=== PATIENT | female | born 1985 | race African-American/Black ===

== ENCOUNTER 2020-12-13 07:47 | Outpatient (REF) | payer MEDICAID, SELFPAY ==
--- NOTE | 2020-12-13 | PFT_ITS ---
FLOWS: FEV1 100% of predicted at 3.02 L. FVC 98% of predicted at 3.50 L. FEV1 to FVC ratio of 0.86. No bronchodilator response. LUNG VOLUMES: Total lung capacity 99% of predicted at 4.89 L. Residual volume 84% of predicted at 1.24 L. Slow vital capacity 106% of predicted at 3.65 L. Expiratory reserve volume 83% of predicted at 1.03 L. Diffusion capacity is normal. IMPRESSION: No obstructive or restrictive ventilatory defect. No bronchodilator response. Essentially normal pulmonary function test. Preet Casper MD AP/MODL / [id number]
== END 2020-12-13 07:48 | disposition home or self-care (01) ==
LOC: HO.RESP 07:47
PROVIDERS: PCP Nurse Practitioner Family; Visit Provider Nurse Practitioner Family
DX: J45.40 Moderate persistent asthma, uncomplicated (principal)
CPT/HCPCS: 94060; 94727; 94729

== ENCOUNTER 2021-01-25 14:50 | Outpatient (REF) | payer MEDICAID, SELFPAY | END 2021-01-25 14:51 | disposition home or self-care (01) | LOC: HO.LAB 14:50 | PROVIDERS: Visit Provider Internal Medicine | DX: Z20.822 Contact with and (suspected) exposure to COVID-19 (principal) | CPT/HCPCS: 36415; C9803; U0003; U0005 ==

== ENCOUNTER → 2021-08-13 10:58 | Outpatient (BNV) | payer MEDICAID, SELFPAY | PROVIDERS: Referring Provider Nurse Practitioner Primary Care; Visit Provider Internal Medicine Medical Oncology | DX: D64.9 Anemia, unspecified (principal) | CPT/HCPCS: 99203; 99213 ==

== ENCOUNTER 2021-11-14 12:34 | Outpatient (REF) | payer MEDICAID, SELFPAY | END 2021-11-14 12:35 | disposition home or self-care (01) | LOC: HO.LAB 12:34 | PROVIDERS: Visit Provider Internal Medicine | DX: Z13.89 Encounter for screening for other disorder (principal) ==

== ENCOUNTER 2022-09-01 10:50 | Outpatient (REF) | payer MEDICAID, SELFPAY ==
--- NOTE | ~2022-09-01 | XR_ITS ---
EXAMINATION: LUMBAR SPINE AND CERVICAL SPINE X-RAYS CLINICAL INFORMATION: Pain COMPARISON: None TECHNIQUE: 3 views of the lumbar spine and 3 views of the cervical spine FINDINGS: Lumbar spine: Bone alignment is normal. No fracture or dislocation. Normal disc spaces. IUD in the pelvis. Cervical spine: Bone alignment is normal. No fracture or dislocation. Mild degenerative spondylosis at C3-C4 and C5-C6. Normal disc spaces. Normal prevertebral soft tissues. XR/XR cervical spine 3V IMPRESSION: Lumbar spine: Unremarkable exam. Cervical spine: Mild degenerative changes.
--- NOTE | ~2022-09-01 | XR_ITS ---
EXAMINATION: LUMBAR SPINE AND CERVICAL SPINE X-RAYS CLINICAL INFORMATION: Pain COMPARISON: None TECHNIQUE: 3 views of the lumbar spine and 3 views of the cervical spine FINDINGS: Lumbar spine: Bone alignment is normal. No fracture or dislocation. Normal disc spaces. IUD in the pelvis. Cervical spine: Bone alignment is normal. No fracture or dislocation. Mild degenerative spondylosis at C3-C4 and C5-C6. Normal disc spaces. Normal prevertebral soft tissues. XR/XR lumbar spine 2-3V IMPRESSION: Lumbar spine: Unremarkable exam. Cervical spine: Mild degenerative changes.
== END 2022-09-01 10:51 | disposition home or self-care (01) ==
LOC: HO.XRAY 10:50
PROVIDERS: PCP Nurse Practitioner Primary Care; Visit Provider Emergency Medicine
DX: M54.2 Cervicalgia (principal); M54.50 Low back pain, unspecified
CPT/HCPCS: 72040; 72100

== ENCOUNTER 2023-05-27 08:08 | Outpatient (REF) | payer MEDICAID, SELFPAY | END 2023-05-27 08:09 | disposition home or self-care (01) | LOC: HO.MDS 08:08 | PROVIDERS: Visit Provider Internal Medicine Medical Oncology | DX: D50.9 Iron deficiency anemia, unspecified (principal) | CPT/HCPCS: 96365; J1756 ==

== ENCOUNTER 2023-06-04 13:42 | Outpatient (REF) | payer MEDICAID, SELFPAY | END 2023-06-04 13:43 | disposition home or self-care (01) | LOC: HO.MDS 13:42 | PROVIDERS: Visit Provider Internal Medicine Medical Oncology | DX: D50.8 Other iron deficiency anemias (principal) | CPT/HCPCS: 96365; J1756 ==

== ENCOUNTER 2023-06-11 13:17 | Outpatient (REF) | payer MEDICAID, SELFPAY | END 2023-06-11 13:18 | disposition home or self-care (01) | LOC: HO.MDS 13:17 | PROVIDERS: Visit Provider Internal Medicine Medical Oncology | DX: D50.8 Other iron deficiency anemias (principal) | CPT/HCPCS: 96365; J1756 ==

== ENCOUNTER 2023-06-11 16:37 | Outpatient (REF) | payer MEDICAID, SELFPAY | END 2023-06-11 16:38 | disposition home or self-care (01) | LOC: HO.HHCLNP 16:37 | PROVIDERS: Visit Provider Student in an Organized Health Care Education/Training Program | DX: R30.9 Painful micturition, unspecified (principal) | CPT/HCPCS: 87086 ==

== ENCOUNTER 2023-07-02 12:32 | Outpatient (REF) | payer MEDICAID, SELFPAY ==
[2023-07-02 13:15] LABS: MANUAL DIFF FLAG NO
[2023-07-02 13:18] LABS: Basophils Percent Auto 0.3 % (0-2); Eosinophils Absolute Auto 0.2 X10*3/uL (0.0-0.4); Eosinophils Percent Auto 1.8 % (0-4); Hematocrit 34.6 % (37.0-47.0); Hemoglobin 10.9 g/dl (12.0-16.0); Imm Gran Abs Auto 0.04 X10*3/uL (0.00-0.03); Imm Gran Pct Auto 0.3 % (0.0-0.4); Lymphocytes Absolute Auto 2.9 X10*3/uL (1.2-4.9); Lymphocytes Percent Auto 23.1 % (20-40); Mean Corpuscular HGB Conc 31.5 g/dl (31.0-35.0); Mean Corpuscular Hemoglobin 22.6 pg (27.0-33.0); Mean Corpuscular Volume 71.6 fL (80.0-98.0); Mean Platelet Volume 9.7 fL (9.4-12.3); Monocytes Absolute Auto 0.7 X10*3/uL (0.1-1.2); Monocytes Percent Auto 5.2 % (2-11); Neutrophils Absolute Auto 8.6 x10*3/uL (2.0-8.3); Neutrophils Percent Auto 69.3 % (45-73); Platelet Count 422 X10*3/uL (160-400); Red Blood Count 4.83 X10*6/uL (4.20-5.50); Red Cell Distribution Width 21.3 % (11.0-16.0); White Blood Count 12.5 X10*3/uL (4.8-10.8)
[2023-07-02 13:54] LABS: Ferritin 58 ng/mL (10-122)
== END 2023-07-02 12:33 | disposition home or self-care (01) ==
LOC: HO.MDS 12:32
PROVIDERS: Visit Provider Internal Medicine Medical Oncology
DX: D50.8 Other iron deficiency anemias (principal)
CPT/HCPCS: 36415; 82728; 85025; 96365; J1756

== ENCOUNTER 2023-07-09 13:26 | Outpatient (REF) | payer MEDICAID, SELFPAY | END 2023-07-09 13:27 | disposition home or self-care (01) | LOC: HO.MDS 13:26 | PROVIDERS: Visit Provider Internal Medicine Medical Oncology | DX: D50.8 Other iron deficiency anemias (principal) | CPT/HCPCS: 96365; J1756 ==

== ENCOUNTER 2023-07-16 12:37 | Outpatient (REF) | payer MEDICAID, SELFPAY | END 2023-07-16 12:38 | disposition home or self-care (01) | LOC: HO.MDS 12:37 | PROVIDERS: Visit Provider Internal Medicine Medical Oncology | DX: D50.9 Iron deficiency anemia, unspecified (principal) | CPT/HCPCS: 96365; J1756 ==

== ENCOUNTER 2023-07-23 12:39 | Outpatient (REF) | payer MEDICAID, SELFPAY | END 2023-07-23 12:40 | disposition home or self-care (01) | LOC: HO.MDS 12:39 | PROVIDERS: Visit Provider Internal Medicine Medical Oncology | DX: D50.8 Other iron deficiency anemias (principal) | CPT/HCPCS: 96365; J1756 ==

== ENCOUNTER 2023-07-30 12:06 | Outpatient (REF) | payer MEDICAID, SELFPAY | END 2023-07-30 12:07 | disposition home or self-care (01) | LOC: HO.MDS 12:06 | PROVIDERS: Visit Provider Internal Medicine Medical Oncology | DX: D50.8 Other iron deficiency anemias (principal) | CPT/HCPCS: 96365; J1756 ==

== ENCOUNTER 2023-10-12 09:32 | Outpatient (AMB) | payer MEDICAID, SELFPAY ==
[2023-10-12 09:34] VITALS: BP 136/73; PULSE 100; BMI 35.5
--- NOTE | 2023-10-12 09:34 | A.OFFVIS_ITS ---
Intake Vital Signs 10/12/23 09:34 Height 5 ft 3 in Weight 200 lb 9.93 oz BMI 35.5 BP 136/73 Blood Pressure Location Lt brachial Position Sitting Pulse 100 Pulse Source Pulse Oximeter Intake Visit Reasons: Gerd Intake Note: Pt presents to the office today for GERD. Pt states he has acid reflux occasionally. Pt states it is not everyday and it isnt consistant. Pt states it usaully happens after she eats but it is not everytime she eats. Pt states she does get nauseous when she gets acid reflux. Pt denies any vomiting or diarrhea. Allergies sulfamethoxazole [From BACTRIM] Allergy (Intermediate, Unverified 10/12/23 09:36) RASH trimethoprim [From BACTRIM] Allergy (Intermediate, Unverified 10/12/23 09:36) RASH Sulfa (Sulfonamide Antibiotics) [SULFA (SULFONAMIDE ANTIBIOTICS)] Allergy (Unknown, Unverified 10/12/23 09:36) UNKNOWN, erythema, rash HPI Gerd HPI Details 38-year-old female with past medical his tory of anemia, status post cholecystectomy is here today for initial consultation. Patient reports that she has been having postprandial epigastric pain with dyspepsia and occasional nausea for the past year. Patient reports she had cholecystectomy about 3 years ago. Patient reports that occasionally postprandially she will have abdominal bloating. Patient denies dysphagia or odynophagia. Patient was placed on omeprazole by her PCP, however she states that it was not effective and she stopped taking it. Last dose over 3 weeks ago. Patient states that she takes Pepcid on as needed basis, last dose 4 days ago. Patient denies melena, hematochezia, unintentional weight loss or ribbon like stools. Patient reports that she is not moving her bowels well. Even though sometimes she will have a bowel movement couple times a day she does not feel like she empties her bowels completely. Patient reports occasional right upper quadrant pain and epigastric pain. Patient reports pain 1-2 hours after eating. 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 Asthma Anxiety and depression Easy bruising Pain in both wrists Pain in finger of both hands Microcytic hypochromic anemia Herpes simplex labialis Seasonal allergies Migraine Mood disorder Bilateral carpal tunnel syndrome GERD without esophagitis IUD (intrauterine device) in place Vitamin D deficiency Anemia Mild intermittent asthma Arthralgia Arthritis Surgical History History of ankle surgery H/O splenectomy Family History Father Pancreatic cancer Lupus Maternal Aunt Breast cancer Household Members: Spouse and Children Housing: House Alcohol intake: current Alcohol intake frequency: holidays/special occasions only Alcohol type: hard liquor Patient Tobacco Use Status: Never used Tobacco service: No Current occupational status: employed Review of Systems Const Denies weight gain and Denies weight loss ENT Reports no additional complaints, Denies dysphagia and Denies odynophagia Card Reports no additional complaints Resp Reports no additional complaints GI Reports abdominal pain, Denies belching, Denies melena, Reports bloating, Denies change in bowel habits, Denies dysphagia, Denies excessive flatus, Denies dyspepsia, Reports heartburn, Denies diarrhea, Denies loose stools, Reports nausea, Denies odynophagia and Denies vomiting Reports no additional complaints Musc Reports no additional complaints Neuro Reports no additional complaints Psych Reports no additional complaints Endo Reports no additional complaints Physical Exam Vital Signs: Last Vital Signs Pulse 100 10/12/23 09:34 BP 136/73 10/12/23 09:34 BMI result Body Mass Index 35.5 Const General: healthy appearing, no acute distress and well developed Nutritional Appearance: obese Orientation/consciousness: patient oriented x3 HEENT Head: Yes normal to inspection, Yes normocephalic and Yes atraumatic Face and sinus: Yes normal facial exam Mouth: Normal oral and palatal mucosa present Throat: Yes posterior oropharynx normal, Yes tonsils normal and Yes uvula midline Eyes General: appearance normal, both eyes and all related structures Neck Neck: Yes normal visual inspection, Yes full ROM and Yes trachea midline Thyroid: Thyroid normal Resp Effort & Inspection: normal respiratory effort, able to speak in complete sentences, no tracheal deviation and symmetric chest movement Auscultation: clear to auscultation bilaterally Cardio Rate: regular rate Heart sounds: S1 normal heart sound present and S2 normal heart sound present GI Inspection: Yes normal to inspection, No distended and Yes obesity Palpation (GI): Soft to palpation, not firm, nontender and No hepatosplenomegaly present Auscultation: normal bowel sounds General: Yes no CVA tenderness Back/Spine/Pelvis Back: no CVA tenderness Skin General skin exam: elasticity normal, turgor normal and dry skin Neuro General: patient oriented x3 Psych Appearance: grossly normal Mental Status: mental status grossly normal Assessment & Plan Assessment & Plan (1) GERD (gastroesophageal reflux disease): Code(s): K21.9 - Gastro-esophageal reflux disease without esophagitis Qualifiers: Esophagitis presence: esophagitis presence not specified Qualified Code(s): K21.9 - Gastro-esophageal reflux disease without esophagitis (2) Postprandial abdominal bloating: Code(s): R14.0 - Abdominal distension (gaseous) (3) Epigastric pain: Code(s): R10.13 - Epigastric pain Plan Will test for H pylori today, will treat empirically if positive. Patient can start famotidine daily. Discussed with patient avoiding dietary triggers in late night snacking. Staying upright for minimal 3 hours after meals discussed with patient. Discussed with patient low FODMAP diet. List of food recommended as well as list of food to avoid given to patient. Will check lipase, transglutaminase, thyroid study. Patient can take senna daily to help her move her bowels better. Patient was also encouraged to increase fluid intake and activity to promote better bowel motility. I will see her in 2 months, sooner on as needed basis. Patient is agreeable to this plan and verbalizes understanding of instructions. She was given the opportunity to ask questions and all questions answered. Thank you for allowing me to participate in her care Orders: Orders Transglutaminase IgA Today R10.9 - Unspecified abdominal pain Transglutaminase Ab IgG Today R10.9 - Unspecified abdominal pain TSH reflex Free T4 Today K59.00 - Constipation, unspecified Lipase Today R10.9 - Unspecified abdominal pain H Pylori Breath Test Today R10.13 - Epigastric pain Vitamin D 25-OH (D2 and D3) Today E55.9 - Vitamin D deficiency, unspecified Medications: New famotidine (Pepcid) 20 mg PO BEDTIME 30 tabs 3RF K21.9 - Gastro-esophageal reflux disease without esophagitis sennosides (Natural Senna Laxative) 17.2 mg (2 x 8.6 mg) PO BEDTIME 60 tabs 3RF constipation K59.00 - Constipation, unspecified Coding Level of Care Code New Pt Level 3 (66209) Diagnoses Gastroesophageal reflux disease, unspecified whether esophagitis present K21.9 Esophagitis presence: esophagitis presence not specified Postprandial abdominal bloating R14.0 Epigastric pain R10.13 Time Spent (min) 40 Comment 30 minutes spent with patient and additional 10 minutes spent reviewing her records
== END 2023-10-12 10:24 | disposition home or self-care (01) ==
PROVIDERS: PCP Nurse Practitioner Primary Care; Visit Provider Nurse Practitioner Family
DX: K21.9 Gastro-esophageal reflux disease without esophagitis (principal); R14.0 Abdominal distension (gaseous); R10.13 Epigastric pain
CPT/HCPCS: 99203

== ENCOUNTER 2023-10-12 09:32 | Outpatient (REF) | payer MEDICAID, SELFPAY ==
[2023-10-12 11:59] LABS: TSH reflex Free T4 1.57 uIU/mL (0.32-4.0)
[2023-10-12 12:03] LABS: Lipase 13 U/L (8-78)
[2023-10-15 06:43] LABS: Transglutaminase Ab IgG <1.0 U/mL; Transglutaminase IgA <1.0 U/mL
[2023-10-15 15:53] LABS: Vitamin D 25-OH, D2 <4 ng/mL; Vitamin D 25-OH, D3 17 ng/mL; Vitamin D 25-OH, Total 17 ng/mL (30-100)
[2023-10-17 15:07] LABS: H Pylori Breath Test Negative (Negative)
== END 2023-10-12 09:33 | disposition home or self-care (01) ==
LOC: HO.LAB 09:32
PROVIDERS: PCP Nurse Practitioner Primary Care; Visit Provider Nurse Practitioner Family
DX: R10.13 Epigastric pain (principal); R10.9 Unspecified abdominal pain; E55.9 Vitamin D deficiency, unspecified; K59.00 Constipation, unspecified; R14.0 Abdominal distension (gaseous)
CPT/HCPCS: 36415; 82306; 83013; 83690; 84443; 86364; 99212

== ENCOUNTER 2024-01-25 10:53 | Outpatient (AMB) | payer MEDICAID, SELFPAY ==
[2024-01-25 10:58] VITALS: BP 139/65; PULSE 100; BMI 35.7
--- NOTE | 2024-01-25 10:58 | A.OFFVIS_ITS ---
Intake Vital Signs 01/25/24 10:58 Height 5 ft 3 in Weight 201 lb 8.04 oz BMI 35.7 BP 139/65 Blood Pressure Location Rt brachial Position Sitting Pulse 100 Intake Visit Reasons: follow up GERD Intake Note: Oriana presents to the office today in follow up of GERD and labs. CC: Patient c/o epigastric pain, nausea, LUQ abdominal pain, GERD, and constipation last month. She also reports she was having diarrhea, nausea, and abdominal pain for a week and then again for a weekend. She is unsure if she had a virus but states she is doing better now. She also reports that lately she is having a lot of allergies, she feels her body, throat, and eyes itching. Allergies sulfamethoxazole [From BACTRIM] Allergy (Intermediate, Verified 01/25/24 11:04) RASH trimethoprim [From BACTRIM] Allergy (Intermediate, Verified 01/25/24 11:04) RASH Sulfa (Sulfonamide Antibiotics) [SULFA (SULFONAMIDE ANTIBIOTICS)] Allergy (Unknown, Verified 01/25/24 11:04) UNKNOWN, erythema, rash HPI follow up GERD HPI Details LAST VISIT: GERD (gastroesophageal reflux disease) Postprandial abdominal bloating Epigastric pain Plan Will test for H pylori today, will treat empirically if positive. Patient can start famotidine daily. Discussed with patient avoiding dietary triggers in late night snacking. Staying upright for minimal 3 hours after meals discussed with patient. Discussed with patient low FODMAP diet. List of food recommended as well as list of food to avoid given to patient. Will check lipase, transglutaminase, thyroid study. Patient can take senna daily to help her move her bowels better. Patient was also encouraged to increase fluid intake and activity to promote better bowel motility. I will see her in 2 months, sooner on as needed basis. Patient is agreeable to this plan and verbalizes understanding of instructions. She was given the opportunity to ask questions and all questions answered. ? Thank you for allowing me to participate in her care Orders Orders Transglutaminase IgA Today R10.9 Transglutaminase Ab IgG Today R10.9 TSH reflex Free T4 Today K59.00 Lipase Today R10.9 H Pylori Breath Test Today R10.13 Vitamin D 25-OH (D2 and D3) Today E55.9 Medications New famotidine (Pepcid) 20 mg PO BEDTIME 30 tabs 3RF K21.9 sennosides (Natural Senna Laxative) 17.2 mg (2 x 8.6 mg) PO BEDTIME 60 tabs 3RF constipation K59.00 TODAY'S VISIT Patient is here today for follow-up. Patient reports epigastric discomfort postprandially. Patient reports postprandial abdominal bloating. Occasional nausea. Patient reports that she was taking senna and continues to be constipated. Patient denies any melena, hematochezia, unintentional weight loss or ribbon like stools. Patient had blood work done no celiac, no H pylori. Low vitamin-D level and patient started taking her vitamin-D supplements, however she has not taking them for the last month or so. Patient was unable to make her 2 month follow-up appointment as she had other commitments. Patient reports acid reflux and dyspepsia. Patient denies any dysphagia or odynophagia. Patient denies any issues with anesthesia in the past. No history of sleep apnea. Not on any anticoagulation medication. 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 Asthma Anxiety and depression Easy bruising Pain in both wrists Pain in finger of both hands Microcytic hypochromic anemia Herpes simplex labialis Seasonal allergies Migraine Mood disorder Bilateral carpal tunnel syndrome GERD without esophagitis IUD (intrauterine device) in place Vitamin D deficiency Anemia Mild intermittent asthma Arthralgia Arthritis Surgical History History of ankle surgery H/O splenectomy Family History Father Pancreatic cancer Lupus Maternal Aunt Breast cancer Social History Household Members: Spouse and Children Housing: House Alcohol intake: current Alcohol intake frequency: holidays/special occasions only Alcohol type: hard liquor Patient Tobacco Use Status: Never used Tobacco service: No Current occupational status: employed Review of Systems Const Denies weight gain and Denies weight loss ENT Reports no additional complaints, Denies dysphagia and Denies odynophagia Card Reports no additional complaints Resp Reports no additional complaints GI Reports abdominal pain, Denies belching, Denies melena, Reports bloating, Reports constipation, Denies dysphagia, Denies excessive flatus, Reports dyspepsia, Reports heartburn, Denies diarrhea, Denies loose stools, Denies nausea, Denies odynophagia and Denies vomiting Reports no additional complaints Musc Reports no additional complaints Neuro Reports no additional complaints Psych Reports no additional complaints Endo Reports no additional complaints Physical Exam Vital Signs: Last Vital Signs Pulse 100 01/25/24 10:58 BP 139/65 01/25/24 10:58 BMI result Body Mass Index 35.7 Const General: healthy appearing, no acute distress and well developed Nutritional Appearance: obese Orientation/consciousness: patient oriented x3 Resp Effort & Inspection: normal respiratory effort, able to speak in complete sentences, no tracheal deviation and symmetric chest movement Auscultation: clear to auscultation bilaterally Cardio Rate: regular rate GI Inspection: Yes normal to inspection, No distended and Yes obesity Palpation (GI): Soft to palpation, not firm, nontender and No hepatosplenomegaly present Auscultation: normal bowel sounds General: Yes no CVA tenderness Back/Spine/Pelvis Back: no CVA tenderness Skin General skin exam: elasticity normal, turgor normal and dry skin Neuro General: patient oriented x3 Psych Appearance: grossly normal Mental Status: mental status grossly normal Results Reviewed Results Reviewed: Laboratory Tests 10/12/23 10/12/23 10:01 10:38 Lipase 13 25-OH Vitamin D Total 17 L TSH 1.57 Tiss Transglutamin IgG <1.0 Tiss Transglutamin IgA <1.0 H. pylori Breath Test Negative Assessment & Plan Assessment & Plan (1) GERD (gastroesophageal reflux disease): Code(s): K21.9 - Gastro-esophageal reflux disease without esophagitis Qualifiers: Esophagitis presence: esophagitis presence not specified Qualified Code(s): K21.9 - Gastro-esophageal reflux disease without esophagitis (2) Postprandial abdominal bloating: Code(s): R14.0 - Abdominal distension (gaseous) (3) Epigastric pain: Code(s): R10.13 - Epigastric pain (4) Constipation: Code(s): K59.00 - Constipation, unspecified Qualifiers: Constipation type: slow transit constipation Qualified Code(s): K59.01 - Slow transit constipation Plan Patient continues to be constipated and continues to have epigastric discomfort. Patient can start taking Dulcolax daily. Will add omeprazole and she can take famotidine at nighttime. Discussed with patient diet changes. Discussed with patient avoiding dietary triggers and late night snacking. Staying upright for minimal 3 hours after meals discussed with her. Patient will be sent for upper endoscopy to rule out gastritis, esophagitis, duodenitis, gastric or peptic ulcers, Lawson's, H pylori. I will see patient after the procedure, sooner on as needed basis. Patient is agreeable to this plan and verbalizes understanding of instructions. She was given the opportunity to ask questions and all questions answered. Thank you for allowing me to participate in her care Medications: New omeprazole 20 mg PO DAILY 30 caps 4RF K21.9 - Gastro-esophageal reflux disease without esophagitis bisacodyl (Dulcolax (bisacodyl)) 10 mg (2 x 5 mg) PO BEDTIME 60 tabs 4RF Refilled famotidine (Pepcid) 20 mg PO BEDTIME 30 tabs 3RF K21.9 - Gastro-esophageal reflux disease without esophagitis cholecalciferol (vitamin D3) 50 mcg PO DAILY 90 caps 3RF R79.89 - Other specified abnormal findings of blood chemistry Discontinued sennosides (Natural Senna Laxative) Discontinued Reason: Doctor's Order 17.2 mg (2 x 8.6 mg) PO BEDTIME 60 tabs 3RF constipation K59.00 - Constipation, unspecified Coding Level of Care Code Est Pt Level 4 (06949) Diagnoses Gastroesophageal reflux disease, unspecified whether esophagitis present K21.9 Esophagitis presence: esophagitis presence not specified Postprandial abdominal bloating R14.0 Epigastric pain R10.13 Slow transit constipation K59.01 Constipation type: slow transit constipation Time Spent (min) 35 Comment 20 minutes spent with patient and additional 15 minutes spent reviewing her records
== END 2024-01-25 11:27 | disposition home or self-care (01) ==
PROVIDERS: PCP Nurse Practitioner Primary Care; Visit Provider Nurse Practitioner Family
DX: K21.9 Gastro-esophageal reflux disease without esophagitis (principal); R14.0 Abdominal distension (gaseous); R10.13 Epigastric pain; K59.01 Slow transit constipation
CPT/HCPCS: 99214

== ENCOUNTER → 2024-01-25 10:53 | Outpatient (BNVA) | payer MEDICAID, SELFPAY | PROVIDERS: PCP Nurse Practitioner Primary Care; Visit Provider Nurse Practitioner Family | DX: K21.9 Gastro-esophageal reflux disease without esophagitis (principal); K59.01 Slow transit constipation; R14.0 Abdominal distension (gaseous); R10.13 Epigastric pain | CPT/HCPCS: 99212 ==

== ENCOUNTER 2024-04-27 09:09 | Outpatient (REF) | payer MEDICAID, SELFPAY ==
[2024-04-27 11:55] LABS: Estimated Average Glucose 111 mg/dL; Hemoglobin A1c % 5.5 % (<6.0)
[2024-04-27 12:11] LABS: Cholesterol 135 mg/dL (<200); HDL Cholesterol 34 mg/dL (>40); LDL Cholesterol Calculated 87 mg/dL (<100); Triglycerides 70 mg/dL (<150)
[2024-04-27 12:14] LABS: HIV AB/AG Nonreactive (Nonreactive); HIV Num 1 0.06 S/CO (0.00-0.99); ~Hepatitis C Antibody Nonreactive (Nonreactive)
[2024-04-29 13:13] LABS: RPR Rapid Plasma Reagin NON-REACTIVE (NON-REACTIVE)
== END 2024-04-27 09:10 | disposition home or self-care (01) ==
LOC: HO.HHCL 09:09
PROVIDERS: Visit Provider Nurse Practitioner Primary Care
DX: Z11.3 Encounter for screening for infections with a predominantly sexual mode of transmission (principal); R73.09 Other abnormal glucose
CPT/HCPCS: 36415; 80061; 83036; 86592; 86803; 87389

== ENCOUNTER 2024-08-10 18:17 | Outpatient (REF) | payer MEDICAID, SELFPAY ==
[2024-08-11 06:06] LABS: CT PCR NOT DETECTED (Not Detect.); NG PCR NOT DETECTED (Not Detect.)
[2024-08-11 10:51] LABS: Bacterial Vaginosis PCR NEGATIVE (Negative); Candida Group PCR DETECTED (Not Detect); Candida glab krusei PCR NOT DETECTED (Not Detect); Trichomonas vaginalis PCR NOT DETECTED (Not Detect)
== END 2024-08-10 18:18 | disposition home or self-care (01) ==
LOC: HO.HHCLNP 18:17
PROVIDERS: Visit Provider Emergency Medicine
DX: R39.9 Unspecified symptoms and signs involving the genitourinary system (principal)
CPT/HCPCS: 0352U; 87086; 87147; 87491; 87591

== ENCOUNTER 2024-08-25 16:11 | Outpatient (REF) | payer MEDICAID, SELFPAY ==
[2024-08-25 18:10] LABS: Bacterial Vaginosis PCR NEGATIVE (Negative); Candida Group PCR NOT DETECTED (Not Detect); Candida glab krusei PCR NOT DETECTED (Not Detect); Trichomonas vaginalis PCR NOT DETECTED (Not Detect)
== END 2024-08-25 16:12 | disposition home or self-care (01) ==
LOC: HO.HHCLNP 16:11
PROVIDERS: Visit Provider Nurse Practitioner Primary Care
DX: N89.8 Other specified noninflammatory disorders of vagina (principal); N39.0 Urinary tract infection, site not specified
CPT/HCPCS: 0352U; 87086

== ENCOUNTER 2024-09-01 16:40 | Outpatient (REF) | payer MEDICAID, SELFPAY ==
[2024-09-02 03:55] LABS: CT PCR NOT DETECTED (Not Detect.); NG PCR NOT DETECTED (Not Detect.)
[2024-09-02 09:12] LABS: Bacterial Vaginosis PCR NEGATIVE (Negative); Candida Group PCR NOT DETECTED (Not Detect); Candida glab krusei PCR NOT DETECTED (Not Detect); Trichomonas vaginalis PCR NOT DETECTED (Not Detect)
== END 2024-09-01 16:41 | disposition home or self-care (01) ==
LOC: HO.LNP 16:40
PROVIDERS: Visit Provider Internal Medicine
DX: R30.0 Dysuria (principal)
CPT/HCPCS: 0352U; 87086; 87147; 87491; 87591

== ENCOUNTER 2024-09-02 13:10 | Outpatient (REF) | payer MEDICAID, SELFPAY | END 2024-09-02 13:11 | disposition home or self-care (01) | LOC: HO.US 13:10 | PROVIDERS: PCP Nurse Practitioner Primary Care; Visit Provider Internal Medicine | DX: R39.9 Unspecified symptoms and signs involving the genitourinary system (principal); R31.29 Other microscopic hematuria | CPT/HCPCS: 76775 ==

== ENCOUNTER 2024-10-06 09:03 | Day surgery (SDC) | payer MEDICAID, SELFPAY ==
[2024-10-04 14:36] VITALS: BMI 35.8
--- NOTE | 2024-10-05 10:55 | P.CONAN_ITS ---
Documented by User: Alejandra Yates NP 10/05/24 10:57 HPI - Anesthesia Eval Consult details Narrative: 39yo F for Upper Endoscopy hx splenectomy. Follows C Heme for anemia. 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 Asthma Anxiety and depression Easy bruising Microcytic hypochromic anemia Herpes simplex labialis Seasonal allergies Migraine Mood disorder Bilateral carpal tunnel syndrome GERD without esophagitis IUD (intrauterine device) in place Vitamin D deficiency Anemia Mild intermittent asthma Arthralgia Arthritis Family History Family History (Reviewed 01/25/24 @ 11:09 by Nishant Higginbotham [facility]) Father Pancreatic cancer Lupus Maternal Aunt Breast cancer Surgical History Surgical History History of ankle surgery H/O splenectomy Social History Social History Household Members: Spouse and Children Housing: House Are you a primary healthcare technician to a significant other at home: No Do you presently have visiting nurse or other home services: No Alcohol intake: current Alcohol intake frequency: holidays/special occasions only Alcohol type: hard liquor Patient Tobacco Use Status: Never used Tobacco Have you been hit, kicked, punched, or otherwise hurt by someone within the past year? If so, by whom?: No Are you DNR?: No Advance Directives: No Advance Directives Information Provided: Yes Recently lost weight without trying: No Nutrition Risks: No Nutritional Risk FDLMP: 09/23/24 service: No Current occupational status: employed Meds Allergies Allergy/AdvReac Type Severity Reaction Status Date / Time Sulfa (Sulfonamide Allergy Intermediate erythema, Verified 10/06/24 09:50 Antibiotics) rash [SULFA (SULFONAMIDE ANTIBIOTICS)] sulfamethoxazole Allergy Intermediate RASH Verified 10/06/24 09:50 [From BACTRIM] trimethoprim [From BACTRIM] Allergy Intermediate RASH Verified 10/06/24 09:50 Home Medications ?Medication ?Instructions ?Recorded ?Confirmed ?Last Taken ?Type albuterol sulfate 2.5 mg/3 mL 2.5 mg inhalation TID 05/14/23 10/04/24 Unknown History (0.083 %) solution for nebulization cetirizine 10 mg tablet 10 mg PO DAILY 05/14/23 10/04/24 Unknown History diphenhydramine HCl 25 mg tablet 25 mg PO BEDTIME PRN Sleep 05/14/23 10/04/24 Unknown History (Banophen) fluticasone propionate 50 50 spray intranasal DAILY PRN 05/14/23 10/04/24 Unknown History mcg/actuation nasal Congestion spray,suspension meclizine 25 mg tablet 25 mg PO ONCE 05/14/23 10/04/24 Unknown History acetaminophen 500 mg capsule 1,000 mg PO Q6H PRN Pain 01/25/24 10/04/24 Unknown History mometasone 100 mcg/actuation HFA 2 puff inhalation BID 10/04/24 10/04/24 Unknown History aerosol inhaler (Asmanex HFA) Exam Height,Weight and Vital Signs: Height 5 ft 3 in Weight 91.626 kg Assessment and Plan Assessment Anesthesia Assessment: Chart Reviewed Documented by User: Yo Merino MD 10/06/24 12:23 [facility] Past Medical History Medical History 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 Asthma Anxiety and depression Easy bruising Microcytic hypochromic anemia Herpes simplex labialis Seasonal allergies Migraine Mood disorder Bilateral carpal tunnel syndrome GERD without esophagitis IUD (intrauterine device) in place Vitamin D deficiency Anemia Mild intermittent asthma Arthralgia Arthritis Patient : No Family History Family History (Reviewed 01/25/24 @ 11:09 by Nishant Higginbotham [facility]) Father Pancreatic cancer Lupus Maternal Aunt Breast cancer Family history of problems with anesthesia: No Surgical History Surgical History History of ankle surgery H/O splenectomy History of Problems with Anesthesia: No Social History Social History Household Members: Spouse and Children Housing: House Are you a primary healthcare technician to a significant other at home: No Do you presently have visiting nurse or other home services: No Alcohol intake: current Alcohol intake frequency: holidays/special occasions only Alcohol type: hard liquor Patient Tobacco Use Status: Never used Tobacco Have you been hit, kicked, punched, or otherwise hurt by someone within the past year? If so, by whom?: No Are you DNR?: No Advance Directives: No Advance Directives Information Provided: Yes Recently lost weight without trying: No Nutrition Risks: No Nutritional Risk FDLMP: 09/23/24 service: No Current occupational status: employed Meds Allergies Allergy/AdvReac Type Severity Reaction Status Date / Time Sulfa (Sulfonamide Allergy Intermediate erythema, Verified 10/06/24 09:50 Antibiotics) rash [SULFA (SULFONAMIDE ANTIBIOTICS)] sulfamethoxazole Allergy Intermediate RASH Verified 10/06/24 09:50 [From BACTRIM] trimethoprim [From BACTRIM] Allergy Intermediate RASH Verified 10/06/24 09:50 Home Medications ?Medication ?Instructions ?Recorded ?Confirmed ?Last Taken ?Type albuterol sulfate 2.5 mg/3 mL 2.5 mg inhalation TID 05/14/23 10/04/24 Unknown History (0.083 %) solution for nebulization cetirizine 10 mg tablet 10 mg PO DAILY 05/14/23 10/04/24 Unknown History diphenhydramine HCl 25 mg tablet 25 mg PO BEDTIME PRN Sleep 05/14/23 10/04/24 Unknown History (Banophen) fluticasone propionate 50 50 spray intranasal DAILY PRN 05/14/23 10/04/24 Unknown History mcg/actuation nasal Congestion spray,suspension meclizine 25 mg tablet 25 mg PO ONCE 05/14/23 10/04/24 Unknown History acetaminophen 500 mg capsule 1,000 mg PO Q6H PRN Pain 01/25/24 10/04/24 Unknown History mometasone 100 mcg/actuation HFA 2 puff inhalation BID 10/04/24 10/04/24 Unknown History aerosol inhaler (Asmanex HFA) Exam Airway Mallampati Class: II TM Dist: <=3cm Neck ROM: Full Loose/Missing/Broken Teeth: No Heart: ok Lungs: ok Assessment and Plan Assessment Anesthesia Assessment: Anesthesia Plan Discussed Final Anesthetic Review Family History of Problems with Anesthesia: No History of Problems with Anesthesia: No NPO: Yes ASA Class: II Final Preanesthetic Review: No Changes in Pt Med Stat, Meds/Allgs Chart Reviewed, Consent Obtained/Reviewed and Anes Risks/Benef Reviewed Patient Risk: Low Procedure Risk: Intermediate Anesthetic Plan Anesthetic Plan: Agree w/ Assess. and Plan and TIVA Disposition: Standard PACU
[2024-10-06 09:54] LABS: UPreg QC Valid YES
[2024-10-06 09:55] LABS: Urine Pregnancy NEGATIVE (NEGATIVE)
[2024-10-06 09:58] VITALS: BP 124/78; PULSE 87; RESP 18; TEMP 36.7; O2SAT 100
[2024-10-06] MEDS: Lactated Ringers 1,000 ML 100 ML IVCONT (09:58)
--- NOTE | 2024-10-06 11:28 | MHC.SHP ---
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 Asthma Anxiety and depression Easy bruising Pain in both wrists Pain in finger of both hands Microcytic hypochromic anemia Herpes simplex labialis Seasonal allergies Migraine Mood diso) History of Previous Operations: Relevant previous surgery/procedure and date(s) (History of ankle surgery H/O splenectomy) Allergies: Allergies Allergy/AdvReac Type Severity Reaction Status Date / Time Sulfa (Sulfonamide Allergy Intermediate erythema, Verified 10/06/24 09:50 Antibiotics) rash [SULFA (SULFONAMIDE ANTIBIOTICS)] sulfamethoxazole Allergy Intermediate RASH Verified 10/06/24 09:50 [From BACTRIM] trimethoprim [From BACTRIM] Allergy Intermediate RASH Verified 10/06/24 09:50 Review of Systems Sugical H&P ROS: Negative: Constitution, Cardiovascular, Respiratory, Neurological, Psychiatric, Hem-Onc, Allergic/Immunologic, Gastrointestinal, Genitourinary, Musculoskeletal, Integumentary, Endocrine and Eyes/Ears/Nose/Throat Exam Surgical H&P Exam: Normal: HEENT, Normal: Heart, Normal: Lungs, Normal: Extremities, Normal: Abdomen, Normal: Skin and Normal: Neurological Plan Diagnosis/Plan: Unchanged I have reviewed the history and physical and performed a pertinent physical examination on my patient. No changes have occurred unless specified. Time Spent With Patient Time: Total time managing care of this patient today ____ minutes.
--- NOTE | 2024-10-06 12:37 | W.PM.OPN ---
Operative Note Operative Note Date of Service: 10/06/24 Narrative: Procedure Description: EGD Indication: epigatric pain Anesthesia: MAC FLEXIBLE TRANSORAL UPPER GASTROINTESTINAL ENDOSCOPY UPPER ENDOSCOPY Consent: Indications for the procedure and potential complications of bleeding, perforation, reaction to medications and missed diagnosis were discussed with the patient and informed consent was obtained. Instrument: Olympus GIF H 190 J mid size upper endoscope Monitoring: Vital signs and clinical assessment, continuous EKG monitoring, Pulse oximetry, Carbon Dioxide monitoring and blood pressure monitoring were done throughout the procedure. Procedure: The patient was placed in the left lateral decubitis position and pre-procedure medications were administered and a bite block was placed. The endoscope was inserted into the mouth and advanced under direct vision to the third part of duodenum. A careful inspection was made as the upper endoscope was withdrawn including a retroflexed examination of the proximal stomach; Findings and interventions are described below. Findings: Larynx:normal Esophagus: GE junction at 38 cm, diaphragm hiatus at 38 cm, mild esophagitis at GEJ, bx taken also random esophagus bx taken Stomach: mild erythema . Biopsies were obtained. Grade 2 flap valve on retroflexed examination of the cardia. 4-6 mm sessile polyp removed with biopsy forceps Duodenum: Normal bulb and descending duodenum, bx taken Intervention: Biopsies as noted above, Impression/Findings: mild esophagitis gastric polyp PLAN: await bx GERD precautions\ if bx neg then expand w/u GES etc
[2024-10-06 12:45] VITALS: BP 100/57; PULSE 117; RESP 18; TEMP 36.3; O2SAT 96
[2024-10-06 13:00] VITALS: BP 111/76; PULSE 89; RESP 20; TEMP 36.8; O2SAT 99
--- OUTSIDE RECORDS SUMMARY | 2024-10-07 14:36 | XMS_ITS | Continuity of Care Document ---
Author Organization [facility] Address [address] [facility], 3r d Floor, [address] [place] [address]- Care Team Providers Care Felt Dyeing Machine Tender Name Role Phone Hayden MARINA, Ivory Chun Primary Care Physician En[facility] [facility] Date(s): 02/13/20 - 02/23/20 [facility] [address], [address]rd Floor, [address] [place] [address]- [facility] Attending Physician: Ruben Stoll Admitting Physician: Ruben Stoll Referring Physician: AdmtrRuben Allergies, Adverse Reactions, Alerts Substance Reaction Severity Status sulfADIAZINE itchy, red Active sulfa drugs itchy/red Active Medications albuterol 90 mcg/inh inhalation powder 1 puffs, Inhalation, Every 6 hours, PRN as needed, # 1 each, 0 Refills, Maintenance, 12/14/19 10:22:00 EST, Powder Start Date: 12/14/19 Status: Ordered Claritin 10 mg oral tablet 10 mg, 1, tablet, By Mouth, Daily, PRN, Refills 0, Maintenance, Other, 12/14/19 10:23:00 EST Start Date: 12/14/19 Status: Ordered Motrin Tablet By Mouth, 3 times a day, PRN, Refills 0, Maintenance, Pain , Moderate, 12/14/19 10:24:00 EST Start Date: 12/14/19 Status: Ordered Vitamin D3 By Mouth, Daily, 0 Refills, Maintenance, 12/14/19 10:25:00 EST Start Date: 12/14/19 Status: Ordered Problem List Condition Effective Dates Status Health Status Inform ant Abdominal pain(Confirmed) Active Social History Social History Type Response Smoking Status Never (less than 100 in lifetime) entered on: 07/26/19 Sex
--- OUTSIDE RECORDS SUMMARY | 2024-10-07 14:36 | XMS_ITS | Continuity of Care Document ---
Author Organization [facility] Address [address] [facility], 3r d Floor, [address] [place] [address]- Care Team Providers Care Cage Operator Name Role Phone Hayden MARINA, Ivory Chun Primary Care Physician Encounter [facility] [place] Date(s): 11/17/19 - 03/14/20 [facility] [address], 3[address] Floor, [address] [place] [address]- [facility] Attending Physician: Brad Chapa NP Admitting Physician: Brad Chapa NP Referring Physician: Ivory Blake MD Allergies, Adverse Reactions, Alerts Substance Reaction Severity [...]
--- OUTSIDE RECORDS SUMMARY | 2024-10-07 14:36 | XMS_ITS | Continuity of Care Document ---
Author Organization [facility] Address [address] [facility], 3r d Floor, [address] [place] [address]- Care Team Providers Care Ticket Worker Name Role Phone Ivory Blake MD Primary Care Physician Encounter [facility] [place] Date(s): 05/03/20 - 08/19/20 [facility] [address] [place], 3rd Floor, [address] [place] [address]- [facility] Attending Physician: Ilene Rubio MD Admitting Physician: Ilene Rubio MD Allergies, Adverse Reactions, Alerts Substance Reaction [...] 10:23:00 EST Start Date: 12/14/19 Status: Ordered magnesium oxide 400 mg oral tablet 1 tablet = 400 mg, By Mouth, Daily, for 30 days, # 30 tablet, 6 Refills, Acute 11/12/20 14:25:00 EST, 04/16/20 14:25:00 EDT, [facility] #[id number], preventatively for headaches, 160, cm, 01/27/20 13:58:00 EDT, Height, 84.2, kg, 01/11/20 10:31:00... Start Date: 04/16/20 Stop Date: 11/12/20 Status: Ordered Motrin Tablet By Mouth, 3 [...]
--- OUTSIDE RECORDS SUMMARY | 2024-10-07 14:36 | XMS_ITS | Continuity of Care Document ---
Author Organization [facility] Address [address] [place] [address] [address] [place] [address]- Care Team Providers Care Shipping Checker Name Role Phone Hayden MARINA, Ivory Chun Primary Care Physician Encounter [facility] [place] Date(s): 01/27/20 - 02/03/[address] [place] [address]- [facility] Encounter Diagnosis S/P laparoscopic cholecystectomy(Discharge Diagnosis) - 01/27/20 Attending Physician: Scout Zapien Allergies, Adverse Reactions, Alerts Substance Reaction Severity [...] Health Status Inform ant Abdominal pain(Confirmed) Active Diagnosis Diagnosis Type Effective Dates Health Status Clinical Service Informant S/P laparoscopic cholecystectomy Discharge Diagnosis 01/27/20 Vital Signs Most recent to oldest [Reference Range]: 1 Height 160 cm (01/27/20 1:58 PM) Weight 85 kg (01/27/20 1:58 PM) Pulse Rate [55-90 bpm] 108 bpm *H* (01/27/20 1:58 PM) Body Mass Index [18.5-24.99] 33.2 *>HHI* (01/27/20 1:58 PM) Blood Pressure [90-138/55-84 mm Hg] 129/ 83mm Hg (01/27/20 1:58 PM) Respiratory Rate [16-30 br/min] 16 br/mi n (01/27/20 1:58 PM) Blood pressure sites Arm, left (01/27/20 1:58 PM) Weight Obtained Via Standing scale (01/27/20 1:58 PM) Social History Social History Type Response Smoking Status Never (less than 100 in lifetime) entered on: 07/26/19 Sex
--- OUTSIDE RECORDS SUMMARY | 2024-10-07 14:36 | XMS_ITS | Continuity of Care Document ---
Author Organization [facility] Address [address] [place] [address]- Care Team Providers Care Mental Health Aide Name Role Phone Hayden MARINA, Ivory Chun Primary Care Physician Encounter [facility] [place] Date(s): 04/03/22 - 07/03/[address] [address]- Attending Physician: Not on Staff, Attending MD Allergies, Adverse Reactions, Alerts Substance Reaction Severity Status sulfADIAZINE itchy, red Active sulfa drugs itchy/red Active Medications albuterol 90 mcg/inh inhalation powder 1 puffs, Inhalation, Every 6 hours, PRN as needed, # 1 each, 0 Refills, Maintenance, 12/14/19 10:22:00 EST, Powder Start Date: 12/14/19 Status: Ordered baclofen 10 mg oral tablet 10 mg, 1, tablet, By Mouth, 3 times a day, # 90 tablet, Refills 0, Maintenance, 03/26/21 14:51:00 EDT, Partial fill upon patient request if the prescription is for a schedule II opioid drug. Start Date: 03/26/21 Status: Ordered Claritin 10 mg oral tablet 10 mg, 1, tablet, By Mouth, Daily, PRN, Refills 0, Maintenance, Other, 12/14/19 10:23:00 EST Start Date: 12/14/19 Status: Ordered diphenhydrAMINE 25 mg oral tablet 1 tablet = 25 mg, By Mouth, Daily at bedtime, PRN for insomnia, # 30 tablet, 0 Refills, Maintenance, 03/26/21 14:52:00 EDT, Tablet, Partial fill upon patient request if the prescription is for a schedule II opioid drug. Start Date: 03/26/21 Status: Ordered ferrous sulfate 325 mg oral enteric coated tablet 325 mg, 1, tablet, By Mouth, Daily, # 30 tablet, Refills 0, Maintenance, 03/26/21 14:52:00 EDT, Partial fill upon patient request if the prescription is for a schedule II opioid drug. Start Date: 03/26/21 Status: Ordered hydrOXYzine pamoate 50 mg oral capsule 1 capsule = 50 mg, By Mouth, 3 times a day, PRN Anxiety, # 90 capsule, 0 Refills, Maintenance, 03/26/21 14:50:00 EDT, Capsule, Partial fill upon patient request if the prescription is for a schedule II opioid drug. Start Date: 03/26/21 Status: Ordered Imitrex 25 mg oral tablet 1 tablet = 25 mg, By Mouth, Daily, PRN for migraine headache, may repeat dose after 2 hours up to amaximum of 2, # 9 tablet, 0 Refills, Maintenance, 03/26/21 14:50:00 EDT, Tablet, Partial fill upon patient request if the prescription is for a schedul... Start Date: 03/26/21 Status: Ordered Motrin Tablet By Mouth, 3 times a day, PRN, Refills 0, Maintenance, Pain , Moderate, 12/14/19 10:24:00 EST Start Date: 12/14/19 Status: Ordered PriLOSEC OTC 20 mg oral delayed release tablet 3 tablet = 60 mg, By Mouth, Daily, # 270 tablet, 0 Refills, Maintenance, 03/26/21 14:53:00 EDT, CR Tablet, Partial fill upon patient request if the prescription is for a schedule II opioid drug. Start Date: 03/26/21 Status: Ordered sertraline 50 mg oral tablet 1 tablet = 50 mg, By Mouth, Daily, # 30 tablet, 0 Refills, Maintenance, 03/26/21 14:51:00 EDT, Tablet, Partial fill upon patient request if the prescription is for a schedule II opioid drug. Start Date: 03/26/21 Status: Ordered Topamax 25 mg oral tablet 1 tablet = 25 mg, By Mouth, 2 times a day, stop Vitamin - B2- & co -enzyme q 10, # 60 tablet, 5Refills, Maintenance, 03/08/21 10:17:00 EDT, Tablet, [facility] #[id number], preventatively for headaches, 160, cm, 08/28/20 10:57:00 EDT, Height, 8... Start Date: 03/08/21 Stop Date: 09/04/21 Status: Ordered Vitamin B2 = 400 mg, Daily, 0 Refills, Maintenance, 03/26/21 14:48:00 EDT, Partial fill upon patient request if the prescription is for a schedule II opioid drug. Start Date: 03/26/21 Status: Ordered Vitamin D3 By Mouth, Daily, 0 Refills, Maintenance, 12/14/19 10:25:00 EST Start Date: 12/14/19 Status: Ordered Problem List Condition Effective Dates Status Health Status Inform ant Abdominal pain(Confirmed) Active Social History Social History Type Response Smoking Status Never (less than 100 in lifetime) entered on: 07/26/19 Sex Female
--- OUTSIDE RECORDS SUMMARY | 2024-10-07 14:36 | XMS_ITS | Continuity of Care Document ---
Author Organization [facility] Address [address] [facility], 3r d Floor, [address] [place] [address]- Care Team Providers Care Grill Associate Name Role Phone Hayden MARINA, Ivory Chun Primary Care Physician [place] [facility] Date(s): 02/13/20 - 02/20/20 [facility] [address] [place], 3rd Floor, [address] [place] [address]- [facility] Attending Physician: Ramiro MARINA, Ilene Allergies, Adverse Reactions, Alerts Substance Reaction Severity [...]
--- OUTSIDE RECORDS SUMMARY | 2024-10-07 14:36 | XMS_ITS | Continuity of Care Document ---
Author Organization [facility] Address [address] [place] [address]- Care Team Providers Care Power Generation Turbine Room Operator Name Role Phone Hayden MARINA, Ivory Chun Primary Care Physician En[place] [facility] [place] Date(s): 08/19/21 - 09/18/21 [facility] [address] [place] [address]- [place] Allergies, Adverse Reactions, Alerts Substance Reaction Severity [...] tablet, 5Refills, Maintenance, 03/08/21 10:17:00 EDT, Tablet, [facility] #[id number], preventatively for headaches, 160, cm, 08/28/20 10:57:00 [...]
--- OUTSIDE RECORDS SUMMARY | 2024-10-07 14:36 | XMS_ITS | Continuity of Care Document ---
Author Organization [facility] Address [address] [facility], 3r d Floor, [address] [place] [address]- Care Team Providers Care Student Career Development Specialist Name Role Phone Hayden MARINA, Ivory Chun Primary Care Physician [place] [facility] [place]): 05/14/20 - 05/21/20 [facility] [address] [place], 3rd Floor, [address] [place] [address]- [facility] Attending Physician: Sammi SUPERVISORY LIFEGUARD, Brad Allergies, Adverse Reactions, Alerts Substance Reaction Severity [...] Acute 11/12/20 14:25:00 EST, 04/16/20 14:25:00 EDT, [facility] #[id number], preventatively for headaches, 160, cm, 01/27/20 13:58:00 [...]
--- OUTSIDE RECORDS SUMMARY | 2024-10-07 14:36 | XMS_ITS | Continuity of Care Document ---
Author Organization [facility] Address [address] [place] [address]- Care Team Providers Care Gamewell Operator Name Role Phone Hayden MARINA, Ivory Chun Primary Care Physician En[place] [facility] [place] Date(s): 06/04/21 - 07/04/21 [facility] [address] [place] [address]- Attending Physician: Ruben Stoll Admitting Physician: AdmtrRuben Referring Physician: Admtr, Ar8 Allergies, Adverse Reactions, Alerts Substance Reaction Severity [...] a schedul... Start Date: 03/26/21 Status: Ordered magnesium oxide 400 mg oral tablet 1 tablet = 400 mg, By Mouth, Daily, for 30 days, for menstraul headaches, # 30 tablet, 5 Refills, Acute 09/04/21 10:21:00 EDT, 03/08/21 10:21:00 EDT, [facility] #[id number], Partial fill upon patient request if the prescription is for a schedule... Start Date: 03/08/21 Stop Date: 09/04/21 Status: Ordered Motrin Tablet By Mouth, 3 [...] tablet, 5Refills, Maintenance, 03/08/21 10:17:00 EDT, Tablet, [facility] #[id number], preventatively for headaches, 160, cm, 08/28/20 10:57:00 [...]
--- OUTSIDE RECORDS SUMMARY | 2024-10-07 14:36 | XMS_ITS | Continuity of Care Document ---
Author Organization [facility] Address [address] [facility], 3r d Floor, [address] [place] [address]- Care Team Providers Care Supervisor Steno Pool Name Role Phone Ivory Blake MD Primary Care Physician Encounter [facility] [place] Date(s): 02/25/21 - 03/27/21 [facility] [address] [place], 3rd Floor, [address] [place] [address]- Allergies, Adverse Reactions, Alerts Substance Reaction Severity [...] Acute 09/04/21 10:21:00 EDT, 03/08/21 10:21:00 EDT, [facility] #[id number], Partial fill upon patient request if the [...] tablet, 5Refills, Maintenance, 03/08/21 10:17:00 EDT, Tablet, [facility] #[id number], preventatively for headaches, 160, cm, 08/28/20 10:57:00 [...]
--- OUTSIDE RECORDS SUMMARY | 2024-10-07 14:36 | XMS_ITS | Continuity of Care Document ---
Author Organization [facility] Address [address] [place] [address]- Care Team Providers Care Ear Muff Assembler Name Role Phone Hayden MARINA, Ivory Chun Primary Care Physician Encounter [facility] [place] Date(s): 11/22/19 - 01/19/[address] [address]- [facility] Attending Physician: Sourav Goodwin MD Admitting Physician: Sourav Goodwin MD Allergies, Adverse Reactions, Alerts Substance Reaction [...] OTC 20 mg oral delayed release tablet 1 tablet = 20 mg, By Mouth, Daily, PRN Other, 0 Refills, Maintenance, 12/14/19 10:22:00 EST Start Date: 12/14/19 Status: Ordered Readi-Cat 2 oral suspension See Instructions, Dispense : 2 Bottles 450 ml each Dx: Hernia, # 900 mL, 0 Refills, Maintenance, 07/26/19 14:53:51 EDT, Dispense : 2 Bottles; 450 ml each; Dx: Hernia Start Date: 07/26/19 Status: Ordered Vitamin D3 By Mouth, Daily, 0 Refills, Maintenance, 12/14/19 10:25:00 EST Start Date: 12/14/19 Status: Ordered Problem List Condition Effective Dates Status Health Status Inform ant Abdominal pain(Confirmed) Active Social History Social History Type Response Smoking Status Never (less than 100 in lifetime) entered on: 07/26/19 Sex
--- OUTSIDE RECORDS SUMMARY | 2024-10-07 14:36 | XMS_ITS | Continuity of Care Document ---
Author Organization [facility] Address [address] [facility], 3r d Floor, [address] [place] [address]- Care Team Providers Care Customer Retention Specialist Name Role Phone Ivory Blake MD Primary Care Physician [place] [facility] [place] - 07/15/20 [facility] [address], 3[address] Floor, [address] [place] [address]- [facility] Attending Physician: Admgalina, Ruben Admitting Physician: Admtr, Ruben Referring Physician: Admtr, Ar8 Allergies, Adverse Reactions, [...] Acute 11/12/20 14:25:00 EST, 04/16/20 14:25:00 EDT, [facility] #[id number], preventatively for headaches, 160, cm, 01/27/20 13:58:00 [...]
--- OUTSIDE RECORDS SUMMARY | 2024-10-07 14:36 | XMS_ITS | Continuity of Care Document ---
Author Organization [facility] Address [address] [facility], 3r d Floor, [address] [place] [address]- Care Team Providers Care In Home Sales Consultant Name Role Phone Ivory Blake MD Primary Care Physician En[place] [facility] [place] Date(s): 10/06/20 - 02/03/21 [facility] [address] [place], 3rd Floor, [address] [place] [address] Attending Physician: Ilene Rubio MD Admitting Physician: [...] 10:23:00 EST Start Date: 12/14/19 Status: Ordered Coenzyme Q10 30 mg oral capsule 1 capsule = 30 mg, By Mouth, Daily, preventatively for headaches, # 30 capsule, 5 Refills, Maintenance, 08/28/20 11:10:00 EDT, Capsule, [facility] #[id number], 160, cm, 08/28/20 10:57:00 EDT, Height, 84.2, kg, 01/11/20 10:31:00 EST, Dry Weight Start Date: 08/28/20 Stop Date: 02/24/21 Status: Ordered Motrin Tablet By Mouth, 3 times a day, PRN, Refills 0, Maintenance, Pain , Moderate, 12/14/19 10:24:00 EST Start Date: 12/14/19 Status: Ordered riboflavin 100 mg oral tablet 2 tablet = 200 mg, By Mouth, 2 times a day with meals, preventatively for headaches, # 120 tablet, 5 Refills, Maintenance, 08/28/20 11:10:00 EDT, Tablet, [facility] #[id number], 160, cm, 08/28/20 10:57:00 EDT, Height, 84.2, kg, 01/11/20 10:31:0... Start Date: 08/28/20 Stop Date: 02/24/21 Status: Ordered Vitamin D3 By Mouth, Daily, 0 Refills, Maintenance, 12/14/19 10:25:00 EST Start Date: 12/14/19 Status: Ordered Problem List Condition Effective Dates Status Health Status Inform ant Abdominal pain(Confirmed) Active Social History Social History Type Response Smoking Status Never (less than 100 in lifetime) entered on: 07/26/19 Sex
--- OUTSIDE RECORDS SUMMARY | 2024-10-07 14:36 | XMS_ITS | Continuity of Care Document ---
Author Organization [facility] Address Unknown Care Team Providers Care Finance Professor Name Role Phone Ivory Blake MD Primary Care Physician [place] [facility] [place]11[place]21 - 08/10/21 [facility] Attending Physician: Ruben Stoll Admitting Physician: Ruben Stoll Referring Physician: Ruben Stoll Allergies, Adverse Reactions, Alerts Substance Reaction Severity [...] Acute 09/04/21 10:21:00 EDT, 03/08/21 10:21:00 EDT, [facility] #[id number], Partial fill upon patient request if the [...] tablet, 5Refills, Maintenance, 03/08/21 10:17:00 EDT, Tablet, [facility] #[id number], preventatively for headaches, 160, cm, 08/28/20 10:57:00 [...]
--- OUTSIDE RECORDS SUMMARY | 2024-10-07 14:36 | XMS_ITS | Continuity of Care Document ---
Author Organization [facility] Address [address] [facility], 3r d Floor, [address] [place] [address]- Care Team Providers Care Respiratory Therapy Director Name Role Phone Hayden MARINA, Ivory Chun Primary Care Physician Encounter [facility] Date(s): 05/01/20 - 07/15/20 [facility] [address] [place], 3rd Floor, [address] [place] [address]- [facility] Attending Physician: Brad Chapa NP Admitting Physician: Brad Chapa NP Allergies, Adverse Reactions, Alerts Substance Reaction Severity [...] Acute 11/12/20 14:25:00 EST, 04/16/20 14:25:00 EDT, [facility] #[id number], preventatively for headaches, 160, cm, 01/27/20 13:58:00 [...]
--- OUTSIDE RECORDS SUMMARY | 2024-10-07 14:36 | XMS_ITS | Continuity of Care Document ---
Author Organization [facility] Address [address] [place] [address]- Care Team Providers Care Claim Processing Specialist Name Role Phone Hayden MARINA, Ivory Chun Primary Care Physician Encounter [facility] [place] Date(s): 02/26/21 - 03/28/21 [facility] [address] [place] [id number] Allergies, Adverse Reactions, Alerts Substance Reaction Severity [...] Acute 09/04/21 10:21:00 EDT, 03/08/21 10:21:00 EDT, [facility] #[id number], Partial fill upon patient request if the [...] tablet, 5Refills, Maintenance, 03/08/21 10:17:00 EDT, Tablet, [facility] #[id number], preventatively for headaches, 160, cm, 08/28/20 10:57:00 [...]
--- OUTSIDE RECORDS SUMMARY | 2024-10-07 14:36 | XMS_ITS | Continuity of Care Document ---
Author Organization [facility] Address [address] [place] [address]- Care Team Providers Care Shellacker Name Role Phone Hayden MARINA, Ivory Chun Primary Care Physician Encounter [facility] [place] Date(s): 06/03/24 - 07/03/24 [facility] [address] [place] [address]- Attending Physician: Ruben Stoll Admitting Physician: AdmtrRuben [...] opioid drug. Start Date: 03/26/21 Status: Ordered famotidine 20 mg oral tablet TAKE 1 TABLET BY MOUTH TWICE DAILY Start Date: 03/07/24 Status: Ordered ferrous sulfate 325 mg oral [...] tablet, 5Refills, Maintenance, 03/08/21 10:17:00 EDT, Tablet, [facility] #[id number], preventatively for headaches, 160, cm, 08/28/20 10:57:00 [...] Date: 12/14/19 Status: Ordered Problem List Condition Confirmation Course Effective Dates Status Health St atus Informant Abdominal pain Confirmed Active Obese class II Confirmed Active Social History Social History Type Response Smoking Status Never (less than 100 in lifetime) entered on: 07/26/19 Sex Female Patient Care team information Care Team Related Persons Name: MONIKA SARAH Address: [place] [address] Name: JUSTUS GRAHAM Address: [place] [address]
--- OUTSIDE RECORDS SUMMARY | 2024-10-07 14:36 | XMS_ITS | Continuity of Care Document ---
Author Organization [facility] Address Unknown Care Team Providers Care Phlebotomy Coordinator Name Role Phone Ivory Blake MD Primary Care Physician Encounter [facility] [place] Date(s): 04/12/21 - 08/10/21 [facility] Attending Physician: Ilene Rubio MD Admitting Physician: [...] Acute 09/04/21 10:21:00 EDT, 03/08/21 10:21:00 EDT, [facility] #[id number], Partial fill upon patient request if the [...] tablet, 5Refills, Maintenance, 03/08/21 10:17:00 EDT, Tablet, [facility] #[id number], preventatively for headaches, 160, cm, 08/28/20 10:57:00 [...]
--- OUTSIDE RECORDS SUMMARY | 2024-10-07 14:36 | XMS_ITS | Continuity of Care Document ---
Author Organization [facility] Address [address] [place] [address]- Care Team Providers Care Senior C Developer Name Role Phone Hayden MARINA, Ivory Chun Primary Care Physician Encounter [facility] [place] [facility] [id number] Date(s): 06/03/22 - 07/03/[address] [address]- Attending Physician: Ruben Stoll Admitting Physician: Ruben Sotll Referring Physician: AdmtrRuben Allergies, Adverse Reactions, Alerts [...] tablet, 5Refills, Maintenance, 03/08/21 10:17:00 EDT, Tablet, [facility] #[id number], preventatively for headaches, 160, cm, 08/28/20 10:57:00 [...]
--- OUTSIDE RECORDS SUMMARY | 2024-10-07 14:36 | XMS_ITS | Continuity of Care Document ---
Author Organization [facility] Address [address] [place] [address]- Care Team Providers Care Cycle Director Name Role Phone Hayden MARINA, Ivory Chun Primary Care Physician [place] [facility] [place] 08/22/21 - 09/21/21 [facility] [address] [place] [address]- Attending Physician: Ruben Stoll Admitting Physician: AdmtrRuben [...] tablet, 5Refills, Maintenance, 03/08/21 10:17:00 EDT, Tablet, [facility] #[id number], preventatively for headaches, 160, cm, 08/28/20 10:57:00 [...]
--- OUTSIDE RECORDS SUMMARY | 2024-10-07 14:36 | XMS_ITS | Continuity of Care Document ---
Author Organization [facility] Address [address] [place] [address]- Care Team Providers Care Reel Repairer Name Role Phone Hayden MARINA, Ivory Chun Primary Care Physician [place] [facility] [place] 03/26/21 - 04/25/21 [facility] [address] [place] [address]- Attending Physician: [id number] Admitting Physician: Admtr, Ar8 Referring Physician: Admtr, Ar8 Allergies, Adverse Reactions, [...] [facility] #[id number], Partial fill upon patient request if the [...] tablet, 5Refills, Maintenance, 03/08/21 10:17:00 EDT, Tablet, [facility] #[id number], preventatively for headaches, 160, cm, 08/28/20 10:57:00 [...]
--- OUTSIDE RECORDS SUMMARY | 2024-10-07 14:36 | XMS_ITS | Continuity of Care Document ---
Author Organization [facility] Address [address] [facility], [address] Floor, [address] [place] [address]- Care Team Providers Care Shredder Picker Name Role Phone Ivory Blake MD Primary Care Physician Encounter [facility] [place] Date(s): 01/04/21 - 02/03/21 [facility] [address], [address] Floor, [address] [place] [address] Attending Physician: Admgalina, Ruben Admitting Physician: Admtr, [...] 5 Refills, Maintenance, 08/28/20 11:10:00 EDT, Capsule, [facility] #[id number], 160, cm, 08/28/20 10:57:00 EDT, Height, 84.2, [...] 5 Refills, Maintenance, 08/28/20 11:10:00 EDT, Tablet, [facility] #[id number], 160, cm, 08/28/20 10:57:00 EDT, Height, 84.2, [...]
--- OUTSIDE RECORDS SUMMARY | 2024-10-07 14:36 | XMS_ITS | Continuity of Care Document ---
Author Organization [facility] Address [address] [place] [address] [address] [place] [address]- Care Team Providers Care Movement Therapist Name Role Phone Hayden MARINA, Ivory Chun Primary Care Physician Encounter [facility] [place] Date(s): 01/27/20 - 02/06/[address] [place] [address]- [facility] Attending Physician: Ruben Stoll Admitting Physician: Ruben [...]
--- OUTSIDE RECORDS SUMMARY | 2024-10-07 14:36 | XMS_ITS | Continuity of Care Document ---
Author Organization [facility] Address [address] [place] [address] [address] [place] [address]- Care Team Providers Care Ambulatory Technologist Name Role Phone Hayden MARINA, Ivory Chun Primary Care Physician Encounter [facility] [place] Date(s): 11/18/19 - 11/25/[address] [place] [address]- [facility] Encounter Diagnosis Cholelithiasis(Discharge Diagnosis) - 11/18/19 Attending Physician: Sourav Goodwin MD Referring Physician: Nancy Daniel MD Allergies, Adverse Reactions, Alerts Substance Reaction Severity Status sulfADIAZINE itchy, red Active Medications Readi-Cat 2 oral suspension See Instructions, Dispense : 2 Bottles 450 ml each Dx: Hernia, # 900 mL, 0 Refills, Maintenance, 07/26/19 14:53:51 EDT, Dispense : 2 Bottles; 450 ml each; Dx: Hernia Start Date: 07/26/19 Status: Ordered Problem List Condition Effective Dates Status Health Status Inform ant Abdominal pain(Confirmed) Active Diagnosis Diagnosis Type Effective Dates Health Status Cl inical Service Informant Cholelithiasis Discharge Diagnosis 11/18/19 Vital Signs Most recent to oldest [Reference Range]: 1 Height 160 cm (11/18/19 4:06 PM) Weight 85 kg (11/18/19 4:06 PM) Pulse Rate [55-90 bpm] 81 bpm (11/18/19 4:06 PM) Body Mass Index [18.5-24.99] 33.2 *>HHI* (11/18/19 4:06 PM) Blood Pressure [90-138/55-84 mm Hg] 127/ 81mm Hg (11/18/19 4:06 PM) Respiratory Rate [16-30 br/min] 16 br/mi n (11/18/19 4:06 PM) Temperature [96.8-100.4 DegF] 97.9 DegF (11/18/19 4:06 PM) Blood pressure sites Arm, left (11/18/19 4:06 PM) Temperature Route Temporal (11/18/19 4:06 PM) Weight Obtained Via Standing scale (11/18/19 4:06 PM) Social History Social History Type Response Smoking Status Never (less than 100 in lifetime) entered on: 07/26/19 Sex
--- OUTSIDE RECORDS SUMMARY | 2024-10-07 14:36 | XMS_ITS | Continuity of Care Document ---
Author Organization [facility] Address [address] [place] [address] [address] [place] [address]- Care Team Providers Care Ventilator Specialist Name Role Phone Hayden MARINA, Ivory Chun Primary Care Physician Encounter [facility] [place] Date(s): 11/22/19 - 02/05/[address] [place] [address]- [facility] Attending Physician: Not on Staff, Attending MD [...]
== END 2024-10-06 13:56 | disposition home or self-care (01) ==
PROVIDERS: Nurse Practitioner; PCP Nurse Practitioner Primary Care; Visit Provider Internal Medicine Gastroenterology
PROC: 0DJ08ZZ Inspection of Upper Intestinal Tract, Via Natural or Artificial Opening Endoscopic (ICD-10-PCS; CPT 43235; principal; 2024-10-06 12:20)
DX: R10.13 Epigastric pain (principal); R14.0 Abdominal distension (gaseous); K29.60 Other gastritis without bleeding; K21.9 Gastro-esophageal reflux disease without esophagitis; K20.80 Other esophagitis without bleeding; K31.7 Polyp of stomach and duodenum; K44.9 Diaphragmatic hernia without obstruction or gangrene; K59.01 Slow transit constipation; D50.9 Iron deficiency anemia, unspecified; J45.20 Mild intermittent asthma, uncomplicated; F41.9 Anxiety disorder, unspecified; Z97.5 Presence of (intrauterine) contraceptive device; Z88.2 Allergy status to sulfonamides; E55.9 Vitamin D deficiency, unspecified; Z79.51 Long term (current) use of inhaled steroids; Z79.899 Other long term (current) drug therapy; Z98.890 Other specified postprocedural states
CPT/HCPCS: 43239; 81025; 88305; 88313; 88342; J2003; J2704

== ENCOUNTER → 2024-10-06 09:03 | Outpatient (BNV) | payer MEDICAID, SELFPAY | PROVIDERS: PCP Nurse Practitioner Primary Care; Visit Provider Internal Medicine Gastroenterology | DX: K20.90 Esophagitis, unspecified without bleeding (principal); K31.7 Polyp of stomach and duodenum | CPT/HCPCS: 43239 ==

== ENCOUNTER 2024-10-18 10:30 | Outpatient (AMB) | payer MEDICAID, SELFPAY ==
--- NOTE | 2024-10-18 10:32 | MHC.OFFVIS ---
Vital Signs 10/18/24 10:33 Height 5 ft 3 in Weight 209 lb 14.081 oz BMI 37.2 BP 132/82 Blood Pressure Location Rt brachial Position Sitting Pulse 86 Pulse Source Pulse Oximeter Pulse Oximetry (%) 100 Oxygen Delivery Method Room Air Intake Visit Reasons: S/P [place]; Dr. Vincent Intake Note: Relevant Flags or Indicators ? Requires Eligibility Supervisor? Kris Gastelum presents in office today for a scheduled s/p FUV. [place] and EGD w/ . Discuss bx results. Relevant GI Sx or significant changes since LV? Pt has been experiencing nausea, bloating, and RUQ abd pain over the last week. Eligibility Supervisor Required: Yes Eligibility Supervisor Services: Eligibility Supervisor Present Eligibility Supervisor Name: Angela [phone] Information Interpreted: non-clinical & clinical Accompanied by: Self / Same As Patient Allergies Sulfa (Sulfonamide Antibiotics) [SULFA (SULFONAMIDE ANTIBIOTICS)] Allergy (Intermediate, Verified 10/18/24 11:14) erythema, rash sulfamethoxazole [From BACTRIM] Allergy (Intermediate, Verified 10/18/24 11:14) RASH trimethoprim [From BACTRIM] Allergy (Intermediate, Verified 10/18/24 11:14) RASH HPI HPI S/P [place]; Dr. Vincent: Details: LAST VISIT: GERD (gastroesophageal reflux disease) Postprandial abdominal bloating Epigastric pain Constipation Plan Patient continues to be constipated and continues to have epigastric discomfort. Patient can start taking Dulcolax daily. Will add omeprazole and she can take famotidine at nighttime. Discussed with patient diet changes. Discussed with patient avoiding dietary triggers and late night snacking. Staying upright for minimal 3 hours after meals discussed with her. Patient will be sent for upper endoscopy to rule out gastritis, esophagitis, duodenitis, gastric or peptic ulcers, Lawson's, H pylori. I will see patient after the procedure, sooner on as needed basis. Patient is agreeable to this plan and verbalizes understanding of instructions. She was given the opportunity to ask questions and all questions answered. ? Thank you for allowing me to participate in her care Medications New omeprazole 20 mg PO DAILY 30 caps 4RF K21.9 bisacodyl (Dulcolax (bisacodyl)) 10 mg (2 x 5 mg) PO BEDTIME 60 tabs 4RF Refilled famotidine (Pepcid) 20 mg PO BEDTIME 30 tabs 3RF K21.9 cholecalciferol (vitamin D3) 50 mcg PO DAILY 90 caps 3RF R79.89 Discontinued sennosides (Natural Senna Laxative) Discontinued Reason: Doctor's Order 17.2 mg (2 x 8.6 mg) PO BEDTIME 60 tabs 3RF constipation K59.00 UPPER ENDOSCOPY: Findings: Larynx:normal Esophagus: GE junction at 38 cm, diaphragm hiatus at 38 cm, mild esophagitis at GEJ, bx taken also random esophagus bx taken Stomach: mild erythema . Biopsies were obtained. Grade 2 flap valve on retroflexed examination of the cardia. 4-6 mm sessile polyp removed with biopsy forceps Duodenum: Normal bulb and descending duodenum, bx taken Intervention: Biopsies as noted above, Impression/Findings: mild esophagitis gastric polyp PLAN: await bx GERD precautions\ if bx neg then expand w/u GES etc PATHOLOGY: Diagnosis A. Duodenum, biopsy: Few small superficial fragments of small intestinal mucosa within normal limits. B. Stomach, biopsy: Oxyntic mucosa with mild chronic inactive inflammation; no Helicobacter organisms seen. C. Stomach, polyp: Fundic gland polyp with background mild chronic inactive inflammation; no Helicobacter organisms seen. D. GE junction, biopsy: - Cardiofundic-type mucosa with mild chronic inactive inflammation; no intestinal metaplasia seen. - No squamous epithelium present. E. Esophagus, random, biopsy: Squamous epithelium within normal limits; no inflammation seen TODAY'S VISIT Patient is here today for follow-up and to discuss upper endoscopy results. Patient denies any ill effects from the anesthesia or procedure itself. Fundic gland polyps seen in her stomach no H pylori. Mild chronic inactive inflammation without intestinal metaplasia seen in GE junction, otherwise normal esophagus. Patient continues to have epigastric pain postprandially occasional acid reflux. Patient reports that she has not change any of her diet. Denies any nausea or vomiting. Reports right upper quadrant pain not related to meals. Also reports worsening periumbilical pain that she has been noticing more lately currently she is taking omeprazole does not feel like it is working. Reports that she is moving her bowels better taking Dulcolax daily. 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 Asthma Anxiety and depression Easy bruising Microcytic hypochromic anemia Herpes simplex labialis Seasonal allergies Migraine Mood disorder Bilateral carpal tunnel syndrome GERD without esophagitis IUD (intrauterine device) in place Vitamin D deficiency Anemia Mild intermittent asthma Arthralgia Arthritis Surgical History History of ankle surgery H/O splenectomy Family History Father Pancreatic cancer Lupus Maternal Aunt Breast cancer Social History Household Members: Spouse and Children Housing: House Are you a primary physician primary care sports medicine to a significant other at home: No Do you presently have visiting nurse or other home services: No Alcohol intake: current Alcohol intake frequency: holidays/special occasions only Alcohol type: hard liquor Patient Tobacco Use Status: Never used Tobacco service: No Current occupational status: employed Review of Systems Const Denies weight gain and Denies weight loss ENT Reports no additional complaints, Denies dysphagia and Denies odynophagia Card Reports no additional complaints Resp Reports no additional complaints GI Reports abdominal pain (RUQ and periumbilical), Denies belching, Denies melena, Denies bloating, Denies change in bowel habits, Denies dysphagia, Denies excessive flatus, Denies dyspepsia, Reports heartburn, Denies diarrhea, Denies loose stools, Denies nausea, Denies odynophagia and Denies vomiting Reports no additional complaints Musc Reports no additional complaints Neuro Reports no additional complaints Psych Reports no additional complaints Endo Reports no additional complaints Physical Exam Vital Signs: Last Vital Signs Pulse 86 10/18/24 10:33 BP 132/82 10/18/24 10:33 Pulse Ox 100 10/18/24 10:33 Oxygen Delivery Method Room Air 10/18/24 10:33 BMI result Body Mass Index 37.2 Const General: healthy appearing and no acute distress Nutritional Appearance: obese Orientation/consciousness: patient oriented x3 Resp Effort & Inspection: normal respiratory effort, able to speak in complete sentences, no tracheal deviation and symmetric chest movement Auscultation: clear to auscultation bilaterally Cardio Rate: regular rate GI Inspection: No distended, Yes obesity and Yes visible herniation (Periumbilical) Palpation (GI): Soft to palpation, not firm, nontender and No hepatosplenomegaly present Auscultation: normal bowel sounds General: Yes no CVA tenderness Back/Spine/Pelvis Back: no CVA tenderness Skin General skin exam: elasticity normal, turgor normal and dry skin Neuro General: patient oriented x3 Psych Appearance: grossly normal Mental Status: mental status grossly normal Assessment & Plan Assessment & Plan (1) Ventral hernia: Code(s): K43.9 - Ventral hernia without obstruction or gangrene Category: Surgical Qualifiers: Obstruction and gangrene presence: without obstruction or gangrene Qualified Code(s): K43.9 - Ventral hernia without obstruction or gangrene (2) GERD (gastroesophageal reflux disease): Code(s): K21.9 - Gastro-esophageal reflux disease without esophagitis Qualifiers: Esophagitis presence: without esophagitis Qualified Code(s): K21.9 - Gastro-esophageal reflux disease without esophagitis (3) Postprandial abdominal bloating: Code(s): R14.0 - Abdominal distension (gaseous) (4) Epigastric pain: Code(s): R10.13 - Epigastric pain (5) Constipation: Code(s): K59.00 - Constipation, unspecified Qualifiers: Constipation type: slow transit constipation Qualified Code(s): K59.01 - Slow transit constipation Plan Upon exam possible ventral hernia in periumbilical area. Dr. Infante in to see patient will see her after this appointment. Patient will stop omeprazole and will start pantoprazole daily. Avoid dietary triggers and late night snacking. Staying upright for minimum 3 hours after meals discussed with patient. Patient will continue taking Dulcolax daily. Increase fluid intake and activity to promote better bowel motility. Patient was encouraged to lose weight. Reports abdominal bloating postprandially discuss low FODMAP diet. List of food recommended as well as list of food to avoid given to patient. Follow-up in 2 months, sooner on as needed basis. She is agreeable to plan of care and verbalizes understanding of instructions. She was given the opportunity to ask questions and all questions answered. Thank you for allowing me to participate in her care Orders: Referrals General Surgery Referral K43.9 - Ventral hernia without obstruction or gangrene Medications: New pantoprazole take one tablet half an hour before breakfast 40 mg PO DAILY 30 tabs 2RF K21.9 - Gastro-esophageal reflux disease without esophagitis Refilled bisacodyl (Dulcolax (bisacodyl)) 10 mg (2 x 5 mg) PO BEDTIME 60 tabs 4RF Discontinued omeprazole Discontinued Reason: Doctor's Order 20 mg PO DAILY 30 caps 4RF K21.9 - Gastro-esophageal reflux disease without esophagitis Coding Level of Care Code Est Pt Level 4 (11969) Complex EM visit Add On G2211 Diagnoses Ventral hernia without obstruction or gangrene K43.9 Obstruction and gangrene presence: without obstruction or gangrene Gastroesophageal reflux disease without esophagitis K21.9 Esophagitis presence: without esophagitis Postprandial abdominal bloating R14.0 Epigastric pain R10.13 Slow transit constipation K59.01 Constipation type: slow transit constipation Time Spent (min) 35 Comment 20 minutes spent with patient and additional 15 minutes spent reviewing her records
[2024-10-18 10:33] VITALS: BP 132/82; PULSE 86; O2SAT 100; BMI 37.2
== END 2024-10-18 11:26 | disposition home or self-care (01) ==
PROVIDERS: PCP Nurse Practitioner Primary Care; Visit Provider Nurse Practitioner Family
DX: K43.9 Ventral hernia without obstruction or gangrene (principal); K21.9 Gastro-esophageal reflux disease without esophagitis; R14.0 Abdominal distension (gaseous); R10.13 Epigastric pain; K59.01 Slow transit constipation
CPT/HCPCS: 99214

== ENCOUNTER → 2024-10-18 10:30 | Outpatient (BNVA) | payer MEDICAID, SELFPAY | PROVIDERS: PCP Nurse Practitioner Primary Care; Visit Provider Nurse Practitioner Family | DX: K43.9 Ventral hernia without obstruction or gangrene (principal); K21.9 Gastro-esophageal reflux disease without esophagitis; R10.13 Epigastric pain; K59.01 Slow transit constipation; R14.0 Abdominal distension (gaseous); Z71.2 Person consulting for explanation of examination or test findings | CPT/HCPCS: 99202; 99212 ==

== ENCOUNTER 2024-10-18 11:13 | Outpatient (AMB) | payer MEDICAID, SELFPAY ==
--- NOTE | 2024-10-18 11:14 | A.OFFVIS_ITS ---
Vital Signs 10/18/24 11:15 Height 5 ft 3 in Weight 209 lb BMI 37.0 BP 134/82 Blood Pressure Location Rt brachial Position Sitting Pulse 82 Intake Visit Reasons: Ventrual Hernia Intake Note: Patient referred by Rody Billings NP for ventral hernia. Patient c/o: becoming bothersome. Pastrycook'S Assistant Required: Yes Accompanied by: Self / Same As Patient Allergies Sulfa (Sulfonamide Antibiotics) [SULFA (SULFONAMIDE ANTIBIOTICS)] Allergy (Intermediate, Verified 10/18/24 11:14) erythema, rash sulfamethoxazole [From BACTRIM] Allergy (Intermediate, Verified 10/18/24 11:14) RASH trimethoprim [From BACTRIM] Allergy (Intermediate, Verified 10/18/24 11:14) RASH Medication List - Last Reconciled 10/18/24 by Francis Infante MD acetaminophen 1,000 mg PO Q6H PRN albuterol sulfate 2.5 mg inhalation TID bisacodyl (Dulcolax (bisacodyl)) 10 mg (2 x 5 mg) PO BEDTIME cetirizine 10 mg PO DAILY cholecalciferol (vitamin D3) 50 mcg PO DAILY diphenhydramine HCl (Banophen) 25 mg PO BEDTIME PRN famotidine (Pepcid) 20 mg PO BEDTIME fluticasone propionate 50 mcg/actuation 50 sprays intranasal DAILY PRN meclizine 25 mg PO ONCE mometasone 100 mcg/actuation (Asmanex HFA) 2 puffs inhalation BID ondansetron 4 mg PO Q8H PRN pantoprazole 40 mg PO DAILY HPI Comments Details: Patient presents here status post being seen earlier this morning in the GI clinic for upper GI symptoms. On examination, she was found to have a question of a ventral supraumbilical hernia by the nurse practitioner and now presents here for further evaluation. Is somewhat active but does not do significant hea vy lifting. Her abdominal wall symptoms have been for a few weeks time. She otherwise tolerating a diet and has regular bowel habits. 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 Asthma Anxiety and depression Easy bruising Microcytic hypochromic anemia Herpes simplex labialis Seasonal allergies Migraine Mood disorder Bilateral carpal tunnel syndrome GERD without esophagitis IUD (intrauterine device) in place Vitamin D deficiency Anemia Mild intermittent asthma Arthralgia Arthritis Surgical History History of ankle surgery H/O splenectomy Family History Father Pancreatic cancer Lupus Maternal Aunt Breast cancer Social History Household Members: Spouse and Children Housing: House Are you a primary director career to a significant other at home: No Do you presently have visiting nurse or other home services: No Alcohol intake: current Alcohol intake frequency: holidays/special occasions only Alcohol type: hard liquor Patient Tobacco Use Status: Never used Tobacco service: No Current occupational status: employed Physical Exam Vital Signs: Last Vital Signs Pulse 82 10/18/24 11:15 BP 134/82 10/18/24 11:15 BMI result Body Mass Index 37.0 GI Other: Patient was examined both supine and standing with Valsalva. Moderately corpulent abdomen. Question of a supraumbilical ventral hernia but somewhat challenging exam secondary to the patient's size. Abdomen otherwise soft and benign. Assessment & Plan Assessment & Plan (1) Ventral hernia: Code(s): K43.9 - Ventral hernia without obstruction or gangrene Category: Surgical Plan: Current plan is to arrange for a CT scan of the abdomen pelvis indirect further therapy based on these results. Patient understands and she will see me after the study. All questions answered. Orders: Orders CT abdomen pelvis wo/w IV con Today K43.9 - Ventral hernia without obstruction or gangrene Coding Level of Care Code New Pt Level 4 (66377) Diagnoses Ventral hernia K43.9
[2024-10-18 11:15] VITALS: BP 134/82; PULSE 82; BMI 37.0
== END 2024-10-18 11:26 | disposition home or self-care (01) ==
LOC: HO.HGS 11:13
PROVIDERS: PCP Nurse Practitioner Primary Care; Visit Provider Surgery
DX: K43.9 Ventral hernia without obstruction or gangrene (principal)
CPT/HCPCS: 99204

== ENCOUNTER 2024-12-13 14:32 | Outpatient (AMB) | payer MEDICAID, SELFPAY ==
--- NOTE | 2024-12-13 14:53 | A.OFFVIS_ITS ---
Intake Visit Reasons: frequent UTI/dysuria Intake Note: New Patient presents for initial visit for uti and dysuria Urology Medications: none Blood Thinner: none PVR: 0ml's Television News Video Editor Required: Yes Television News Video Editor Services: Television News Video Editor Present Television News Video Editor Name: Gary [id number] Accompanied by: Self / Same As Patient Allergies Sulfa (Sulfonamide Antibiotics) [SULFA (SULFONAMIDE ANTIBIOTICS)] Allergy (Intermediate, Verified 12/13/24 15:21) erythema, rash sulfamethoxazole [From BACTRIM] Allergy (Intermediate, Verified 12/13/24 15:21) RASH trimethoprim [From BACTRIM] Allergy (Intermediate, Verified 12/13/24 15:21) RASH Medication List - Last Reconciled 12/13/24 by HERMELINDO Henry acetaminophen 1,000 mg PO Q6H PRN albuterol sulfate 2.5 mg inhalation TID barium sulfate 2%(w/v) (Readi-Cat 2) 900 mL PO ONCE bisacodyl (Dulcolax (bisacodyl)) 10 mg (2 x 5 mg) PO BEDTIME cetirizine 10 mg PO DAILY cholecalciferol (vitamin D3) 50 mcg PO DAILY diphenhydramine HCl (Banophen) 25 mg PO BEDTIME PRN famotidine (Pepcid) 20 mg PO BEDTIME fluticasone propionate 50 mcg/actuation 50 sprays intranasal DAILY PRN meclizine 25 mg PO ONCE mometasone 100 mcg/actuation (Asmanex HFA) 2 puffs inhalation BID ondansetron 4 mg PO Q8H PRN pantoprazole 40 mg PO DAILY HPI Comments Details: Oriana is a pleasant 39-year-old Bhutanese-speaking female patient of Dr. Bnoilla. She has a past medical history of asthma, anxiety, depression, macrocytic anemia, seasonal allergies, migraines, mood disorder, bilateral carpal tunnel syndrome, GERD, vitamin-D deficiency, and arthritis. She presents to the office today as a new patient for recurrent urinary tract infections, dysuria, and nephrolithiasis. In discussion with the patient today she notes over the last 4 months she has been having ongoing symptoms of dysuria. She reports following up with her PCP at which time recommendations were made for urology referral for further assessment evaluation. In review of patient's chart it appears renal ultrasound was ordered and performed. These results reviewed with the patient today. 07/09 nonobstructing 8 mm right upper pole renal stone. Bilateral kidneys with no lesions or hydronephrosis. She denies any previous history of nephrolithiasis and or surgical intervention for nephrolithiasis. She reports feeling at times UTIs present after sexual intercourse. In review of patient's chart it appears urine cultures 08/09 and 09/08 strep agalactiae. She currently denies any UTI like symptoms. She discusses currently being on her menses. In office urinalysis results reviewed with the patient today. PVR 0ml's. She does report intermittent episodes of right-sided flank pain. She denies urinary urgency, urinary frequency, incontinence, nocturia, hematuria, dysuria, foul smelling urine, changes to urinary stream, fever, and or chills. She is happy with her current voiding parameters. We discussed at length potential causes of nephrolithiasis as well as recurrent UTIs as well as further interventions and risks and benefits of these interventions. She otherwise offers no other issues or concerns at this time. 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 Asthma Anxiety and depression Easy bruising Microcytic hypochromic anemia Herpes simplex labialis Seasonal allergies Migraine Mood disorder Bilateral carpal tunnel syndrome GERD without esophagitis IUD (intrauterine device) in place Vitamin D deficiency Anemia Mild intermittent asthma Arthralgia Arthritis Surgical History History of ankle surgery H/O splenectomy Family History Father Pancreatic cancer Lupus Maternal Aunt Breast cancer Social History Household Members: Spouse and Children Housing: House Are you a primary customer care associate to a significant other at home: No Do you presently have visiting nurse or other home services: No Alcohol intake: current Alcohol intake frequency: holidays/special occasions only Alcohol type: hard liquor Patient Tobacco Use Status: Never used Tobacco service: No Current occupational status: employed Review of Systems Eyes Reports no additional complaints ENT Reports no additional complaints Card Reports no additional complaints Resp Reports as per HPI GI Reports as per HPI Reports as per HPI Musc Reports as per HPI Neuro Reports no additional complaints Psych Reports as per HPI Endo Reports no additional complaints Physical Exam Const General: cooperative, healthy appearing, comfortable, no acute distress, well developed, alert and awake Orientation/consciousness: patient oriented x3 Limitations: no limitations HEENT Head: Yes normal to inspection, Yes normocephalic and Yes atraumatic Ears: hearing grossly normal bilaterally Eyes General: appearance normal, both eyes and all related structures Neck Neck: Yes normal visual inspection and Yes trachea midline Chest Chest palpation & inspection: normal inspection of the chest Resp Effort & Inspection: normal respiratory effort and able to speak in complete sentences Cardio Rate: regular rate GI Inspection: Yes normal to inspection General: Yes no CVA tenderness Back/Spine/Pelvis Back: no CVA tenderness Skin General skin exam: no rashes or lesions noted Neuro General: patient oriented x3 Extrem General: Yes normal to inspection Psych Appearance: grossly normal and well kempt Mental Status: mental status grossly normal Speech and movement: Normal speech and movement present and Clear speech present Affect: normal affect Attitude: cooperative Thought process: Normal thought process present Thought content: Normal thought content present Insight: Fair insight present (Psych) Judgement: Fair judgement present (Psych) Office Procedures Post Void Residual Post Residual Void Post Void Residual (PVR): 0 [id number] Void Residual by ultrasound Results AMB Urinalysis, Automated UA Leukoctes 15 Maggie/uL Last Edit by Hire An Esquire Ryan on 12/13/24 15:21 UA Nitrite Last Edit by SlimTrader on 12/13/24 15:21 UA Urobilinogen 0.2 mg/dL Last Edit by SlimTrader on 12/13/24 15:21 UA Protein 15 mg/dL Last Edit by Ayi Laileazucena on 12/13/24 15:21 UA pH 6.0 Last Edit by SlimTrader on 12/13/24 15:21 UA Blood 80 Jim/uL Last Edit by SlimTrader on 12/13/24 15:21 UA Specific [place] 1.030 Last Edit by Latisha Zamarripaazucena on 12/13/24 15:21 UA Ketone Last Edit by Latisha Zamarripaazucena on 12/13/24 15:21 UA Bilirubin 0 mg/dL Last Edit by Joonyuniersharmaine Zamarripaazucena on 12/13/24 15:21 UA Glucose 0 mg/dL Last Edit by Joonprema Marilouazucena on 12/13/24 15:21 Assessment & Plan Assessment & Plan (1) Nephrolithiasis: Code(s): N20.0 - Calculus of kidney Category: Medical (2) Recurrent UTI: Code(s): N39.0 - Urinary tract infection, site not specified Category: Medical Plan In office urinalysis results reviewed the patient today; as noted above. PVR 0 mL. Recent renal imaging results reviewed with the patient today; as noted above. We discussed at length potential causes of nephrolithiasis as well as recurrent urinary tract infections. Prescription provided for postcoital antibiotic therapy Will obtain CT KUB for further assessment evaluation. Discussed UTI prevention with D mannose supplement, vitamin-C, increasing fluid intake, behavioral therapy with timed voiding, perineal hygiene and postcoital voiding, and management of constipation with stool softeners and increased fiber intake. She currently denies any UTI like symptoms. She reports be happy with current voiding parameters. Follow-up in 1-3 months with imaging to be completed prior; or sooner with any issues, concerns, and or questions. Orders: Orders AMB Urinalysis Automated Today Z13.9 - Encounter for screening, unspecified AMB Post Void Residual by ultrasound Today N39.41 - Urge incontinence CT kidney stone Today N20.0 - Calculus of kidney Medications: New nitrofurantoin macrocrystal postcoital 50 mg PO BEDTIME 30 days 30 caps 1RF N39.0 - Urinary tract infection, site not specified Patient Instructions: The patient had an opportunity to ask questions regarding the treatment plan. All questions were answered. Physical exam, labs, and imaging were discussed and reviewed in detail. As well as risks, benefits, and discussion of treatment choices. No major barriers to understanding were identified. The patient expressed understanding and agreement with the above treatment plan. The patient was made aware they should contact our office by phone for worsening of their current condition, the appearance of new symptoms, or with any questions or concerns. Compliance is encouraged with any medications and follow up testing that is ordered. It is a privilege to be allowed the opportunity to participate in? your urological care.? Again, if you have any questions or concerns If you have any questions or concerns please do not hesitate to contact me. The office is [phone]. This note is constructed using voice recognition software. While every effort has been made to ensure accuracy seamless tube roller errors may have been included. Yours sincerely, HERMELINDO Henry Coding Level of Care Code New Pt Level 4 (47110) Diagnoses Nephrolithiasis N20.0 Recurrent UTI N39.0 CPT Codes Post Residual Void - PVR CPT Code: 27971-[id number] Void Residual by ultrasound ([id number])
--- OUTSIDE RECORDS SUMMARY | 2024-12-13 15:26 | XMS_ITS | Encounter Summary ---
Demographics Address [address] [place] [address] Mobile Phone Home Phone Work Phone Email Address Preferred Language es Marital Status Single Muslim Affiliation Unknown Race Other Race Ethnic Group or Author Organization [employer] Address [address] [place] [address] Care Team Providers Care Laundry Laborer Name Role Phone Анна Bonilla Primary Care Provider [phone] Reason for Visit * Reason Onset Date Comments new med 11/22/2024 Encounter Details Date Type Department Care Team ([facility] Contact Info) Description 11/22/[address] [facility] MEDICINE [address] [place], [place] [phone] Анна Bonilla ANP [address] [place] [address] new med Social History Tobacco Use Types Packs/Day Years Used Date Smoking Tobacco: Never Passive Smoke Exposure: Never Smokeless Tobacco: Never Alcohol Use Standard Drinks/Week Comments Never 0 (1 standard drink = 0.6 oz pur e alcohol) PHQ-2 Answer Date Recorded Patient Health Questionnaire-2 Score 0 04/07/2023 Housing Stability Answer Date Recorded What is your housing situation today? I have torey so 04/12/[address] you li ve. Do you have problems with any of the following? None of the above 04/12/2024 Food Insecurity Answer Date Recorded Within the past 12 months, y ou worried that your food would run out before you got money to buy more: Sometimes True 2023 Within the past 12 months,th e food you bought just didn't last and you didn't have enough money to get more: Sometimes True 04/12/2024 Transportation Answer Date Recorded In the past 12 months, has l ack of transportation kept you from medical appts, meetings, work or from getting things needed for daily living? No 04/12/2024 Utilities Answer Date Recorded In the past 12 months, has t he electric, gas, oil or water company threatened to shut off services in your home? No 04/12/2024 Depression Answer Date Recorded Patient Health Questionnaire-2 Score 1 08/25/2024 Internet Access Answer Date Recorded Internet Access Q1 Yes 08/15/2024 Internet Access Q2 Not on file 08/15/2024 Comments No Sex and Gender Information Value Date Recorded Sex Assigned at Female 09/15/2022 10:21 AM EDT Legal Sex Female 10:21 AM EDT Gender Identity Female 09/15/2022 10:21 AM EDT Sexual Orientation Straight 09/15/2022 10 :21 AM EDT documented as of this encounter Miscellaneous Notes * Telephone Encounter - Bere De La Cruz RN - 11/23/2024 4:46 PM EST See message below per Dr. Mcfadden; RX queued to provider. TC placed to pt and informed pt, provider wasqueued rx and once approved, will be sent to pharmacy and advised pt if she does not hear back frompharmacy by tomorrow to contact [facility]. Pt verbalized understanding. No further questions or concerns expressed. Pt to F/U as needed. Switch to whatever insurance covers * Telephone Encounter - Brandi Mcfadden MD - 11/23/2024 4:24 PM EST Switch to whatever insurance covers * Telephone Encounter - Nicho Gray - 11/23/2024 1:39 PM EST TC from reports ciprofloxacin-dexAMETHasone (CiproDEX) otic suspension not covered . Still in pain . Needing alternative medication enzo * Telephone Encounter - Bere De La Cruz RN - 11/22/2024 2:13 PM EST Pt contacted [facility] regarding rx today 11/23/24. See message below. TC placed to [facility] pharmacy and spoke with Debbie regarding alternative to be covered under [facility] C3, Cipro HC. RN will forward to ordering provider Dr. Mcfadden to review and advise team nurses. TY PT Walked in stating that she was seen on 11/18/[address] [facility] by DR. Mcfadden. PT states the ear drops prescribed to her are not covered b her insurance. PT would like a new prescription, preferably something that will be covered by insurance * Telephone Encounter - Dede Jurgen - 11/22/2024 2:05 PM EST PT Walked in stating that she was seen on 11/18/[address] [facility] [address] Mcfadden. PT states the ear drops prescribed to her are not covered b her insurance. PT would like a new prescription, preferably something that will be covered by insurance documented in this encounter Plan of Treatment Not on file documented as of this encounter Visit Diagnoses Not on filedocumented in this encounter Care Teams Laundry Laborer Relationship Specialty Start Date End Date Анна Bonilla ANP [address] [place] [phone] PCP - General Family Medicine 07/09/21 Annel Foreman Facilities ManagerVegetable I Farmworker 10/15/23 documented as of this encounter
--- OUTSIDE RECORDS SUMMARY | 2024-12-13 15:26 | XMS_ITS | Encounter Summary ---
Demographics Address [address] [place] [address] Mobile Phone Home Phone Work Phone Email Address Preferred Language es Marital Status Single Pentecostal Affiliation Unknown Race Other Race Ethnic Group or Author Organization [employer] Address [address] [place] [address] Care Team Providers Care Publicity Consultant Name Role Phone Анна Bonilla Primary Care Provider [phone] Reason for Visit * Reason Onset Date Comments Medication Question 08/31/2024 Encounter Details Date Type Department Care Team ([facility] Contact Info) Description 08/31/2024 Telephone [facility] MEDICINE [address] [place], [place] [phone] Анна Bonilla ANP [address] [place] [address] Medication Question Social History Tobacco Use Types Packs/Day Years Used Date Smoking Tobacco: Never Passive Smoke Exposure: Never Smokeless Tobacco: Never Alcohol Use Standard Drinks/Week Comments Never 0 (1 standard drink = 0.6 oz pur e alcohol) PHQ-2 Answer Date Recorded Patient Health Questionnaire-2 Score 0 04/07/2023 Housing Stability Answer Date Recorded What is your housing situation today? I have torye so 04/12/[address] you [...] encounter Miscellaneous Notes * Telephone Encounter - Hortencia Mancuso - 08/31/2024 10:58 AM EDT Tc from pt requesting to speak to PCP nurse. Pt was seen in office on 08/25/24 regarding frequent UTI's. Global President advised pt of pending appointment with urology (provided phone number) Pt is requesting antibiotics in the meantime. Contact pt at [phone] (icelandic) documented in this encounter Plan of Treatment Not on file documented as of this encounter Visit Diagnoses Not on filedocumented in this encounter Care Teams Publicity Consultant Relationship Specialty Start Date End Date Анна Bonilla ANP [address] [place] [id number] PCP - General Family Medicine 07/09/21 Annel Foreman Damaged Freight InspectorIndustrial Gas Fitter 10/15/23 documented as of this encounter
--- OUTSIDE RECORDS SUMMARY | 2024-12-13 15:26 | XMS_ITS | Clinical Summary ---
Author Organization [facility] it Address [address] [place] [address] Care Team Providers Care Chemical Unit Operator Name Role Phone Cristina Butt NP Primary Care Provider [phone] Surgical History Surgery Date Site/Laterality Comments ANKLE SURGERY 2013 Left PROCEDURE: HISTORICAL ANKLE SURGERY BELT ABDOMINOPLASTY 2014 PROCEDURE: HISTORICAL TUMMY TUCK CHOLECYSTECTOMY 01/2020 PROCEDURE: PA CHOLECYSTECTOMY Medical History Medical History Date Comments Asthma in adult DX:Asthma in tulio lt Anemia DX:Anemia Panic attack DX:Panic attack Migraine DX:Migraine Fibroid DX:Fibroid; COMM ENT: subserosal Family History Medical History Relation Name Comments Breast cancer Aunt mom side Diabetes Father Hypertension Father Pancreatic cancer Father Diabetes Mother Hypertension Mother Breast cancer Other Relation Name Status Comments Aunt mom side Brother 1 Alive Brother 2 Alive Brother 3 Alive Brother 4 Alive Daughter Alive Father Maternal Grandfather Maternal Grandmother Mother Alive Other Alive Paternal Grandfather Paternal Grandmother Sister Alive Son Alive Social History Tobacco Use Types Packs/Day Years Used Date Smoking Tobacco: Never Smokeless Tobacco: Never Alcohol Use Standard Drinks/Week Comments No 0 (1 standard drink = 0.6 oz pur e alcohol) Sex and Gender Information Value Date Recorded Sex Assigned at Not on file Gender Identity Not on file Sexual Orientation Not on file Obstetrics History Last Filed Vital Signs Vital Sign Reading Time Taken Comments Blood Pressure 103/59 07/26/2024 1:01 PM EDT Pulse 91 07/26/2024 1:01 PM EDT Temperature - - Respiratory Rate - - Oxygen Saturation - - Inhaled Oxygen Concentration - - Weight 95.7 kg (211 lb) 07/26/2024 1:01 PM EDT Height 160 cm (5' 3 ) 07/26/2024 1:01 PM EDT Body Mass Index 37.38 07/26/2024 1:01 PM EDT Plan of Treatment Health Maintenance Due Date Last Done Comments Breast Cancer Screening 1984 Hepatitis B Vaccines (1 of 3 - 19+ 3-dose series) 2003 Cholesterol Screening (Lipid Panel) 10/25/2022 Depression Screening 10/25/2022 HIV Screening 10/25/2022 Hepatitis C Screening 10/25/2022 Social Influencers of Health Screening 10/25/2022 COVID-19 Vaccine (2 - season) 2024 11/23/2021 Influenza Vaccine (#1) 2024 09/11/2017 Cervical Cancer Screening: Pap Smear 04/16/2026 04/16/2023, 12/13/2021, 09/26/2020, Additional history exists DTaP,Tdap,and Td Vaccines (2 - Td or Tdap) 09/11/2027 09/11/2017 HIB Vaccines Aged Out No longer eligi ble based on patient's age to complete this topic HPV Vaccines Aged Out No longer eligi ble based on patient's age to complete this topic Hepatitis A Vaccines Aged Out No long er eligible based on patient's age to complete this topic IPV Vaccines Aged Out No longer eligi ble based on patient's age to complete this topic MMR Vaccines Aged Out No longer eligi ble based on patient's age to complete this topic Meningococcal ACWY Vaccine Aged Out N o longer eligible based on patient's age to complete this topic Pneumococcal Vaccine: Pediatrics (0 to 5 Years) and At-Risk Patients (6 to 64 Years) Aged Out No longer eligible based on patient's age to complete this topic RSV Immunization Patients Under 20 months Aged Out No longer eligible based on patient's age to complete this topic Varicella Vaccines Aged Out No longer eligible based on patient's age to complete this topic Procedures Procedure Name Priority Date/Time Associated Diagnosis Comments PAP SMEAR Routine 04/16/2023 from Last 3 Months or Most Recently Relevant to Health Maintenance Results * Pap smear (04/16/2023) 04/16/2023 Narrative HISTORICAL TESTING LAB RESULTING AGENCY - 04/23/2023 6:26 AM EDT [id number] THINPREP PAP, IMAGED: NEGATIVE FOR SQUAMOUS INTRAEPITHELIAL LESION AND MALIGNANCY . ABUNDANT ACUTE INFLAMMATORY CELLS ARE PRESENT. JUANITO PINEDA , CT(ASCP) (CASE ELECTRONICALLY SIGNED 04 22 2023) RESULT OF APTIMA HIGH RISK HPV ASSAY: HIGH RISK HPV: ??NEGATIVE (SEROTYPES 16,18,31,33,35,39,45,51,52,56,58,59,66,68) COMPLETED ON 2023-04-17 ADEQUACY: SATISFACTORY ENDOCERVICAL/TRANSFORMATION ZONE COMPONENT PRESENT. SOURCE: THINPREP PAP HPV ANY DX: ??REFLEX 16 AND 18, CERVICAL, IMAGED CLINICAL INFORMATION: HPV ANY DIAGNOSIS. HORMONES, PAP HX NEGATIVE, LMP 03/23/23, [Z12.4] Ashley Wheatley CN LAB CYTOLOGY ORDERAB LES HISTORICAL TESTING LAB RESULTING AGENCY from Last 3 Months or Most Recently Relevant to Health Maintenance Care Teams Chemical Unit Operator Relationship Specialty Start Date End Date Cristina Butt NP [address] [place] [id number] PCP - General 12/13/21
--- OUTSIDE RECORDS SUMMARY | 2024-12-13 15:26 | XMS_ITS | Encounter Summary ---
Demographics Address [address] [place] [address] Mobile Phone Home Phone Work Phone Email Address Preferred Language es Marital Status Single Mu-Ism Affiliation Unknown Race Other Race Ethnic Group or Author Organization [employer] Address [address] [place] [address] Care Team Providers Care Medical Stenographer Name Role Phone Irene Анна MEANS Primary Care Provider [phone] Reason for Visit * Reason Comments Earache Encounter Details Date Type Department Care Team ([facility] Contact Info) Description 11/18/2024 1:40 PM EST Office Visit [facility] [address] [place] [address] Brandi Mcfadden MD [address] [place] [address] Acute otitis externa of right ear, unspecified type (Primary Dx) Social History Tobacco Use Types Packs/Day Years [...] AM EDT documented as of this encounter Last Filed Vital Signs Vital Sign Reading Time Taken Comments Blood Pressure 153/80 11/18/2024 1:04 PM EST Pulse 98 11/18/2024 1:04 PM EST Temperature 36.7 ??C (98 ??F) 11/18/2024 1:04 PM EST Respiratory Rate 16 11/18/2024 1:04 PM EST Oxygen Saturation 98% 11/18/2024 1:04 PM EST Inhaled Oxygen Concentration - - Weight 97.1 kg (214 lb) 11/18/2024 1:04 PM EST Height - - Body Mass Index 36.73 09/01/2024 9:01 AM EDT documented in this encounter Progress Notes * Brandi Mcfadden MD - 11/18/2024 1:40 PM EST Subjective Patient ID: Oriana Funk is a 39 y.o. female who presents for Earache. Earache There is pain in both ears. This is a new problem. The current episode started in the past 7 days. The problem occurs constantly. The problem has been unchanged. There has been no fever. The pain is at a severity of 6/10. The pain is moderate. Pertinent negatives include no abdominal pain, coughing, diarrhea, ear discharge, headaches, hearing loss, neck pain, rash, rhinorrhea, sore throat or vomiting. She has tried nothing for the symptoms. Review of Systems HENT: Positive for ear pain. Negative for ear discharge, hearing loss, rhinorrhea and sore throat. Respiratory: Negative for cough. Gastrointestinal: Negative for abdominal pain, diarrhea and vomiting. Musculoskeletal: Negative for neck pain. Skin: Negative for rash. Neurological: Negative for headaches. Objective Physical Exam Constitutional: Appearance: Normal appearance. HENT: Right Ear: External ear normal. Tenderness present. Left Ear: External ear normal. Ears: Comments: Erythematous ear canal Cardiovascular: Rate and Rhythm: Normal rate and regular rhythm. Neurological: Mental Status: She is alert. Assessment/Plan Diagnoses and all orders for this visit: Acute otitis externa of right ear, unspecified type Comments: Started on Ciprodex to be used for 5 days Advised to avoid water in the ears Other orders - ciprofloxacin-dexAMETHasone (CiproDEX) otic suspension; Administer 4 drops into affected ear(s) 2times daily for 7 days. - pseudoephedrine (Sudafed) 30 MG tablet; Take 1 tablet (30 mg) by mouth every 4 (four) hours if needed for congestion for up to 10 days. documented in this encounter Plan of Treatment Not on file documented as of this encounter Visit Diagnoses Diagnosis Acute otitis externa of right ear, unspecified type- Primary documented in this encounter Care Teams Medical Stenographer Relationship Specialty Start Date End Date Анна Bonilla ANP [address] [place] [id number] PCP - General Family Medicine 07/09/21 [facility] [employer] 10/15/23 documented as of this encounter
--- OUTSIDE RECORDS SUMMARY | 2024-12-13 15:26 | XMS_ITS | Clinical Summary ---
Demographics Address [address] [address] [place] [address] Mobile Phone Home Phone Work Phone Email Address Preferred Language es Marital Status Single Methodist Affiliation Unknown Race Other Race Ethnic Group or Author Organization [employer] Address [address] [facility] [address] [place] [address] Care Team Providers Care Drug Department Worker Name Role Phone Anuja Muniz Primary Care Provider [phone] Allergies Active Allergy Reactions Criticality Noted Date Comments Influenza Vaccines Headache,Dizziness 0 Other reaction(s): Itching Vaccine Product Containing Only Influenza Virus Antigen (medicinal Product) New Paroxetine High 04/06/2020 Other reaction(s): Excessive sweating, Tremor Sulfa Antibiotics 10/08/2016 Other reaction(s): Rash Medications albuterol (2.5 MG/3ML) 0.083% nebulizer solution Inhale 3 mL every 8 (eight) hours. 12/06/19 21 Active hydrOXYzine pamoate (Vistaril) 25 MG capsule Take 1 capsule by mouth in the morning and 1 capsule at noon and 1 capsule in the evening. 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 May repeat dose once in 2 hours if no relief. Do not exceed 2 doses in 24 hours. 9 tablet 03/30/20 23 Active Blood Pressure kitIndications:Una vated blood pressure reading 1 kit in the morning. 1 kit 04/07/20 23 Active ketotifen (Zaditor) 0.025 % ophthalmic solutionIndication s:Allergic conjunctivitis of both eyes One drop to eyes bid prn allergies 5 mL 1 04/07/20 23 Active omeprazole (PriLOSEC) [address] capsuleIndications :Gastritis, presence of bleeding unspecified, unspecified chronicity, unspecified gastritis type TAKE ONE CAPSULE BY MOUTH BEFORE BREAKFAST AND BEFORE EVENING MEAL 180 capsule 06/11/20 23 Active famotidine (Pepcid) 20 MG tabletIndications: Gastroesophageal reflux disease, unspecified whether esophagitis present Take 1 tablet twice daily 180 tablet 06/11/20 23 Active ibuprofen 600 MG tablet TAKE 1 TABLET BY MOUTH THREE TIMES DAILY WITH MEALS FOR PAIN. MAX 2400 MG DAILY 06/24/20 23 Active albuterol 108 (90 Base) MCG/ACT inhalerIndications :Moderate persistent asthma without complication Inhale 2 puffs every 4 (four) hours. 18 g 1 04/19/20 24 Active cetirizine (ZyrTEC) 10 MG tabletIndications: Urticaria Take 1 tablet (10 mg) by mouth Once per day. 90 tablet 3 04/19/20 24 025 Active fluticasone (Flonase) 50 MCG/ACT nasal sprayIndications:S easonal allergic rhinitis due to pollen Administer 2 sprays into each nostril Once daily as needed for rhinitis. 16 g 2 04/19/20 24 Active magnesium 200 MG tabletIndications: Migraine without status migrainosus, not intractable, unspecified migraine type Take 2 tablets (400 mg) by mouth Once daily. 180 tablet 1 04/19/20 24 Active diphenhydrAMINE (BENADryl) 25 MG tabletIndications: Urticaria Take 1 tablet (25 mg) by mouth every 6 (six) hours if needed for itching or allergies. 45 tablet 1 04/19/20 24 Active acetaminophen (Tylenol) 500 MG tablet Take 2 tablets (1,000 mg) by mouth every 6 (six) hours if needed for moderate pain or fever for up to 25 doses. 40 tablet 05/09/20 24 Active ibuprofen 400 MG tablet Take 1 tablet (400 mg) by mouth every 6 (six) hours if needed for moderate pain or fever for up to 30 doses. 30 tablet 05/09/20 24 Active Mometasone Furoate (Asmanex HFA) 100 MCG/ACT aerosolIndications :Moderate persistent asthma without complication Inhale 2 puffs 2 times daily. 13 g 2 08/25/20 24 Active pseudoephedrine (Sudafed) 30 MG tablet Take 1 tablet (30 mg) by mouth every 4 (four) hours if needed for congestion for up to 10 days. 30 tablet 11/18/19 25 Active ciprofloxacin-dexA METHasone (CiproDEX) otic suspension Administer 4 drops into affected ear(s) 2 times daily for 7 days. 7.5 mL 11/18/19 25 025 ciprofloxacin-hydr ocortisone (Cipro HC Otic) otic suspensionIndicati ons:Acute otitis externa of right ear, unspecified type Administer 3 drops into the left ear 2 times daily for 7 days. 10 mL 11/24/19 25 025 Active Problems Problem Noted Date Diagnosed Date Lower urinary tract symptoms (LUTS) 09/01/2024 Assessment & Plan (09/01/2024 9:25 AM EDT): No evidence of UTI today, has hematuria, will ro IC, kidney stone, so I will order renal/bladder US and she will fu with urology. Treat with Diflucan weekly x 3d due to recent abs use, will do vag swab ad treat accordingly. Will give lotrimin cream on labia (not vaginally) + Zinc oxide Advised re increase PO fluid intake Complete pyridium this week and start cranberry tablets. Pain in lower back 06/11/2023 Assessment & Plan (06/11/2023 7:55 PM EDT): Pt with 2 days of left paraspinal point lower back pain associated w movement and also noted her urine to be slight darker but denies any symptoms Exam seems consistent with muscular pain given is reproduced w palpation and exacerbated with movement. -warm compresses in area of pain -advised tylenol prn x mild pain and NSAIDS x mod pain -OTC -states has at home -alarm signs and symptoms discussed and if having abdominal pain or hematuria associated will need to r/o nephrolithiasis -UA today showing LE + but rest neg and symptoms not consistent w infections and no CVA tenderness on exam to think in pyelonephritis ---sent to labs to repeat UA w reflex cx Acute rhinosinusitis 11/24/2022 Allergic otitis media 11/24/2022 Bruises easily 11/24/2022 Cervical atypism 11/24/2022 Herpes labialis 11/24/2022 Joint pain 11/24/2022 Microcytic hypochromic anemia 11/24/2022 Mixed anxiety and depressive disorder 11/24/2022 Moderate persistent asthma 11/24/2022 Pain in finger 11/24/2022 Pain in wrist 11/24/2022 Post-traumatic arthritis of left ankle Carpal tunnel syndrome 02/26/2018 Gastroesophageal reflux disease without esophagi tis 02/26/2018 IUD (intrauterine device) in place 02/26/2018 Migraine 02/26/2018 Assessment & Plan (03/30/2023 4:43 PM EDT): Has equivalent migraine sxs. Keep sxs diary and fu w PCP Take Excedrin migraine 1-2 tabs at onset of sxs , If not improved after 4h use Imitrex 50 mg q4h prn sxs until they subside. FU PCP Re BP check , rs appt with with neurology Mood disorder 02/26/2018 Anemia 11/28/2016 Vitamin D deficiency 11/28/2016 Allergic rhinitis due to pollen 10/08/2016 Resolved Problems Problem Noted Date Diagnosed Date Resolved Date Mild intermittent asthma 11/28/201607/2023 Encounters Date Type Department Care Team Description 11/23/2024 Refill [facility] [address] [place] [phone] Brandi Mcfadden MD Acute otitis externa of right ear, unspecified type 11/22/2024 Telephone [facility] [address] [place] [phone] Anuja Muniz ANP new med 11/18/2024 1:40 PM EST Office Visit [facility] [address] [place] [address] Brandi Mcfadden MD Acute otitis externa of right ear, unspecified type (Primary Dx) 11/03/2024 Telephone [facility] [address] [place] [address] [phone] Nelly Tatum, RN Results 11/03/2024 Orders Only [facility] [address] [place] [phone] Michelle Umaña MD Renal stone (Primary Dx) 10/18/2024 Telephone [facility] [address] [place] [address] Brigitte Hathaway MA 10/11/2024 Telephone [facility] [address] [place] [address] Anuja Muniz ANP from Last 3 Months Immunizations Name Administration Dates Next Due Influenza Injectable Quadriv alant Preservative Free IIV4 MDCK 08/29/2020 Influenza injectable quadriv alent IIV4 with preservative 08/04/2019,08/18/2018 Tdap 09/11/2017,09/06/2010 Family History Medical History Relation Name Comments Pancreatic cancer Father Breast cancer Father's Sister Breast cancer Mother's Sister Relation Name Status Comments Father Father's Sister Mother's Sister Social History Tobacco Use Types Packs/Day Years Used Date Smoking Tobacco: Never Passive Smoke Exposure: Never Smokeless Tobacco: Never Tobacco Cessation:Counseling Given: Not Answered Alcohol Use Standard Drinks/Week Comments Never 0 (1 standard drink = 0.6 oz pur e alcohol) PHQ-2 Answer Date Recorded Patient Health Questionnaire-2 Score 0 04/07/2023 Housing Stability Answer Date Recorded What is your housing situation today? I have toreydain so 04/12/[address] you [...] Orientation Straight 09/15/2022 10 :21 AM EDT Last Filed Vital Signs Vital Sign Reading Time Taken Comments Blood Pressure 153/80 11/18/2024 1:04 PM EST Pulse 98 11/18/2024 1:04 PM EST Temperature 36.7 ??C (98 ??F) 11/18/2024 1:04 PM EST Respiratory Rate 16 11/18/2024 1:04 PM EST Oxygen Saturation 98% 11/18/2024 1:04 PM EST Inhaled Oxygen Concentration - - Weight 97.1 kg (214 lb) 11/18/2024 1:04 PM EST Height 162.6 cm (5' 4 ) 09/01/2024 9:01 AM EDT Body Mass Index 36.73 09/01/2024 9:01 AM EDT Plan of Treatment Health Maintenance Due Date Last Done Comments Pneumococcal Vaccine: Pediatrics (0 to 5 Years) and At-Risk Patients (6 to 64 Years) (1 of 2 - PCV) 1990 Alcohol/Substance Use Screening 1996 Family Planning (PISQ) 1999 Hepatitis B Vaccines (1 of 3 - 19+ 3-dose series) 2003 Pap Smear 2005 Cervical Cancer Screening 2014 HPV/Cotest 2014 COVID-19 Vaccine (2 - 2023-2 5 season) 2024 11/23/2021 Influenza Vaccine (#1) 2024 , 08/04/2019, 08/18/2018 Mammogram 2024 SDOH Screening 04/12/2025 04/12/2024 Depression Screening 08/25/2025 08/25/2024, 08/25/2024 Tobacco Screening 09/01/2025 09/01/2024 DTaP/Tdap/Td Vaccines (3 - T d or Tdap) 09/11/2027 09/11/2017, 09/06/2010 Zoster Vaccines (1 of 2) 2034 RSV Patients and Patients Aged 60 years or older (1 - 1-dose 75+ series) 2059 HIV Screening Completed 04/27/2024, 09/08/2022 Hepatitis C Screening Completed 04/27/2024 , 09/08/2022 HIB Vaccines Aged Out No longer eligi [...] patient's age to complete this topic Meningococcal Vaccine Aged Out No gabby mac eligible based on patient's age to complete this topic RSV under 20 months Aged Out No longe r eligible based on patient's age to complete this topic Rotavirus Vaccines Aged Out No longer eligible based on patient's age to complete this topic Procedures Procedure Name Priority Date/Time Associated Diagnosis Comments HEMATOXYLIN AND EOSIN STAIN Routine 10/06/2024 12:36 PM EST HCG, QL, URINE Routine 10/06/2024 8:30 AM EST HEPATITIS C AB W/REFL TO HCV RNA, QN, PCR Routine 04/27/2024 9:12 AM EDT Routine screening for STI (sexually transmitted infection) HIV 1/2 ANTIGEN/ANTIBODY, FOURTH GENERATION W/RFL Routine 04/27/2024 9:12 AM EDT Routine screening for STI (sexually transmitted infection) from Last 3 Months or Most Recently Relevant to Health Maintenance Results * Hematoxylin and Eosin Stain (10/06/2024 12:36 PM EST) 10/06/2024 12:3 6 PM EST 10/06/2024 1:12 PM EST [facility] - 10/10/2024 9:54 AM EST ----- ------- Name: Oriana Angel ? Age/Sex: 39/F ? : 1985 Unit#: [id number] ?? Attend Dr: Ousmane Vincent MD ?Re10/06/24 ?Status: DEP SDC ? Location: [facility].SS[facility] ?Disch: ? ----- ------- SPEC : [id number] ? RECD: 10/06/24-1311 ? STATUS: ??SOUT ? REQ NUM: [id number] ? BASSEM: 10/06/24-1236 ? SUBM DR: Ousmane Vincent MD ? ENTERED: ??10/06/24-1 ?SP TYPE: Surgical ? OTHR DR: ANUJA MUNIZ NP ? ORDERED: ??HE Stain/15, Gross Micro L4/5, IHC, Special st. 2/4, H. pylori, AB/PAS/4 ? Diagnosis ?? A. ??Duodenum, biopsy: ??Few small superficial fragments of small intestinal mucosa within ?? normal limits. ? B. ??Stomach, biopsy: ??Oxyntic mucosa with mild chronic inactive inflammation; no ?? Helicobacter organisms seen. ? C. ??Stomach, polyp: ??Fundic gland polyp with background mild chronic inactive ?? inflammation; no Helicobacter organisms seen. ? D. ??GE junction, biopsy: ?- Cardiofundic-type mucosa with mild chronic inactive inflammation; no intestinal ?? metaplasia seen. ?- No squamous epithelium present. ? E. ??Esophagus, random, biopsy: ??Squamous epithelium within normal limits; no inflammation ?? seen. ?Clinical History Pre-Op Dx: ??Abd pain Post-Op Dx: Mild gastritis/esophagitis, gastric polyp ?Microscopic Description A-E. ??Microscopic sections examined. ??No metaplastic changes are seen, supported by AB/PAS stains (A, B, C and D); no Helicobacter organisms are seen, supported by H. pylori immunostain (B). ? Material Received ?? A. Duodenum ?? B. Stomach ?? C. Gastric polyp ?? D. GE junction ?? E. Random esophagus ? Gross Description Received in five parts. Part A: ??Received in formalin labeled ?duodenum? are 4 rhoades-pink irregular tissue fragments ranging from 0.1-0.2 cm, submitted in toto in a cassette labeled A. ? CONTINUED ON NEXT PAGE ----- ------- Name: Oriana Angel ? Age/Sex: 39/F ? : 1985 Unit#: [id number] ?? Attend Dr: Ousmane Vincent MD ?Re10/06/24 ?Status: DEP SDC ? Location: HO.SSS ?Disch: ? ----- ------- SPEC : [id number] ? RECD: 10/06/24-1312 ? STATUS: ??SOUT ? REQ NUM: [id number] ? BASSEM: 10/06/24-1236 ? SUBM DR: Ousmane Vincent MD ? ENTERED: ??10/06/24-1321 ?SP TYPE: Surgical ? OTHR DR: ANUJA MUNIZ NP ? ORDERED: ??HE Stain/15, Gross Micro L4/5, IHC, Special st. 2/4, H. pylori, AB/PAS/4 ? Gross Description ?(Continued) Part B: ??Received in formalin labeled ?stomach? are 3 rhoades-pink irregular and rectangular tissue fragments ranging from 0.15-0.25 cm, submitted in toto in a cassette labeled B. Part C: ??Received in formalin labeled ?gastric polyp? are 2 rhoades-pink irregular tissue fragments measuring 0.1 and 0.15 cm, submitted in toto in a cassette labeled C. Part D: ??Received in formalin labeled ?GE junction? is a 0.3 cm rhoades irregular tissue fragment, submitted in toto in a cassette labeled D. Part E: ??Received in formalin labeled ?random esophagus? are 2 norris- white irregular tissue fragments measuring 0.15 and 0.25 cm, submitted in toto in a cassette labeled E. ??CEDS Special studies ordered and performed: Immunostain for H. pylori on B; AB/PAS stains on A, B, C and D Copies To: ?? Ousmane Vincent MD ?? [facility] ?? [address] ?? [place] [address] ?? [phone] ?? ANUJA MUNIZ NP ?? [facility] ?? [address] ?? [place] [address] ?? [phone] ----- ------- Signed (signature on file) Atul Miner MD 10/10/24 0954 ? ----- ------- ? END OF REPORT ? Generic External Data Provider LAB BLOOD ORDERAB LES Final Result Performing Organization Address [facility] de Phone Number [facility] [address] [place] [address] [phone] * HCG, Qualitative, Urine (10/06/2024 8:30 AM EST) Pathologist [facility] Urine NEGATIVE NEGATIVE [facility] Comment:This test was develo ped to detect early . Falsenegative results may occur after the 5th - 7th week ofpregnancy when using this test method. If clinicallyindicated, consider a serum hCG. 10/06/2024 8:30 AM EST 10/06/2024 9:50 AM EST [facility] External Data Provider LAB URINE ORDERAB LES Final Result Performing Organization Address [facility] de Phone Number [facility] [address] [place] [address] [phone] * Hepatitis C Antibody with Reflex to HCV, RNA, Quantitative, Real-Time PCR (04/27/2024 9:12 AM EDT) [facility] Hepatitis C Antibody Nonreactive Nonreactive [facility] Comment:Antibodies to HCV no t detected; does not exclude early acuteHCV infection. Blood Venous blood specimen / Unknown 04/27/2024 9:12 AM EDT 04/27/2024 11:15 AM EDT [facility] LAB BLOOD ORDERABLES Final Resul t Performing Organization Address [facility] de Phone Number [facility] [address] [place] [address] [phone] * HIV-1/2 Antigen and Antibodies, Fourth Generation, with Reflexes (04/27/2024 9:12 AM EDT) HIV AB/AG Nonreactive Nonreactive [facility] Comment:HIV-1 p24 Ag and/or HIV-1/HIV-2 Ab not detected.A test result that is nonreactive does not exclude thepossibility of exposure to or infection with HIV-1 and/orHIV-2. Nonreactive results in this assay for individualswith prior exposure to HIV-1 and/or HIV-2 may be due toantigen and antibody levels that are below the limit ofdetection of this assay.The MicroEval HIV Ag/Ab Combo assay result andsupplemental assay results should be interpreted inconjunction with the patient's clinical presentation,history and other laboratory results. If the results areinconsistent with clinical evidence, additional testing issuggested to confirm the result. Blood Venous blood specimen / Unknown 04/27/2024 9:12 AM EDT 04/27/2024 11:15 AM EDT [facility] BLOOD ORDERABLES Final Resul t [facility] [address] [place] [address] [phone] from Last 3 Months or Most Recently Relevant to Health Maintenance Insurance C3 * Guarantor: Oriana Angel Account Type Relation to Patient Date of Phone Billing Address Personal/Family Self [address] [place] [address] Care Teams Drug Department Worker Relationship Specialty Start Date End Date Anuja Muniz ANP [address] [place] [id number] PCP - General Family Medicine 07/09/21 Annel Foreman [employer] J[employer] C[employer] 10/15/23
--- OUTSIDE RECORDS SUMMARY | 2024-12-13 15:26 | XMS_ITS | Encounter Summary ---
Demographics Address [address] [facility] [address] [place] [address] Mobile Phone Home Phone Work Phone Email Address Preferred Language es Marital Status Single Anabaptist Affiliation Unknown Race Other Race Ethnic Group or Author Organization [employer] Address [address] [facility] [address] [place] [address] Care Team Providers Care Parts Salvager Name Role Phone Анна Bonilla Primary Care Provider [phone] Reason for Visit * Reason Onset Date Comments Nurse Triage 08/03/2024 Encounter Details Date Type Department Care Team ([facility] Contact Info) Description 08/03/2024 Telephone [facility] MEDICINE [address] [place], [place] [phone] Анна Bonilla ANP 230 [place] [address] Nurse Triage Social History Tobacco Use Types Packs/Day Years [...] Recorded Patient Health Questionnaire-2 Score 0 04/07/2023 Comments No Sex and Gender Information Value Date Recorded Sex Assigned at Female 09/15/2022 10:21 AM EDT Legal Sex Female 10:21 AM EDT Gender Identity Female 09/15/2022 10:21 AM EDT Sexual Orientation Straight 09/15/2022 10 :21 AM EDT documented as of this encounter Miscellaneous Notes * Telephone Encounter - Ashley Carranza RN - 08/03/2024 11:05 AM EDT Triage call with [facility] Physician ID [id number]. Pt reports positive home covid test taken yesterday 08/02/24. Pt symptoms are mild, cough, headache,nausea, abdominal pain, low back pain , chills and nasal congestion. Neg for vomiting /diarrhea. Ptis advised if symptoms of fever 103 or higher, difficulty breathing with chest pain/pressure pleaseseek assist in closest ED. Pt denies these symptoms. Home care is given as per flu treatment. Increase liquids especially warm liquids, humidifer at bed side at night or hot steamy shower air for coughing spells, OTC cough suppressant syrup or 2 tsp honey especially at bed time, cough drops for sore throat. Tylenol/motrin for pain, aches discomfort. Home isolation for 5 days or until symptoms arebetter. Pt is asking for work excuse, advised to send picture of positive Covid test to medical records to generate excuse for work. Pt has no further questions. TSK apt with Dr. Colin for possible paxlovid prescription. 200pm today 08/03/24. Protocol Used: COVID-19 - Diagnosed or Suspected (Adult) Protocol-Based Disposition: Home Care Positive Triage Question: * COVID-19 diagnosed by positive lab test (e.g., PCR, rapid self-test kit) and mild symptoms (e.g.,cough, fever, others) and no complications or SOB * All higher-acuity triage questions were negative Care Advice Discussed: * Reassurance and Education - Positive COVID-19 Lab Test and Mild Symptoms * General Care Advice for COVID-19 Symptoms * Cough Medicines * Humidifier * Coughing Spells * Pain and Fever Medicines * Mild Stomach and Intestinal Symptoms During COVID-19 Illness * Reasons To Call Back - Fever over 103 F (39.4 C) - Fever lasts over 3 days - Fever returns after being gone for 24 hours - Chest pain or difficulty breathing occurs - Cough or other symptoms last more than 3 weeks - You become worse * Telephone Encounter - Hortencia Mancuso - 08/03/2024 9:34 AM EDT Symptoms: Headache, Cough, Abdominal Pain - Female - Not Outcome: Schedule an urgent appointment (within 4 hours) or talk to a nurse or provider soon Reason: Started within the past 3 days The caller accepted this outcome. Pt stated she tested positive for Covid-19 (at home test) Contact pt at [phone] (vietnamese) documented in this encounter Plan of Treatment Not on file documented as of this encounter Visit Diagnoses Not on filedocumented in this encounter Care Teams Parts Salvager Relationship Specialty Start Date End Date Анна Bonlila ANP [address] [place] [address] PCP - General Family Medicine 07/09/21 Annel Foreman Leather FinisherGrain Sacker 10/15/23 documented as of this encounter
--- OUTSIDE RECORDS SUMMARY | 2024-12-13 15:26 | XMS_ITS | Encounter Summary ---
Demographics Address [address] [facility] [address] [place] [address] Mobile Phone Home Phone Work Phone Email Address Preferred Language es Marital Status Single Rastafarian Affiliation Unknown Race Other Race Ethnic Group or Author Organization [employer] Address [address] [facility] [place] [address] Care Team Providers Care Supply Chain Design Manager Name Role Phone Irene Анна MEANS Primary Care Provider [phone] Reason for Visit * Reason Onset Date Comments Med Refill 11/23/2024 Encounter Details Date Type Department Care Team ([facility] st Contact Info) Description 11/23/2024 Refill [facility] [address] [place] [address] Brandi Mcfadden MD [address] [place] [address] Acute otitis externa of right ear, unspecified type Social History Tobacco Use Types Packs/Day Years [...] Bere De La Cruz RN - 11/23/2024 4:44 PM EST RN verbally spoke with provider Dr. Mcfadden regarding rx. RN to queue rx to provider. documented in this encounter Plan of Treatment Not on file documented as of this encounter Visit Diagnoses Diagnosis Acute otitis externa of right ear, unspecified type documented in this encounter Care Teams Supply Chain Design Manager Relationship Specialty Start Date End Date Анна Bonilla ANP [address] [place] [address] PCP - General Family Medicine 07/09/21 Annel Foreman Clinical Applications SpecialistBilingual Call Center Representative 10/15/23 documented as of this encounter
--- OUTSIDE RECORDS SUMMARY | 2024-12-13 15:26 | XMS_ITS | Encounter Summary ---
Demographics Address [address] [facility] [address] [place] [address] Mobile Phone Home Phone Work Phone Email Address Preferred Language es Marital Status Single Adventist Affiliation Unknown Race Other Race Ethnic Group or Author Organization [employer] Address [address] [facility] [address] [place] [address] Care Team Providers Care Procurement Buyer Name Role Phone Анна Bonilla Primary Care Provider [phone] Reason for Visit * Reason Onset Date Comments Nurse Triage 06/21/2024 Encounter Details Date Type Department Care Team ([facility] Contact Info) Description 06/21/2024 Telephone [facility] MEDICINE [address] [place], [place] [phone] Анна Bonilla ANP 230 [place] [address] Nurse Triage Social History Tobacco Use Types [...] encounter Miscellaneous Notes * Telephone Encounter - Maya Da Silva RN - 06/21/2024 2:35 PM EDT Called pt. Via [facility] installment loan collector [id number] Mary. Pt. States that she has had itchiness in her eye x3 days. Pt white of eye is red. Pt bought some eye drops OTC but they are not taking all the itchiness out of eyes. No drainage. Pt did have a headache a few days ago. Pt. States her nasal passages feel itchy. Pt states she has been using Claritin with no relief. I see in pt. Chart that she was prescribed Cetirizine and Flonase nasal spray. Pt that she thought Clariten was the same as Zyrtec and that the nasal spray was only used as needed. Advised pt. That Cetirizine does have more antihistamine components than Claritin and that Flonase should be used daily during allergy times as a preventative medication to milligan off allergy sx. Pt. States understanding and will start the Ceterizine pillsand stop Claritin and also start the Flonase spray, 2 sprays each nostril once daily to see if sx. Get alleviated. Pt. Will call back if sx. Do not resolve or if sx. Worsen. Protocol Used: Eye - Allergy (Adult) Protocol-Based Disposition: Home Care Positive Triage Question: * Mild eye allergy * All higher-acuity triage questions were negative Care Advice Discussed: * Reassurance and Education - Eye Allergy * Wash off Allergens Daily * Apply a Cold Compress * Use Artificial Tears * Remove Contacts * Antihistamine Medicines for Hay Fever - Nose Itching and Runny Nose * Antihistamine Medicines - Extra Notes and Warnings * Expected Course * Extra Home Care Advice - Avoiding Pollen * Telephone Encounter - Ana Maria Pagan - 06/21/2024 2:30 PM EDT Symptom: Eye Allergy Outcome: Schedule an urgent appointment (within 4 hours) or talk to a nurse or provider soon Reason: Eyelid is red and swollen and eyes are painful The caller accepted this outcome Kazakh speaker documented in this encounter Plan of Treatment Not on file documented as of this encounter Visit Diagnoses Diagnosis Urticaria Unspecified urticaria documented in this encounter Care Teams Procurement Buyer Relationship Specialty Start Date End Date Анна Bonilla ANP [address] [place] [address] PCP - General Family Medicine 07/09/21 Annel Foreman Motion Picture Camera Lens TechnicianJourneyman Molder 10/15/23 documented as of this encounter
== END 2024-12-13 15:19 | disposition home or self-care (01) ==
PROVIDERS: PCP Nurse Practitioner Primary Care; Visit Provider Nurse Practitioner Family
DX: N20.0 Calculus of kidney (principal); N39.0 Urinary tract infection, site not specified; Z13.9 Encounter for screening, unspecified
CPT/HCPCS: 99204

== ENCOUNTER → 2024-12-13 14:32 | Outpatient (BNVA) | payer MEDICAID, SELFPAY | PROVIDERS: PCP Nurse Practitioner Primary Care; Visit Provider Nurse Practitioner Family | DX: N20.0 Calculus of kidney (principal); N39.0 Urinary tract infection, site not specified | CPT/HCPCS: 51798; 81003; 99212 ==

== ENCOUNTER 2025-01-03 13:16 | Outpatient (REF) | payer MEDICAID, SELFPAY ==
--- OUTSIDE RECORDS SUMMARY | 2025-01-03 14:13 | XMS_ITS | Encounter Summary ---
Demographics Address [address] [facility] [address] [place] [address] Mobile Phone Home Phone Work Phone Email Address Preferred Language es Marital Status Single Protestant Affiliation Unknown Race Other Race Ethnic Group or Author Organization [employer] Address [address] [facility] [address] [place] [address] Care Team Providers Care Ornithology Teacher Name Role Phone Анна Bonilla Primary Care Provider Reason for Visit * Reason Onset Date Comments Nurse Triage 06/21/2024 Encounter Details Date Type Department Care Team ([facility] Contact Info) Description 06/21/2024 Telephone [facility] MEDICINE 230 [place], [place] [phone] Анна Bonilla ANP 230 [place] [address] Nurse Triage Social History Tobacco Use Types [...] 06/21/2024 2:35 PM EDT Called pt. Via [employer] senior sql developer [phone] Mary. Pt. States that she has had [...] are painful The caller accepted this outcome Japanese speaker documented in this encounter Plan of Treatment Upcoming Encounters Date Type Department Care Team (Late st Contact Info) Description 02/17/2025 11:15 AM EDT Office Visit [facility] MEDICINE [address] [place] [address] Анна Bonilla ANP 230 [place] [address] documented as of this encounter Visit Diagnoses Diagnosis Urticaria Unspecified urticaria documented in this encounter Care Teams Ornithology Teacher Relationship Specialty Start Date End Date Анна Bonilla ANP [address] [place] [address] PCP - General Family Medicine 07/09/21 Annel Foreman Hospital CookLunchroom Aide 10/15/23 documented as of this encounter
--- OUTSIDE RECORDS SUMMARY | 2025-01-03 14:13 | XMS_ITS | Encounter Summary ---
Demographics Address [address] [facility] [address] [place] [address] Mobile Phone Home Phone Work Phone Email Address Preferred Language es Marital Status Single Adventist Affiliation Unknown Race Other Race Ethnic Group or Author Organization [employer] Address [address] [place] [address] Care Team Providers Care Calculus Tutor Name Role Phone Анна Bonilla Primary Care Provider [phone] Encounter Details Date Type Department Care Team ([facility] st Contact Info) Description 12/30/2024 Telephone [facility] MEDICINE [address] [place], [place] [phone] Анна Bonilla ANP [address] [place], [place] [phone] Social History Tobacco Use Types Packs/Day Years [...] AM EDT documented as of this encounter Plan of Treatment Upcoming Encounters Date Type Department Care Team (Late st Contact Info) Description 02/17/2025 11:15 AM EDT Office Visit [facility] MEDICINE [address] [place] [address] Анна Bonilla ANP [address] [place] [address] documented as of this encounter Visit Diagnoses Not on filedocumented in this encounter Care Teams Calculus Tutor Relationship Specialty Start Date End Date Анна Bonilla ANP [address] [place] [address] PCP - General Family Medicine 07/09/21 Annel Foreman Audio Production ManagerDough Mixer Helper 10/15/23 documented as of this encounter
--- OUTSIDE RECORDS SUMMARY | 2025-01-03 14:13 | XMS_ITS | Clinical Summary ---
Author Organization [facility] Address [address] [place] [address] Care Team Providers Care Floor Sanding Machine Operator Name Role Phone Cristina Butt NP Primary Care Provider [phone] Surgical History Surgery Date Site/Laterality Comments ANKLE SURGERY 2013 Left PROCEDURE: HISTORICAL ANKLE SURGERY BELT ABDOMINOPLASTY 2014 PROCEDURE: HISTORICAL TUMMY TUCK CHOLECYSTECTOMY 01/2020 PROCEDURE: [place] CHOLECYSTECTOMY Medical History Medical History Date Comments [...] drink = 0.6 oz pur e alcohol) Comments Unknown Sex and Gender Information Value Date Recorded Sex Assigned at Not on file Legal Sex Female 9:52 AM EST Gender Identity Not on file Sexual Orientation [...] patient's age to complete this topic Meningococcal B Vacine Aged Out No lo nger eligible based on patient's age to complete [...] RESULTING AGENCY - 04/23/2023 6:26 AM EDT [id number] THINPREP PAP, IMAGED: NEGATIVE FOR SQUAMOUS INTRAEPITHELIAL [...] HX NEGATIVE, LMP 03/23/23, [Z12.4] Ashley Wheatley [facility] LAB CYTOLOGY ORDERABLES Final R esult HISTORICAL TESTING LAB RESULTING AGENCY from Last 3 Months or Most Recently Relevant to Health Maintenance Care Teams Floor Sanding Machine Operator Relationship Specialty Start Date End Date Cristina Butt NP [address] [address] PCP - General 12/13/21
--- OUTSIDE RECORDS SUMMARY | 2025-01-03 14:13 | XMS_ITS | Encounter Summary ---
Demographics Address [address] [facility] [address] [place] [address] Mobile Phone Home Phone Work Phone Email Address Preferred Language es Marital Status Single Yazidism Affiliation Unknown Race Other Race Ethnic Group or Author Organization [employer] Address [address] [facility] [facility] [address] [place] [address] Care Team Providers Care Exhaust Worker Name Role Phone нАна Bonilla Primary Care Provider [phone] Reason for Visit * Reason Onset Date Comments Medication Question 08/31/2024 Encounter Details Date Type Department Care Team ([facility] Contact Info) Description 08/31/2024 Telephone [facility] MEDICINE [address] [place], [place] [phone] Анна Bonilla ANP 230 [place] [address] Medication Question Social History Tobacco Use Types [...] in office on 08/25/24 regarding frequent UTI's. Car Starter advised pt of pending appointment with urology (provided phone number) Pt is requesting antibiotics in the meantime. Contact pt at [phone] (sri lankan) documented in this encounter Plan of Treatment Upcoming Encounters Date Type Department Care Team (Late st Contact Info) Description 02/17/2025 11:15 AM EDT Office Visit [facility] MEDICINE [address] [place] [address] Анна Bonilla ANP [address] [place] [address] documented as of this encounter Visit Diagnoses Not on filedocumented in this encounter Care Teams Exhaust Worker Relationship Specialty Start Date End Date Анна Bonilla ANP [address] [place] [address] PCP - General Family Medicine 07/09/21 Annel Foreman Standard Machine StitcherGlassine Machine Tender 10/15/23 documented as of this encounter
--- OUTSIDE RECORDS SUMMARY | 2025-01-03 14:13 | XMS_ITS | Encounter Summary ---
Demographics Address [address] [facility] [address] [place] [address] Mobile Phone Home Phone Work Phone Email Address Preferred Language es Marital Status Single Anabaptism Affiliation Unknown Race Other Race Ethnic Group or Author Organization [employer] Address [address] [facility] [address] [place] [address] Care Team Providers Care Office Executive Name Role Phone Анна Bonilla Primary Care Provider [phone] Reason for Visit * Reason Onset Date Comments Nurse Triage 08/03/2024 Encounter Details Date Type Department Care Team ([facility] Contact Info) Description 08/03/2024 Telephone [facility] MEDICINE [address] [place], [place] [phone] Анна Bonilla ANP 230 [place] [address] Nurse Triage Social History Tobacco Use Types [...] 08/03/2024 11:05 AM EDT Triage call with [facility] Account[place] ID [id number]. Pt reports positive home covid test taken [...] Covid-19 (at home test) Contact pt at [phone] (macanese) documented in this encounter Plan of Treatment Upcoming Encounters Date Type Department Care Team (Late st Contact Info) Description 02/17/2025 11:15 AM EDT Office Visit [facility] MEDICINE [address] [place] [address] Анна Bonilla ANP [address] [place] [address] documented as of this encounter Visit Diagnoses Not on filedocumented in this encounter Care Teams Office Executive Relationship Specialty Start Date End Date Анна Bonilla ANP 230 [place] [address] PCP - General Family Medicine 07/09/21 Annel Foreman Office ExecutiveBusiness Analyst Sales Operations 10/15/23 documented as of this encounter
--- OUTSIDE RECORDS SUMMARY | 2025-01-03 14:13 | XMS_ITS | Encounter Summary ---
Demographics Address [address] [facility] [address] [place] [address] Mobile Phone Home Phone Work Phone Email Address Preferred Language es Marital Status Single Congregation Affiliation Unknown Race Other Race Ethnic Group or Author Organization [employer] Address [address] [facility] [facility] [address] [place] [address] Care Team Providers Care Assistant City Attorney Name Role Phone Анна Bonilla CLARY Primary Care Provider [phone] Reason for Visit * Reason Onset Date Comments Lab Orders 01/03/2025 Encounter Details Date Type Department Care Team ([facility] Contact Info) Description 01/03/2025 Telephone [facility] MEDICINE 230 [place], [place] [phone] Mila Gomez, RN 230 [place] [address] Lab Orders Social History Tobacco Use Types Packs/Day Years [...] encounter Miscellaneous Notes * Telephone Encounter - Mila Gomez RN - 01/03/2025 1:12 PM EST Pt walked into green team lobby stating needs TB test for work. Ordered and handed lab slip. Informed usually receive results within 24-48hrs. Can access on [employer] or can come in to rock picker from HIMonce results are completed. documented in this encounter Plan of Treatment Upcoming Encounters Date Type Department Care Team (Late st Contact Info) Description 02/17/2025 11:15 AM EDT Office Visit [facility] MEDICINE [address] [place] [address] Анна Bonilla ANP [address] [place] [address] Scheduled Orders Name Type Priority Associated Diagnoses Orde r Schedule T-SPOT??.TB Lab Routine Screening for tuberculosis Expected: 01/03/2025 (Approximate), Expires: 01/03/2026 documented as of this encounter Visit Diagnoses Diagnosis Screening for tuberculosis Screening examination for pulmonary tuberculosis documented in this encounter Care Teams Assistant City Attorney Relationship Specialty Start Date End Date Анна Bonilla ANP [address] [place] [address] PCP - General Family Medicine 07/09/21 [facility] Banquet Waiter/WaitressReport Checker 10/15/23 documented as of this encounter
--- OUTSIDE RECORDS SUMMARY | 2025-01-03 14:13 | XMS_ITS | Clinical Summary ---
Demographics Address [address] [facility] [address] [place] [address] Mobile Phone Home Phone Work Phone Email Address Preferred Language es Marital Status Single Anabaptism Affiliation Unknown Race Other Race Ethnic Group or Author Organization [employer] Address [address] [facility] [address] [place] [address] Care Team Providers Care Qualitative Field Project Manager Name Role Phone Anuja Muniz Primary Care Provider [phone] Allergies Active Allergy Reactions Criticality Noted Date Comments Influenza Vaccines Headache,Dizziness 0 Other reaction(s): Itching Vaccine Product Containing Only Influenza Virus Antigen (medicinal Product) New Paroxetine High 04/06/2020 Other reaction(s): Excessive sweating, Tremor Sulfa Antibiotics 10/08/2016 Other reaction(s): Rash Medications albuterol (2.5 MG/3ML) 0.083% nebulizer solution Inhale 3 mL every 8 (eight) hours. 1 Active hydrOXYzine pamoate (Vistaril) 25 MG capsule Take 1 capsule by mouth in the morning and 1 capsule at noon and 1 capsule in the evening. 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 May repeat dose once in 2 hours if no relief. Do not exceed 2 doses in 24 hours. 9 tablet 3 Active Blood Pressure kitIndications:Una vated blood pressure reading 1 kit in the morning. 1 kit 3 Active ketotifen (Zaditor) 0.025 % ophthalmic solutionIndication s:Allergic conjunctivitis of both eyes One drop to eyes bid prn allergies 5 mL 1 3 Active omeprazole (PriLOSEC) [address] capsuleIndications :Gastritis, presence of bleeding unspecified, unspecified chronicity, unspecified gastritis type TAKE ONE CAPSULE BY MOUTH BEFORE BREAKFAST AND BEFORE EVENING MEAL 180 capsule 3 Active famotidine (Pepcid) 20 MG tabletIndications: Gastroesophageal reflux disease, unspecified whether esophagitis present Take 1 tablet twice daily 180 tablet 3 Active ibuprofen 600 MG tablet TAKE 1 TABLET BY MOUTH THREE TIMES DAILY WITH MEALS FOR PAIN. MAX 2400 MG DAILY 3 Active albuterol 108 (90 Base) MCG/ACT inhalerIndications :Moderate persistent asthma without complication Inhale 2 puffs every 4 (four) hours. 18 g 1 4 Active cetirizine (ZyrTEC) 10 MG tabletIndications: Urticaria Take 1 tablet (10 mg) by mouth Once per day. 90 tablet 3 4 025 Active fluticasone (Flonase) 50 MCG/ACT nasal sprayIndications:S easonal allergic rhinitis due to pollen Administer 2 sprays into each nostril Once daily as needed for rhinitis. 16 g 2 4 Active magnesium 200 MG tabletIndications: Migraine without status migrainosus, not intractable, unspecified migraine type Take 2 tablets (400 mg) by mouth Once daily. 180 tablet 1 4 Active diphenhydrAMINE (BENADryl) 25 MG tabletIndications: Urticaria Take 1 tablet (25 mg) by mouth every 6 (six) hours if needed for itching or allergies. 45 tablet 1 4 Active acetaminophen (Tylenol) 500 MG tablet Take 2 tablets (1,000 mg) by mouth every 6 (six) hours if needed for moderate pain or fever for up to 25 doses. 40 tablet 4 Active ibuprofen 400 MG tablet Take 1 tablet (400 mg) by mouth every 6 (six) hours if needed for moderate pain or fever for up to 30 doses. 30 tablet 4 Active Mometasone Furoate (Asmanex HFA) 100 MCG/ACT aerosolIndications :Moderate persistent asthma without complication Inhale 2 puffs 2 times daily. 13 g 2 4 Active pseudoephedrine (Sudafed) 30 MG tablet Take 1 tablet (30 mg) by mouth every 4 (four) hours if needed for congestion for up to 10 days. 30 tablet 5 Active Active Problems Problem Noted Date Diagnosed Date [...] wrist 11/24/2022 Post-traumatic arthritis of left ankle 3 Carpal tunnel syndrome 02/26/2018 Gastroesophageal reflux disease [...] Encounters Date Type Department Care Team Description 01/03/2025 Telephone [facility] MED[facility] [address] [place] [phone] Mila Gomez RN Lab Orders 12/30/2024 Telephone [facility] MED[facility] [address] [place] [phone] Anuja Muniz ANP 11/23/2024 Refill [facility] [address] [place] [address] Brandi Mcfadden MD Acute otitis externa of right ear, unspecified type 11/22/2024 Telephone [facility] MED[facility]INE [address] [place] [phone] Anuja Muniz ANP new med 11/18/2024 1:40 PM EST Office Visit [facility] [address] [place] [address] Brandi Mcfadden MD Acute otitis externa of right ear, unspecified type (Primary Dx) 11/03/2024 Telephone [facility] MED[facility] [address] [place] [phone] Nelly Tatum, RN Results 11/03/2024 Orders Only [facility] [address] [place] [phone] Michelle Umaña MD Renal stone (Primary Dx) 10/18/2024 Telephone [facility] MED[facility] [address] [place] [phone] Brigitte Hathaway MA 10/11/2024 Telephone [facility] MED[facility] [address] [place] [address] Anuja Muniz ANP from Last 3 Months [...] 09/01/2024 9:01 AM EDT Plan of Treatment Upcoming Encounters Date Type Department Care Team (Late st Contact Info) Description 02/17/2025 11:15 AM EDT Office Visit [facility] [address] [place], [place] [phone] Anuja Muniz, ANP [address] [place] [address] Health Maintenance Due Date Last Done Comments Alcohol/Substance Use Screening 1996 Family Planning (PISQ) 1999 Hepatitis B Vaccines (1 of 3 - 19+ 3-dose series) 2003 Pneumococcal Vaccine: Pediatrics (0 to 5 Years) and At-Risk Patients (6 to 49) Years) (1 of 2 - PCV) 2003 Pap Smear 2005 Cervical Cancer Screening [...] 6 PM EST 10/06/2024 1:12 PM EST [facility] LABS - 10/10/2024 9:54 AM EST ----- ------- Name: Oriana Angel ? Age/Sex: 39/F ? : 1985 Unit#: [id number] ?? Attend Dr: Ousmane Vincent MD ?Re10/06/24 ?Status: DEP SDC ? Location: HO.SSS ?Disch: ? ----- ------- SPEC : [id number] ? RECD: 10/06/24-1311 ? STATUS: ??SOUT ? REQ NUM: [id number] ? BASSEM: 10/06/24-1236 ? SUBM DR: Ousmane Vincent MD ? ENTERED: ??10/06/24-1320 ?SP TYPE: Surgical ? OTHR DR: ANUJA [...] ? Age/Sex: 39/F ? : 1985 Unit#: [id number] ?? Attend Dr: Ousmane Vincent MD ?Re10/06/24 ?Status: DEP SDC ? Location: HO.SSS ?Disch: ? ----- ------- SPEC : [id number] ? RECD: 10/06/24-2 ? STATUS: ??SOUT ? REQ NUM: [id number] ? BASSEM: 10/06/24-1236 ? SUBM DR: Ousmane [...] Copies To: ?? Ousmane Vincent MD ?? [facility] [place] [facility] ?? [address] ?? [place] [address] ?? [phone] ?? ANUJA MUNIZ NP ?? [facility] ?? [address] [place] [address] 1 ?? [place] [address] ?? [phone] ----- ------- Signed (signature on file) Atul Miner MD 10/10/24 0954 ? ----- ------- ? END OF REPORT ? [facility] External Data Provider LAB BLOOD ORDERAB LES Final Result Performing Organization Address [facility] de Phone Number [facility] [address] [place] [address] [phone] * HCG, Qualitative, Urine (10/06/2024 8:30 AM EST) [facility] Urine NEGATIVE NEGATIVE [facility] Comment:This test was develo ped to detect early . Falsenegative results may occur after the 5th - 7th week ofpregnancy when using this test method. If clinicallyindicated, consider a serum hCG. 10/06/2024 8:30 AM EST 10/06/2024 9:50 AM EST [facility] External Data Provider LAB URINE ORDERAB LES Final Result Performing Organization Address [facility] de Phone Number [facility] [address] [place] [phone] * Hepatitis C Antibody with Reflex to HCV, RNA, Quantitative, Real-Time PCR (04/27/2024 9:12 AM EDT) [facility] Hepatitis C Antibody Nonreactive Nonreactive [facility] Comment:Antibodies to HCV no t detected; does not exclude early acuteHCV infection. Blood Venous blood specimen / Unknown 04/27/2024 9:12 AM EDT 04/27/2024 11:15 AM EDT Anuja Muniz [facility] LAB BLOOD ORDERABLES Final Resul t Performing Organization Address [facility] de Phone Number [facility] [address] [place] [address] [phone] * HIV-1/2 Antigen and Antibodies, Fourth Generation, with Reflexes (04/27/2024 9:12 AM EDT) HIV AB/AG Nonreactive Nonreactive [facility] Comment:HIV-1 p24 Ag and/or HIV-1/HIV-2 Ab not detected.A test result that is nonreactive does not exclude thepossibility of exposure to or infection with HIV-1 and/orHIV-2. Nonreactive results in this assay for individualswith prior exposure to HIV-1 and/or HIV-2 may be due toantigen and antibody levels that are below the limit ofdetection of this assay.The RNDOMN HIV Ag/Ab Combo assay result andsupplemental assay results should be interpreted inconjunction with the patient's clinical presentation,history and other laboratory results. If the results areinconsistent with clinical evidence, additional testing issuggested to confirm the result. Blood Venous blood specimen / Unknown 04/27/2024 9:12 AM EDT 04/27/2024 11:15 AM EDT [facility] LAB BLOOD ORDERABLES Final Resul t [facility] [address] [place] [address] [phone] from Last 3 Months or Most Recently Relevant to Health Maintenance Insurance * Guarantor: Oriana Angel Account Type Relation to Patient Date of Phone Billing Address Personal/Family Self 1985 [address] [facility] [address] [place] [address] [facility] C3 Care Teams Qualitative Field Project Manager Relationship Specialty Start Date End Date Anuja Muniz ANP [address] [place] [phone] PCP - General Family Medicine 07/09/21 Annel Foreman Circular Saw Edge FuserShoe Repairer Helper 10/15/23
[2025-01-06 07:07] LABS: TS Negative Control Passed; TS Panel A 0; TS Panel B 0; TS Positive Control Passed; TSpotTB Negative (Negative)
== END 2025-01-03 13:17 | disposition home or self-care (01) ==
LOC: HO.HHCL 13:16
PROVIDERS: Visit Provider Nurse Practitioner Primary Care
DX: Z11.1 Encounter for screening for respiratory tuberculosis (principal)
CPT/HCPCS: 36415; 86481

== ENCOUNTER 2025-01-06 14:20 | Outpatient (REF) | payer MEDICAID, SELFPAY ==
--- OUTSIDE RECORDS SUMMARY | 2025-01-06 14:46 | XMS_ITS | Encounter Summary ---
Demographics Address [address] [facility] [address] [place] [address] Mobile Phone Home Phone Work Phone Email Address [employer] Preferred Language es Marital Status Single Methodist Affiliation Unknown Race Other Race Ethnic Group or Author Organization [employer] Address [address] [place] [address] Care Team Providers Care Informatics Spec Name Role Phone Анна Bonilla Primary Care Provider [phone] Reason for Visit * Reason Comments Abdominal Pain Encounter Details Date Type Department Care Team ([facility] Contact Info) Description 01/06/2025 2:20 PM EST Office Visit [facility] WALK[facility]IN [facility] [address] [place] [address] [phone] Name, MD Basil [address] [place] [phone] Pain of upper abdomen (Primary Dx) Social History Tobacco Use Types [...] Sign Reading Time Taken Comments Blood Pressure 145/89 01/06/2025 2:22 PM EST Pulse 100 01/06/2025 2:22 PM EST Temperature 36.8 ??C (98.3 ??F) 01/06/2025 1:49 PM ES T Respiratory Rate 18 01/06/2025 1:49 PM EST Oxygen Saturation 98% 01/06/2025 1:49 PM EST Inhaled Oxygen Concentration - - Weight - - Height - - Body Mass Index - - documented in this encounter Progress Notes * Basil Conteh MD - 01/06/2025 2:20 PM EST Subjective Patient ID: Oriana Funk is a 39 y.o. female who presents for Abdominal Pain. Patient comes for a sick visit. She is accompanied by she is accompanied by her daughter. As she complains of upper abdominal discomfort on the epigastric area and right upper quadrant. The patient has the symptoms for several months. She follows with GI and surgery at [facility]. She was already evaluated with a EGD that she was told was normal. She uses PPI and H2 blockers daily. She denies use of alcohol. She uses NSAIDs frequently. She drinks a lot of coffee and eats chocolate. She denies eating peppermint. Today urinalysis is unremarkable. Urine test is negative. She tells me she has IUD in place. Her past surgical history includes a cholecystectomy. She tells me her surgeon has scheduled her to have a CT scan of the abdomen in a few weeks. Review of Systems Constitutional: Negative for chills and fever. HENT: Negative for sore throat. Respiratory: Negative for cough, shortness of breath and wheezing. Cardiovascular: Negative for chest pain, palpitations and leg swelling. Gastrointestinal: Negative for abdominal pain, blood in stool, constipation and diarrhea. Visit Vitals BP (!) 145/89 Pulse 100 Temp 98.3 ??F (36.8 ??C) (Temporal) Resp 18 SpO2 98% OB Status Having periods Smoking Status Never Objective Physical Exam Constitutional: Appearance: Normal appearance. Cardiovascular: Rate and Rhythm: Normal rate and regular rhythm. Heart sounds: No murmur heard. No gallop. Pulmonary: Effort: Pulmonary effort is normal. No respiratory distress. Breath sounds: Rhonchi present. No wheezing. Abdominal: General: There is no distension. Tenderness: There is no abdominal tenderness. Musculoskeletal: Right lower leg: No edema. Left lower leg: No edema. Neurological: Mental Status: She is alert. Assessment/Plan Diagnoses and all orders for this visit: Pain of upper abdomen Comments: Chronic problem for the patient. Abdomen exam is benign. She is status postcholecystectomy. She is already following with GI answered injury. She has upcoming appointment for CT scan. I recommended to double her PPI. I recommend to stop using NSAIDs. I recommended to cut back on drinking coffee andeating chocolate. I recommended to avoid eating fatty meals after lunch. Evaluation with blood worklisted below. I recommended to keep upcoming appointment for CT scan. Call PCP if not much better in a couple of weeks. Orders: - CBC auto differential; Future - Comprehensive Metabolic Panel; Future - POCT urinalysis dipstick manually resulted - POCT , urine manually resulted Other orders - omeprazole (PriLOSEC) [address] capsule; Take 1 capsule (40 mg) by mouth before breakfast. Do not crush or chew. documented in this encounter Plan of Treatment Upcoming Encounters Date Type Department Care Team ([facility] st Contact Info) Description 02/17/2025 11:15 AM EDT Office Visit [facility] [address] [place] [address] Анна Bonilla ANP [address] [place] [address] Scheduled Orders Name Type Priority Associated Diagnoses Orde r Schedule CBC auto differential Lab Routine Pain of upper abdomen Expected: 01/06/2025 (Approximate), Expires: 01/06/2026 Comprehensive Metabolic Panel Lab Routine Pain of upper abdomen Expected: 01/06/2025 (Approximate), Expires: 01/06/2026 documented as of this encounter Procedures Procedure Name Priority Date/Time Associated Diagnosis Comments POCT , URINE Routine 01/06/2025 2:24 PM EST Pain of upper abdomen POCT URINALYSIS DIPSTICK Routine 01/06/2025 2:24 PM EST Pain of upper abdomen documented in this encounter Results * POCT , urine manually resulted (01/06/2025 2:24 PM EST) Preg Test, Ur Negative Negative, Indeterminate, None Detected, Invalid, Specimen unsatisfactory for evaluation, Weakly Positive Urine 01/06/2025 2:24 PM EST Result Dixon Conteh MD POINT OF CARE TEST ENTER/EDIT OR DERABLES Final Result * (ABNORMAL) POCT urinalysis dipstick manually resulted (01/06/2025 2:24 PM EST) Color, UA Yellow Clarity, UA Clear Glucose, UA Negative Bilirubin, UA Negative Ketones, UA Negative Spec Grav, UA 1.015 Blood, UA Positive(A) Negative, None Detected Comment:trace- intact pH, UA 7.0 Protein, UA Negative Urobilinogen, UA 0.2 Leukocytes, UA Negative Negative, Rare, Trace Nitrite, UA Negative Negative, None Detected Urine 01/06/2025 2:24 PM EST us Basil Conteh MD POINT OF CARE TEST ENTER/EDIT OR DERABLES Final Result documented in this encounter Visit Diagnoses Diagnosis Pain of upper abdomen- Primary documented in this encounter Care Teams Informatics Spec Relationship Specialty Start Date End Date Анна Bonilla ANP [address] [place] [address] PCP - General Family Medicine 07/09/21 Annel Foreman Human Resources Safety ManagerLearning Operations Specialist 10/15/23 documented as of this encounter
--- OUTSIDE RECORDS SUMMARY | 2025-01-06 14:46 | XMS_ITS | Encounter Summary ---
Demographics Address [address] [facility] [address] [place] [address] Mobile Phone Home Phone Work Phone Email Address Preferred Language es Marital Status Single Baptism Affiliation Unknown Race Other Race Ethnic Group or Author Organization [employer] Address [address] [address] [facility] [facility] [address] [place] [address] Care Team Providers Care Forming Department End Finder Name Role Phone Анна Bonilla Primary Care Provider Encounter Details Date Type Department Care Team ([facility] st Contact Info) Description 12/30/2024 Telephone [facility] MEDICINE [address] [place], [place] [phone] Анна Bonilla ANP [address] [place], [place] 39 Social History Tobacco Use Types Packs/Day Years [...] Description 02/17/2025 11:15 AM EDT Office Visit [facility] MEDICINE [address] [place] [phone] Анна Bonilla ANP [address] [place] [address] documented as of this encounter Visit Diagnoses Not on filedocumented in this encounter Care Teams Forming Department End Finder Relationship Specialty Start Date End Date Анна Bonilla ANP [address] [place] [phone] PCP - General Family Medicine 07/09/21 Annel Foreman Internal Grinding Machine OperatorCouturiere 10/15/23 documented as of this encounter
--- OUTSIDE RECORDS SUMMARY | 2025-01-06 14:46 | XMS_ITS | Clinical Summary ---
Demographics Address [address] [facility] [address] [place] [address] Mobile Phone Home Phone Work Phone Email Address Preferred Language es Marital Status Single Sabianism Affiliation Unknown Race Other Race Ethnic Group or Author Organization [employer] Address [address] [facility] 7t [place] [address] Care Team Providers Care Exchange Administrator Name Role Phone Anuja Muniz Primary Care Provider [phone] Allergies Active Allergy Reactions Criticality Noted Date Comments Influenza Vaccines Headache,Dizziness 0 Other reaction(s): Itching Vaccine Product Containing Only Influenza Virus Antigen (medicinal Product) New Paroxetine High 04/06/2020 Other reaction(s): Excessive sweating, Tremor Sulfa Antibiotics 10/08/2016 Other reaction(s): Rash Medications albuterol (2.5 MG/3ML) 0.083% nebulizer solution Inhale 3 mL every 8 (eight) hours. 021 Active hydrOXYzine pamoate (Vistaril) 25 MG capsule Take 1 capsule by mouth in the morning and 1 capsule at noon and 1 capsule in the evening. 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 May repeat dose once in 2 hours if no relief. Do not exceed 2 doses in 24 hours. 9 tablet 023 Active Blood Pressure kitIndications:El evated blood pressure reading 1 kit in the morning. 1 kit 023 Active ketotifen (Zaditor) 0.025 % ophthalmic solutionIndicatio ns:Allergic conjunctivitis of both eyes One drop to eyes bid prn allergies 5 mL 1 023 Active famotidine (Pepcid) 20 MG tabletIndications :Gastroesophageal reflux disease, unspecified whether esophagitis present Take 1 tablet twice daily 180 tablet 023 Active ibuprofen 600 MG tablet TAKE 1 TABLET BY MOUTH THREE TIMES DAILY WITH MEALS FOR PAIN. MAX 2400 MG DAILY Active albuterol 108 (90 Base) MCG/ACT inhalerIndication s:Moderate persistent asthma without complication Inhale 2 puffs every 4 (four) hours. 18 g 1 024 Active cetirizine (ZyrTEC) 10 MG tabletIndications :Urticaria Take 1 tablet (10 mg) by mouth Once per day. 90 tablet 3 024 2024 Active fluticasone (Flonase) 50 MCG/ACT nasal sprayIndications: Seasonal allergic rhinitis due to pollen Administer 2 sprays into each nostril Once daily as needed for rhinitis. 16 g 2 024 Active magnesium 200 MG tabletIndications :Migraine without status migrainosus, not intractable, unspecified migraine type Take 2 tablets (400 mg) by mouth Once daily. 180 tablet 1 024 Active diphenhydrAMINE (BENADryl) 25 MG tabletIndications :Urticaria Take 1 tablet (25 mg) by mouth every 6 (six) hours if needed for itching or allergies. 45 tablet 1 024 Active acetaminophen (Tylenol) 500 MG tablet Take 2 tablets (1,000 mg) by mouth every 6 (six) hours if needed for moderate pain or fever for up to 25 doses. 40 tablet 024 Active Mometasone Furoate (Asmanex HFA) 100 MCG/ACT aerosolIndication s:Moderate persistent asthma without complication Inhale 2 puffs 2 times daily. 13 g 2 024 Active pseudoephedrine (Sudafed) 30 MG tablet Take 1 tablet (30 mg) by mouth every 4 (four) hours if needed for congestion for up to 10 days. 30 tablet Active omeprazole (PriLOSEC) [address] capsule Take 1 capsule (40 mg) by mouth before breakfast. Do not crush or chew. 30 capsule 11 025 2025 Active omeprazole (PriLOSEC) [address] capsuleIndication s:Gastritis, presence of bleeding unspecified, unspecified chronicity, unspecified gastritis type TAKE ONE CAPSULE BY MOUTH BEFORE BREAKFAST AND BEFORE EVENING MEAL 180 capsule 023 2024 Discontinued(D ose adjustment) ibuprofen 400 MG tablet Take 1 tablet (400 mg) by mouth every 6 (six) hours if needed for moderate pain or fever for up to 30 doses. 30 tablet 024 2024 Discontinued Active Problems Problem Noted Date Diagnosed Date [...] Encounters Date Type Department Care Team Description 01/06/2025 2:20 PM EST Office Visit [facility] [address] [place] [phone] Name, MD Basil Pain of upper abdomen (Primary Dx) 01/03/2025 Orders Only [facility] [address] [place] [address] Anuja Muniz ANP 01/03/[address] [address] Mila Gomez, recreation attendant Orders 12/30/[address] [address] Anuja Muniz ANP 11/23/2024 Refill [facility] [address] [place] [address] Brandi Mcfadden MD Acute otitis externa of right ear, unspecified type 11/22/2024 Telephone [facility] [address] [place] [phone] Anuja Muniz ANP new med 11/18/2024 1:40 PM EST Office Visit [facility] [address] [place] [phone] Brandi Mcfadden MD Acute otitis externa of right ear, unspecified type (Primary Dx) 11/03/2024 Telephone [facility] [address] [place] [address] Nelly Tatum, RN Results 11/03/2024 Orders Only [facility] [address] [place] [address] Michelle Umaña MD Renal stone (Primary Dx) 10/18/2024 Telephone [facility] [address] [place] [address] Brigitte Hathaway AR 10/11/2024 Telephone [facility] [address] [place], [place] [phone] Anuja Muniz ANP from Last 3 Months [...] Description 02/17/2025 11:15 AM EDT Office Visit [facility] [address] [place] [address] Anuja Muniz ANP [address] [place] [address] Health Maintenance Due Date Last Done Comments Alcohol/Substance Use Screening 1996 Family Planning (PISQ) 1999 Hepatitis B Vaccines (1 of 3 - 19+ 3-dose series) 2003 Pneumococcal Vaccine: Pediatrics (0 to 5 Years) and At-Risk Patients (6 to 49) Years) (1 of 2 - PCV) 2003 Pap Smear 2005 Cervical Cancer Screening 2014 HPV/Cotest 2014 COVID-19 Vaccine ( season) 2024 11/23/2021 Influenza Vaccine (#1) 2024 0, 08/04/2019, 08/18/2018, Additional history exists Mammogram 2024 SDOH Screening 04/12/2025 04/12/2024 Depression Screening 08/25/2025 08/25/2024, 08/25/20 Tobacco Screening 09/01/2025 09/01/2024 DTaP/Tdap/Td Vaccines (3 - Td or Tdap) 09/11/2027 09/11/2017, 09/06/2010 Zoster Vaccines (1 of 2) 2034 RSV Patients and Patients Aged 60 years or older (1 - 1-dose 75+ series) 2059 HIV Screening Completed 04/27/2024, 09/08/2022 Hepatitis C Screening Completed 04/27/2024, 022 HIB Vaccines Aged Out No longer eligi [...] 2:24 PM EST Pain of upper abdomen T-SPOT(R).TB Routine 01/03/2025 1:18 PM EST HEMATOXYLIN AND EOSIN STAIN Routine 10/06/2024 12:36 [...] Recently Relevant to Health Maintenance Results * POCT , urine manually resulted (01/06/2025 2:24 PM EST) Preg Test, Ur Negative Negative, Indeterminate, None Detected, Invalid, Specimen unsatisfactory for evaluation, Weakly Positive Urine 01/06/2025 2:24 PM EST us Basil Conteh MD POINT OF CARE TEST ENTER/EDIT OR DERABLES Final Result * (ABNORMAL) POCT urinalysis dipstick manually resulted (01/06/2025 2:24 PM EST) Pathologist [facility] Color, UA Yellow Clarity, UA Clear Glucose, [...] TEST ENTER/EDIT OR DERABLES Final Result * T-SPOT??.TB (01/03/2025 1:18 PM EST) Pathologist [facility] T Spot TB Negative Negative [facility] Comment:A negative test resu lt does not exclude the possibilityof exposure to or infection with Mycobacteriumtuberculosis (M. tuberculosis). Patients with recentexposure to TB infected individuals exhibiting anegative T-SPOT.TB result should be considered forretesting within 6 weeks or if other relevant clinicalsymptoms indicate. Results from T-SPOT.TB testing mustbe used in conjunction with each individual'sepidemiological history, current medical status,and results of other diagnostic evaluations.The T-SPOT.TB test is qualitative and results arereported as positive, borderline, or negative, giventhat the test controls perform as expected. In linewith the Centers for Disease Control and Prevention's2010 recommendation to report quantitative measurementsalongside the qualitative result, the laboratoryprovides spot counts for informational purposes only.The T-SPOT.TB test should not be interpreted as aquantitative test. TS PANEL A 0 [facility] TS PANEL B 0 [facility] Negative Control Passed [facility] Positive Control Passed [facility] Comment:For additional infor sean, please refer tohttp://education.Paloma Mobile/faq/RKT617(This link is being provided for informational/educational purposes only.)THIS TEST WAS PERFORMED AT:[employer] [id number] [place] [id number] SAWYER MD,PHD 01/03/2025 1:18 PM EST 01/03/2025 4:04 PM EST [facility] LAB BLOOD ORDERABLES Final Resul t [facility] [address] [place] [phone] * Hematoxylin and Eosin Stain (10/06/2024 12:36 PM EST) 10/06/2024 12:3 6 PM EST 10/06/2024 1:12 PM EST Narrative [facility] - 10/10/2024 9:54 AM EST ----- ------- Name: Oriana Angel ? Age/Sex: 39/F ? : 1985 Unit#: [id number] ?? Attend Dr: Ousmane Vincent MD ?Re10/06/24 ?Status: DEP SDC ? Location: HO.SSS ?Disch: ? ----- ------- SPEC : [id number] ? RECD: 10/06/24-1311 ? STATUS: ??SOUT ? REQ NUM: [id number] ? BASSEM: 10/06/24-1236 ? SUBM DR: Ousmane [...] ? Age/Sex: 39/F ? : 1985 Unit#: [id number] ?? Attend Dr: Ousmane Vincent MD ?Re10/06/24 ?Status: DEP SDC ? Location: HO.SSS ?Disch: ? ----- ------- SPEC : [id number] ? RECD: 10/06/24-2 ? STATUS: ??SOUT ? REQ NUM: [id number] ? BASSEM: 10/06/24-1236 ? SUBM DR: Ousmane [...] Copies To: ?? Ousmane Vincent MD ?? [facility] ?? [address] ?? [place] [address] ?? [phone] ?? ANUJA MUNIZ NP ?? [facility] ?? [address] [place] [address] 1 ?? [place] [address] ?? [phone] ----- ------- Signed (signature on file) Atul Miner MD 10/10/24 0954 ? ----- ------- ? END OF REPORT ? [facility] External Data Provider LAB BLOOD ORDERAB LES Final Result Performing Organization Address [facility] de Phone Number [facility] [address] [place] [phone] * HCG, Qualitative, Urine (10/06/2024 8:30 AM EST) [facility] Urine NEGATIVE NEGATIVE [facility] Comment:This test was develo ped to detect early . Falsenegative results may occur after the 5th - 7th week ofpregnancy when using this test method. If clinicallyindicated, consider a serum hCG. 10/06/2024 8:30 AM EST 10/06/2024 9:[address] [facility] LAB URINE ORDERAB LES Final Result Performing Organization Address [facility] de Phone Number [facility] [address] [place] [phone] * Hepatitis C Antibody with Reflex to HCV, RNA, Quantitative, Real-Time PCR (04/27/2024 9:12 AM EDT) [facility] Hepatitis C Antibody Nonreactive Nonreactive [facility] Comment:Antibodies to HCV no t detected; does not exclude early acuteHCV infection. Blood Venous blood specimen / Unknown 04/27/2024 9:12 AM EDT 04/27/2024 11:15 AM EDT Anuja Muniz [facility] LAB BLOOD ORDERABLES Final Resul t Performing Organization Address [facility] Co de Phone Number [facility] [address] [place] [phone] * HIV-1/2 Antigen and Antibodies, Fourth Generation, with Reflexes (04/27/2024 9:12 AM EDT) HIV AB/AG Nonreactive Nonreactive [facility] Comment:HIV-1 p24 Ag and/or HIV-1/HIV-2 Ab not detected.A test result that is nonreactive does not exclude thepossibility of exposure to or infection with HIV-1 and/orHIV-2. Nonreactive results in this assay for individualswith prior exposure to HIV-1 and/or HIV-2 may be due toantigen and antibody levels that are below the limit ofdetection of this assay.The iWarda HIV Ag/Ab Combo assay result andsupplemental assay results should be interpreted inconjunction with the patient's clinical presentation,history and other laboratory results. If the results areinconsistent with clinical evidence, additional testing issuggested to confirm the result. Blood Venous blood specimen / Unknown 04/27/2024 9:12 AM EDT 04/27/2024 11:15 AM EDT [facility] LAB BLOOD ORDERABLES Final Resul t [facility] [address] [place] [phone] [phone] from Last 3 Months or Most Recently Relevant to Health Maintenance Insurance * Guarantor: Oriana Angel Account Type Relation to Patient Date of Phone Billing Address Personal/Family Self 1985 [address] [facility] [place] [address] [facility] C3 Care Teams Exchange Administrator Relationship Specialty Start Date End Date Anuja Muniz ANP [address] [place] [phone] PCP - General Family Medicine 07/09/21 Annel Foreman Paving Stone InstallerGreen Tire Inspector 10/15/23
--- OUTSIDE RECORDS SUMMARY | 2025-01-06 14:46 | XMS_ITS | Encounter Summary ---
Demographics Address [address] [place] [address] Mobile Phone Home Phone Work Phone Email Address Preferred Language es Marital Status Single Nondenominational Affiliation Unknown Race Other Race Ethnic Group or Author Organization [employer] Address [address] [place] [address] Care Team Providers Care Automotive Electrical Helper Name Role Phone Анна Bonilla CLARY Primary Care Provider [phone] Reason for Visit * Reason Onset Date Comments Lab Orders 01/03/2025 Encounter Details Date Type Department Care Team ([facility] Contact Info) Description 01/03/2025 Telephone [facility] [address] [place], [place] [phone] Mila Gomez, RN [address] [place] [address] Lab Orders Social History Tobacco Use Types [...] receive results within 24-48hrs. Can access on Cure[employer]r or can come in to hop picker from HIMonce results are completed. documented in this encounter Plan of Treatment Upcoming Encounters Date Type Department Care Team (Late st Contact Info) Description 02/17/2025 11:15 AM EDT Office Visit [facility] [address] [place] [phone] Анна Bonilla ANP [address] [place] [phone] Scheduled Orders Name Type Priority Associated Diagnoses Orde r Schedule T-SPOT??.TB Lab Routine Screening for tuberculosis Expected: 01/03/2025 (Approximate), Expires: 01/03/2026 documented as of this encounter Visit Diagnoses Diagnosis Screening for tuberculosis Screening examination for pulmonary tuberculosis documented in this encounter Care Teams Automotive Electrical Helper Relationship Specialty Start Date End Date Анна Bonilla ANP [address] [place] [phone] PCP - General Family Medicine 07/09/21 Merged With [facility] DirectorScrew Machine Adjuster Automatic 10/15/23 documented as of this encounter
--- OUTSIDE RECORDS SUMMARY | 2025-01-06 14:46 | XMS_ITS | Clinical Summary ---
Author Organization [facility] Address [address] [place] [address] Care Team Providers Care Stone Paver Name Role Phone Cristina Butt NP Primary Care Provider [phone] Surgical History Surgery Date Site/Laterality Comments ANKLE SURGERY 2013 Left PROCEDURE: HISTORICAL ANKLE SURGERY BELT ABDOMINOPLASTY 2014 PROCEDURE: HISTORICAL TUMMY TUCK CHOLECYSTECTOMY 01/2020 PROCEDURE: [place] CHOLECYSTECTOMY Medical History Medical History Date Comments [...] RESULTING AGENCY - 04/23/2023 6:26 AM EDT [id number] THINPREP PAP, IMAGED: NEGATIVE FOR SQUAMOUS INTRAEPITHELIAL [...] HX NEGATIVE, LMP 03/23/23, [Z12.4] Ashley Wheatley [facility] CYTOLOGY ORDERABLES Final R esult HISTORICAL TESTING LAB RESULTING AGENCY from Last 3 Months or Most Recently Relevant to Health Maintenance Care Teams Stone Paver Relationship Specialty Start Date End Date Cristina Butt NP [address] [phone] PCP - General 12/13/21
--- OUTSIDE RECORDS SUMMARY | 2025-01-06 14:46 | XMS_ITS | Encounter Summary ---
Demographics Address [address] [place] [address] Mobile Phone Home Phone Work Phone Email Address Preferred Language es Marital Status Single Muslim Affiliation Unknown Race Other Race Ethnic Group or Author Organization [employer] Address [address] [place] [address] Care Team Providers Care Cyanide Case Hardener Name Role Phone Анна Bonilla Primary Care Provider [phone] Reason for Visit * Reason Onset Date Comments Nurse Triage 08/03/2024 Encounter Details Date Type Department Care Team ([facility] Contact Info) Description 08/03/2024 Telephone [facility] [address] [place], [place] [phone] Анна Bonilla ANP [address] [place] [address] Nurse Triage Social History Tobacco Use Types [...] 08/03/2024 11:05 AM EDT Triage call with [employer] Officer ID [id number]. Pt reports positive home covid test taken [...] Covid-19 (at home test) Contact pt at [phone] (equatorial guinean) documented in this encounter Plan of Treatment Upcoming Encounters Date Type Department Care Team (Late st Contact Info) Description 02/17/2025 11:15 AM EDT Office Visit [facility] [address] [place] [address] Анна Bonilla ANP [address] [place] [address] documented as of this encounter Visit Diagnoses Not on filedocumented in this encounter Care Teams Cyanide Case Hardener Relationship Specialty Start Date End Date Анна Bonilla ANP [address] [place] [address] PCP - General Family Medicine 07/09/21 Annel Foreman Reproductive Healthcare AssistantRelay Checker 10/15/23 documented as of this encounter
--- OUTSIDE RECORDS SUMMARY | 2025-01-06 14:46 | XMS_ITS | Encounter Summary ---
Demographics Address [address] [place] [address] Mobile Phone Home Phone Work Phone Email Address Preferred Language es Marital Status Single Caodaism Affiliation Unknown Race Other Race Ethnic Group or Author Organization [employer] Address [address] [place] [address] Care Team Providers Care General Counsel Name Role Phone Анна Bonilla Primary Care Provider [phone] Encounter Details Date Type Department Care Team ([facility] st Contact Info) Description 01/03/2025 Orders Only [facility] [address] [place], [place] [phone] Анна Bonilla ANP [address] [place], [place] [phone] Social History Tobacco Use Types Packs/Day Years [...] t he electric, gas, oil or water Personal Style Finder threatened to shut off services in your [...] Description 02/17/2025 11:15 AM EDT Office Visit [facility] [address] [place], [place] [phone] Анна Bonilla ANP [address] [place], [place] [phone] documented as of this encounter Procedures Procedure Name Priority Date/Time Associated Diagnosis Comments T-SPOT(R).TB Routine 01/03/2025 1:18 PM EST documented in this encounter Results * T-SPOT??.TB (01/03/2025 1:18 PM EST) [facility] T Spot TB Negative Negative [facility] Comment:A negative test resu lt does [...] as aquantitative test. TS PANEL A 0 [facility] TS PANEL B 0 [facility] Negative Control Passed [facility] Positive Control Passed [facility] Comment:For additional infor sean, please refer tohttp://education.Appography/faq/JIQ753(This link is being provided for informational/educational purposes only.)THIS TEST WAS PERFORMED AT:[employer] [id number] [place] [address]OWTITKMKYRA SAWYER MD,PHD 01/03/2025 1:18 PM EST 01/03/2025 4:04 PM EST us Анна MEANS LAB BLOOD ORDERABLES Final Resul t [facility] [address] [place] [phone] documented in this encounter Visit Diagnoses Not on filedocumented in this encounter Care Teams General Counsel Relationship Specialty Start Date End Date Анна Bonilla ANP [address] [place] [phone] PCP - General Family Medicine 07/09/21 Annel Foreman Last Pattern GraderGraphic Art Designer 10/15/23 documented as of this encounter
--- OUTSIDE RECORDS SUMMARY | 2025-01-06 14:46 | XMS_ITS | Encounter Summary ---
Demographics Address [address] [facility] [address] [place] [address] Mobile Phone Home Phone Work Phone Email Address Preferred Language es Marital Status Single Synagogue Affiliation Unknown Race Other Race Ethnic Group or Author Organization [employer] Address [address] [facility] [address] [place] [address] Care Team Providers Care Core Assembly Supervisor Name Role Phone Анна Bonilla Primary Care Provider [phone] Reason for Visit * Reason Onset Date Comments Nurse Triage 06/21/2024 Encounter Details Date Type Department Care Team ([facility] Contact Info) Description 06/21/2024 Telephone [facility] [address] [place], [place] [phone] Анна Bonilla ANP [address] [place] [address] Nurse Triage Social History Tobacco Use Types [...] 06/21/2024 2:35 PM EDT Called pt. Via [employer] carton catcher [phone] Mary. Pt. States that she has had [...] are painful The caller accepted this outcome Arabic speaker documented in this encounter Plan of Treatment Upcoming Encounters Date Type Department Care Team (Late st Contact Info) Description 02/17/2025 11:15 AM EDT Office Visit [facility] [address] [place] [phone] Анна Bonilla ANP [address] [place] [address] documented as of this encounter Visit Diagnoses Diagnosis Urticaria Unspecified urticaria documented in this encounter Care Teams Core Assembly Supervisor Relationship Specialty Start Date End Date Анна Bonilla ANP [address] [place] [phone] PCP - General Family Medicine 07/09/21 Annel Foreman Steam Box HandConsultant Teacher 10/15/23 documented as of this encounter
--- OUTSIDE RECORDS SUMMARY | 2025-01-06 14:46 | XMS_ITS | Encounter Summary ---
Demographics Address [address] [place] [address] Mobile Phone Home Phone Work Phone Email Address Preferred Language es Marital Status Single Holiness Affiliation Unknown Race Other Race Ethnic Group or Author Organization [employer] Address [address] 7[address] [place] [address] Care Team Providers Care Fittings Tightener Name Role Phone Анна Bonilla Primary Care Provider [phone] Reason for Visit * Reason Onset Date Comments Medication Question 08/31/2024 Encounter Details Date Type Department Care Team ([facility] Contact Info) Description 08/31/[address] [facility] MED[facility] [address] [place], [place] [phone] Анна Bonilla ANP [address] [place] [address] Medication Question Social History Tobacco Use Types [...] in office on 08/25/24 regarding frequent UTI's. Skilled Laborer advised pt of pending appointment with urology (provided phone number) Pt is requesting antibiotics in the meantime. Contact pt at [phone] (jordanian) documented in this encounter Plan of Treatment Upcoming Encounters Date Type Department Care Team (Late st Contact Info) Description 02/17/2025 11:15 AM EDT Office Visit [facility] MED[facility] [address] [place] [address] Анна Bonilla ANP [address] [place] [address] documented as of this encounter Visit Diagnoses Not on filedocumented in this encounter Care Teams Fittings Tightener Relationship Specialty Start Date End Date Анна Bonilla ANP [address] [place] [address] PCP - General Family Medicine 07/09/21 Annel Formean Retail Sales ManagerWoodworker 10/15/23 documented as of this encounter
[2025-01-06 16:41] LABS: MANUAL DIFF FLAG NO
[2025-01-06 16:55] LABS: Basophils Absolute Auto 0.1 X10*3/uL (0.0-0.2); Basophils Percent Auto 0.4 % (0-2); Eosinophils Absolute Auto 0.2 X10*3/uL (0.0-0.4); Eosinophils Percent Auto 2.1 % (0-4); Hematocrit 34.4 % (37.0-47.0); Hemoglobin 10.8 g/dl (12.0-16.0); Imm Gran Abs Auto 0.03 X10*3/uL (0.00-0.03); Imm Gran Pct Auto 0.3 % (0.0-0.4); Lymphocytes Absolute Auto 2.6 X10*3/uL (1.2-4.9); Lymphocytes Percent Auto 22.4 % (20-40); Mean Corpuscular HGB Conc 31.4 g/dl (31.0-35.0); Mean Corpuscular Hemoglobin 23.2 pg (27.0-33.0); Mean Platelet Volume 10.6 fL (9.4-12.3); Monocytes Absolute Auto 0.9 X10*3/uL (0.1-1.2); Neutrophils Absolute Auto 7.7 x10*3/uL (2.0-8.3); Neutrophils Percent Auto 66.8 % (45-73); Platelet Count 479 X10*3/uL (160-400); Red Blood Count 4.65 X10*6/uL (4.20-5.50); Red Cell Distribution Width 16.4 % (11.0-16.0); White Blood Count 11.5 X10*3/uL (4.8-10.8)
[2025-01-06 17:27] LABS: Alanine Aminotransferase 17 U/L (0-31); Albumin Level 3.8 g/dL (3.5-5.0); Alkaline Phosphatase 100 U/L (39-117); Anion Gap 10 (12-20); Aspartate Amino Transferase 21 U/L (5-31); Bilirubin Total 0.3 mg/dL (0.0-1.0); Blood Urea Nitrogen 7 mg/dL (9-16); Calcium 8.9 mg/dL (8.4-10.2); Carbon Dioxide 26 mmol/L (22-29); Chloride 108 mmol/L (96-108); Estimated Glomerular Filt Rate > 60; Glucose Random 105 mg/dL (60-115); Potassium 3.7 mmol/L (3.3-5.1); Sodium 140 mmol/L (135-145); Total Protein 7.8 g/dL (6.5-8.0)
== END 2025-01-06 14:21 | disposition home or self-care (01) ==
LOC: HO.HHCL 14:20
PROVIDERS: Visit Provider Internal Medicine Geriatric Medicine
DX: R10.10 Upper abdominal pain, unspecified (principal)
CPT/HCPCS: 36415; 80053; 85025

== ENCOUNTER 2025-01-24 08:20 | Outpatient (REF) | payer MEDICAID, SELFPAY ==
--- NOTE | ~2025-01-24 | CT_ITS ---
EXAMINATION: CT ABDOMEN AND PELVIS WITH CONTRAST CLINICAL INFORMATION: Ventral hernia without obstruction or gangrene. COMPARISON: December 01, 2016. TECHNIQUE: Multidetector volumetric images were obtained from the superior aspect of the liver through the pubic symphysis following administration 85 mL of Omnipaque 350 intravenous contrast. Sagittal and coronal reformatted images were obtained on the technologist's workstation. Oral contrast: No This CT examination was performed using dose optimization techniques as appropriate, variously including the following: *Automated exposure control *Adjustment of mA and/or kV according to patient size (this includes techniques or standardized protocols for targeted exams where dose is matched to indication/reason for exam; i.e. extremities or head) *Use of iterative reconstruction technique. DLP: 452 mGy centimeter. FINDINGS: LUNG BASES: No acute airspace disease or gross nodules. LIVER, GALLBLADDER, AND BILIARY TREE: Liver measures 17 cm with decreased enhancement pattern. 3 mm hypodensity inferior right hepatic lobe. Focal calcification in the peripheral posterior right hepatic lobe. Portal veins, hepatic veins and intrahepatic portion of the IVC are patent. Probable 2 mm hypodensity left hepatic lobe. Absent gallbladder. No intrahepatic or extrahepatic biliary ductal dilatation. PANCREAS: No focal lesion. No peripancreatic fluid collection. No main pancreatic ductal dilatation. SPLEEN: 9 cm. No focal lesion. ADRENAL GLANDS: No nodular lesions. KIDNEYS AND URETERS: No hydronephrosis. No nephrolithiasis. No gross focal renal mass. BLADDER: Fluid-filled. GASTROINTESTINAL TRACT: Appendix is normal. Stool within the large intestine. No intestinal obstruction pattern. No pneumatosis intestinalis. Segmental narrowing of the sigmoid colon likely peristalsis. No ascites. No peripheral enhancing fluid collection, peritoneal cavity. No pneumoperitoneum. ABDOMINAL WALL: No gross umbilical hernia. LYMPH NODES: No gross lymphadenopathy, mesenteric or retroperitoneal. VASCULAR: No aneurysm or dissection, abdominal aorta. PELVIC VISCERA: T-shaped contraceptive device within the uterine cavity. Large, 5 cm uterine fibroid. Nonspecific dominant follicles both adnexa. OSSEOUS STRUCTURES: No acute fracture or listhesis. No lytic or blastic lesions. CT/CT abdomen pelvis w IV con IMPRESSION: No gross umbilical hernia. 5 cm uterine fibroid. Hepatomegaly, mild and likely steatosis. Fleischner guidelines were followed. Electronically signed by: Yong Ruiz MD 01/24/2025 02:48 PM EDT RP
--- OUTSIDE RECORDS SUMMARY | 2025-01-24 08:53 | XMS_ITS | Clinical Summary ---
Author Organization [facility] Address [address] [place] [address] Care Team Providers Care Express Manager Name Role Phone Cristina Butt NP Primary Care Provider [phone] Surgical History Surgery Date Site/Laterality Comments ANKLE SURGERY 2013 Left PROCEDURE: HISTORICAL ANKLE SURGERY BELT ABDOMINOPLASTY 2014 PROCEDURE: HISTORICAL TUMMY TUCK CHOLECYSTECTOMY 01/2020 PROCEDURE: DE CHOLECYSTECTOMY Medical History Medical History Date Comments [...] RESULTING AGENCY - 04/23/2023 6:26 AM EDT [id number] THINPREP PAP, IMAGED: NEGATIVE FOR SQUAMOUS INTRAEPITHELIAL [...] HX NEGATIVE, LMP 03/23/23, [Z12.4] Ashley Wheatley [facility] LAB CYTOLOGY ORDERABLES Final R esult HISTORICAL TESTING LAB RESULTING AGENCY from Last 3 Months or Most Recently Relevant to Health Maintenance Care Teams Express Manager Relationship Specialty Start Date End Date Cristina Butt NP [address] [address] PCP - General 12/13/21
[2025-01-24] MEDS: Barium Sulfate Oral (Vanilla) 450 ML ORAL.SUSP PO ×2 (10:34)
[2025-01-24] MEDS: iohexoL 350 MG/ML 100 ML INFUS..BTL IV (10:34)
== END 2025-01-24 08:21 | disposition home or self-care (01) ==
LOC: HO.CT 08:20
PROVIDERS: PCP Nurse Practitioner Primary Care; Visit Provider Surgery
DX: K43.9 Ventral hernia without obstruction or gangrene (principal)
CPT/HCPCS: 74177; Q9967

== ENCOUNTER → 2025-01-24 08:22 | Outpatient (BNV) | payer MEDICAID, SELFPAY | PROVIDERS: PCP Nurse Practitioner Primary Care; Visit Provider Radiology Diagnostic Radiology | DX: K43.9 Ventral hernia without obstruction or gangrene (principal); D25.9 Leiomyoma of uterus, unspecified; R16.0 Hepatomegaly, not elsewhere classified | CPT/HCPCS: 74177 ==

== ENCOUNTER 2025-01-30 11:41 | Outpatient (AMB) | payer MEDICAID, SELFPAY ==
--- NOTE | 2025-01-30 11:49 | A.OFFVIS_ITS ---
Intake Visit Reasons: CT Abd 01-24-25 Intake Note: Patient here to discuss Abd/pelvis CT dated 01-24-2025. Yacht Hand Required: No Accompanied by: Self / Same As Patient Allergies Sulfa (Sulfonamide Antibiotics) [SULFA (SULFONAMIDE ANTIBIOTICS)] Allergy (Intermediate, Verified 01/30/25 11:49) erythema, rash sulfamethoxazole [From BACTRIM] Allergy (Intermediate, Verified 01/30/25 11:49) RASH trimethoprim [From BACTRIM] Allergy (Intermediate, Verified 01/30/25 11:49) RASH HPI Comments Details: Patient presents for follow-up for her upper abdominal nonspecific abdominal symptoms. CT scan demonstrated no hernia or any other acute pathology. Incidental finding of fibroids of the uterus for which he will follow up with her fuel retrofitting technician duct. Patient also has had upper endoscopy in the past which he states was within normal limits. She is tolerating a diet. He is having a bowel habits. 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 Asthma Anxiety and depression Easy bruising Microcytic hypochromic anemia Herpes simplex labialis Seasonal allergies Migraine Mood disorder Bilateral carpal tunnel syndrome GERD without esophagitis IUD (intrauterine device) in place Vitamin D deficiency Anemia Mild intermittent asthma Arthralgia Arthritis Surgical History History of ankle surgery H/O splenectomy Family History Father Pancreatic cancer Lupus Maternal Aunt Breast cancer Social History Household Members: Spouse and Children Housing: House Are you a primary vehicle care specialist to a significant other at home: No Do you presently have visiting nurse or other home services: No Alcohol intake: current Alcohol intake frequency: holidays/special occasions only Alcohol type: hard liquor Patient Tobacco Use Status: Never used Tobacco service: No Current occupational status: employed Physical Exam GI Other: Abdomen moderately corpulent, soft, benign. Assessment & Plan Assessment & Plan (1) Upper abdominal pain: Code(s): R10.10 - Upper abdominal pain, unspecified Category: Medical Plan At present, no acute surgical issues. Should the patient have persistence or progression of symptoms, she has been instructed to either contact Gastroenterology or surgery but at present nothing for surgical intervention. All questions answered. Coding Level of Care Code Est Pt Level 4 (32179) Diagnoses Upper abdominal pain R10.10
--- OUTSIDE RECORDS SUMMARY | 2025-01-30 13:56 | XMS_ITS | Encounter Summary ---
Demographics Address [address] [place] [address] Mobile Phone Home Phone Work Phone Email Address Preferred Language es Marital Status Single Orthodox Affiliation Unknown Race Other Race Ethnic Group or Author Organization [employer] Address [address] [place] [address] Care Team Providers Care Blind Lacer Name Role Phone Анна Bonilla Primary Care Provider [phone] Reason for Visit * Reason Onset Date Comments Nurse Triage 06/21/2024 Encounter Details Date Type Department Care Team ([facility] Contact Info) Description 06/21/2024 Telephone [facility] MEDICINE [address] [place], [place] [phone] Анна Bonilla ANP [address] [place] [address] Nurse Triage Social History Tobacco Use Types [...] 06/21/2024 2:35 PM EDT Called pt. Via Contractually senior network security engineer [id number] Mary. Pt. States that she has had [...] are painful The caller accepted this outcome Scottish speaker documented in this encounter Plan of Treatment Upcoming Encounters Date Type Department Care Team (Late st Contact Info) Description 02/17/2025 11:15 AM EDT Office Visit [facility] MEDICINE [address] [place] [address] Анна Bonilla ANP [address] [place] [address] documented as of this encounter Visit Diagnoses Diagnosis Urticaria Unspecified urticaria documented in this encounter Care Teams Blind Lacer Relationship Specialty Start Date End Date Анна Bonilla ANP [address] [place] [address] PCP - General Family Medicine 07/09/21 Annel Foreman Trust Evaluation SupervisorVice President Tax 10/15/23 documented as of this encounter
--- OUTSIDE RECORDS SUMMARY | 2025-01-30 13:56 | XMS_ITS | Encounter Summary ---
Demographics Address [address] [place] [address] Mobile Phone Home Phone Work Phone Email Address Preferred Language es Marital Status Single Sabianism Affiliation Unknown Race Other Race Ethnic Group or Author Organization [employer] Address [address] [place] [address] Care Team Providers Care Event Representative Name Role Phone Анна Bonilla Primary Care Provider [phone] Reason for Visit * Reason Comments Abdominal Pain Encounter Details Date Type Department Care Team ([facility] Contact Info) Description 01/06/2025 2:20 PM EST Office Visit [facility] [address] [place] [phone] Name, MD Basil [address] [place] [phone] Pain of upper abdomen (Primary Dx) Social [...] She follows with GI and surgery at [facility]. She was already evaluated with [...] Upcoming Encounters Date Type Department Care Team ([facility] Contact Info) Description 02/17/2025 11:15 AM EDT Office Visit [facility] MEDICINE [address] [place] [address] Анна Bonilla ANP [address] [place] [address] documented as of this encounter Procedures Procedure Name Priority Date/Time Associated Diagnosis Comments POCT , URINE Routine 01/06/2025 2:24 PM EST Pain of upper abdomen POCT URINALYSIS DIPSTICK Routine 01/06/2025 2:24 PM EST Pain of upper abdomen CBC WITH AUTO DIFFERENTIAL Routine 01/06/2025 2:21 PM EST Pain of upper abdomen COMPREHENSIVE METABOLIC PANEL Routine 01/06/2025 2:21 PM EST Pain of upper abdomen documented [...] manually resulted (01/06/2025 2:24 PM EST) Pathologist [facility] Color, UA Yellow Clarity, UA Clear Glucose, [...] ENTER/EDIT OR DERABLES Final Result * (ABNORMAL) Comprehensive Metabolic Panel (01/06/2025 2:21 PM EST) Pathologist [facility] Sodium 140 135 - 145 mmol/L [facility] Potassium 3.7 3.3 - 5.1 mmol/L [facility] Chloride 108 96 - 108 mmol/L [facility] Carbon Dioxide 26 22 - 29 mmol/L [facility] Anion Gap 10(L) 12 - 20 [facility] Urea Nitrogen (BUN) 7(L) 9 - 16 mg/dL [facility] Creatinine, Serum 0.70 0.5 - 1.4 mg/dL [facility] Estimated Glomerular Filt Rate >60 [facility] Comment:Chronic Kidney Disea se: Estimated GFR < 60 mL/min/1.73v6Pieowg Kidney Disease: Estimated GFR < 15 mL/min/1.73m2 Glucose 105 60 - 115 mg/dL [facility] Calcium 8.9 8.4 - 10.2 mg/dL [facility] Bilirubin, Total 0.3 0.0 - 1.0 mg/dL [facility] Aspartate Amino Transferase 21 5 - 31 U/L [facility] Alanine Aminotransferase 17 0 - 31 U/L [facility] Total Protein 7.8 6.5 - 8.0 g/dL [facility] Albumin Level 3.8 3.5 - 5.0 g/dL [facility] Alkaline Phosphatase 100 39 - 117 U/L [facility] Blood Venous blood specimen / Unknown 01/06/2025 2:21 PM EST 01/06/2025 4:31 PM EST us Basil Name LAB BLOOD ORDERABLES Final Resul t [facility] [address] [place], [place] [phone] * (ABNORMAL) CBC auto differential (01/06/2025 2:21 PM EST) White Blood Count 11.5(H) 4.8 - 10.8 X10*3/uL [facility] Red Blood Count 4.65 4.20 - 5.50 X10*6/uL [facility] Hemoglobin 10.8(L) 12.0 - 16.0 g/dl [facility] Hematocrit 34.4(L) 37.0 - 47.0 % [facility] Mean Corpuscular Volume 74.0(L) 80.0 - 98.0 fL [facility] Mean Corpuscular Hemoglobin 23.2(L) 27.0 - 33.0 pg [facility] Mean Corpuscular HGB Conc 31.4 31.0 - 35.0 g/dl [facility] Red Cell Distribution Width 16.4(H) 11.0 - 16.0 % [facility] Platelet Count 479(H) 160 - 400 X10*3/uL [facility] Mean Platelet Volume 10.6 9.4 - 12.3 fL [facility] Neutrophils Percent Auto 66.8 45 - 73 % [facility] Imm Gran Pct Auto 0.3 0.0 - 0.4 % [facility] Lymphocytes Percent Auto 22.4 20 - 40 % [facility] Monocytes Percent Auto 8.0 2 - 11 % [facility] Eosinophils Percent Auto 2.1 0 - 4 % [facility] Basophils Percent Auto 0.4 0 - 2 % [facility] NRBC Pct Auto 0.0 0.0 - 0.2 /100WBC [facility] Neutrophils Absolute Auto 7.7 2.0 - 8.3 x10*3/uL [facility] Imm Gran Abs Auto 0.03 0.00 - 0.03 X10*3/uL [facility] Lymphocytes Absolute Auto 2.6 1.2 - 4.9 X10*3/uL [facility] Monocytes Absolute Auto 0.9 0.1 - 1.2 X10*3/uL [facility] Eosinophils Absolute Auto 0.2 0.0 - 0.4 X10*3/uL [facility] Basophils Absolute Auto 0.1 0.0 - 0.2 X10*3/uL [facility] NRBC Abs Auto 0.000 0.0 - 0.012 X10*3/uL [facility] Blood Venous blood specimen / Unknown 01/06/2025 2:21 PM EST 01/06/2025 4:31 PM EST us Basil Name MD LAB BLOOD ORDERABLES Final Resul t [facility] [address] [place] [address] [phone] documented in this encounter Visit Diagnoses Diagnosis Pain of upper abdomen- Primary documented in this encounter Care Teams Event Representative Relationship Specialty Start Date End Date Анна Bonilla ANP [address] [place] [address] PCP - General Family Medicine 07/09/21 Annel Foreman Athletics DirectorTurret Lathe Machinist 10/15/23 documented as of this encounter
--- OUTSIDE RECORDS SUMMARY | 2025-01-30 13:56 | XMS_ITS | Encounter Summary ---
Demographics Address [address] [place] [address] Mobile Phone Home Phone Work Phone Email Address Preferred Language es Marital Status Single Episcopalian Affiliation Unknown Race Other Race Ethnic Group or Author Organization [employer] Address [address] [place] [address] Care Team Providers Care Telecommunications Project Manager Name Role Phone Анна Bonilla Primary Care Provider [phone] Reason for Visit * Reason Onset Date Comments Results 01/24/2025 Appointment Request 01/24/2025 Encounter Details Date Type Department Care Team ([facility] Contact Info) Description 01/24/2025 Telephone [facility] MEDICINE [address] [place], [place] [phone] Анна Bonilla ANP [address] [place] [address] Results; Appointment Request Social History Tobacco Use Types Packs/Day Years [...] encounter Miscellaneous Notes * Telephone Encounter - Mignon Thomas RN - 01/25/2025 9:41 AM EDT Called [facility], pt not a pt there. Called [facility] AUTOMOTIVE PRODUCT SPECIALIST who confirmed ptis active at this practice. Faxed CT scan results per PCP request to [phone], confirmation received. * Telephone Encounter - Mignon Thomas RN - 01/24/2025 4:45 PM EDT Telephone call to pt using [facility] interpreter for the deaf Kay # [phone]. Advised pt on CT scan from Dr Infante that an existing fibroid has increased in size and PCP recommends follow up appt with MARKETING TRAFFIC COORDINATOR. Pt states she is unsure of MARKETING TRAFFIC COORDINATOR name but says she saw them about 5 months ago for pap. Advised her to call their office to schedule appt. Pt asked about follow up for hernia, advised her to follow up with [facility] regarding this however to call back [facility] with any questions or concerns. Pt verbalized understanding, no further questions. * Telephone Encounter - Mignon Thomas RN - 01/24/2025 4:23 PM EDT ----- Message from Анна Bonilla sent at 01/24/2025 4:04 PM EDT ----- Please let patient know that on recent imaging from Dr. Infante it looks like her fibroid has gotten bigger. Please ask her to please call her MARKETING TRAFFIC COORDINATOR office for a follow-up appointment and fax CT results to their office. Thanks. documented in this encounter Plan of Treatment Upcoming Encounters Date Type Department Care Team (Late st Contact Info) Description 02/17/2025 11:15 AM EDT Office Visit [facility] MEDICINE [address] [place] [address] Анна Bonilla ANP [address] [place] [address] documented as of this encounter Visit Diagnoses Not on filedocumented in this encounter Care Teams Telecommunications Project Manager Relationship Specialty Start Date End Date Анна Bonilla ANP [address] [place] [address] PCP - General Family Medicine 07/09/21 Annel Foreman Physical InstructorLean Sensei 10/15/23 documented as of this encounter
--- OUTSIDE RECORDS SUMMARY | 2025-01-30 13:56 | XMS_ITS | Encounter Summary ---
Demographics Address [address] [place] [address] Mobile Phone Home Phone Work Phone Email Address [employer] Preferred Language es Marital Status Single Adventist Affiliation Unknown Race Other Race Ethnic Group or Author Organization [employer] Address [address] [place] [address] Care Team Providers Care Information Security Systems Instructor Name Role Phone Анна Bonilla CLARY Primary Care Provider [phone] Reason for Visit * Reason Onset Date Comments Lab Orders 01/03/2025 Encounter Details Date Type Department Care Team ([facility] Contact Info) Description 01/03/2025 Telephone [facility] MEDICINE [address] [place], [place] [phone] Mila Gomez, RN [address] [place] [address] Lab Orders Social History Tobacco Use Types [...] receive results within 24-48hrs. Can access on CAD Best or can come in to pick up truck driver from HIMonce results are completed. documented in this encounter Plan of Treatment Upcoming Encounters Date Type Department Care Team (Late st Contact Info) Description 02/17/2025 11:15 AM EDT Office Visit [facility] MEDICINE [address] [place] [address] Анна Bonilla ANP [address] [place] [address] Scheduled Orders Name Type Priority Associated Diagnoses Orde r Schedule T-SPOT??.TB Lab Routine Screening for tuberculosis Expected: 01/03/2025 (Approximate), Expires: 01/03/2026 documented as of this encounter Visit Diagnoses Diagnosis Screening for tuberculosis Screening examination for pulmonary tuberculosis documented in this encounter Care Teams Information Security Systems Instructor Relationship Specialty Start Date End Date Анна Bonilla ANP [address] [place] [phone] PCP - General Family Medicine 07/09/21 [facility] Record SearcherCompliance Nurse 10/15/23 documented as of this encounter
--- OUTSIDE RECORDS SUMMARY | 2025-01-30 13:56 | XMS_ITS | Clinical Summary ---
Author Organization [facility] Address [address] [place] [address] Phone Care Team Providers Care Industrial Boilermaker Name Role Phone Cristina Butt NP Primary Care Provider [phone] Surgical History Surgery Date Site/Laterality Comments ANKLE SURGERY 2013 Left PROCEDURE: HISTORICAL ANKLE SURGERY BELT ABDOMINOPLASTY 2014 PROCEDURE: HISTORICAL TUMMY TUCK CHOLECYSTECTOMY 01/2020 PROCEDURE: [place] CHOLECYSTECTOMY Medical History Medical History Date Comments [...] 07/26/2024 1:01 PM EDT Plan of Treatment Upcoming Encounters Date Type Department Care Team (Late st Contact Info) Description 02/08/2025 2:45 PM EDT Office Visit [facility] [place] [address] [place] [address] Estrella Morrell, [facility] [address] [place] [address] Health Maintenance Due Date Last Done Comments [...] RESULTING AGENCY - 04/23/2023 6:26 AM EDT [id number] THINPREP PAP, IMAGED: NEGATIVE FOR SQUAMOUS INTRAEPITHELIAL [...] PAP HX NEGATIVE, LMP 03/23/23, [Z12.4] Ashley TONEY LAB CYTOLOGY ORDERABLES Final R esult HISTORICAL TESTING LAB RESULTING AGENCY from Last 3 Months or Most Recently Relevant to Health Maintenance Insurance MEDICAID - [place] Care Teams Industrial Boilermaker Relationship Specialty Start Date End Date Cristina Butt NP [address] [phone] PCP - General 12/13/21
--- OUTSIDE RECORDS SUMMARY | 2025-01-30 13:56 | XMS_ITS | Encounter Summary ---
Demographics Address [address] [place] [address] Mobile Phone Home Phone Work Phone Email Address Preferred Language es Marital Status Single Confucianist Affiliation Unknown Race Other Race Ethnic Group or Author Organization [employer] Address [address] [place] [address] Care Team Providers Care Heavy Duty Press Operator Name Role Phone Анна Bonilla Primary Care Provider Reason for Visit * Reason Onset Date Comments Medication Question 08/31/2024 Encounter Details Date Type Department Care Team ([facility] Contact Info) Description 08/31/2024 Telephone [facility] MEDICINE [address] [place], [place] [phone] Анна Bonilla ANP [address] [place] [address] Medication Question Social History Tobacco Use Types [...] in office on 08/25/24 regarding frequent UTI's. Construction Scheduler advised pt of pending appointment with urology (provided phone number) Pt is requesting antibiotics in the meantime. Contact pt at [phone] (montenegrin) documented in this encounter Plan of Treatment Upcoming Encounters Date Type Department Care Team (Late st Contact Info) Description 02/17/2025 11:15 AM EDT Office Visit [facility] [address] [place] [address] Анна Bonilla ANP [address] [place] [address] documented as of this encounter Visit Diagnoses Not on filedocumented in this encounter Care Teams Heavy Duty Press Operator Relationship Specialty Start Date End Date Анна Bonilla ANP [address] [place] [address] PCP - General Family Medicine 07/09/21 Annel Foreman Data Warehouse DeveloperInstructional Design Manager 10/15/23 documented as of this encounter
--- OUTSIDE RECORDS SUMMARY | 2025-01-30 13:56 | XMS_ITS | Encounter Summary ---
Demographics Address [address] [place] [address] Mobile Phone Home Phone Work Phone Email Address Preferred Language es Marital Status Single Orthodox Affiliation Unknown Race Other Race Ethnic Group or Author Organization [employer] Address [address] [facility] 7[address] [place] [address] Care Team Providers Care Yarder Puncher Name Role Phone Анна Bonilla CLARY Primary Care Provider [phone] Encounter Details Date Type Department Care Team ([facility] st Contact Info) Description 01/27/2025 Population Health Risk Score [facility] (C[facility]) Department [address] [facility] [address] [place] [address] Provider, Population Health Generic Social History Tobacco Use Types Packs/Day Years [...] Office Visit [facility] [address] [place] [phone] Анна Bonilla ANP [address] [place] [address] documented as of this encounter Visit Diagnoses Not on filedocumented in this encounter Care Teams Yarder Puncher Relationship Specialty Start Date End Date Анна Bonilla ANP [address] [place] [phone] PCP - General Family Medicine 07/09/21 Annel Foreman Sprinkler TenderParts Puller 10/15/23 documented as of this encounter
--- OUTSIDE RECORDS SUMMARY | 2025-01-30 13:56 | XMS_ITS | Encounter Summary ---
Demographics Address [address] [facility] [facility] [address] [place] [address] Mobile Phone Home Phone Work Phone Email Address Preferred Language es Marital Status Single Latter Day Affiliation Unknown Race Other Race Ethnic Group or Author Organization [employer] Address [address] [place] [address] Care Team Providers Care Varnisher Apprentice Name Role Phone Анна Bonilla Primary Care Provider [phone] Reason for Visit * Reason Onset Date Comments Nurse Triage 08/03/2024 Encounter Details Date Type Department Care Team ([facility] [address] [facility] Contact Info) Description 08/03/2024 Telephone [facility] [address] [place], [place] [phone] Анна Bonilla ANP [address] [place] [address] Nurse Triage Social History Tobacco Use Types [...] 08/03/2024 11:05 AM EDT Triage call with [facility] Nurse Practitioner ID [id number]. Pt reports positive home covid test taken [...] Covid-19 (at home test) Contact pt at [phone] (icelandic) documented in this encounter Plan of Treatment Upcoming Encounters Date Type Department Care Team (Late st Contact Info) Description 02/17/2025 11:15 AM EDT Office Visit [facility] [address] [place] [address] Анна Bonilla ANP [address] [place] [address] documented as of this encounter Visit Diagnoses Not on filedocumented in this encounter Care Teams Varnisher Apprentice Relationship Specialty Start Date End Date Анна Bonilla ANP [address] [place] [address] PCP - General Family Medicine 07/09/21 Annel Foreman Sheet Metal Duct Installer HelperWorship Pastor 10/15/23 documented as of this encounter
--- OUTSIDE RECORDS SUMMARY | 2025-01-30 13:56 | XMS_ITS | Clinical Summary ---
Demographics Address [address] [facility] [place] [address] Mobile Phone Home Phone Work Phone Email Address Preferred Language es Marital Status Single Anabaptism Affiliation Unknown Race Other Race Ethnic Group or Author Organization [employer] Address [address] [place] [address] Care Team Providers Care Metal Gauge Maker Name Role Phone Anuja Muniz Primary Care Provider [phone] Allergies Active Allergy Reactions Criticality Noted Date Comments Influenza Vaccines Headache,Dizziness 0 Other reaction(s): Itching Vaccine Product Containing Only Influenza Virus Antigen (medicinal Product) New Paroxetine High 04/06/2020 Other reaction(s): Excessive sweating, Tremor Sulfa Antibiotics 10/08/2016 Other reaction(s): Rash Medications * This document contains information received from the source organization and may not represent a complete record from that organization. albuterol (2.5 MG/3ML) 0.083% nebulizer solution Inhale [...] MEALS FOR PAIN. MAX 2400 MG DAILY 023 Active albuterol 108 (90 Base) MCG/ACT inhalerIndication [...] for up to 10 days. 30 tablet 025 Active omeprazole (PriLOSEC) [address] capsule [...] Resolved Date Mild intermittent asthma 11/28/201607/2023 Encounters * This document contains information received from the source organization and may not represent a complete record from that organization. Date Type Department Care Team Description 01/27/2025 Population Health Risk Score [facility] (C3) Department [address] [place] [phone] Provider, Population Health Generic 01/24/2025 Telephone [facility] [address] [place] [phone] Anuja Muniz ANP Results; Appointment Request 01/06/2025 2:20 PM EST Office Visit [facility] [address] [place] [address] Name, MD Basil Pain of upper abdomen (Primary Dx) 01/03/2025 Orders Only [facility] [address] [place] [phone] Anuja Muniz ANP 01/03/2025 Telephone [facility] [address] [place] [phone] Mila Gomez, front end technician Orders 12/30/2024 Telephone [facility] [address] [place] [address] [phone] Anuja Muniz ANP 11/23/2024 Refill [facility] [address] [place] [address] Brandi Mcfadden MD Acute otitis externa of right ear, unspecified type 11/22/2024 Telephone [facility] [address] [place] [phone] Anuja Muniz ANP new med 11/18/2024 1:40 PM EST Office Visit [facility] [address] [place] [address] Brandi Mcfadden MD Acute otitis externa of right ear, unspecified type (Primary Dx) 11/03/2024 Telephone [facility] [address] [place] [phone] Nelly Tatum, RN Results 11/03/2024 Orders Only [facility] [address] [place] [phone] Michelle Umaña MD Renal stone (Primary Dx) from Last 3 Months Immunizations Name Administration [...] Description 02/17/2025 11:15 AM EDT Office Visit [facility] [address] [place] [address] Anuja Muniz ANP [address] [place] [address] Health Maintenance Due Date Last Done Comments Alcohol/Substance Use Screening 1996 Family Planning (PISQ) 1999 Hepatitis B Vaccines (1 of 3 - 19+ 3-dose series) 2003 Pneumococcal Vaccine: Pediatrics (0 to 5 Years) and At-Risk Patients (6 to 49) Years) (1 of 2 - PCV) 2003 Pap Smear 2005 Cervical Cancer Screening 2014 HPV/Cotest 2014 COVID-19 Vaccine (2 - season) 2024 11/23/2021 Influenza Vaccine (#1) 2024 , 08/04/2019, 08/18/2018, Additional history exists Mammogram 2024 SDOH Screening 04/12/2025 04/12/2024 Depression Screening 08/25/2025 08/25/2024, 08/25/20 24 Tobacco Screening 09/01/2025 09/01/2024 DTaP/Tdap/Td Vaccines (3 [...] Procedure Name Priority Date/Time Associated Diagnosis Comments CT ABDOMEN PELVIS W CONTRAST Routine 01/24/2025 10:16 AM EDT POCT , URINE Routine 01/06/2025 2:24 PM EST Pain of upper abdomen POCT URINALYSIS DIPSTICK Routine 01/06/2025 2:24 PM EST Pain of upper abdomen COMPREHENSIVE METABOLIC PANEL Routine 01/06/2025 2:21 PM EST Pain of upper abdomen CBC WITH AUTO DIFFERENTIAL Routine 01/06/2025 2:21 PM EST Pain of upper abdomen T-SPOT(R).TB Routine 01/03/2025 1:18 PM EST HEPATITIS C AB W/REFL TO HCV RNA, QN, PCR Routine 04/27/2024 9:12 AM EDT Routine screening for STI (sexually transmitted infection) HIV 1/2 ANTIGEN/ANTIBODY, FOURTH GENERATION W/RFL Routine 04/27/2024 9:12 AM EDT Routine screening for STI (sexually transmitted infection) from Last 3 Months or Most Recently Relevant to Health Maintenance Results * CT Abdomen Pelvis w/ Contrast (01/24/2025 10:16 AM EDT) Anatomical Region Laterality Modality Body, Pelvis, Abdomen Computed T omography 01/24/2025 10:1 6 AM EDT Narrative 01/24/2025 2:51 PM EDT ? [facility] ?[address] ?[place] [address] ? CT Scan Report ? Signed ? Patient: GrayOriana Aguirre ?MR# ?? : [id number] ? : 1985 ?Acct:[id number] ? Age/Sex: 39 / F ?ADM Date: //25 ? Loc: HO.CT ? Attending Dr: Francis Infante MD ? Ordering Physician: Francis Infante MD ?? Date of Service: 01/24/25 ?? Procedure(s): CT abdomen pelvis w IV con ?? Accession Number(s): [id number] ? cc: Francis Infante MD; ANUJA MUNIZ NP ? Report Number: ?? [id number]: Total DLP = ??452.00 mGy-cm ?? EXAMINATION: ?? CT ABDOMEN AND PELVIS WITH CONTRAST ? CLINICAL INFORMATION: ?? Ventral hernia without obstruction or gangrene. ? COMPARISON: ?? December 01, 2016. ? TECHNIQUE: ?? Multidetector volumetric images were obtained from the superior aspect ?? of the liver through the pubic symphysis following administration 85 mL ?? of Omnipaque 350 intravenous contrast. Sagittal and coronal reformatted ?? images were obtained on the technologist's workstation. ? Oral contrast: No ? This CT examination was performed using dose optimization techniques as ?? appropriate, variously including the following: ?? *Automated exposure control ?? *Adjustment of mA and/or kV according to patient size (this includes ?? techniques or standardized protocols for targeted exams where dose is ?? matched to indication/reason for exam; i.e. extremities or head) ?? *Use of iterative reconstruction technique. ?? DLP: 452 mGy centimeter. ? FINDINGS: ?? LUNG BASES: No acute airspace disease or gross nodules. ? LIVER, GALLBLADDER, AND BILIARY TREE: ?? Liver measures 17 cm with decreased enhancement pattern. 3 mm ?? hypodensity inferior right hepatic lobe. Focal calcification in the ?? peripheral posterior right hepatic lobe. Portal veins, hepatic veins ?? and intrahepatic portion of the IVC are patent. Probable 2 mm ?? hypodensity left hepatic lobe. Absent gallbladder. No intrahepatic or ?? extrahepatic biliary ductal dilatation. ? PANCREAS: No focal lesion. No peripancreatic fluid collection. No main ?? pancreatic ductal dilatation. ? SPLEEN: 9 cm. No focal lesion. ? ADRENAL GLANDS: No nodular lesions. ? KIDNEYS AND URETERS: No hydronephrosis. No nephrolithiasis. No gross ?? focal renal mass. ? BLADDER: Fluid-filled. ? GASTROINTESTINAL TRACT: ?? Appendix is normal. ?? Stool within the large intestine. ?? No intestinal obstruction pattern. ?? No pneumatosis intestinalis. ?? Segmental narrowing of the sigmoid colon likely peristalsis. No ?? ascites. No peripheral enhancing fluid collection, peritoneal cavity. ?? No pneumoperitoneum. ? ABDOMINAL WALL: No gross umbilical hernia. ? LYMPH NODES: No gross lymphadenopathy, mesenteric or retroperitoneal. ? VASCULAR: No aneurysm or dissection, abdominal aorta. ? PELVIC VISCERA: T-shaped contraceptive device within the uterine cavity. ?? Large, 5 cm uterine fibroid. Nonspecific dominant follicles both ?? adnexa. ? OSSEOUS STRUCTURES: No acute fracture or listhesis. No lytic or blastic ?? lesions. ? CT/CT abdomen pelvis w IV con ?? IMPRESSION: ?? No gross umbilical hernia. ?? 5 cm uterine fibroid. ?? Hepatomegaly, mild and likely steatosis. ? Fleischner guidelines were followed. ? Electronically signed by: ??Yong Ruiz MD ??01/24/2025 02:48 PM ?? EDT RP ? Dictated By: ?Yong Shah MD ? Signed By: ?<Electronically signed by Yong Gomez MD in OV> ? 01/24/25 1448 ? DD/ 1016 ? TD/TT: 01/24/25 1033 ? Bobbin Hauler: ? Procedure Note Briana, Image - 01/24/[address] [place] [id number] [address] Scan Report Signed Patient: Oriana Angel [facility]# : [id number] : 1985Acct:[id number] Age/Sex: 39 / FADM Date: 01/24/25 Loc: HO.CT Attending Dr: Francis Infante MD Ordering Physician: Francis Infante MD Date of Service: 01/24/25 Procedure(s): CT abdomen pelvis w IV con Accession Number(s): [id number] cc: Francis Infante MD; ANUJA MUNIZ NP Report Number: [id number]: Total DLP = 452.00 mGy-cm EXAMINATION: CT ABDOMEN AND PELVIS WITH CONTRAST CLINICAL INFORMATION: Ventral hernia without obstruction or gangrene. COMPARISON: December 01, 2016. TECHNIQUE: Multidetector volumetric images were obtained from the superior aspect of the liver through the pubic symphysis following administration 85 mL of Omnipaque 350 intravenous contrast. Sagittal and coronal reformatted images were obtained on the technologist's workstation. Oral contrast: No This CT examination was performed using dose optimization techniques as appropriate, variously including the following: *Automated exposure control *Adjustment of mA and/or kV according to patient size (this includes techniques or standardized protocols for targeted exams where dose is matched to indication/reason for exam; i.e. extremities or head) *Use of iterative reconstruction technique. DLP: 452 mGy centimeter. FINDINGS: LUNG BASES: No acute airspace disease or gross nodules. LIVER, GALLBLADDER, AND BILIARY TREE: Liver measures 17 cm with decreased enhancement pattern. 3 mm hypodensity inferior right hepatic lobe. Focal calcification in the peripheral posterior right hepatic lobe. Portal veins, hepatic veins and intrahepatic portion of the IVC are patent. Probable 2 mm hypodensity left hepatic lobe. Absent gallbladder. No intrahepatic or extrahepatic biliary ductal dilatation. PANCREAS: No focal lesion. No peripancreatic fluid collection. No main pancreatic ductal dilatation. SPLEEN: 9 cm. No focal lesion. ADRENAL GLANDS: No nodular lesions. KIDNEYS AND URETERS: No hydronephrosis. No nephrolithiasis. No gross focal renal mass. BLADDER: Fluid-filled. GASTROINTESTINAL TRACT: Appendix is normal. Stool within the large intestine. No intestinal obstruction pattern. No pneumatosis intestinalis. Segmental narrowing of the sigmoid colon likely peristalsis. No ascites. No peripheral enhancing fluid collection, peritoneal cavity. No pneumoperitoneum. ABDOMINAL WALL: No gross umbilical hernia. LYMPH NODES: No gross lymphadenopathy, mesenteric or retroperitoneal. VASCULAR: No aneurysm or dissection, abdominal aorta. PELVIC VISCERA: T-shaped contraceptive device within the uterine cavity. Large, 5 cm uterine fibroid. Nonspecific dominant follicles both adnexa. OSSEOUS STRUCTURES: No acute fracture or listhesis. No lytic or blastic lesions. CT/CT abdomen pelvis w IV con IMPRESSION: No gross umbilical hernia. 5 cm uterine fibroid. Hepatomegaly, mild and likely steatosis. Fleischner guidelines were followed. Electronically signed by: Yong Ruiz MD 01/24/2025 02:48 PM EDT Dictated By: Yong Shah MD Signed By: <Electronically signed by Yong Gomez MDin OV> 01/24/25 1448 DD/ 1016 TD/TT: 01/24/25 1033 Bobbin Hauler: [facility] External Provider IMG CT PROCEDURES Final Result * POCT , urine manually resulted (01/06/2025 2:24 PM EST) Pathologist [facility] Preg Test, Ur Negative Negative, Indeterminate, None Detected, Invalid, Specimen unsatisfactory for evaluation, Weakly Positive Urine 01/06/2025 2:24 PM EST Basil Conteh MD POINT OF CARE TEST ENTER/EDIT OR DERABLES Final Result * (ABNORMAL) POCT urinalysis dipstick manually resulted (01/06/2025 2:24 PM EST) Pathologist [facility] Color, UA Yellow Clarity, UA Clear Glucose, UA Negative Bilirubin, UA Negative Ketones, UA Negative Spec Grav, UA 1.015 Blood, UA Positive(A) Negative, None Detected Comment:trace- intact pH, UA 7.0 Protein, UA Negative Urobilinogen, UA 0.2 Leukocytes, UA Negative Negative, Rare, Trace Nitrite, UA Negative Negative, None Detected Urine 01/06/2025 2:24 PM EST Result [facility] Basil Conteh MD POINT OF CARE TEST ENTER/EDIT OR DERABLES Final Result * (ABNORMAL) CBC auto differential (01/06/2025 2:21 PM EST) [facility] White Blood Count 11.5(H) 4.8 - 10.8 X10*3/uL [facility] Red Blood Count 4.65 4.20 - 5.50 X10*6/uL [facility] Hemoglobin 10.8(L) 12.0 - 16.0 g/dl [facility] Hematocrit 34.4(L) 37.0 - 47.0 % [facility] Mean Corpuscular Volume 74.0(L) 80.0 - 98.0 fL [facility] Mean Corpuscular Hemoglobin 23.2(L) 27.0 - 33.0 pg [facility] Mean Corpuscular HGB Conc 31.4 31.0 - 35.0 g/dl [facility] Red Cell Distribution Width 16.4(H) 11.0 - 16.0 % [facility] Platelet Count 479(H) 160 - 400 X10*3/uL [facility] Mean Platelet Volume 10.6 9.4 - 12.3 fL [facility] Neutrophils Percent Auto 66.8 45 - 73 % [facility] Imm Gran Pct Auto 0.3 0.0 - 0.4 % [facility] Lymphocytes Percent Auto 22.4 20 - 40 % [facility] Monocytes Percent Auto 8.0 2 - 11 % [facility] Eosinophils Percent Auto 2.1 0 - 4 % [facility] Basophils Percent Auto 0.4 0 - 2 % [facility] NRBC Pct Auto 0.0 0.0 - 0.2 /100WBC [facility] Neutrophils Absolute Auto 7.7 2.0 - 8.3 x10*3/uL [facility] Imm Gran Abs Auto 0.03 0.00 - 0.03 X10*3/uL [facility] Lymphocytes Absolute Auto 2.6 1.2 - 4.9 X10*3/uL [facility] Monocytes Absolute Auto 0.9 0.1 - 1.2 X10*3/uL [facility] Eosinophils Absolute Auto 0.2 0.0 - 0.4 X10*3/uL [facility] Basophils Absolute Auto 0.1 0.0 - 0.2 X10*3/uL [facility] NRBC Abs Auto 0.000 0.0 - 0.012 X10*3/uL [facility] Blood Venous blood specimen / Unknown 01/06/2025 2:21 PM EST 01/06/2025 4:31 PM EST us Basil Name LAB BLOOD ORDERABLES Final Resul t [facility] [address] [place] [address] [phone] * (ABNORMAL) Comprehensive Metabolic Panel (01/06/2025 2:21 PM EST) Pathologist [facility] Sodium 140 135 - 145 mmol/L [facility] Potassium 3.7 3.3 - 5.1 mmol/L [facility] Chloride 108 96 - 108 mmol/L [facility] Carbon Dioxide 26 22 - 29 mmol/L [facility] Anion Gap 10(L) 12 - 20 [facility] Urea Nitrogen (BUN) 7(L) 9 - 16 mg/dL [facility] Creatinine, Serum 0.70 0.5 - 1.4 mg/dL [facility] Estimated Glomerular Filt Rate >60 [facility] Comment:Chronic Kidney Disea se: Estimated GFR < 60 mL/min/1.73q3Loxmmb Kidney Disease: Estimated GFR < 15 mL/min/1.73m2 Glucose 105 60 - 115 mg/dL [facility] Calcium 8.9 8.4 - 10.2 mg/dL [facility] Bilirubin, Total 0.3 0.0 - 1.0 mg/dL [facility] Aspartate Amino Transferase 21 5 - 31 U/L [facility] Alanine Aminotransferase 17 0 - 31 U/L [facility] Total Protein 7.8 6.5 - 8.0 g/dL [facility] Albumin Level 3.8 3.5 - 5.0 g/dL [facility] Alkaline Phosphatase 100 39 - 117 U/L [facility] Blood Venous blood specimen / Unknown 01/06/2025 2:21 PM EST 01/06/2025 4:31 PM EST us Basil Conteh MD LAB BLOOD ORDERABLES Final Resul t [facility] [address] [place] [address] [phone] * T-SPOT??.TB (01/03/2025 1:18 PM EST) Pathologist [facility] T Spot TB Negative Negative [facility] Comment:A negative test resu lt [...] as aquantitative test. TS PANEL A 0 [facility] TS PANEL B 0 [facility] Negative Control Passed [facility] Positive Control Passed [facility] Comment:For additional infor sean, please refer tohttp://education.Embrace+/faq/SLG573(This link is being provided for informational/educational purposes only.)THIS TEST WAS PERFORMED AT:[id number] [place] [id number] SAWYER MD,PHD 01/03/2025 1:18 PM EST 01/03/2025 4:04 PM EST Formerly [facility] LAB BLOOD ORDERABLES Final Resul t [facility] [address] [place], [place] [phone] * Hepatitis C Antibody with Reflex to HCV, RNA, Quantitative, Real-Time PCR (04/27/2024 9:12 AM EDT) Hepatitis C Antibody Nonreactive Nonreactive [facility] Comment:Antibodies to HCV no t detected; does not exclude early acuteHCV infection. Blood Venous blood specimen / Unknown 04/27/2024 9:12 AM EDT 04/27/2024 11:15 AM EDT Anuja Muniz [facility] LAB BLOOD ORDERABLES Final Resul t Performing Organization Address [facility] Co de Phone Number [facility] [address] [place] [address] [phone] * HIV-1/2 Antigen and Antibodies, Fourth Generation, with Reflexes (04/27/2024 9:12 AM EDT) [facility] HIV AB/AG Nonreactive Nonreactive [facility] Comment:HIV-1 p24 Ag and/or HIV-1/HIV-2 Ab not detected.A test result that is nonreactive does not exclude thepossibility of exposure to or infection with HIV-1 and/orHIV-2. Nonreactive results in this assay for individualswith prior exposure to HIV-1 and/or HIV-2 may be due toantigen and antibody levels that are below the limit ofdetection of this assay.The [employer] HIV Ag/Ab Combo assay result andsupplemental assay results should be interpreted inconjunction with the patient's clinical presentation,history and other laboratory results. If the results areinconsistent with clinical evidence, additional testing issuggested to confirm the result. Blood Venous blood specimen / Unknown 04/27/2024 9:12 AM EDT 04/27/2024 11:15 AM EDT Anuja Muniz [facility] LAB BLOOD ORDERABLES Final Resul t Performing Organization Address City/[facility]/ZIP Co de Phone Number [facility] [address] [place] [address] [phone] from Last 3 Months or Most Recently Relevant to Health Maintenance Insurance * Guarantor: Oriana Angel Account Type Relation to Patient Date of Phone Billing Address Personal/Family Self 1985 [address] [place] [address] [facility] C3 Care Teams Metal Gauge Maker Relationship Specialty Start Date End Date Anuja Muniz ANP [address] [place] [phone] PCP - General Family Medicine 07/09/21 Annel Foreman Design CheckerBonding Supervisor 10/15/23
--- OUTSIDE RECORDS SUMMARY | 2025-01-30 13:56 | XMS_ITS | Encounter Summary ---
Demographics Address [address] [place] [address] Mobile Phone Home Phone Work Phone Email Address Preferred Language es Marital Status Single Muslim Affiliation Unknown Race Other Race Ethnic Group or Author Organization [employer] Address [address] [place] [address] Care Team Providers Care Veneer Puller Name Role Phone Anuja Muniz Primary Care Provider [phone] Encounter Details Date Type Department Care Team ([facility] st Contact Info) Description 01/03/2025 Orders Only [facility] [address] [place], [place] [phone] Anuja Muniz ANP [address] [place], [place] [phone] Social History Tobacco Use Types Packs/Day Years [...] as of this encounter Miscellaneous Notes * Result Encounter Note - CLARY Gramajo - 01/03/2025 11:59 PM EST Please let patient know that on recent imaging from Dr. Infante it looks like her fibroid has gotten bigger. Please ask her to please call her CIRCULATION SUPERVISOR office for a follow-up appointment and fax CT results to their office. Thanks. documented in this encounter Plan of Treatment Upcoming Encounters Date Type Department Care Team (Late st Contact Info) Description 02/17/2025 11:15 AM EDT Office Visit [facility] [address] [place] [address] Anuja Muniz ANP [address] [place] [address] documented as of this encounter Procedures Procedure Name Priority Date/Time Associated Diagnosis Comments CT ABDOMEN PELVIS W CONTRAST Routine 01/24/2025 10:16 AM EDT T-SPOT(R).TB Routine 01/03/2025 1:18 PM EST documented in this encounter Results * CT Abdomen Pelvis w/ Contrast (01/24/2025 10:16 AM EDT) Anatomical Region Laterality Modality Body, Pelvis, Abdomen Computed T omography 01/24/2025 10:1 6 AM EDT Narrative 01/24/2025 2:51 PM EDT ? [facility] ?[address] ?[place] [address] ? CT Scan Report ? Signed ? Patient: Isaac Funk,Oriana N ?MR# ?? : [id number] ? : 1985 ?Acct:[id number] ? Age/Sex: 39 / F ?ADM Date: 01/24/25 ? Loc: HO.CT ? Attending Dr: Francis Infante MD ? Ordering Physician: Francis Infante MD ?? Date of Service: 01/24/25 ?? Procedure(s): CT abdomen pelvis w IV con ?? Accession Number(s): [id number] ? cc: Francis Infante MD; ANUJA MUNIZ NP ? Report Number: ?? [id number]: Total DLP = ??452.00 mGy-cm ?? EXAMINATION: [...] Ruiz MD ??01/24/2025 02:48 PM ?? EDT ? Dictated By: ?Yong Shah MD ? Signed By: ?<Electronically signed by Yong Gomez MD in OV> ? 01/24/25 1448 ? DD/ 1016 ? TD/TT: 01/24/25 1033 ? Harm Reduction Worker: ? Procedure Note Briana, Image - 01/24/2025 [facility] [address] [place] [address] CT Scan Report Signed Patient: Isaac GoodOriana NMR# : [id number] : 1985Acct:[id number] Age/Sex: 39 / FADM Date: 01/24/25 Loc: HO.CT Attending Dr: Francis Infante MD Ordering Physician: Francis Infante MD Date of Service: 01/24/25 Procedure(s): CT abdomen pelvis w IV con Accession Number(s): [id number] cc: Francis Infante MD; ANUJA MUNIZ NP Report Number: [id number]: Total DLP = 452.00 mGy-cm EXAMINATION: CT [...] Yong Ruiz MD 01/24/2025 02:48 PM EDT RP Dictated By: Yong Shah MD Signed By: <Electronically signed by Yong Gomez MDin OV> 01/24/25 1448 DD/ 1016 TD/TT: 01/24/25 1033 Harm Reduction Worker: [facility] External Provider IMG CT PROCEDURES Final Result * T-SPOT??.TB (01/03/2025 1:18 PM EST) T Spot TB Negative Negative [facility] Comment:A negative test resu lt [...] as aquantitative test. TS PANEL A 0 [facility] TS PANEL B 0 [facility] Negative Control Passed [facility] Positive Control Passed [facility] Comment:For additional infor sean, please refer tohttp://education.Nextiva.CipherApps/faq/ZKK406(This link is being provided for informational/educational purposes only.)THIS TEST WAS PERFORMED AT:[id number] [place] [address]TDTZAACKYRA SAWYER MD,PHD 01/03/2025 1:18 PM EST 01/03/2025 4:04 PM EST us Anuja MEANS LAB BLOOD ORDERABLES Final Resul t [facility] [address] [place] [address] [phone] documented in this encounter Visit Diagnoses Not on filedocumented in this encounter Care Teams Veneer Puller Relationship Specialty Start Date End Date Anuja Muniz ANP [address] [place] [address] PCP - General Family Medicine 07/09/21 Annel Foreman Senior Revenue AccountantMold Blower 10/15/23 documented as of this encounter
== END 2025-01-30 11:55 | disposition home or self-care (01) ==
LOC: HO.HGS 11:42
PROVIDERS: PCP Nurse Practitioner Primary Care; Visit Provider Surgery
DX: R10.10 Upper abdominal pain, unspecified (principal)
CPT/HCPCS: 99214

== ENCOUNTER → 2025-01-30 11:41 | Outpatient (BNVA) | payer MEDICAID, SELFPAY | PROVIDERS: PCP Nurse Practitioner Primary Care; Visit Provider Surgery | DX: R10.10 Upper abdominal pain, unspecified (principal) | CPT/HCPCS: 99212 ==

== ENCOUNTER 2025-06-09 11:11 | Outpatient (REF) | payer MEDICAID, SELFPAY ==
--- NOTE | ~2025-06-09 | US_ITS ---
EXAMINATIONS: 1. MM DIAGNOSTIC DIGITAL BREAST TOMOSYNTHESIS, BILATERAL 2. Targeted ultrasound of the left breast CLINICAL INFORMATION: Left upper outer quadrant breast pain, on and off for 1 year. COMPARISON: None. Baseline study. TECHNIQUE: Digital breast tomosynthesis is performed in both the craniocaudal and mediolateral oblique views along with computer-aided detection (CAD). Synthesized 2D images are generated from the tomosynthesis. Triangular skin marker was placed at the location of the left breast pain in the upper outer quadrant as indicated by the patient. FINDINGS: BREAST COMPOSITION: The breasts are heterogeneously dense, which may obscure small masses (ACR BI-RADS breast composition Category c). RIGHT BREAST: No significant masses, suspicious calcifications or other abnormalities are seen. LEFT BREAST: Focal asymmetry in the upper-outer quadrant at approximately 15 cm from the nipple is identified subjacent to the triangular skin marker. No suspicious calcifications or other abnormalities are seen. Targeted ultrasound of the left breast was performed at the location of the pain as indicated by the patient in the upper outer quadrant. Survey did not reveal suspicious sonographic findings. US/US breast LT limited mamm only IMPRESSION: RIGHT BREAST: Negative, no mammographic evidence of malignancy. Normal interval follow-up is recommended in 12 months. LEFT BREAST: Focal asymmetry in the upper outer quadrant approximately 15 cm from the nipple, correlates with the location of the focal pain. No suspicious sonographic correlate. Findings suggest resolving posttraumatic or postinflammatory changes, although patient denies history. A 6-month follow-up mammogram is recommended. ASSESSMENT: BI-RADS 3 - Probably benign finding(s) - 6 month follow-up suggested RECOMMENDATION: 6 Month F/U Results were provided to the patient at time of visit by the technologist. This patient's information was entered into a reminder system with a target due date for their next mammogram. Electronically signed by: Huang Mccormack MD 06/09/2025 12:24 PM EDT
--- OUTSIDE RECORDS SUMMARY | 2025-06-09 11:19 | XMS_ITS | Encounter Summary ---
Author Organization [facility] Address [address] [place] [address] Care Team Providers Care Chair And Couch Maker Name Role Phone Cristina Butt NP Primary Care Provider [phone] Encounter Details Date Type Department Care Team (Late st Contact Info) Description 06/02/2025 Telephone Orthopedic Surgery [facility] [address] [facility] [address] [place] [address] Martha Jj Social History Tobacco Use Types Packs/Day Years Used Date Smoking Tobacco: Never Smokeless Tobacco: Never Alcohol Use Standard Drinks/Week Comments No 0 (1 standard drink = 0.6 oz pur e alcohol) Interpersonal Safety Answer Date Record ed Physical Abuse 05/15/2025 Verbal Abuse 05/15/2025 Comments No Sex and Gender Information Value Date Recorded Sex Assigned at Not on file Legal Sex Female 9:52 AM EST Gender Identity Not on file Sexual Orientation Not on file documented as of this encounter Functional Status * Are you deaf or do you have serious difficulty hearing? Answer Date of Assessment Author No 05/15/2025 3:40 PM EDT Gopi Pollard RN * Are you blind or do you have serious difficulty seeing, even when wearing glasses? Answer Date of Assessment Author No 05/15/2025 3:40 PM Gopi Carr RN * Do you have serious difficulty walking or climbing stairs? Answer Date of Assessment Author No 05/15/2025 3:40 PM EDT Gopi Pollard RN * Do you have serious difficulty dressing or bathing? Answer Date of Assessment Author No 05/15/2025 3:40 PM EDT Gopi Pollard RN * Because of a physical, mental, or emotional condition, do you have serious difficulty doing errandsalone such as visiting the doctor? Answer Date of Assessment Author No 05/15/2025 3:40 PM EDT Gopi Pollard RN documented as of this encounter Mental Status * Because of a physical, mental, or emotional condition, do you have serious difficulty concentrating, remembering, or making decisions? (5 years old or older) Answer Entry Date Author No 05/15/2025 3:40 PM EDT Gopi Pollard RN documented in this encounter Progress Notes * Martha Jj - 06/05/2025 11:55 AM EDT Outreach made to patient unable to leave a message * Martha Jj - 06/02/2025 3:12 PM EDT Outreach made to patient unable to leave a message documented in this encounter Plan of Treatment Scheduled Procedures Name Priority Associated Diagnoses Date/Ti me RELEASE CARPAL TUNNEL ENDOSCOPIC Carpal tunnel syndrome on left documented as of this encounter Visit Diagnoses Not on filedocumented in this encounter Care Teams Chair And Couch Maker Relationship Specialty Start Date End Date Cristina Butt NP [address] [place] [phone] PCP - General 12/13/21 documented as of this encounter
--- OUTSIDE RECORDS SUMMARY | 2025-06-09 11:19 | XMS_ITS | Encounter Summary ---
Demographics Address [address] [place] [address] Mobile Phone Home Phone Work Phone Email Address Preferred Language es Marital Status Single Oriental Orthodox Affiliation Unknown Race Other Race Ethnic Group Unknown Author Organization [employer] Address [address] [place] [address] Care Team Providers Care Operations Research Manager Name Role Phone Анна Bonilla Primary Care Provider [phone] Armida Singh RN Unavailable [phone] Estrella Boyer Unavailable Reason for Visit * Reason Onset Date Comments Medication Question 08/31/2024 Encounter Details Date Type Department Care Team ([facility] st Contact Info) Description 08/31/2024 Telephone [facility] [address] [place], [place] [phone] Анна Bonilla ANP [address] [place], [place] [phone] Medication Question Social History Tobacco Use Types [...] Miscellaneous Notes * Telephone Encounter - Hortencia Macnuso - 08/31/2024 10:58 AM EDT Tc from pt requesting to speak to PCP nurse. Pt was seen in office on 08/25/24 regarding frequent UTI's. Bench Assembler advised pt of pending appointment with urology (provided phone number) Pt is requesting antibiotics in the meantime. Contact pt at [phone] (polish) documented in this encounter Plan of Treatment Upcoming Encounters Date Type Department Care Team (Late st Contact Info) Description 06/09/2025 1:15 PM EDT Office Visit [address] [address] Анна Bonilla ANP [address] [place] [address] 07/28/2025 1:00 PM EDT Office Visit [address] [address] Анна Bonilla ANP [address] [place] [address] documented as of this encounter Visit Diagnoses Not on filedocumented in this encounter Care Teams Operations Research Manager Relationship Specialty Start Date End Date Анна Bonilla ANP [address] [place] [address] PCP - General Family Medicine 07/09/21 Armida Singh, CHRISTIE [address] [place] [address] Registered Nurse Family Medicine 04/07/25 04/07/25 Estrella Boyer 04/07/25 04/07/25 Annel Foreman Electrical Accessories I AssemblerHealth Care Specialist 10/15/23 documented as of this encounter
== END 2025-06-09 11:12 | disposition home or self-care (01) ==
LOC: HO.MAMMO 11:11
PROVIDERS: PCP Nurse Practitioner Primary Care; Visit Provider Nurse Practitioner Primary Care
DX: N64.4 Mastodynia (principal)
CPT/HCPCS: 76642; 77062; 77066

== ENCOUNTER → 2025-06-09 11:30 | Outpatient (BNV) | payer MEDICAID, SELFPAY | PROVIDERS: PCP Nurse Practitioner Primary Care; Visit Provider Radiology Body Imaging | DX: N64.4 Mastodynia (principal) | CPT/HCPCS: 76642; 77062; 77066 ==

== ENCOUNTER 2025-08-10 16:21 | Outpatient (REF) | payer MEDICAID, SELFPAY ==
--- OUTSIDE RECORDS SUMMARY | 2025-08-10 14:40 | XMS_ITS | Encounter Summary ---
Author Organization [employer] Address [address] [facility] [address] [place] [address] Care Team Providers Care Exercise Instruct Name Role Phone Анна Bonilla CLARY Primary Care Provider [phone] Reason for Visit * Reason Comments uti symptoms Asthma Encounter Details Date Type Department Care Team ([facility] st Contact Info) Description 08/10/2025 2:40 PM EDT Office Visit [facility] [address], [place] [phone] Verito Salgado DO [address] [place] [address] Acute UTI (Primary Dx); Mild persistent asthma with acute exacerbation Social History Tobacco Use Types Packs/Day Years Used Date Smoking Tobacco: Never Passive Smoke Exposure: Never Smokeless Tobacco: Never Alcohol Use Standard Drinks/Week Comments Never 0 (1 standard drink = 0.6 oz pur e alcohol) PHQ-2 Answer Date Recorded Patient Health Questionnaire-2 Score 0 04/07/2023 Housing Stability Answer Date Recorded What is your housing situation today? I have torey so 04/20/[address] you li ve. Do you have problems with any of the following? None of the above 04/20/2025 Food Insecurity Answer Date Recorded Within the past 12 months, y ou worried that your food would run out before you got money to buy more: Never True 04/20/2025 Within the past 12 months,th e food you bought just didn't last and you didn't have enough money to get more: Never True 03/2025 Transportation Answer Date Recorded In the past 12 months, has l ack of transportation kept you from medical appts, meetings, work or from getting things needed for daily living? No 04/20/2025 Utilities Answer Date Recorded In the past 12 months, has t he electric, gas, oil or water company threatened to shut off services in your home? No 04/20/2025 Depression Answer Date Recorded Patient Health Questionnaire-2 [...] Sign Reading Time Taken Comments Blood Pressure 137/86 08/10/2025 2:43 PM EDT Pulse 82 08/10/2025 2:43 PM EDT Temperature 36.8 C (98.3 F) 08/10/2025 2:43 PM EDT Respiratory Rate 17 08/10/2025 2:43 PM EDT Oxygen Saturation 99% 08/10/2025 2:43 PM EDT Inhaled Oxygen Concentration - - Weight 89.9 kg (198 lb 3.2 oz) 08/10/2025 2:43 P M EDT Height - - Body Mass Index 35.11 06/09/2025 1:11 PM EDT documented in this encounter Progress Notes * Verito Salgado, - 08/10/2025 2:40 PM EDT SUBJECTIVE Oriana Funk is a 39 y.o. female who presents for Sick Visit. She presents to [place] today c/o UTI and asthma sx. She thinks that she has UTI. She c/o burning with urination and strong urine odor for the last 3 days. She has also had some pelvic pain and low back pain. She denies any urinary frequency or urgency. She says she has some hematuria, but she recently started her period. She denies any vaginal discharge or itching. She uses IUD for contraception. She also c/o asthma sx which started after her 2nd dose of weight loss medication injection and wants to know if the symptoms are because of the medicine. She says that she has been having cough and lung pain for the last week. She is not having any other symptoms. She says that she is using asmanex BID and has needed to use her albuterol 4 in the past week. She denies any DOWLING, ST or ear pain. No nasal congestion or rhinorrhea. No fevers but feels chills sometimes. History provided by: Patient historic interpreter used: Yes UTI Severity: Mild Onset quality: Sudden Duration: 3 days Timing: Constant Progression: Unchanged Chronicity: New Associated symptoms: cough, shortness of breath and wheezing Associated symptoms: no abdominal pain, no chest pain, no congestion, no diarrhea, no fever, no headaches, no nausea, no rash, no rhinorrhea, no sore throat and no vomiting Review of Systems Constitutional: Negative for activity change, appetite change, chills, fever and unexpected weight change. HENT: Negative for congestion, postnasal drip, rhinorrhea and sore throat. Respiratory: Positive for cough, shortness of breath and wheezing. Cardiovascular: Negative for chest pain, palpitations and leg swelling. Gastrointestinal: Negative for abdominal pain, diarrhea, nausea and vomiting. Genitourinary: Positive for dysuria and pelvic pain. Negative for frequency and urgency. Musculoskeletal: Positive for back pain. Skin: Negative for rash. Neurological: Negative for weakness and headaches. Patient Active Problem List Diagnosis Acute rhinosinusitis Allergic otitis media Allergic rhinitis due to pollen Anemia Bruises easily Carpal tunnel syndrome Cervical atypism Gastroesophageal reflux disease without esophagitis Herpes labialis IUD (intrauterine device) in place Joint pain Microcytic hypochromic anemia Migraine Mixed anxiety and depressive disorder Mood disorder (CMS/HCC) Moderate persistent asthma Pain in finger Pain in wrist Post-traumatic arthritis of left ankle Vitamin D deficiency Pain in lower back Lower urinary tract symptoms (LUTS) Class 2 obesity with body mass index (BMI) of 36.0 to 36.9 in adult Abdominal pain Bilateral carpal tunnel syndrome ASCUS with positive high risk HPV cervical Pap smear abnormality of cervix/human papillomavirus (HPV) positive Postop check Class 2 obesity Diastasis of rectus abdominis Elevated blood pressure reading Fibroids, subserous Allergies Allergen Reactions Paroxetine Other reaction(s): Excessive sweating, Tremor Sulfa Antibiotics Rash Other reaction(s): Rash Other Reaction(s): itchy/red Other Reaction(s): erythema, rash Allergy Trimethoprim Rash Influenza Vaccines Dizziness and Headache Other reaction(s): Itching Vaccine Product Containing Only Influenza Virus Antigen (medicinal Product) New Other reaction(s): Itching Vaccine Product Containing Only Influenza Virus Antigen (medicinal Product) New Sulfadiazine Other Reaction(s): itchy, red OBJECTIVE Visit Vitals BP 137/86 (BP Location: Left arm, Patient Position: Sitting, BP Cuff Size: Large adult) Pulse 82 Temp 98.3 ??F (36.8 ??C) (Temporal) Resp 17 Wt 198 lb 3.2 oz (89.9 kg) SpO2 99% BMI 35.11 kg/m?? OB Status Having periods Smoking Status Never BSA 2 m?? Physical Exam Constitutional: General: She is not in acute distress. Appearance: Normal appearance. HENT: Right Ear: Tympanic membrane, ear canal and external ear normal. There is no impacted cerumen. Left Ear: Tympanic membrane, ear canal and external ear normal. There is no impacted cerumen. Nose: No congestion or rhinorrhea. Mouth/Throat: Pharynx: No oropharyngeal exudate or posterior oropharyngeal erythema. Cardiovascular: Rate and Rhythm: Normal rate and regular rhythm. Heart sounds: Normal heart sounds. No murmur heard. Pulmonary: Effort: Pulmonary effort is normal. No tachypnea, accessory muscle usage or respiratory distress. Breath sounds: Decreased breath sounds present. No wheezing or rhonchi. Abdominal: General: Bowel sounds are normal. Palpations: Abdomen is soft. Tenderness: There is abdominal tenderness in the suprapubic area. There is no right CVA tenderness,left CVA tenderness, guarding or rebound. Musculoskeletal: Cervical back: Neck supple. No tenderness. Lymphadenopathy: Cervical: No cervical adenopathy. Neurological: General: No focal deficit present. Mental Status: She is alert and oriented to person, place, and time. Cranial Nerves: No cranial nerve deficit. Motor: No weakness. Gait: Gait normal. Psychiatric: Mood and Affect: Mood normal. Office Visit on 08/10/2025 Component Date Value Ref Range Status Color, UA 08/10/2025 Yellow Final Clarity, UA 08/10/2025 Clear Final Glucose, UA 08/10/2025 Negative Final Bilirubin, UA 08/10/2025 Negative Final Ketones, UA 08/10/2025 Negative Final Spec Grav, UA 08/10/2025 1.025 Final Blood, UA 08/10/2025 Positive (A) Negative, None Detected Final Trace-intact pH, UA 08/10/2025 6.0 Final Protein, UA 08/10/2025 Trace Final Urobilinogen, UA 08/10/2025 0.2 Final Leukocytes, UA 08/10/2025 Negative Negative, Rare, Trace Final Nitrite, UA 08/10/2025 Negative Negative, None Detected Final Assessment/Plan Diagnoses and all orders for this visit: Acute UTI -treat empirically with cipro BID x 3 days given sulfa allergy -send Ucx for sensitivities -advised contact HHC if sx do not resolve Mild persistent asthma with acute exacerbation -treat with prednisone daily x 5 days -cont asmanex BID -advised standing doses albuterol x 3 days, then prn -advised rtc or go to ED if no improvement or sx worsen, she agrees with plans --Follow-up with PCP as scheduled or sooner prn-- Current Outpatient Medications: acetaminophen (Tylenol) 500 MG tablet, Take 2 tablets (1,000 mg) by mouth every 6 (six) hours if needed for moderate pain or fever for up to 25 doses., Disp: 40 tablet, Rfl: 0 albuterol (2.5 MG/3ML) 0.083% nebulizer solution, Use 3ml as needed w/ nebulizer every 4-6 hrs for SOB/wheezing, Disp: 75 mL, Rfl: 2 albuterol 108 (90 Base) MCG/ACT inhaler, Inhale 2 puffs every 4 (four) hours., Disp: 18 g, Rfl: 1 Blood Pressure kit, 1 kit in the morning., Disp: 1 kit, Rfl: 0 cetirizine (ZyrTEC) 10 MG tablet, Take 1 tablet (10 mg) by mouth Once per day., Disp: 90 tablet, Rfl: 3 ciprofloxacin (Cipro) 250 MG tablet, Take 1 tablet (250 mg) by mouth 2 times daily for 3 days., Disp: 6 tablet, Rfl: 0 diphenhydrAMINE (BENADryl) 25 MG tablet, Take 1 tablet (25 mg) by mouth every 6 (six) hours if needed for itching or allergies., Disp: 45 tablet, Rfl: 1 fluticasone (Flonase) 50 MCG/ACT nasal spray, Administer 2 sprays into each nostril Once daily as needed for rhinitis., Disp: 16 g, Rfl: 2 hydrOXYzine pamoate (Vistaril) 25 MG capsule, Take 1 capsule by mouth in the morning and 1 capsule at noon and 1 capsule in the evening., Disp: , Rfl: ketotifen (Zaditor) 0.025 % ophthalmic solution, One drop to eyes bid prn allergies, Disp: 5 mL, Rfl: 1 magnesium 200 MG tablet, Take 2 tablets (400 mg) by mouth Once daily., Disp: 180 tablet, Rfl: 1 Mometasone Furoate (Asmanex HFA) 100 MCG/ACT aerosol, Inhale 2 Act (200 mcg) 2 times daily., Disp: 13 g, Rfl: 11 omeprazole (PriLOSEC) [address] capsule, Take 1 capsule (40 mg) by mouth before breakfast. Do not crush or chew., Disp: 30 capsule, Rfl: 11 predniSONE (Deltasone) 20 MG tablet, Take 2 tablets (40 mg) by mouth Once per day for 5 days., Disp: 10 tablet, Rfl: 0 SUMAtriptan (Imitrex) 50 MG tablet, Take 1 tablet (50 mg) by mouth 1 (one) time if needed for migraine for up to 9 doses. May repeat dose once in 2 hours if no relief. Do not exceed 2 doses in 24 hours., Disp: 9 tablet, Rfl: 0 topiramate (Topamax) 25 MG tablet, 1 tab twice daily, Disp: 60 tablet, Rfl: 2 Scribe Attestation: Yassine Keane, am serving as a scribe to document services personally performed by Verito Jain, based on the patient's response to questions by provider and provider's statements to me. 08/10/25 4:19 PM Physicians Attestation: Verito Keane DO, have reviewed the information by the scribe, Yassine Mari, for accuracy and agree with its content. documented in this encounter Plan of Treatment Upcoming Encounters Date Type Department Care Team ([facility] st Contact Info) Description 10/16/2025 3:00 PM EST Office Visit [facility] [address] [place] [address] Анна Bonilla ANP [address] [place] [address] 10/24/2025 1:00 PM EST Office Visit [facility] [address] [place] [address] Andrew, Yadira, OD [address] [place] [address] Scheduled Orders Name Type Priority Associated Diagnoses Orde r Schedule Culture, Urine, Routine Microbiology Routine Acute UTI Ordered: 08/10/2025 documented as of this encounter Procedures Procedure Name Priority Date/Time Associated Diagnosis Comments POCT URINALYSIS DIPSTICK Routine 08/10/2025 3:00 PM EDT Acute UTI documented in this encounter Results * (ABNORMAL) POCT urinalysis dipstick manually resulted (08/10/2025 3:00 PM EDT) Color, UA Yellow Clarity, UA Clear Glucose, UA Negative Bilirubin, UA Negative Ketones, UA Negative Spec Grav, UA 1.025 Blood, UA Positive(A) Negative, None Detected Comment:Trace-intact pH, UA 6.0 Protein, UA Trace Urobilinogen, UA 0.2 Leukocytes, UA Negative Negative, Rare, Trace Nitrite, UA Negative Negative, None Detected Urine 08/10/2025 3:00 PM EDT Verito Salgado DO POINT OF CARE TEST ENTER/STEPHEN T ORDERABLES Final Result documented in this encounter Visit Diagnoses Diagnosis Acute UTI- Primary Urinary tract infection, site not specified Mild persistent asthma with acute exacerbation documented in this encounter Care Teams Exercise Instruct Relationship Specialty Start Date End Date Анна Bonilla ANP [address] [place] [address] PCP - General Family Medicine 07/09/21 Annel Foreman Sql DbaSenior Research Consultant 10/15/23 documented as of this encounter
--- OUTSIDE RECORDS SUMMARY | 2025-08-10 19:55 | XMS_ITS | Encounter Summary ---
Author Organization [employer] Address 75 [facility] 7t [place] [address] Care Team Providers Care Windlace Machine Operator Name Role Phone Анна Bonilla Primary Care Provider [phone] Armida Singh RN Unavailable [phone] Estrella Boyer Unavailable Encounter Details Date Type Department Care Team (Late st Contact Info) Description 03/29/[address] [facility] [address] [place] [address] Julianne Tarango CNP [address] [place] [address] Social History Tobacco Use Types Packs/Day Years [...] Care Team (Late st Contact Info) Description 10/16/2025 3:00 PM EST Office Visit [facility] [address] [place] [address] Анна Bonilla ANP [address] [place] [address] 10/24/2025 1:00 PM EST Office Visit [facility] [address] [place] [address] Yadira Morales, OD [address] [place] [address] documented as of this encounter Visit Diagnoses Not on filedocumented in this encounter Care Teams Windlace Machine Operator Relationship Specialty Start Date End Date Анна Bonilla ANP [address] [place] [address] PCP - General Family Medicine 07/09/21 Armida Singh RN [address] [place] [id number] Registered Nurse Family Medicine 04/07/25 04/07/25 Estrella Boyer 04/07/25 04/07/25 Annel Foreman Cullet Crusher And WasherLocomotive Crane Operator 10/15/23 documented as of this encounter
--- OUTSIDE RECORDS SUMMARY | 2025-08-10 19:55 | XMS_ITS | Encounter Summary ---
Author Organization [employer] Address 75 [facility] 7t [place] [address] Care Team Providers Care Production Control Supervisor Name Role Phone Анна Bonilla Primary Care Provider [phone] Encounter Details Date Type Department Care Team (Latest Contact Info) Description 06/09/2025 Results Follow-Up [facility] [address] [place], [place] [phone] Анна Bonilla ANP [address] [place] [address] BI Mammogram Diagnostic Tomosynthesis Bilateral Social History Tobacco Use Types Packs/Day Years [...] Result Encounter Note - CLARY Gramajo - 06/09/2025 12:42 PM EDT Please follow, needs repeat in 6 mo thanks documented in this encounter Plan of Treatment Upcoming Encounters Date Type Department Care Team (Late st Contact Info) Description 10/16/2025 3:00 PM EST Office Visit [facility] [address] [place] [address] Анна Bonilla ANP [address] [place] [address] 10/24/2025 1:00 PM EST Office Visit [facility] [address] [place] [address] Andrew, Yadira, OD [address] [place] [address] documented as of this encounter Visit Diagnoses Not on filedocumented in this encounter Care Teams Production Control Supervisor Relationship Specialty Start Date End Date Анна Bonilla ANP [address] [place] [address] PCP - General Family Medicine 07/09/21 Annel Foreman Supervisor Chlorine LiquefactionUtility Accounts Director 10/15/23 documented as of this encounter
--- OUTSIDE RECORDS SUMMARY | 2025-08-10 19:55 | XMS_ITS | Encounter Summary ---
Author Organization [employer] Address 75 [facility] 7[address] [place] [address] Care Team Providers Care German Tutor Name Role Phone Анна Bonilla Primary Care Provider [phone] Armida Singh RN Unavailable [phone] Estrella Boyer Unavailable Reason for Visit * Reason Onset Date Comments Nurse Triage 08/03/2024 Encounter Details Date Type Department Care Team (Late st Contact Info) Description 08/03/2024 Telephone [facility] [address] [place], [place] [phone] Анна Bonilla ANP [address] [place], [place] [phone] Nurse Triage Social History Tobacco Use Types [...] 08/03/2024 11:05 AM EDT Triage call with [employer] Demand Generator Manager ID [id number]. Pt reports positive home covid test taken [...] Covid-19 (at home test) Contact pt at [phone] (belarusian) documented in this encounter Plan of Treatment Upcoming Encounters Date Type Department Care Team (Late st Contact Info) Description 10/16/2025 3:00 PM EST Office Visit [facility] [address] [place] [address] Анна Bonilla ANP [address] [place] [address] 10/24/2025 1:00 PM EST Office Visit [facility] [address] [place] [address] Andrew, Yadira, OD [address] [place] [address] documented as of this encounter Visit Diagnoses Not on filedocumented in this encounter Care Teams German Tutor Relationship Specialty Start Date End Date Анна Bonilla ANP [address] [place] [address] PCP - General Family Medicine 07/09/21 Armida Singh, CHRISTIE [address] [place] [address] Registered Nurse Family Medicine 04/07/25 04/07/25 Estrella Boyer 04/07/25 04/07/25 Annel Foreman Software Integration DeveloperFlag Decorator 10/15/23 documented as of this encounter
--- OUTSIDE RECORDS SUMMARY | 2025-08-10 19:55 | XMS_ITS | Encounter Summary ---
Author Organization [employer] Address [address] [facility] 7t [place] [address] Care Team Providers Care Cook Cold Meat Name Role Phone Анна Bonilla Primary Care Provider [phone] Armida Singh RN Unavailable [phone] Estrella Boyer Unavailable Reason for Visit * Reason Onset Date Comments Nurse Triage 06/21/2024 Encounter Details Date Type Department Care Team (Late st Contact Info) Description 06/21/2024 Telephone [facility] [address] [place], [place] [phone] Анна Bonilla ANP [address] [place], [place] [phone] Nurse Triage Social History Tobacco Use Types [...] 06/21/2024 2:35 PM EDT Called pt. Via [employer] sr account executive [id number] Mary. Pt. States that she has had [...] Pollen * Telephone Encounter - Ana Maria Ej - 06/21/2024 2:30 PM EDT Symptom: Eye Allergy Outcome: Schedule an urgent appointment (within 4 hours) or talk to a nurse or provider soon Reason: Eyelid is red and swollen and eyes are painful The caller accepted this outcome Maori speaker documented in this encounter Plan of Treatment Upcoming Encounters Date Type Department Care Team ([facility] st Contact Info) Description 10/16/2025 3:00 PM EST Office Visit [facility] [address] [place] [address] Анна Bonilla ANP [address] [place] [address] 10/24/2025 1:00 PM EST Office Visit [facility] [address] [place] [address] Yadira Morales, OD [address] [place] [address] documented as of this encounter Visit Diagnoses Diagnosis Urticaria Unspecified urticaria documented in this encounter Care Teams Cook Cold Meat Relationship Specialty Start Date End Date Анна Bonilla ANP [address] [place] [address] PCP - General Family Medicine 07/09/21 Armida Singh RN [address] [place] [address] Registered Nurse Family Medicine 04/07/25 04/07/25 Estrella Boyer 04/07/25 04/07/25 Annel Foreman Investigation ClerkManager Produce 10/15/23 documented as of this encounter
--- OUTSIDE RECORDS SUMMARY | 2025-08-10 19:55 | XMS_ITS | Encounter Summary ---
Author Organization [employer] Address [address] [facility] [address] [place] [address] Care Team Providers Care Hand Ii Cutter Name Role Phone Анна Bonilla Primary Care Provider Encounter Details Date Type Department Care Team (Latest Contact Info) Description 08/10/2025 Travel Social History Tobacco Use Types Packs/Day Years [...] Description 10/16/2025 3:00 PM EST Office Visit [facility] [address] [place] [address] Анна Bonilla ANP [address] [place] [address] 10/24/2025 1:00 PM EST Office Visit [facility] [address] [place] [address] Andrew, Yadira, OD [address] [place] [address] documented as of this encounter Visit Diagnoses Not on filedocumented in this encounter Care Teams Hand Ii Cutter Relationship Specialty Start Date End Date Анна Bonilla ANP [address] [place] [address] PCP - General Family Medicine 07/09/21 Annel Foreman Sap SpecialistDining Room Helper 10/15/23 documented as of this encounter
--- OUTSIDE RECORDS SUMMARY | 2025-08-10 19:55 | XMS_ITS | Encounter Summary ---
Author Organization [employer] Address [address] [facility] [address] [place] [address] Care Team Providers Care Ups Driver Name Role Phone Анна Bonilla Primary Care Provider Reason for Visit * Reason Onset Date Comments Nurse Triage 08/07/2025 Encounter Details Date Type Department Care Team ([facility] st Contact Info) Description 08/07/2025 Telephone [facility] [address] [place], [place] [phone] Анна Bonilla ANP [address] [place] [address] Nurse Triage Social History Tobacco Use Types [...] Telephone Encounter - Ashley Carranza RN - 08/07/2025 4:02 PM EDT Triage call Pt reports putting Pt child's otic drops, cortisporin, which were prescribed for recentear infection , in Pt left eye. Pt reports this was done a couple hours ago. Pt felt a burning and some pain and Pt did flush eye with water right away. Pt didn't lose vision and had slight pain , itchiness. Pt reports eye is better, slight pain in the corner of eye and redness is resolving. Pt is given instruction for immersion of eye as well as flushing for home care. Pt is advised to come to [facility] if needed for provider to see eye. Pt reports if needed Pt will come but, at this point Pt feels that any irritation is resolving. Pt insurance is verified as active. Protocol Used: Eye - Chemical In (Adult) Protocol-Based Disposition: Home Care Positive Triage Question: * Eye irritation from harmless chemical * All higher-acuity triage questions were negative Care Advice Discussed: * Reassurance and Education - Harmless Chemical in Eye * Eye Irrigation Method #1 - Flushing * Eye Irrigation Method #2 - Immersion * Reasons To Call Back - Pain or blurred vision lasts longer than 1 hour after irrigation - Redness lasts longer than 24 hours - You become worse * Telephone Encounter - Basil Garrison - 08/07/2025 2:59 PM EDT Symptom: Chemical in Eye Outcome: Transfer to a nurse or provider NOW! Reason: This is the only possible outcome for this symptom The caller accepted this outcome. Pt had put unprescribed eye drops in her eyes. Had a bad reaction. Pt had dump water in her face. Pain went away for a little bit. Pts eye was red, and burning. Pt had put her prescribed eye drop on,and helped pt. Pt is inquiring if that is something to be in the ER for or see doctor. Contact pt at [phone] (wallisian) documented in this encounter Plan of Treatment Upcoming Encounters Date Type Department Care Team (Late st Contact Info) Description 10/16/2025 3:00 PM EST Office Visit [facility] [address] [place] [address] Анна Bonilla ANP [address] [place] [address] 10/24/2025 1:00 PM EST Office Visit [facility] [address] [place] [address] Andrew, Yadira, OD [address] [place] [address] documented as of this encounter Visit Diagnoses Not on filedocumented in this encounter Care Teams Ups Driver Relationship Specialty Start Date End Date Анна Bonilla ANP [address] [place] [address] PCP - General Family Medicine 07/09/21 Annel Foreman Hvac/R Service TechnicianPneudraulic Systems Mechanic 10/15/23 documented as of this encounter
--- OUTSIDE RECORDS SUMMARY | 2025-08-10 19:55 | XMS_ITS | Clinical Summary ---
Author Organization [facility] Address [address] [facility] [address] [place] [address] Care Team Providers Care Photogrammetric Stereo Compiler Name Role Phone Anuja Muniz Primary Care Provider [phone] Allergies Active Allergy Reactions Criticality Noted Date Comments Influenza Vaccines Dizziness,Headache 0 Other reaction(s): Itching Vaccine Product Containing Only Influenza Virus Antigen (medicinal Product) New Other reaction(s): Itching Vaccine Product Containing Only Influenza Virus Antigen (medicinal Product) New Paroxetine High 04/06/2020 Other reaction(s): Excessive sweating, Tremor Sulfa Antibiotics Rash High 10/08/2016 Other reaction(s): Rash Other Reaction(s): itchy/red Other Reaction(s): erythema, rash Allergy Sulfadiazine 08/10/2025 Other Reaction(s): itchy, red Trimethoprim Rash High 10/06/2024 Medications * This document contains information received from the source organization and may not represent a complete record from that organization. hydrOXYzine pamoate (Vistaril) 25 MG capsule Take [...] prn allergies 5 mL 1 3 Active albuterol 108 (90 Base) MCG/ACT inhalerIndications :Moderate persistent asthma without complication Inhale 2 puffs every 4 (four) hours. 18 g 1 4 Active cetirizine (ZyrTEC) 10 MG tabletIndications: Urticaria Take 1 tablet (10 mg) by mouth Once per day. 90 tablet 3 4 Active fluticasone (Flonase) 50 MCG/ACT nasal sprayIndications:S [...] to 25 doses. 40 tablet 4 Active omeprazole (PriLOSEC) [address] capsule Take 1 capsule (40 mg) by mouth before breakfast. Do not crush or chew. 30 capsule 5 026 Active albuterol (2.5 MG/3ML) 0.083% nebulizer solutionIndication s:Moderate persistent asthma without complication Use 3ml as needed w/ nebulizer every 4-6 hrs for SOB/wheezing 75 mL 2 5 Active Mometasone Furoate (Asmanex HFA) 100 MCG/ACT aerosolIndications :Moderate persistent asthma without complication Inhale 2 Act (200 mcg) 2 times daily. 13 g 11 5 Active topiramate (Topamax) 25 MG tabletIndications: Class 2 obesity with body mass index (BMI) of 37.0 to 37.9 in adult, unspecified obesity type, unspecified whether serious comorbidity present,Migraine without status migrainosus, not intractable, unspecified migraine type 1 tab twice daily 60 tablet 2 Active ciprofloxacin (Cipro) 250 MG tablet Take 1 tablet (250 mg) by mouth 2 times daily for 3 days. 6 tablet 5 025 Active predniSONE (Deltasone) 20 MG tablet Take 2 tablets (40 mg) by mouth Once per day for 5 days. 10 tablet 5 025 Active Active Problems Problem Noted Date Diagnosed Date Fibroids, subserous 03/12/2025 Overview (03/31/2025): 02/2025- 4.8 x 4.5 x 5.5 cm left posterior subserosal fibroid. Has IUD in place Abdominal pain 03/01/2025 Class 2 obesity 03/01/2025 Diastasis of rectus abdominis 03/01/2025 Elevated blood pressure reading 03/01/2025 Class 2 obesity with body ma ss index (BMI) of 36.0 to 36.9 in adult 02/17/2025 Lower urinary tract symptoms (LUTS) 09/01/2024 Assessment [...] pyridium this week and start cranberry tablets. Postop check 07/03/2023 Pain in lower back 06/11/2023 Assessment & [...] labs to repeat UA w reflex cx Bilateral carpal tunnel syndrome 02/10/2023 Acute rhinosinusitis 11/24/2022 Allergic otitis media 11/24/2022 Bruises easily 11/24/2022 Cervical atypism 11/24/2022 Herpes labialis 11/24/2022 Joint pain 11/24/2022 Microcytic hypochromic anemia 11/24/2022 Mixed anxiety and depressive disorder 11/24/2022 Moderate persistent asthma 11/24/2022 Pain in finger 11/24/2022 Pain in wrist 11/24/2022 Post-traumatic arthritis of left ankle ASCUS with positive high risk HPV cervical 01/11 Overview (03/01/2025): 12/2020: colpo neg repeat pap in one year 12/2021- Ascus, + HR HPV, + 16, Neg 18/45 Plan: Colpo benign biopsies 2022 - if abnormal again, consider LEEP Carpal tunnel syndrome 02/26/2018 Gastroesophageal reflux disease [...] appt with with neurology Mood disorder 02/26/2018 Pap smear abnormality of cer vix/human papillomavirus (HPV) positive 03/04/2017 Overview (03/24/2025): History: PAP 12/03/2016: Cytology unsatisfactory; High Risk HPV DNA positive, not types 16/18/45 PAP 03/04/2017: Cytology negative; High Risk HPV DNA positive. 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 PAP 10/02/2020 ASCUS, + HR HPV Plan: Colpo- Neg, repeat PAP one year Anemia 11/28/2016 Vitamin D deficiency 11/28/2016 Allergic rhinitis due to pollen 10/08/2016 Resolved Problems Problem Noted Date Diagnosed Date Resolved Date Mild intermittent asthma 11/28/201607/2023 Encounters Date Type Department Care Team Description 08/10/2025 2:40 PM EDT Office Visit [facility] [address] [place] [id number] Verito Salgado DO Acute UTI (Primary Dx); Mild persistent asthma with acute exacerbation 08/10/2025 Travel 08/07/[address] [address] Anuja Muniz ANP Nurse Triage 08/04/[address] [address] Anuja Muniz ANP Nurse Triage 07/27/[address] [phone] Anuja Muniz ANP chart prep 06/09/2025 1:15 PM EDT Office Visit [address] [address] Anuja Muniz ANP Bilateral carpal tunnel syndrome (Primary Dx); Hyperhidrosis; Elevated blood pressure reading 06/09/2025 Travel 06/09/2025 Results Follow-Up [address] [address] Anuja Muniz ANP BI Mammogram Diagnostic Tomosynthesis Bilateral 06/08/[address] [address] Anuja Muniz ANP chart prep 06/07/2025 Travel 06/05/[address] [phone] Anuja Muniz ANP 05/18/[address] [address] Anuja Muniz ANP ER Follow-up 05/15/2025 9:20 AM EDT Office Visit [facility] [address] [place] [address] John Hennessy MD Numbness and tingling (Primary Dx); Elevated blood pressure reading 05/15/2025 Telephone [facility] [address] [place] [address] John Hennessy MD from Last 3 Months Immunizations Immunization Administration Dates Next Due Influenza Injectable Quadriv alant Preservative Free IIV4 MDCK 08/29/2020,09/11/2017 Influenza injectable quadriv alent IIV4 with preservative [...] oz) 08/10/2025 2:43 P M EDT Height 160 cm (5' 3 ) 06/09/2025 1:11 PM EDT Body Mass Index 35.11 06/09/2025 1:11 PM EDT Plan of Treatment Upcoming Encounters Date Type Department Care Team (Late st Contact Info) Description 10/16/2025 3:00 PM EST Office Visit [facility] [address] [place] [address] Anuja Muniz, CLARY [address] [place] [address] 10/24/2025 1:00 PM EST Office Visit [facility] [address] [place] [address] Andrew, Yadira, OD [address] [place] [address] Health Maintenance Due Date Last Done Comments Family Planning (PISQ) 1999 HPV Vaccines (1 - 3-dose series) 1999 Hepatitis B Vaccines (1 of 3 - 19+ 3-dose series) 2003 Pneumococcal Vaccine: Pediatrics (0 to 5 Years) and At-Risk Patients (6 to 49) Years (1 of 2 - PCV) 2003 COVID-19 Vaccine (2 - season) 2025 11/23/2021 Influenza Vaccine (#1) 2025 , 08/04/2019, 08/18/2018, Additional history exists Depression Screening 08/25/2025 08/25/2024, 08/25/20 Diagnostic Breast Imaging 12/10/2025 06/09/2025, Alcohol/Substance Use Screening 02/17/2026 02/17/2025 Cervical Cancer Screening 04/16/2026 HPV/Cotest 04/16/2026 04/16/2023 Pap Smear 04/16/2026 04/16/2023 SDOH Screening 04/20/2026 04/20/2025 Disability Screening 06/07/2026 06/07/2025 Tobacco Screening 08/10/2026 08/10/2025 DTaP/Tdap/Td Vaccines (3 - Td or Tdap) 09/11/2027 09/11/2017, 09/06/2010 Lipid Panel 04/27/2029 04/27/2024, 09/08/2022 Zoster Vaccines (1 of 2) 2034 RSV [...] age to complete this topic Meningococcal B Vaccine Aged Out No l onger eligible based on patient's age to complete [...] Routine 08/10/2025 3:00 PM EDT Acute UTI AMB REFERRAL TO HAND SURGERY Routine 06/22/2025 Bilateral carpal tunnel syndrome BI US BREAST LIMITED LEFT Routine 06/09/2025 11:48 AM EDT Breast pain, left BI MAMMOGRAM DIAGNOSTIC TOMOSYNTHESIS BILATERAL Routine 06/09/2025 11:25 AM EDT Breast pain, left HEPATITIS C AB W/REFL TO HCV RNA, QN, PCR Routine 04/27/2024 9:12 AM EDT Routine screening for STI (sexually transmitted infection) HIV 1/2 ANTIGEN/ANTIBODY, FOURTH GENERATION W/RFL Routine 04/27/2024 9:12 AM EDT Routine screening for STI (sexually transmitted infection) LIPID PANEL, STANDARD Routine 04/27/2024 9:12 AM EDT Elevated hemoglobin A1c measurement HM PAP/HPV Routine 04/16/2023 from Last 3 Months or Most Recently Relevant to Health Maintenance Results * (ABNORMAL) POCT urinalysis dipstick manually [...] CARE TEST ENTER/STEPHEN T ORDERABLES Final Result * Referral to Hand Surgery (06/22/2025) us Anuja MAENS OUTPATIENT REFERRAL ORDERABLES F inal Result * BI US Breast Limited Left (06/09/2025 11:48 AM EDT) Anatomical Region Laterality Modality Breast Left Ultrasound 06/09/2025 11:4 8 AM EDT Narrative 06/09/2025 12:27 PM EDT [facility] [address] [place] [address] Ultrasound Report Signed Patient: Oriana Angel MR# : [id number] : 1985 Acct:[id number] Age/Sex: 39 / F ADM Date: 06/09/25 Loc: HO.MAMMO Attending Dr: Anuja Muniz NP Ordering Physician: ANUJA MUNIZ NP Date of Service: 06/09/25 Procedure(s): US breast LT limited mamm only Accession Number(s): [id number] cc: ANUJA MUNIZ NP EXAMINATIONS: 1. MM DIAGNOSTIC DIGITAL BREAST TOMOSYNTHESIS, BILATERAL 2. Targeted ultrasound of the left breast CLINICAL INFORMATION: Left upper outer quadrant breast pain, on and off for 1 year. COMPARISON: None. Baseline study. TECHNIQUE: Digital breast tomosynthesis is performed in both the craniocaudal and mediolateral oblique views along with computer-aided detection (CAD). Synthesized 2D images are generated from the tomosynthesis. Triangular skin marker was placed at the location of the left breast pain in the upper outer quadrant as indicated by the patient. FINDINGS: BREAST COMPOSITION: The breasts are heterogeneously dense, which may obscure small masses (ACR BI-RADS breast composition Category c). RIGHT BREAST: No significant masses, suspicious calcifications or other abnormalities are seen. LEFT BREAST: Focal asymmetry in the upper-outer quadrant at approximately 15 cm from the nipple is identified subjacent to the triangular skin marker. No suspicious calcifications or other abnormalities are seen. Targeted ultrasound of the left breast was performed at the location of the pain as indicated by the patient in the upper outer quadrant. Survey did not reveal suspicious sonographic findings. US/US breast LT limited mamm only IMPRESSION: RIGHT BREAST: Negative, no mammographic evidence of malignancy. Normal interval follow-up is recommended in 12 months. LEFT BREAST: Focal asymmetry in the upper outer quadrant approximately 15 cm from the nipple, correlates with the location of the focal pain. No suspicious sonographic correlate. Findings suggest resolving posttraumatic or postinflammatory changes, although patient denies history. A 6-month follow-up mammogram is recommended. ASSESSMENT: BI-RADS 3 - Probably benign finding(s) - 6 month follow-up suggested RECOMMENDATION: 6 Month F/U Results were provided to the patient at time of visit by the technologist. This patient's information was entered into a reminder system with a target due date for their next mammogram. Electronically signed by: Huang Mccormack MD 06/09/2025 12:24 PM EDT Dictated By: Huang Mccormack MD Signed By: <Electronically signed by Huang Mccormack MD in OV> 06/09/25 1224 DD/ 1148 TD/TT: 06/09/25 1209 Rheumatology Specialist: Procedure Note Donotuseinterpreter, Image - 06/09/2025 [facility] [address] [place] [address] Ultrasound Report Signed Patient: Oriana Angel [facility]# : [id number] : 1985Acct:[id number] Age/Sex: 39 / FADM Date: 06/09/25 Loc: HO.MAMMO Attending Dr: Anuja Muniz NP Ordering Physician: ANUJA MUNIZ NP Date of Service: 06/09/25 Procedure(s): US breast LT limited mamm only Accession Number(s): [id number] cc: ANUJA MUNIZ NP EXAMINATIONS: 1. MM DIAGNOSTIC DIGITAL BREAST TOMOSYNTHESIS, BILATERAL 2. Targeted ultrasound of the left breast CLINICAL INFORMATION: Left upper outer quadrant breast pain, on and off for 1 year. COMPARISON: None. Baseline study. TECHNIQUE: Digital breast tomosynthesis is performed in both the craniocaudal and mediolateral oblique views along with computer-aided detection (CAD). Synthesized 2D images are generated from the tomosynthesis. Triangular skin marker was placed at the location of the left breast pain in the upper outer quadrant as indicated by the patient. FINDINGS: BREAST COMPOSITION: The breasts are heterogeneously dense, which may obscure small masses (ACR BI-RADS breast composition Category c). RIGHT BREAST: No significant masses, suspicious calcifications or other abnormalities are seen. LEFT BREAST: Focal asymmetry in the upper-outer quadrant at approximately 15 cm from the nipple is identified subjacent to the triangular skin marker. No suspicious calcifications or other abnormalities are seen. Targeted ultrasound of the left breast was performed at the location of the pain as indicated by the patient in the upper outer quadrant. Survey did not reveal suspicious sonographic findings. US/US breast LT limited mamm only IMPRESSION: RIGHT BREAST: Negative, no mammographic evidence of malignancy. Normal interval follow-up is recommended in 12 months. LEFT BREAST: Focal asymmetry in the upper outer quadrant approximately 15 cm from the nipple, correlates with the location of the focal pain. No suspicious sonographic correlate. Findings suggest resolving posttraumatic or postinflammatory changes, although patient denies history. A 6-month follow-up mammogram is recommended. ASSESSMENT: BI-RADS 3 - Probably benign finding(s) - 6 month follow-up suggested RECOMMENDATION: 6 Month F/U Results were provided to the patient at time of visit by the technologist. This patient's information was entered into a reminder system with a target due date for their next mammogram. Electronically signed by: Huang Mccormack MD 06/09/2025 12:24 PM EDT Dictated By: Huang Mccormack MD Signed By: <Electronically signed by Huang Mccormack MD in OV> 06/09/25 1224 DD/ 1148 TD/TT: 06/09/25 1209 Rheumatology Specialist: us Anuja MEANS IMG US PROCEDURES Edited Result - Final * BI Mammogram Diagnostic Tomosynthesis Bilateral (06/09/2025 11:25 AM EDT) Anatomical Region Laterality Modality Breast Bilateral Mammography 06/09/2025 11:2 5 AM EDT Narrative 06/09/2025 12:27 PM EDT [place] [facility] [address] [place] [address] Mammography Report Signed Patient: Oriana Angel MR# : [id number] : 1985 Acct:[id number] Age/Sex: 39 / F ADM Date: 06/09/25 Loc: HO.MAMMO Attending Dr: Anuja Muniz NP Ordering Physician: ANUJA MUNIZ NP Results: 3.6MProbabl y Benign Finding - Short 6 M F/U Suggested Date of Service: 06/09/25 Follow Up: 6 Month F/U Procedure(s): MM tomosynthesis diagnostic BI Accession Number(s): [id number] cc: ANUJA MUNIZ NP EXAMINATIONS: 1. MM DIAGNOSTIC DIGITAL BREAST TOMOSYNTHESIS, BILATERAL 2. Targeted ultrasound of the left breast CLINICAL INFORMATION: Left upper outer quadrant breast pain, on and off for 1 year. COMPARISON: None. Baseline study. TECHNIQUE: Digital breast tomosynthesis is performed in both the craniocaudal and mediolateral oblique views along with computer-aided detection (CAD). Synthesized 2D images are generated from the tomosynthesis. Triangular skin marker was placed at the location of the left breast pain in the upper outer quadrant as indicated by the patient. FINDINGS: BREAST COMPOSITION: The breasts are heterogeneously dense, which may obscure small masses (ACR BI-RADS breast composition Category c). RIGHT BREAST: No significant masses, suspicious calcifications or other abnormalities are seen. LEFT BREAST: Focal asymmetry in the upper-outer quadrant at approximately 15 cm from the nipple is identified subjacent to the triangular skin marker. No suspicious calcifications or other abnormalities are seen. Targeted ultrasound of the left breast was performed at the location of the pain as indicated by the patient in the upper outer quadrant. Survey did not reveal suspicious sonographic findings. MM/MM tomosynthesis diagnostic BI IMPRESSION: RIGHT BREAST: Negative, no mammographic evidence of malignancy. Normal interval follow-up is recommended in 12 months. LEFT BREAST: Focal asymmetry in the upper outer quadrant approximately 15 cm from the nipple, correlates with the location of the focal pain. No suspicious sonographic correlate. Findings suggest resolving posttraumatic or postinflammatory changes, although patient denies history. A 6-month follow-up mammogram is recommended. ASSESSMENT: BI-RADS 3 - Probably benign finding(s) - 6 month follow-up suggested RECOMMENDATION: 6 Month F/U Results were provided to the patient at time of visit by the technologist. This patient's information was entered into a reminder system with a target due date for their next mammogram. Electronically signed by: Huang Mccormack MD 06/09/2025 12:24 PM EDT Dictated By: Huang Mccormack MD Signed By: <Electronically signed by Huang Mccormack MD in OV> 06/09/25 1224 DD/ 1125 TD/TT: 06/09/25 1145 Rheumatology Specialist: Procedure Note Donotuseinterpreter, Image - [facility] [address] [place] [address] Mammography Report Signed Patient: Oriana Angel NMR# : [id number] : 1985Acct:[id number] Age/Sex: 39 / FADM Date: 06/09/25 Loc: HO.MAMMO Attending Dr: Anuja Muniz NP Ordering Physician: ANUJA MUNIZ NPResults: 3.6MProbabl y Benign Finding - Short 6 M F/U Suggested Date of Service: 06/09/25Follow Up: 6 Month F/U Procedure(s): MM tomosynthesis diagnostic BI Accession Number(s): [id number] cc: ANUJA MUNIZ NP EXAMINATIONS: 1. MM DIAGNOSTIC DIGITAL BREAST TOMOSYNTHESIS, BILATERAL 2. Targeted ultrasound of the left breast CLINICAL INFORMATION: Left upper outer quadrant breast pain, on and off for 1 year. COMPARISON: None. Baseline study. TECHNIQUE: Digital breast tomosynthesis is performed in both the craniocaudal and mediolateral oblique views along with computer-aided detection (CAD). Synthesized 2D images are generated from the tomosynthesis. Triangular skin marker was placed at the location of the left breast pain in the upper outer quadrant as indicated by the patient. FINDINGS: BREAST COMPOSITION: The breasts are heterogeneously dense, which may obscure small masses (ACR BI-RADS breast composition Category c). RIGHT BREAST: No significant masses, suspicious calcifications or other abnormalities are seen. LEFT BREAST: Focal asymmetry in the upper-outer quadrant at approximately 15 cm from the nipple is identified subjacent to the triangular skin marker. No suspicious calcifications or other abnormalities are seen. Targeted ultrasound of the left breast was performed at the location of the pain as indicated by the patient in the upper outer quadrant. Survey did not reveal suspicious sonographic findings. MM/MM tomosynthesis diagnostic BI IMPRESSION: RIGHT BREAST: Negative, no mammographic evidence of malignancy. Normal interval follow-up is recommended in 12 months. LEFT BREAST: Focal asymmetry in the upper outer quadrant approximately 15 cm from the nipple, correlates with the location of the focal pain. No suspicious sonographic correlate. Findings suggest resolving posttraumatic or postinflammatory changes, although patient denies history. A 6-month follow-up mammogram is recommended. ASSESSMENT: BI-RADS 3 - Probably benign finding(s) - 6 month follow-up suggested RECOMMENDATION: 6 Month F/U Results were provided to the patient at time of visit by the technologist. This patient's information was entered into a reminder system with a target due date for their next mammogram. Electronically signed by: Huang Mccormack MD 06/09/2025 12:24 PM EDT RP Workstation: [employer] Dictated By: Huang Mccormack MD Signed By: <Electronically signed by Huang Mccormack MD in OV> 06/09/25 1224 DD/ 1125 TD/TT: 06/09/25 1145 Rheumatology Specialist: us Anuja MEANS IMG BI PROCEDURES Edited Result - Final * Hepatitis C Antibody with Reflex to HCV, RNA, Quantitative, Real-Time PCR (04/27/2024 9:12 AM EDT) Hepatitis C Antibody Nonreactive Nonreactive [facility] Comment:Antibodies to HCV no t detected; does not exclude early acuteHCV infection. Blood Venous blood specimen / Unknown 04/27/2024 9:12 AM EDT 04/27/2024 11:15 AM EDT us Anuja MEANS LAB BLOOD ORDERABLES Final Resul t [facility] [address] [place] [address] [phone] * HIV-1/2 Antigen and Antibodies, Fourth Generation, with Reflexes (04/27/2024 9:12 AM EDT) HIV AB/AG Nonreactive Nonreactive [facility] Comment:HIV-1 p24 Ag and/or HIV-1/HIV-2 Ab not detected.A test result that is nonreactive does not exclude thepossibility of exposure to or infection with HIV-1 and/orHIV-2. Nonreactive results in this assay for individualswith prior exposure to HIV-1 and/or HIV-2 may be due toantigen and antibody levels that are below the limit ofdetection of this assay.The [employer] HIV Ag/Ab Combo assay result andsupplemental assay results should be interpreted inconjunction with the patient's clinical presentation,history and other laboratory results. If the results areinconsistent with clinical evidence, additional testing issuggested to confirm the result. Blood Venous blood specimen / Unknown 04/27/2024 9:12 AM EDT 04/27/2024 11:15 AM EDT [facility] LAB BLOOD ORDERABLES Final Resul t [facility] [address] [place] [phone] * (ABNORMAL) Lipid Panel, Standard (04/27/2024 9:12 AM EDT) Triglycerides 70 <150 mg/dL [facility] Comment:Desirable Triglyceri de: less than 150 mg/dLBorderline High Triglyceride 150-199 mg/dLHigh Triglyceride: 200-499 mg/dLVery High Triglyceride: greater than or equal to 5OO mg/dL Cholesterol 135 <200 mg/dL [facility] Comment:Desirable Cholestero l: less than 200 mg/dLBorderline High Cholesterol: 200-239 mg/dLHigh Cholesterol: greater than 239 mg/dL LDL Cholesterol Calculated 87 <100 mg/dL [facility] Comment:Desirable LDL: less than 100 mg/dLNear Optimal/Above Optimal LDL: 110- 129 mg/dLBorderline High LDL: 130-159 mg/dLHigh LDL: 160-189 mg/dLVery High LDL: greater than or equal to 190 mg/dL HDL Cholesterol 34(L) >40 mg/dL [facility] Comment:Desirable HDL: great er than 40 mg/dL Note: This HDL assay may give artificially low results in patients with liver disease. Blood Venous blood specimen / Unknown 04/27/2024 9:12 AM EDT 04/27/2024 11:15 AM EDT Anuja MEANS LAB BLOOD ORDERABLES Final Resul t [facility] [address] [place] [address] [phone] * HM PAP/HPV (04/16/2023) Pap Smear 1. NILM 1. NILM HPV Not Detected Undetected, Indeterminat e, Quantitative , Not Detected Narrative Cathie Randolph - 04/16/2023 Abn pap hx. See pap results in care everywhere Historical Provider HEALTH MAINTENANCE Final Result from Last 3 Months or Most Recently Relevant to Health Maintenance Insurance C3 Care Teams Photogrammetric Stereo Compiler Relationship Specialty Start Date End Date Anuja Muniz ANP [address] [place] [address] PCP - General Family Medicine 07/09/21 Annel Foreman [employer] Swimming Pool Installer 10/15/23
== END 2025-08-10 16:22 | disposition home or self-care (01) ==
LOC: HO.HHCLNP 16:21
PROVIDERS: Visit Provider Family Medicine
DX: N39.0 Urinary tract infection, site not specified (principal)
CPT/HCPCS: 87086

== ENCOUNTER 2025-10-18 10:48 | Outpatient (REF) | payer MEDICAID, SELFPAY ==
--- OUTSIDE RECORDS SUMMARY | 2025-10-16 15:00 | XMS_ITS | Encounter Summary ---
Author Organization [facility] Address [address] [place] [address] 7 [place] [address] Care Team Providers Care Official Court Reporter Name Role Phone Анна Bonilla Primary Care Provider [phone] Armida Singh RN Unavailable [phone] Estrella Boyer Unavailable Reason for Referral * Consultation (Routine) - Authorized Specialty Diagnoses / Procedures Referred By Anuradha chu Referred To Contact Behavioral Health Diagnoses Insomnia, unspecified type Mixed anxiety and depressive disorder Procedures Referral to Behavioral Health Анна Bonilla ANP [address] [place] [address] Phone: tel: fax: Referral ID Status Reason Start Date Expiration Date Visits Requested Visits Authorized [id number] Authorized Specialty Services Required 10/16/2025 10/16/2026 1 1 * Imaging (Routine) - Authorized Specialty Diagnoses / Procedures Referred By Anuradha chu Referred To Contact Radiology Diagnoses Periumbilical abdominal pain Procedures US Abdomen Limited Анна Bonilla ANP [address] [place] [address] Phone: tel: fax: [facility] [address] [place], [place] Phone: tel: fax: Referral ID Status Reason Start Date Expiration Date V isits Requested Visits Authorized [id number] Authorized 10/16/2025 10/16/2026 1 1 Reason for Visit * Reason Comments Follow-up Weight check Encounter Details Date Type Department Care Team (Late st Contact Info) Description 10/16/2025 3:00 PM EST Office Visit [facility] [address] [place], [place] [phone] Анна Bonilla ANP [address] [place] [address] Insomnia, unspecified type (Primary Dx); Periumbilical abdominal pain; Migraine without status migrainosus, not intractable, unspecified migraine type; Non-seasonal allergic rhinitis due to other allergic trigger; Class 2 obesity with body mass index (BMI) of 37.0 to 37.9 in adult, unspecified obesity type, unspecified whether serious comorbidity present; Mixed anxiety and depressive disorder; Upper back pain; Uterine leiomyoma, unspecified location Social History Tobacco Use Types Packs/Day Years Used Date Smoking Tobacco: Never Passive Smoke Exposure: Never Smokeless Tobacco: Never Tobacco Cessation:Counseling Given: Not Answered Alcohol Use Standard Drinks/Week Comments Never 0 (1 standard drink = 0.6 oz pur e alcohol) Depression Answer Date Recorded Patient Health Questionnaire-9 Score 10 10/16/2025 Patient Health Questionnaire-9 Score 10 10/16/2025 Last PHQ-9: Questionnaire Data Not on file 1 12/17/2024 Housing Stability Answer Date Recorded What is [...] Answer Date Recorded Patient Health Questionnaire-2 Score 2 10/16/2025 Internet Access Answer Date Recorded Internet Access [...] Sign Reading Time Taken Comments Blood Pressure 120/80 10/16/2025 3:02 PM EST Pulse 79 10/16/2025 3:02 PM EST Temperature 36.2 C (97.1 F) 10/16/2025 3:02 PM EST Respiratory Rate 13 10/16/2025 3:02 PM EST Oxygen Saturation 99% 10/16/2025 3:02 PM EST Inhaled Oxygen Concentration - - Weight 86.6 kg (191 lb) 10/16/2025 3:02 PM EST Height 160 cm (5' 3 ) 10/16/2025 3:02 PM EST Body Mass Index 33.83 10/16/2025 3:02 PM EST documented in this encounter Functional Status * Over the past 2 weeks, how often have you been bothered by any of the following problems? Question Answer Date of Assessment Author Patient Health Questionnaire -2 Score 2 10/16/2025 3:36 PM EST Hodan Aguila MA * Little interest or pleasure in doing things Answer Date of Assessment Author Several days 10/16/2025 3:36 PM EST Makayla Aguila MA * Feeling down, depressed, or hopeless Answer Date of Assessment Author Several days 10/16/2025 3:36 PM EST Makayla Aguila MA * Trouble falling or staying asleep, or sleeping too much Answer Date of Assessment Author More than half the days 10/16/2025 3:36 PM EST Hodan Bautista MA * Feeling tired or having little energy Answer Date of Assessment Author Several days 10/16/2025 3:36 PM EST Makayla Aguila MA * Poor appetite or overeating Answer Date of Assessment Author More than half the days 10/16/2025 3:36 PM Hodan Paige MA * Feeling bad about yourself - or that you are a failure or have let yourself or your family down Answer Date of Assessment Author Not at all 10/16/2025 3:36 PM Makayla Stout MA * Trouble concentrating on things, such as reading the newspaper or watching television Answer Date of Assessment Author More than half the days 10/16/2025 3:36 PM Hodan Paige MA * Moving or speaking so slowly that other people could have noticed? Or the opposite - being so fidgety or restless that you have been moving around a lot more than usual. Answer Date of Assessment Author Several days 10/16/2025 3:36 PM Makayla Stout MA * Thoughts that you would be better off or hurting yourself in some way Answer Date of Assessment Author Not at all 10/16/2025 3:36 PM Makayla Stout MA * Patient Health Questionnaire-9 Score Answer Date of Assessment Author 10 10/16/2025 3:36 PM Makayla Stout MA * Over the last 2 weeks, how often have you been bothered by any of the following problems? Question Answer Date of Assessment Author Feeling nervous, anxious, or on edge 2 10/16/2025 3:37 PM Hodan Stout MA Not being able to stop or co ntrol worrying 1 10/16/2025 3:37 PM Hodan Stout MA Worrying too much about diff erent things 1 10/16/2025 3:37 PM Hodan Stout MA Trouble relaxing 2 10/16/2025 3:37 PM Hodan Paige MA Being so restless that it is hard to sit still 1 10/16/2025 3:37 PM Hodan Stout MA Becoming easily annoyed or irritable 2 10/16/2025 3:37 PM Hodan Stout MA Feeling afraid as if somethi ng awful might happen 1 10/16/2025 3:37 PM Hodan Stout MA CLEVE-7 Total Score 10 10/16/2025 3:37 PM Hodan Stout MA * How difficult have these problems made it for you to do your work, take care of things at home, or get along with other people? Answer Date of Assessment Author Somewhat difficult 10/16/2025 3:36 PM Hodan Stout MA documented as of this encounter Progress Notes * CLARY Gramajo - 10/16/2025 3:00 PM EST Images from the original note were not included. SUBJECTIVE: Oriana Funk is a 40 y.o. year old female who presents for follow up. Denies recent illness, injury, or hospitalization. PMH asthma, recurrent UTI, carpal tunnel, microcytic anemia, migraine, anxiety and depression/mood disorder, asthma, vitamin D deficiency, fibroids Specialist incl [facility] urology, Latasha HUMAN RESOURCE INTERN Acute Concerns: Wt check Here today for follow-up/weight check. Tolerating topiramate well, denies side effects. BMI Readings from Last 3 Encounters: 10/16/25 33.83 kg/m?? 08/10/25 35.11 kg/m?? 06/09/25 36.67 kg/m?? Wt Readings from Last 3 Encounters: 10/16/25 191 lb (86.6 kg) 08/10/25 198 lb 3.2 oz (89.9 kg) 06/09/25 207 lb (93.9 kg) Understands that weight loss medications must be used as part of a comprehensive lifestyle plan that incorporates daily exercise, adequate protein intake, decreased soda and sugary beverage consumption, decreased caloric intake. ED visit for CP at [facility] 09/16/25 - work up there reassurring against cardiac cause. Labs did show hypochromic/microcytic RBC but no anemia IUD for BCM Mirena Insomnia - Reports difficulty sleeping - Denies prior use of medicines for insomnia - last caffeine is coffee in AM - has hydroxyzine for anxiety but hasn't tried Abdominal/pelvic concerns related to IUD placement - Reports prior vaginal ultrasound performed to confirm IUD placement - States follow-up regarding fibroid was not pursued after that ultrasound Allergic symptoms - requests Claritin, Zyrtec makes her tired - Denies need for Benadryl Headache/migraine - On topiramate (Topamax); reports benefit Bump in abdomen Feels tender bump when she pushes on mid abdomen Had CT 01/24/25 as below: CT/CT abdomen pelvis w IV con IMPRESSION: No gross umbilical hernia. 5 cm uterine fibroid. Hepatomegaly, mild and likely steatosis. Of note, transvaginal US 09/11/25 showed large posterior right side fibroid measuring 7.3 x 4.1 x 5.9 cm (Fibroid is significantly larger than on prior pelvic ultrasound from 05/01/2023 when it measured 4.3 x 4.1 x 4 cm. ) Social History Social History Narrative Not on file Problem List[1] Surgical History[2] Family History[3] Review of Systems Constitutional: Negative for chills and fever. HENT: Negative for sore throat. Respiratory: Negative for cough and shortness of breath. Cardiovascular: Negative for chest pain and palpitations. Gastrointestinal: Positive for abdominal pain. Negative for constipation and diarrhea. Endocrine: Negative for polydipsia, polyphagia and polyuria. Genitourinary: Negative for dysuria. Musculoskeletal: Positive for arthralgias, back pain and neck pain. Neurological: Negative for weakness. Psychiatric/Behavioral: Positive for sleep disturbance. The patient is nervous/anxious. OBJECTIVE: Vitals: 10/16/25 1502 BP: 120/80 BP Location: Right arm Patient Position: Sitting BP Cuff Size: Large adult Pulse: 79 Resp: 13 Temp: 97.1 ??F (36.2 ??C) TempSrc: Oral SpO2: 99% Weight: 191 lb (86.6 kg) Height: 5' 3 (1.6 m) Physical Exam Constitutional: General: She is not in acute distress. Appearance: Normal appearance. She is not ill-appearing. HENT: Head: Normocephalic and atraumatic. Eyes: General: No scleral icterus. Extraocular Movements: Extraocular movements intact. Pupils: Pupils are equal, round, and reactive to light. Cardiovascular: Rate and Rhythm: Normal rate and regular rhythm. Pulmonary: Effort: Pulmonary effort is normal. No accessory muscle usage or respiratory distress. Abdominal: General: Bowel sounds are normal. Palpations: Abdomen is soft. Hernia: No hernia is present. Comments: Possible small tender mass subcutaneous; mild diastasis recti Skin: General: Skin is warm and dry. Neurological: Mental Status: She is alert and oriented to person, place, and time. Psychiatric: Mood and Affect: Mood normal. Behavior: Behavior normal. ASSESSMENT/PLAN Oriana was seen today for follow-up. Diagnoses and all orders for this visit: Insomnia, unspecified type (Primary) Sleep hygiene reviewed in detail: turn off screens within a few hours of bedtime, no etoh b/f bed, separate cigarette smoking as much as possible from bedtime, get regular exercise Can try magnesium supplement plus PRN hydroxyzine - hydrOXYzine pamoate (Vistaril) 25 MG capsule; Take 1 tab as needed at bedtime for insomnia, may increase to 2 capsules if needed - Referral to Behavioral Health; Future Periumbilical abdominal pain Above umbilicus and below epigastric area; possible small tender bump palpable, recommend check w/ US. Recommend core exercise for diastasis recti. - US Abdomen Limited; Future Migraine without status migrainosus, not intractable, unspecified migraine type - magnesium 200 MG tablet; Take 2 tabs as needed for insomnia and constipation - topiramate (Topamax) 25 MG tablet; 1 tab twice daily Non-seasonal allergic rhinitis due to other allergic trigger - loratadine (Claritin) 10 MG tablet; Take 1 tablet (10 mg) by mouth Once per day. Class 2 obesity with body mass index (BMI) of 37.0 to 37.9 in adult, unspecified obesity type, unspecified whether serious comorbidity present Recommend: Daily exercise at least 30min, moderate intensity, incorporating both cardiovascular exercise and weight training. Adequate protein intake, Recommended at least 20 g per meal of protein to assist with satiety. Decrease soda and sugary beverage consumption. Weight loss medications must be used as part of a comprehensive lifestyle plan that incorporates the recommendations above. - topiramate (Topamax) 25 MG tablet; 1 tab twice daily Mixed anxiety and depressive disorder - Referral to Behavioral Health; Future Uterine fibroid Large. Reviewed w/ pt importance of following up w/ Airplane Rental Clerk for plan of care. Upper back pain Assoc w/ tension and muscle spasm, recommend heat, stretching, stress reduction. Pt reports diffusepain, she is stressed, not sleeping well, has anxiety - we discuss all of these contribute to body pain, recommend regular exercise, BH, etc. This note was drafted using Ambient (AI) technology. The patient/patient's guardian has been informed and has consented to the use of this technology: Yes Based on our discussion, I have outlined the following instructions for you: - Take hydroxyzine at bedtime as needed for sleep or pain. If it does not help after a few days, you may increase to two tablets. - Take magnesium as needed to help with muscle pain and tension. If it causes diarrhea, reduce to one tablet. - Use heat therapy (like a heating pad) on areas where you feel muscle tension or pain. - If you continue to have trouble sleeping, call the office sooner. - Go for the ultrasound that has been ordered to check your abdomen and fibroid. - Refill and continue taking Topiramate (Topamax) as prescribed. - Use Claritin or Zyrtec to help with allergy symptoms. You do not need to take Benadryl at this time. - Do regular exercise as part of your health plan. - Do the exercises provided to help with your abdominal muscles. Next appointment(s): - Follow-up appointment in 3 months to assess response to treatment and sleep issues Thank you again for your visit, and we look forward to supporting you in your journey to better health. Follow Up: Medications Ordered Prior to Encounter[4] Telugu Translation: Hodan SALINAS provided Telugu interpretation. [1] Patient Active Problem List Diagnosis Acute rhinosinusitis [...] abdominis Elevated blood pressure reading Fibroids, subserous [2] Past Surgical History: Procedure Laterality Date BELT ABDOMINOPLASTY CARPAL TUNNEL RELEASE Right 06/24/2023 Dr. Leach CHOLECYSTECTOMY ORIF ANKLE FRACTURE Left [3] Family History Problem Relation Name Age of Onset Pancreatic cancer Father Breast cancer Mother's Sister Breast cancer Father's Sister [4] Current Outpatient Medications on File Prior to Visit Medication Sig Dispense Refill acetaminophen (Tylenol) 500 MG tablet Take 2 tablets (1,000 mg) by mouth every 6 (six) hours if needed for moderate pain or fever for up to 25 doses. 40 tablet 0 albuterol (2.5 MG/3ML) 0.083% nebulizer solution Use 3ml as needed w/ nebulizer every 4-6 hrs for SOB/wheezing 75 mL 2 albuterol 108 (90 Base) MCG/ACT inhaler Inhale 2 puffs every 4 (four) hours. 18 g 1 Blood Pressure kit 1 kit in the morning. 1 kit 0 fluticasone (Flonase) 50 MCG/ACT nasal spray Administer 2 sprays into each nostril Once daily as needed for rhinitis. 16 g 2 ketotifen (Zaditor) 0.025 % ophthalmic solution One drop to eyes bid prn allergies (Patient not taking: Reported on 10/02/2025) 5 mL 1 Mometasone Furoate (Asmanex HFA) 100 MCG/ACT aerosol Inhale 2 Act (200 mcg) 2 times daily. 13 g 11 omeprazole (PriLOSEC) [address] capsule Take 1 capsule (40 mg) by mouth before breakfast. Do not crush or chew. 30 capsule 11 SUMAtriptan (Imitrex) 50 MG tablet Take 1 tablet (50 mg) by mouth 1 (one) time if needed for migraine for up to 9 doses. May repeat dose once in 2 hours if no relief. Do not exceed 2 doses in 24 hours. 9 tablet 0 [DISCONTINUED] cetirizine (ZyrTEC) 10 MG tablet Take 1 tablet (10 mg) by mouth Once per day. 90 tablet 3 [DISCONTINUED] diphenhydrAMINE (BENADryl) 25 MG tablet Take 1 tablet (25 mg) by mouth every 6 (six)hours if needed for itching or allergies. 45 tablet 1 [DISCONTINUED] hydrOXYzine pamoate (Vistaril) 25 MG capsule Take 1 capsule by mouth in the morning and 1 capsule at noon and 1 capsule in the evening. [DISCONTINUED] magnesium 200 MG tablet Take 2 tablets (400 mg) by mouth Once daily. 180 tablet 1 [DISCONTINUED] topiramate (Topamax) 25 MG tablet 1 tab twice daily 60 tablet 2 No current facility-administered medications on file prior to visit. documented in this encounter Plan of Treatment Upcoming Encounters Date Type Department Care Team (Late st Contact Info) Description 10/24/2025 1:00 PM EST Office Visit [facility] [address] [place] [address] Andrew, Yadira, OD [address] [place] [address] Scheduled Orders Name Type Priority Associated Diagnoses Orde r Schedule US Abdomen Limited Imaging Routine Periumbilical abdominal pain Expected: 10/16/2025, Expires: 10/16/2026 documented as of this encounter Visit Diagnoses Diagnosis Insomnia, unspecified type- Primary Periumbilical abdominal pain Abdominal pain, periumbilic Migraine without status migrainosus, not intractable, unspecified migraine type Non-seasonal allergic rhinitis due to other allergic trigger Class 2 obesity with body mass index (BMI) of 37.0 to 37.9 in adult, unspecified obesity type, unspecified whether serious comorbidity present Mixed anxiety and depressive disorder Dysthymic disorder Upper back pain Unspecified backache Uterine leiomyoma, unspecified location documented in this encounter Additional Health Concerns Assessment Noted Time PHQ-9 Depression Total Score: 10 025 3:36 PM EST documented as of this encounter Care Teams Official Court Reporter Relationship Specialty Start Date End Date Анна Bonilla ANP [address] [place] [address] PCP - General Family Medicine 07/09/21 Armida Singh, RN [address] [place] [address] Registered Nurse Family Medicine 09/18/25 Estrella Boyer 09/18/25 Annel Foreman Datapower ConsultantBrooch And Bracelet Maker 10/15/23 documented as of this encounter
--- NOTE | 2025-10-18 10:51 | EMG_ITS ---
Chief complaint: Bilateral hand numbness, left worse than right. EMG done by Dr. Lawson in 2019 showed left early Carpal Tunnel Syndrome. Patient had right CTR 2-[address] Leach. No right-sided EMG available for my review. Reason for referral: Evaluate for Carpal Tunnel Syndrome Referred by: Filemon WHITE Procedure done: Bilateral upper extremities NCS/EMG Precautions and/or limitations: None The limb temperature was monitored continuously and remained between 32-36 degrees C during the performance of the NCS. Nerve Conduction Studies Anti Sensory Summary Table ?Stim Site NR Onset (ms) Norm Onset (ms) Peak (ms) Norm Peak (ms) O-P Amp (?V) Norm O-P Amp Site1 Site2 Delta-0 (ms) Dist (cm) Josh (m/s) Norm Josh (m/s) Left Median Anti Sensory (2nd Digit) Wrist ? 4.2 5.2 <3.6 23.3 >10 Wrist 2nd Digit 4.2 14.0 33 Right Median Anti Sensory (2nd Digit) Wrist ? 3.3 4.1 <3.6 39.9 >10 Wrist 2nd Digit 3.3 14.0 42 Left Radial Anti Sensory (Thumb) Forearm ? 1.8 2.4 <3.1 23.6 Forearm Thumb 1.8 0.0 Left Ulnar Anti Sensory (5th Digit) Wrist ? 2.2 2.8 <3.7 44.6 >15.0 Wrist 5th Digit 2.2 14.0 64 Right Ulnar Anti Sensory (5th Digit) Wrist ? 2.2 2.8 <3.7 52.1 >15.0 Wrist 5th Digit 2.2 14.0 64 Motor Summary Table ?Stim Site NR Onset (ms) Norm Onset (ms) O-P Amp (mV) Norm O-P Amp iAmp (mV) Amp (1st) (%) Site1 Site2 Delta-0 (ms) Dist (cm) Josh (m/s) Norm Josh (m/s) Left Median Motor (Abd Poll Brev) Wrist ? 4.9 <3.9 10.5 >4.5 12.3 100.0 Elbow Wrist 3.5 19.5 56 >45 Elbow ? 8.4 10.6 12.5 101.0 Right Median Motor (Abd Poll Brev) Wrist ? 4.1 <3.9 10.9 >4.5 14.1 100.0 Elbow Wrist 3.8 21.0 55 >45 Elbow ? 7.9 10.9 14.1 100.0 Left Ulnar Motor (Abd Dig Minimi) Wrist ? 2.4 <3.0 7.2 >5 9.0 100.0 B Elbow Wrist 3.0 19.0 63 >45 B Elbow ? 5.4 6.7 8.6 93.1 A Elbow B Elbow 1.0 10.0 100 >45 A Elbow ? 6.4 6.1 7.9 84.7 Right Ulnar Motor (Abd Dig Minimi) Wrist ? 2.3 <3.0 8.5 >5 10.4 100.0 B Elbow Wrist 3.3 19.0 58 >45 B Elbow ? 5.6 8.7 10.4 102.4 A Elbow B Elbow 1.0 10.0 100 >45 A Elbow ? 6.6 8.4 9.7 98.8 EMG ?Side Muscle Nerve Root Ins Act Fibs Psw Amp Dur Poly Recrt Int Pat Comment Right 1stDorInt Ulnar C8-T1 Nml Nml Nml Nml Nml 0 Nml Complete Right FlexCarRad Median C6-7 Nml Nml Nml Nml Nml 0 Nml Complete Right Biceps Musculocut C5-6 Nml Nml Nml Nml Nml 0 Nml Complete Right Triceps Radial C6-7-8 Nml Nml Nml Nml Nml 0 Nml Complete Right Deltoid Axillary C5-6 Nml Nml Nml Nml Nml 0 Nml Complete Left 1stDorInt Ulnar C8-T1 Nml Nml Nml Nml Nml 0 Nml Complete Left FlexCarRad Median C6-7 Nml Nml Nml Nml Nml 0 Nml Complete Left Biceps Musculocut C5-6 Nml Nml Nml Nml Nml 0 Nml Complete Left Triceps Radial C6-7-8 Nml Nml Nml Nml Nml 0 Nml Complete Left Deltoid Axillary C5-6 Nml Nml Nml Nml Nml 0 Nml Complete FINDINGS: Bilateral median motor nerves showed prolonged distal latency, normal amplitude and normal conduction velocity. Bilateral median sensory nerves showed prolonged peak latency. All other nerves tested were within normal. Concentric needle EMG was performed in selected muscles of the bilateral upper extremities. Study did not reveal signs of electric abnormalities as shown in the table above. IMPRESSION: 1. This is an abnormal study. 2. There is electrodiagnostic evidence for bilateral moderate-severe median neuropathy at the wrist, consistent with carpal tunnel syndrome. 3. There is no electrodiagnostic evidence for ulnar neuropathy, brachial plexopathy, or cervical radiculopathy. CLINICAL COMMENT: Left side appears worse compared to previous EMG in 2019. No available comparison for the right side. Thank you for your kind referral. Debbie Britt MD, MONTEZ Board Certified, [place] Board of Physical Medicine and Rehabilitation (ABPMR) Board Certified, [place] Board of Electrodiagnostic Medicine (ABEM) CODIN [phone] x 2 extremities MTDD
--- OUTSIDE RECORDS SUMMARY | 2025-10-18 12:34 | XMS_ITS | Encounter Summary ---
Author Organization [employer] Address [address] [facility] [address] [place] [address] Care Team Providers Care Oil Separator Name Role Phone Анна Bonilla Primary Care Provider [phone] Armida Singh RN Unavailable [phone] Estrella Boyer Unavailable Armida Singh RN Unavailable [phone] Estrella Boyer Unavailable Reason for Visit * Reason Onset Date Comments Nurse Triage 06/21/2024 Encounter Details Date Type Department Care Team (Late st Contact Info) Description 06/21/2024 Telephone [facility] [address] [place], [place] [phone] Анна Bonilla ANP [address] [place], [place] [phone] Nurse Triage Social History Tobacco Use Types [...] 06/21/2024 2:35 PM EDT Called pt. Via [employer] sign language interpreter [id number] Mary. Pt. States that she has had [...] are painful The caller accepted this outcome Montserratian speaker documented in this encounter Plan of Treatment Upcoming Encounters Date Type Department Care Team ([facility] st Contact Info) Description 10/24/2025 1:00 PM EST Office Visit [facility] [address] [place] [address] Yadira Morales, OD [address] [place] [address] documented as of this encounter Visit Diagnoses Diagnosis Urticaria Unspecified urticaria documented in this encounter Care Teams Oil Separator Relationship Specialty Start Date End Date Анна Bonilla ANP [address] [place] [address] PCP - General Family Medicine 07/09/21 Armida Singh RN [address] [place] [address] Registered Nurse Family Medicine 04/07/25 04/07/25 Estrella Boyer 04/07/25 04/07/25 Armida Singh RN [address] [place] [address] Registered Nurse Family Medicine 09/18/25 Estrella Boyer 09/18/25 Annel Foreman Sweatband MakerPolitical Cartoonist 10/15/23 documented as of this encounter
--- OUTSIDE RECORDS SUMMARY | 2025-10-18 12:34 | XMS_ITS | Encounter Summary ---
Author Organization [employer] Address [address] [facility] 7t [place] [address] Care Team Providers Care Instructional Technology Teacher Name Role Phone Анна Bonilla Primary Care Provider [phone] Armida Singh RN Unavailable [phone] Estrella Boyer Unavailable Reason for Visit * Reason Onset Date Comments Nurse Triage 08/07/2025 Encounter Details Date Type Department Care Team (Late st Contact Info) Description 08/07/2025 Telephone [facility] MEDICINE [address] [place], [place] [phone] Анна Bonilla ANP [address] [place], [place] [phone] Nurse Triage Social History Tobacco Use Types [...] care. Pt is advised to come to [facility] if needed for provider to see [...] for or see doctor. Contact pt at [phone] (ghanaian) documented in this encounter Plan of Treatment Upcoming Encounters Date Type Department Care Team ([facility] st Contact Info) Description 10/24/2025 1:00 PM EST Office Visit [facility] OPTOMETRY [address] [place], [place] [phone] Yadira Morales, OD [address] [place] [address] documented as of this encounter Visit Diagnoses Not on filedocumented in this encounter Care Teams Instructional Technology Teacher Relationship Specialty Start Date End Date Анна Bonilla ANP [address] [place] [address] PCP - General Family Medicine 07/09/21 Armida Singh, CHRISTIE [address] [place] [address] Registered Nurse Family Medicine 09/18/25 Estrella Boyer 09/18/25 Annel Foreman Metal HandlerData Input Clerk 10/15/23 documented as of this encounter
--- OUTSIDE RECORDS SUMMARY | 2025-10-18 12:34 | XMS_ITS | Encounter Summary ---
Author Organization [employer] Address [address] [facility] 7t [place] [address] Care Team Providers Care Lime Sludge Kiln Operator Name Role Phone Bonilla Анна MEANS Primary Care Provider [phone] Armida Singh RN Unavailable [phone] Estrella Boyer Unavailable Armida Singh RN Unavailable [phone] Estrella Boyer Unavailable Encounter Details Date Type Department Care Team (Late st Contact Info) Description 03/29/2025 Orders Only [facility] MED[facility]INE [address] [place] [address] Julianne Tarango, APPAREL PATTERNMAKER [address] [place] [address] Social History Tobacco Use Types Packs/Day Years [...] Description 10/24/2025 1:00 PM EST Office Visit [facility] OPTOMETRY [address] [place] [address] Andrew, Megan, OD [address] [place] [address] documented as of this encounter Visit Diagnoses Not on filedocumented in this encounter Care Teams Lime Sludge Kiln Operator Relationship Specialty Start Date End Date Анна Bonilla ANP [address] [place] [address] PCP - General Family Medicine 07/09/21 Armida Singh RN [address] [place] [address] Registered Nurse Family Medicine 04/07/25 04/07/25 Estrella Boyer 04/07/25 04/07/25 Armida Singh RN [address] [place] [address] Registered Nurse Family Medicine 09/18/25 Estrella Boyer 09/18/25 Annel Foreman Fast Food SupervisorInsole Buffer 10/15/23 documented as of this encounter
--- OUTSIDE RECORDS SUMMARY | 2025-10-18 12:34 | XMS_ITS | Encounter Summary ---
Author Organization [employer] Address [address] [facility] 7t [place] [address] Care Team Providers Care Water Softener Installer Name Role Phone Анна Bonilla Primary Care Provider [phone] Armida Singh RN Unavailable [phone] Estrella Boyer Unavailable Armida Singh RN Unavailable [phone] Estrella Boyer Unavailable Reason for Visit * Reason Onset Date Comments Nurse Triage 08/03/2024 Encounter Details Date Type Department Care Team (Late st Contact Info) Description 08/03/2024 Telephone [facility] MEDICINE [address] [place], [place] [phone] Анан Bonilla ANP [address] [place], [place] [phone] Nurse Triage Social History Tobacco Use Types [...] 08/03/2024 11:05 AM EDT Triage call with [place] [place] [id number]. Pt reports positive home covid test taken [...] Covid-19 (at home test) Contact pt at [phone] (romansh) documented in this encounter Plan of Treatment Upcoming Encounters Date Type Department Care Team ([facility] Contact Info) Description 10/24/2025 1:00 PM EST Office Visit [facility] OPTOMETRY [address] [place] [address] Yadira Morales, OD [address] [place] [address] documented as of this encounter Visit Diagnoses Not on filedocumented in this encounter Care Teams Water Softener Installer Relationship Specialty Start Date End Date Анна Bonilla ANP [address] [place] [address] PCP - General Family Medicine 07/09/21 Armida Singh RN [address] [place] [address] Registered Nurse Family Medicine 04/07/25 04/07/25 Estrella Boyer 04/07/25 04/07/25 Armida Singh, RN [address] [place] [address] RUPALI Thayer [address] Registered Nurse Family Medicine 09/18/25 Estrella Boyer 09/18/25 Annel Foreman Blast Furnace KeeperGuidance Secretary 10/15/23 documented as of this encounter
--- OUTSIDE RECORDS SUMMARY | 2025-10-18 12:34 | XMS_ITS | Encounter Summary ---
Author Organization [employer] Address [address] [facility] [address] 7[address] [place] [address] Care Team Providers Care License And Permit Specialist Name Role Phone Irene Анна MEANS Primary Care Provider [phone] Armida Singh RN Unavailable [phone] Estrella Boyer Unavailable Encounter Details Date Type Department Care Team (Latest Contact Info) Description 10/16/2025 Travel Social History Tobacco Use Types Packs/Day [...] AM EDT documented as of this encounter Functional Status * Over the past 2 weeks, how often have you been bothered by any of the following problems? Question Answer Date of Assessment Author Patient Health Questionnaire -2 Score 2 10/16/2025 3:36 PM Hodan Stout [place] * Little interest or pleasure in doing things Answer Date of Assessment Author Several days 10/16/2025 3:36 PM Makayla Stout MA * Feeling down, depressed, or hopeless Answer Date of Assessment Author Several days 10/16/2025 3:36 PM Makayla Stout MA * Trouble falling or staying asleep, or sleeping too much Answer Date of Assessment Author More than half the days 10/16/2025 3:36 PM Hodan Paige MA * Feeling tired or having little energy Answer Date of Assessment Author Several days 10/16/2025 3:36 PM Makayla Stout MA * Poor appetite or overeating Answer [...] MA Trouble relaxing 2 10/16/2025 3:37 PM EST Hodan Bautista MA Being so restless that it is [...] Stout MA documented as of this encounter Plan of Treatment Upcoming Encounters Date Type Department Care Team (Late st Contact Info) Description 10/24/2025 1:00 PM EST Office Visit [facility] OPTOMETRY [address] [place] [address] Yadira Morales, OD [address] [place] [address] documented as of this encounter Visit Diagnoses Not on filedocumented in this encounter Additional Health Concerns Assessment Noted Time PHQ-9 Depression Total Score: 10 025 3:36 PM EST documented as of this encounter Care Teams License And Permit Specialist Relationship Specialty Start Date End Date Анна Bonilla ANP [address] [place] [address] PCP - General Family Medicine 07/09/21 Armida Singh, CHRISTIE [address] [place] [address] Registered Nurse Family Medicine 09/18/25 Estrella Boyer 09/18/25 Annel Foreman Electrical Control AssemblerRemote Sensing Program Manager 10/15/23 documented as of this encounter
--- OUTSIDE RECORDS SUMMARY | 2025-10-18 12:34 | XMS_ITS | Encounter Summary ---
Author Organization [employer] Address [address] [facility] 7t [place] [address] Care Team Providers Care Chainman Name Role Phone Анна Bonilla Primary Care Provider [phone] Armida Singh RN Unavailable [phone] Estrella Boyer Unavailable Reason for Visit * Reason Comments Care Management C3CM- f/u call Encounter Details Date Type Department Care Team ([facility] st Contact Info) Description 10/17/[address] [facility] MEDICINE [address] [place], [place] [phone] Анна Bonilla ANP [address] [place] [address] Care Management (C3CM- f/u call) Social History Tobacco Use Types Packs/Day Years [...] AM EDT documented as of this encounter Progress Notes * Armida Singh RN - 10/17/2025 9:15 AM EST KIEL Singh RN placed outbound call to patient. Patient's name, and address confirmed. Patient states is doing well with no recent illnesses or emergency room visits. Patient confirms attending visit with PCP as scheduled and states the visit went well. Patient states she will be picking up the prescribed meds from her pharmacy today. She agrees to take as directed and will f/u with anyconcerns. Per patient, will be calling [place] [facility] MANAGER[facility]DISPATCH, [facility] Urology, and [facility] Hematology to schedule f/uvisits. She agrees to f/u with CM if in need of assistance with scheduling. Patient states she is doing well emotionally and reports compliance to visits with her therapist and psychiatrist. CM reminded patient that the office will be reaching out to her to schedule the ordered US. Advisedthat if she does not hear from the office within the next week, that she please informed CM who will assist with scheduling. She agrees. CM reminded patient of her scheduled EMG at [facility] tomorrow 10/18/25 at 11:00am, her visit with [facility] GI on 10/27/25 at 3:45pm, and visit with [facility] Ortho on 10/31/25 at 3:00pm. Patient states she plans on attending the visits as scheduled and denies any barriers to attending. No further questions or concerns. CM reinforced direct contact information for any additional questions or concerns. Education provided on Walk-In Urgent Care located in [facility]. Patient provided with after-hours line for [facility], , which offer night time triage service and option to transfer to broadcast operations technician provider if needed. Patient verbalizes understanding, and able to r epeat back to check writer. A follow up call will be placed within 10 days, patient agrees with plan. documented in this encounter Miscellaneous Notes * Care Plan - Armida Singh RN - 10/17/2025 9:15 AM EST Active Barriers to Care Manage Barriers to Care (Progressing) Start: 10/02/25 Expected End: 01/02/26 Patient will report any new barriers to care (such as transportation, medication access, or financial concerns) as they arise, to ensure timely support, with screening at each follow-up visit. Goal Note Patient denies any barriers to care. She denies any SDOH needs at this time. Behavioral Health Support Behavioral Health (Progressing) Start: 10/02/25 Expected End: 01/02/26 Patient will attend all scheduled weekly therapy sessions and take her prescribed antidepressant and anxiety medications daily, achieving full adherence over the next 12 weeks to support improvement in her depression and anxiety symptoms. Patient will demonstrate a reduction in anxiety symptoms and improved coping mechanisms through consistent engagement in therapy and self-management techniques over the next 3 months. Goal Note Patient states she is doing well emotionally today. She reports compliance to visits with her therapist and psychiatrist and denies any concerns at this time. Care Management Care Management (Progressing) Start: 10/02/25 Expected End: 01/02/26 Within the next 3 months, patient will engage with healthcare applications analyst through scheduled calls or visits to review health goals, discuss progress, and address any barriers to care plan. Goal Note Patient's primary concerns and goals for care addressed today. Patient is in agreement with plan. CM will continue to assess and provide support during subsequent encounters with patient. Medication Concerns Improve Medication Access (Progressing) Start: 10/02/25 Expected End: 01/02/26 Improve Medication Adherence (Progressing) Start: 10/02/25 Expected End: 01/02/26 Patient expresses goal of taking her prescribed medications every day as directed for the next 3 months. If patient is low on medication, she will contact her pharmacy or provider at least 5 days prior to running out to request refill. Goal Note Patient states she is aware that PCP prescribed meds following yesterday's visit. She states she will be picking up the medications from her pharmacy today. She agrees to take Rx as directed and willf/u with any concerns. Self Management Patient takes an active role in self-managing condition (Progressing) Start: 10/02/25 Expected End: 01/02/26 Patient will attend all upcoming medical appointments on time and adhere to her prescribed treatment plan by taking medications daily, using calendar reminders and transportation support, to improve her health conditions over the next 3 months. Patient will call their primary care provider's office for any new or urgent health concerns to ensure timely follow-up and appropriate adjustments to the treatment plan. Patient will also utilize the walk-in clinic or nurse telephone triage services after hours as needed to address urgent health issues and prevent delays in care. Goal Note Patient attended visit with PCP as scheduled. She verbalizes understanding of plan of care and denies any questions or concerns following the visit. She agrees to contact [place] [facility]ET MANAGER/DISPATCH, Urology, and Hematology to schedule f/u visits. CM also reminded patient of the ordered US abdominal and advised that the office will be reaching out to her to schedule the visit. Advised that if she does not hear from the office within the next week, that she please f/u with CM to assist with scheduling. Patient agrees. documented in this encounter Plan of Treatment Upcoming Encounters Date Type Department Care Team (Late st Contact Info) Description 10/24/2025 1:00 PM EST Office Visit [facility] OPTOMETRY [address] [place] [address] Yadira Morales, OD [address] [place] [address] documented as of this encounter Visit Diagnoses Not on filedocumented in this encounter Additional Health Concerns Assessment Noted Time PHQ-9 Depression Total Score: 10 025 3:36 PM EST documented as of this encounter Care Teams Chainman Relationship Specialty Start Date End Date Анна Bonilla ANP [address] [place] [address] PCP - General Family Medicine 07/09/21 Armida Singh, CHRISTIE [address] [place] [address] Registered Nurse Family Medicine 09/18/25 Estrella Boyer 09/18/25 Annel Foreman Medical StenographerAnimal Care Service Worker 10/15/23 documented as of this encounter
--- OUTSIDE RECORDS SUMMARY | 2025-10-18 12:35 | XMS_ITS ---
Author Organization [facility] Address [address] [facility] 7t [place] [address] Care Team Providers Care Glazing Superintendent Name Role Phone Анна Bonilla Primary Care Provider [phone] Armida Singh RN Unavailable [phone] Estrella Boyer Unavailable CM Complex Status:Enrolled (Active) Start date:09/18/2025 Enrollment date:10/02/2025 Enrollment reason:ADT Feed Overview ED- Pt went to [facility] ED on 09/16/25. Case Team Name Relationship Phone Armida Singh RN(Responsible Staff) Registered Nurse [phone] Continued Care and Services Coordination
--- OUTSIDE RECORDS SUMMARY | 2025-10-18 12:35 | XMS_ITS ---
Author Organization [employer] Address [address] [facility] 7t [place] [address] Care Team Providers Care Criminal Justice Faculty Name Role Phone Анна Bonilla Primary Care Provider [phone] Armida Singh RN Unavailable [phone] Estrella Boyer Unavailable CHW Complex Status:Outreach In Progress (Enrolling) Start date:09/18/2025 Enrollment reason:ADT Feed Overview ED- Pt went to [facility] ED on 09/16/25. Please outreach for enrollment. Case Team Name Relationship Phone Estrella Boyer(Responsible Staff) [phone] Continued Care and Services Coordination
--- OUTSIDE RECORDS SUMMARY | 2025-10-18 12:35 | XMS_ITS | Clinical Summary ---
Author Organization [employer] Address [address] [place] [address] Care Team Providers Care Dining Chair Seat Cushion Trimmer Name Role Phone Irene Anuja MEANS Primary Care Provider [phone] Armida Singh RN Unavailable [phone] Estrella Boyer Unavailable Allergies Active Allergy Reactions Criticality Noted Date [...] represent a complete record from that organization. SUMAtriptan (Imitrex) 50 MG tabletIndications :Persistent migraine [...] prn allergies 5 mL 1 023 Active Additional Information Patient not taking.Reported on 10/02/2025 albuterol 108 (90 Base) MCG/ACT inhalerIndication s:Moderate persistent asthma without complication Inhale 2 puffs every 4 (four) hours. 18 g 1 024 Active fluticasone (Flonase) 50 MCG/ACT nasal sprayIndications: Seasonal allergic rhinitis due to pollen Administer 2 sprays into each nostril Once daily as needed for rhinitis. 16 g 2 024 Active acetaminophen (Tylenol) 500 MG tablet Take 2 tablets (1,000 mg) by mouth every 6 (six) hours if needed for moderate pain or fever for up to 25 doses. 40 tablet 024 Active omeprazole (PriLOSEC) [address] capsule Take 1 capsule (40 mg) by mouth before breakfast. Do not crush or chew. 30 capsule 11 025 2025 Active albuterol (2.5 MG/3ML) 0.083% nebulizer solutionIndicatio ns:Moderate persistent asthma without complication Use 3ml as needed w/ nebulizer every 4-6 hrs for SOB/wheezing 75 mL 2 025 Active Mometasone Furoate (Asmanex HFA) 100 MCG/ACT aerosolIndication s:Moderate persistent asthma without complication Inhale 2 Act (200 mcg) 2 times daily. 13 g 11 025 Active magnesium 200 MG tabletIndications :Migraine without status migrainosus, not intractable, unspecified migraine type Take 2 tabs as needed for insomnia and constipation 180 tablet 1 025 Active hydrOXYzine pamoate (Vistaril) 25 MG capsuleIndication s:Insomnia, unspecified type Take 1 tab as needed at bedtime for insomnia, may increase to 2 capsules if needed 90 capsule 025 Active loratadine (Claritin) 10 MG tabletIndications :Non-seasonal allergic rhinitis due to other allergic trigger Take 1 tablet (10 mg) by mouth Once per day. 90 tablet 2 025 2024 Active topiramate (Topamax) 25 MG tabletIndications :Migraine without status migrainosus, not intractable, unspecified migraine type,Class 2 obesity with body mass index (BMI) of 37.0 to 37.9 in adult, unspecified obesity type, unspecified whether serious comorbidity present 1 tab twice daily 60 tablet 2 Active hydrOXYzine pamoate (Vistaril) 25 MG capsule Take 1 capsule by mouth in the morning and 1 capsule at noon and 1 capsule in the evening. 2024 Discontinued(R eorder (will not trigger notification to Pharmacy)) cetirizine (ZyrTEC) 10 MG tabletIndications :Urticaria Take 1 tablet (10 mg) by mouth Once per day. 90 tablet 3 024 2024 Discontinued(T herapy completed) magnesium 200 MG tabletIndications :Migraine without status migrainosus, not intractable, unspecified migraine type Take 2 tablets (400 mg) by mouth Once daily. 180 tablet 1 024 2024 Discontinued(R eorder (will not trigger notification to Pharmacy)) diphenhydrAMINE (BENADryl) 25 MG tabletIndications :Urticaria Take 1 tablet (25 mg) by mouth every 6 (six) hours if needed for itching or allergies. 45 tablet 1 024 2024 Discontinued(T herapy completed) topiramate (Topamax) 25 MG tabletIndications :Class 2 obesity with body mass index (BMI) of 37.0 to 37.9 in adult, unspecified obesity type, unspecified whether serious comorbidity present,Migraine without status migrainosus, not intractable, unspecified migraine type 1 tab twice daily 60 tablet 2 025 2024 Discontinued(R eorder (will not trigger notification to Pharmacy)) Active Problems Problem Noted Date Diagnosed Date [...] ASCUS , Neg HPV- Follows with Lat[facility] 10/02/2020 ASCUS, + HR HPV Plan: [...] organization. Date Type Department Care Team Description 10/17/2025 Patient Outreach [facility] [address] [place] [phone] Anuja Muniz ANP Care Management (C3CM- f/u call) 10/16/2025 3:00 PM EST Office Visit [facility] [address] [place] [phone] Anuja Muniz ANP Insomnia, unspecified type (Primary Dx); Periumbilical abdominal pain; Migraine without status migrainosus, not intractable, unspecified migraine type; Non-seasonal allergic rhinitis due to other allergic trigger; Class 2 obesity with body mass index (BMI) of 37.0 to 37.9 in adult, unspecified obesity type, unspecified whether serious comorbidity present; Mixed anxiety and depressive disorder; Upper back pain; Uterine leiomyoma, unspecified location 10/16/2025 Travel 10/11/[address] [address] Anuja Muniz ANP chartprep 10/03/2025 Patient Outreach [address] [address] Anuja Muniz ANP Pre-visit Planning (SDOH screening was completed on 04/20/2025) 10/02/2025 Plan of Care Documentation [address] [phone] 10/02/2025 Plan of Care Documentation [address] [address] 10/02/2025 Patient Outreach [address] [address] Anuja Muniz ANP Care Management (C3CM- initial assessment/ enrollment.) 09/29/2025 Patient Outreach [address] [address] Anuja Muniz ANP Care Coordination (CM/CHW appointment reminder) 09/18/2025 Patient Outreach [address] [phone] Anuja Muniz ANP Care Coordination (CM/CHW outreach) 09/18/2025 Patient Outreach [address] [address] Anuja Muniz ANP Care Coordination (CHW chart review) 09/18/2025 Patient Outreach [address] [address] Anuja Muniz ANP Care Management (C3CM- chart review) 09/18/2025 Patient Outreach [address] [address] Anuja Muniz ANP 08/10/2025 2:40 PM EDT Office Visit [facility] [address] [place] [address] Verito Salgado DO Acute UTI (Primary Dx); Mild persistent asthma with acute exacerbation 08/10/2025 Travel 08/07/2025 Telephone [facility] [address] [place] [address] Anuja Muniz ANP Nurse Triage 08/04/2025 Telephone [facility] [address], [place] [phone] Anuja Muniz ANP Nurse Triage 07/27/2025 Telephone [facility] [address] [place] [address] Anuja Muniz ANP chart prep from Last 3 Months Immunizations Immunization Administration [...] Mass Index 33.83 10/16/2025 3:02 PM EST Plan of Treatment Upcoming Encounters Date Type Department Care Team (Late st Contact Info) Description 10/24/2025 1:00 PM EST Office Visit [facility] [address] [place] [address] Andrew, Yadira, OD [address] [place] [address] Health Maintenance Due Date Last Done Comments Family Planning (PISQ) 1999 HPV Vaccines (1 - 3-dose series) 1999 Hepatitis A Vaccines (1 of 2 - Risk 2-dose series) 2003 Hepatitis B Vaccines (1 of 3 - 19+ 3-dose series) 2003 Pneumococcal Vaccine: Pediatrics (0 to 5 Years) and At-Risk Patients (6 to 49) Years (1 of 2 - PCV) 2003 COVID-19 Vaccine (2 - season) 2025 11/23/2021 Influenza Vaccine (#1) 2025 0, 08/04/2019, 08/18/2018, Additional history exists Diagnostic Breast Imaging 12/10/2025 06/09/2025, Cervical Cancer Screening 04/16/2026 Depression Monitoring 04/16/2026 10/16/2025, 025 HPV/Cotest 04/16/2026 04/16/2023 Pap Smear 04/16/2026 04/16/2023 SDOH Screening 04/20/2026 04/20/2025 Disability Screening 06/07/2026 06/07/2025 Alcohol/Substance Use Screening 10/02/2026 10/02/2025 Tobacco Screening 10/16/2026 10/16/2025 DTaP/Tdap/Td Vaccines (3 - Td or Tdap) [...] Procedure Name Priority Date/Time Associated Diagnosis Comments CULTURE, URINE, ROUTINE Routine 08/10/2025 3:01 PM EDT Acute UTI POCT URINALYSIS DIPSTICK Routine 08/10/2025 3:00 PM EDT Acute UTI BI MAMMOGRAM DIAGNOSTIC TOMOSYNTHESIS BILATERAL Routine 06/09/2025 [...] Recently Relevant to Health Maintenance Results * Culture, Urine, Routine (08/10/2025 3:01 PM EDT) Urine Urine specimen obtained by clean catch procedure / Unknown 08/10/2025 3:01 PM EDT 08/10/2025 4:22 PM EDT Comment:[facility] - 08/12/2025 11:21 AM EDT Urine Culture Report Result Urine Culture < 10,000 cfu/ml Specimen Source: Urine clean catch us Verito Salgado DO LAB MICROBIOLOGY - GENERAL O RDERABLES Final Result [facility] [address] [place] [address] [phone] * (ABNORMAL) POCT urinalysis dipstick manually resulted [...] TEST ENTER/STEPHEN T ORDERABLES Final Result * BI Mammogram Diagnostic Tomosynthesis Bilateral (06/09/2025 11:25 AM EDT) Anatomical Region Laterality Modality Breast Bilateral Mammography 06/09/2025 11:2 5 AM EDT Narrative 06/09/2025 12:27 PM EDT [facility] [address] [place] [address] Mammography Report Signed Patient: Oriana Angel MR# : [id number] : 1985 Acct:[id number] Age/Sex: 39 / F ADM Date: 06/09/25 Loc: HO.MAMMO Attending Dr: Anuja Muniz NP Ordering Physician: ANUJA MUNIZ NP Results: 3.6MProbabl y Benign Finding - Short 6 M F/U Suggested Date of Service: 06/09/25 Follow Up: 6 Month F/U Procedure(s): MM tomosynthesis diagnostic BI Accession Number(s): [id number] cc: ANUJA MUNIZ NP EXAMINATIONS: 1. MM [...] 06/09/25 1224 DD/ 1125 TD/TT: 06/09/25 1145 Coverage Analyst: Procedure Note Donotuseinterpreter, Image - 06/09/2025 [facility] [address] [place] [address] Dr. Black, RUPALI [address] Mammography Report Signed Patient: Oriana Angel [facility]# : [id number] : 1985Acct:[id number] Age/Sex: 39 / FADM Date: 06/09/25 Loc: MAMMO Attending Dr: Anuja Muniz POTATO CHIP [employer]TER Ordering Physician: ANUJA MUNIZ NPResults: 3.6MProbabl y Benign Finding - Short 6 M F/U Suggested Date of Service: 06/09/25Follow Up: 6 Month F/U Procedure(s): MM tomosynthesis diagnostic BI Accession Number(s): [id number] cc: ANUJA MUNIZ NP EXAMINATIONS: 1. MM [...] 06/09/25 1224 DD/ 1125 TD/TT: 06/09/25 1145 Coverage Analyst: us Anuja Muniz ANP IMG BI PROCEDURES Edited Result - Final * Hepatitis C Antibody with Reflex to HCV, RNA, Quantitative, Real-Time PCR (04/27/2024 9:12 AM EDT) Hepatitis C Antibody Nonreactive Nonreactive [facility] Comment:Antibodies to HCV no t detected; does not exclude early acuteHCV infection. Blood Venous blood specimen / Unknown 04/27/2024 9:12 AM EDT 04/27/2024 11:15 AM EDT us Anuja MEANS LAB BLOOD ORDERABLES Final Resul t Performing Organization Address [facility] Co de Phone Number [facility] [address] [place] [phone] * HIV-1/2 Antigen and Antibodies, Fourth Generation, with Reflexes (04/27/2024 9:12 AM EDT) HIV AB/AG Nonreactive Nonreactive [facility] Comment:HIV-1 p24 Ag and/or HIV-1/HIV-2 Ab not detected.A test result that is nonreactive does not exclude thepossibility of exposure to or infection with HIV-1 and/orHIV-2. Nonreactive results in this assay for individualswith prior exposure to HIV-1 and/or HIV-2 may be due toantigen and antibody levels that are below the limit ofdetection of this assay.[employer] HIV Ag/Ab Combo assay result andsupplemental assay results should be interpreted inconjunction with the patient's clinical presentation,history and other laboratory results. If the results areinconsistent with clinical evidence, additional testing issuggested to confirm the result. Blood Venous blood specimen / Unknown 04/27/2024 9:12 AM EDT 04/27/2024 11:15 AM EDT us Anuja Muniz ANP LAB BLOOD ORDERABLES Final Resul t Performing Organization Address City/[facility]/ZIP Co de Phone Number [facility] [address] [place] [address] [phone] * (ABNORMAL) Lipid Panel, Standard (04/27/2024 9:12 AM EDT) Triglycerides 70 <150 mg/dL [facility] Comment:Desirable Triglyceri de: less than 150 mg/dLBorderline High Triglyceride 150-199 mg/dLHigh Triglyceride: 200-499 mg/dLVery High Triglyceride: greater than or equal to 5OO mg/dL Cholesterol 135 <200 mg/dL [facility] Comment:Desirable Cholestero l: less than 200 mg/dLBorderline High Cholesterol: 200-239 mg/dLHigh Cholesterol: greater than 239 mg/dL LDL Cholesterol Calculated 87 <100 mg/dL [facility] Comment:Desirable LDL: less than 100 mg/dLNear Optimal/Above Optimal LDL: 110- 129 mg/dLBorderline High LDL: 130-159 mg/dLHigh LDL: 160-189 mg/dLVery High LDL: greater than or equal to 190 mg/dL HDL Cholesterol 34(L) >40 mg/dL [facility] Comment:Desirable HDL: great er than 40 mg/dL Note: This HDL assay may give artificially low results in patients with liver disease. Blood Venous blood specimen / Unknown 04/27/2024 9:12 AM EDT 04/27/2024 11:15 AM EDT [facility] LAB BLOOD ORDERABLES Final Resul t Performing Organization Address [facility] Co de Phone Number [facility] [address] [place] [address] [phone] * HM PAP/HPV (04/16/2023) Pap Smear 1. NILM 1. NILM HPV Not Detected Undetected, Indeterminat e, Quantitative , Not Detected Narrative Cathie Randolph - 04/16/2023 Abn pap hx. See pap results in care everywhere Historical Provider HEALTH MAINTENANCE Final Result from Last 3 Months or Most Recently Relevant to Health Maintenance Insurance C3 Care Teams Dining Chair Seat Cushion Trimmer Relationship Specialty Start Date End Date Anuja Muniz ANP [address] [place] [phone] PCP - General Family Medicine 07/09/21 Armida Singh, CHRISTIE [address] [place] [phone] Registered Nurse Family Medicine 09/18/25 Estrella Boyer 09/18/25 Annel Foreman Senior Health EducatorSecurities Compliance Examiner 10/15/23
--- OUTSIDE RECORDS SUMMARY | 2025-10-18 12:35 | XMS_ITS | Clinical Summary ---
Author Organization [facility] [address] [facility] Address [address] [place] [address] Phone Care Team Providers Care Documentation Improvement Specialist Name Role Phone Анна Bonilla NP Primary Care Provider [phone] Allergies Active Allergy Reactions Criticality Noted Date Comments Ciprofloxacin Hcl Rash 08/23/2025 Influenza Virus Vaccines Dizziness,Headache 09/11/2020 Other reaction(s): Itching Vaccine Product Containing Only Influenza Virus Antigen (medicinal Product) New Paroxetine High 04/06/2020 Other reaction(s): Excessive sweating, Tremor Sulfa (Sulfonamide Antibiotics) 03/04/2017 Trimethoprim Rash High 10/06/2024 Medications famotidine (PEPCID) 20 mg/2 mL oral solution Take by mouth. Activ e albuterol 2.5 mg /3 mL (0.083 %) nebulizer solution Inhale 3 mL by mouth every 8 hours. 1 Active cholecalciferol (VITAMIN D-3) 50 mcg (2,000 unit) capsule Take 1 capsule (2,000 Units total) by mouth 1 (one) time each day. Active ferrous sulfate 325 mg (65 mg elemental iron) tablet Take 1 tablet (325 mg total) by mouth. 2 Active hydrOXYzine pamoate (VISTARIL) 25 mg capsule Take 1 capsule (25 mg total) by mouth 3 times daily. 2 Active phenazopyridine (PYRIDIUM) 200 mg tablet 4 Active pantoprazole (PROTONIX) 40 mg EC tablet 4 Active loratadine (CLARITIN) 10 mg tablet Take 1 tablet (10 mg total) by mouth 1 (one) time each day. Active fluticasone propionate (FLONASE) 50 mcg/actuation nasal spray Administer 2 sprays into each nostril. 4 Active diphenhydrAMINE (BENADRYL) 25 mg tablet Take 1 tablet (25 mg total) by mouth every 6 hours as needed. 4 Active levonorgestreL (MIRENA) 21 mcg/24hr (up to 8 yrs) 52 mg IUD 1 Device (1 each total) by intrauterine route 1 (one) time. 5 02/10/20 33 Active topiramate (TOPAMAX) 25 mg tablet Take 1 tablet (25 mg total) by mouth 2 (two) times a day if needed (headache). 5 Active ibuprofen (ADVIL,MOTRIN) 600 mg tabletIndicatio ns:Carpal tunnel syndrome on left Take 1 tablet (600 mg total) by mouth 3 (three) times a day with meals. 15 tablet 5 Active ciprofloxacin (CIPRO) 250 mg tablet 5 Active famotidine (PEPCID) 20 mg tablet Take 1 tablet (20 mg total) by mouth. at bedtime. 5 Active predniSONE (DELTASONE) 20 mg tablet 5 Active Active Problems Problem Noted Date Diagnosed Date Carpal tunnel syndrome on left 05/22/2025 Paresthesias 05/16/2025 Migraine 05/16/2025 TIA (transient ischemic attack) 05/15/2025 Fibroids, subserous 03/12/2025 Overview (03/12/2025): 02/2025- 4.8 x 4.5 x 5.5 cm left posterior subserosal fibroid. Has IUD in place Abdominal pain 03/01/2025 Class 2 obesity 03/01/2025 Diastasis of rectus abdominis 03/01/2025 Elevated blood pressure reading 03/01/2025 Lower urinary tract symptoms (LUTS) 09/01/2024 Pain in lower back 06/11/2023 Acute rhinosinusitis 11/24/2022 Allergic otitis media 11/24/2022 Bruises easily 11/24/2022 Cervical atypism 11/24/2022 Herpes labialis 11/24/2022 Joint pain 11/24/2022 Microcytic hypochromic anemia 11/24/2022 Mixed anxiety and depressive disorder 11/24/2022 Moderate persistent asthma 11/24/2022 Pain in finger 11/24/2022 Pain in wrist 11/24/2022 Post-traumatic arthritis of left ankle ASCUS with positive high risk HPV cervical 01/11 Overview (08/23/2025): 12/2020: colpo neg repeat pap in one year 12/2021- Ascus, + HR HPV, + 16, Neg 18/45 Plan: Colpo benign biopsies 2022 - if abnormal again, consider LEEP Gastroesophageal reflux disease without esophagi tis 02/26/2018 IUD (intrauterine device) in place 02/26/2018 Mood disorder ([facility] V24) 02/26/2018 Pap smear abnormality of cer vix/human papillomavirus (HPV) positive 03/04/2017 Overview (08/23/2025): History: PAP 12/03/2016: Cytology unsatisfactory; High Risk HPV DNA positive, not types 16/18/45 PAP 03/04/2017: Cytology negative; High Risk HPV DNA positive. 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 with [facility] [employer] PAP 10/02/2020 ASCUS, + HR HPV Plan: Colpo- Neg, repeat PAP one year Anemia 11/28/2016 Vitamin D deficiency 11/28/2016 Allergic rhinitis due to pollen 10/08/2016 Encounters Date Type Department Care Team Description 09/16/2025 1:59 AM EDT - 09/16/2025 6:53 AM EDT Emergency [facility] [place] [facility] Emergency [address] [place] [id number] Maci Owens MD Chest pain with low risk for cardiac etiology (Primary Dx) Discharge Disposition: Home or Self Care 09/13/2025 Results Follow-Up Obstetrics and Gynecology - [address] [phone] Estrella Morrell CNM 09/11/2025 1:30 PM EDT - 09/11/2025 11:59 PM EDT Hospital Encounter [facility] - [facility] [address] [place] [id number] Pelvic pain; Surveillance of contraceptive intrauterine device (IUD) performed Discharge Disposition: Home or Self Care 08/28/2025 Results Follow-Up Obstetrics and Gynecology [address] [phone] Estrella Morrell CNM 08/23/2025 11:15 AM EDT Office Visit Obstetrics & Gynecology - [address] [address] Estrella Morrell CNM Pelvic pain (Primary Dx); Surveillance of contraceptive intrauterine device (IUD) performed; Urinary frequency; Drug-induced constipation; Screen for STD (sexually transmitted disease); test negative from Last 3 Months Immunizations Immunization Administration Dates Next Due Influenza Quadravalent, MDCK , 0.5ml, preservative free (Flucelvax) 6mo and older 08/29/2020,09/11/2017 Influenza Quadrivalent, with preservative (Fluzone; Afluria) 6mo and older 08/04/2019,08/18/2018 Tdap Tetanus diptheria acell ular pertussis (Boostrix; Adacel) 7yo and older 09/11/2017,09/06/2010 Surgical History Surgery Date Site/Laterality Comments ANKLE SURGERY 2013 Left PROCEDURE: HISTORICAL ANKLE SURGERY BELT ABDOMINOPLASTY 2014 PROCEDURE: HISTORICAL TUMMY TUCK CHOLECYSTECTOMY 01/2020 PROCEDURE: CO CHOLECYSTECTOMY Medical History Medical History Date Comments [...] Date Smoking Tobacco: Never Smokeless Tobacco: Never Tobacco Cessation:Counseling Given: Not Answered Alcohol Use Standard Drinks/Week Comments No 0 (1 standard drink = 0.6 oz pur e alcohol) Interpersonal Safety Answer Date Record ed Physical Abuse Unrecognized value 05/15/2025 Verbal Abuse Unrecognized value 05/15/2025 Comments No Sex and Gender Information Value Date Recorded Sex Assigned at Not on file Legal Sex Female 9:52 AM EST Gender Identity Not on file Sexual Orientation Not on file Obstetrics History * This document contains information received from the source organization and may not represent a complete record from that organization. Para Term AB IAB SAB Ectopic Multiple Livin g Live Births 4 3 3 3 3 Date Outcome GA Total Labor Labor/2nd/3rd Weight Sex Type Anes PTL Ivone A1 A5 Name Clin 06/21 Term 40w 0d 3402 g (120 oz) F Vag-S pont Living Collette 04/17 Term 40w 0d 3175 g (112 oz) M Vag-S pont Living Nov 2006 12/06 Term 38w 2d 2665 g (94 oz) F Vag-S pont Living Last Filed Vital Signs Vital Sign Reading Time Taken Comments Blood Pressure 126/76 09/16/2025 6:52 AM EDT Pulse 70 09/16/2025 6:52 AM EDT Temperature 36.7 C (98 F) 09/16/2025 6:52 AM EDT Respiratory Rate 16 09/16/2025 6:52 AM EDT Oxygen Saturation 100% 09/16/2025 6:52 AM EDT Inhaled Oxygen Concentration - - Weight 87.1 kg (192 lb) 09/16/2025 1:51 AM EDT Height 160 cm (5' 3 ) 09/16/2025 1:51 AM EDT Body Mass Index 34.01 09/16/2025 1:51 AM EDT Plan of Treatment Health Maintenance Due Date Last Done Comments Breast Cancer Screening 1984 Hepatitis B Vaccines (1 of 3 - 19+ 3-dose series) 2003 Pneumococcal Vaccine: Pediatrics (0 to 5 Years) and At-Risk Patients (6 to 49 Years) (1 of 2 - PCV) 2003 HPV Vaccines (1 - 3-dose SCDM series) 2011 Social Influencers of Health Screening 10/25/2022 Depression Screening 11/16/2024 COVID-19 Vaccine ( season) 2025 11/23/2021 Influenza Vaccine (#1) 2025 , 08/04/2019, 08/18/2018, Additional history exists Cervical Cancer Screening: Pap Smear 04/16/2026 04/16/2023, 12/13/2021, 09/26/2020, Additional history exists DTaP,Tdap,and Td Vaccines (3 - Td or Tdap) 09/11/2027 09/11/2017, 09/06/2010 Cholesterol Screening (Lipid Panel) 05/16/2030 05/16/2025, 04/27/2024 RSV Immunization Adult Patients (1 - 1-dose 75+ series) 2059 HIV Screening Completed 04/27/2024 Hepatitis C Screening Completed 04/27/2024 HIB Vaccines Aged Out No longer eligi [...] Procedure Name Priority Date/Time Associated Diagnosis Comments ECG ANNOTATED 09/19/2025 ECG ANNOTATED 09/19/2025 TROPONIN I HIGH SENSITIVITY Timed 09/16/2025 3:57 AM EDT ECG 12-LEAD STAT 09/16/2025 3:38 AM EDT XR CHEST 2 VIEWS STAT 09/16/2025 2:30 AM EDT CBC WITH AUTO DIFFERENTIAL STAT 09/16/2025 2:24 AM EDT B-TYPE NATRIURETIC PEPTIDE STAT 09/16/2025 2:24 AM EDT MAGNESIUM STAT 09/16/2025 2:24 AM EDT LIPASE STAT 09/16/2025 2:24 AM EDT COMPREHENSIVE METABOLIC PANEL STAT 09/16/2025 2:24 AM EDT CBC AND DIFFERENTIAL STAT 09/16/2025 2:24 AM EDT TROPONIN I HIGH SENSITIVITY Timed 09/16/2025 2:24 AM EDT ECG 12-LEAD STAT 09/16/2025 1:56 AM EDT US PELVIS TRANSVAGINAL NON OB Routine 09/11/2025 2:47 PM EDT Pelvic pain Surveillance of contraceptive intrauterine device (IUD) performed TRICHOMONAS VAGINALIS ANTIGEN Routine 08/23/2025 12:06 PM EDT Pelvic pain WET PREP, GENITAL Routine 08/23/2025 12: 06 PM EDT Pelvic pain CHLAMYDIA TRACHOMATIS AND NEISSERIA GONORRHOEAE PCR Routine 08/23/2025 12:06 PM EDT Screen for STD (sexually transmitted disease) CULTURE URINE Routine 08/23/2025 12:06 PM EDT Urinary frequency POC , URINE DIAGNOSTIC Routine 08/23/2025 11:58 AM EDT Pelvic pain LIPID PANEL WITH REFLEX TO DIRECT LDL Routine 05/16/2025 6:15 AM EDT PAP SMEAR Routine 04/16/2023 from Last 3 Months or Most Recently Relevant to Health Maintenance Results * ECG-Annotated (09/19/2025) Only the most recent of2 resultswithin the time period is included. us Provider Onbase MD ECG ORDERABLES Final Result * Troponin I high sensitivity (09/16/2025 3:57 AM EDT) Only the most recent of2 resultswithin the time period is included. [facility] High Sensitivity Troponin I <3 <=54 ng/L LAB CHEMISTRY METHOD 09/16/2025 5:[address] [facility] Blood Venous blood specimen / Unknown Venipuncture / Unknown 09/16/2025 3:57 AM EDT 09/16/2025 5:[address] [facility] - 09/16/2025 5:46 AM EDT High levels of biotin in samples may falsely decrease hsTroponin values. Use caution when interpreting hsTroponin results in patients taking biotin who exhibit renal impairment (eGFR <60) or in patients taking more than 20 mg/day of biotin. Zuly WHITE LAB BLOOD ORDERABLES Fin al Result [facility] [address] [place] [address], * ECG 12 lead (09/16/2025 3:38 AM EDT) Only the most recent of2 resultswithin the time period is included. [facility] Ventricular Rate ECG 71 BPM GEMUSE Atrial Rate 71 BPM GEMUSE P-R Interval 144 ms GEMUSE QRS Duration 88 ms GEMUSE Q-T Interval 414 ms GEMUSE QTc 449 ms GEMUSE P Wave [place] 45 degrees GEMUSE R [place] 53 degrees GEMUSE T [place] 28 degrees GEMUSE ECG Interpretation Normal sinus rhythm Normal ECG When compared with ECG of 16-SEP-2025 01:56, (unconfirmed) No significant change was found Confirmed by Nick MEDRANO JOHN ([id number]) on 09/17/2025 4:28:51 PM GEMUSE 09/16/2025 3:3 8 AM EDT 09/17/2025 4:28 PM EST us Zuly WHITE ECG ORDERABLES Final Re sult GEMUSE * XR Chest 2 Views (09/16/2025 2:30 AM EDT) Anatomical Region Laterality Modality Body Radiographic Rebecca ging 09/16/2025 7:13 AM EDT Impressions 09/16/2025 7:14 AM EDT No acute chest disease. -------- FINAL REPORT -------- Dictated By: Matheus Sharp Dictated Date: 09/16/2025 07:13 ET Assigned Physician: Matheus Sharp Reviewed and Electronically Signed By: Matheus Sharp Signed Date: 09/16/2025 07:14 ET Workstation ID: [id number] Transcribed By: Self Edit Transcribed Date: 09/16/2025 07:13 ET Narrative 09/16/2025 7:14 AM EDT EXAMINATION: CHEST CLINICAL INFORMATION: Chest pain COMPARISON: Frontal view 04/06/25 TECHNIQUE: 2 views of the chest FINDINGS: Mild rotation toward the left. The cardiac size, mediastinal contours, bonnie, vasculature and visualized pleural margins are within normal limits. Top normal lung volumes with slight hyperlucency in the upper lung zones. There is no pneumonia, pleural fluid or pneumothorax. No suspicious focal bony lesion. Procedure Note Matheus Sharp MD - 09/16/2025 EXAMINATION: CHEST CLINICAL INFORMATION: Chest pain COMPARISON: Frontal view 04/06/25 TECHNIQUE: 2 views of the chest FINDINGS: Mild rotation toward the left. The cardiac size, mediastinal contours,bonnie, vasculature and visualized pleural margins are within normal limits.Top normal lung volumes with slight hyperlucency in the upper lung zones.There is no pneumonia, pleural fluid or pneumothorax. No suspicious focal bony lesion. IMPRESSION: No acute chest disease. -------- FINAL REPORT -------- Dictated By: Matheus Sharp Dictated Date: 09/16/2025 07:13 ET Assigned Physician: Matheus Sharp Reviewed and Electronically Signed By: Matheus Sharp Signed Date: 09/16/2025 07:14 ET Workstation ID: [id number] Transcribed By: Self Edit Transcribed Date: 09/16/2025 07:13 ET Zuly WHITE IMG XR PROCEDURES Final Result * (ABNORMAL) CBC auto differential (09/16/2025 2:24 AM EDT) [facility] WBC 9.5 4.8 - 10.8 K/mcL LAB HEMETOLOGY METHOD 09/16/2025 3:[address] [facility] RBC 4.90(H) 3.80 - 4.80 M/mcL LAB HEMETOLOGY METHOD 09/16/2025 3:56 AM [facility] Hemoglobin 12.1 11.5 - 16.0 g/dL LAB HEMETOLOGY METHOD 09/16/2025 3:56 AM [facility] Hematocrit 38.1 35.0 - 47.0 % LAB HEMETOLOGY METHOD 09/16/2025 3:56 AM [facility] MCV 78.1(L) 79.0 - 98.0 FL LAB HEMETOLOGY METHOD 09/16/2025 3:56 AM [facility] MCH 24.8(L) 27.0 - 32.0 pcg LAB HEMETOLOGY METHOD 09/16/2025 3:56 AM [facility] MCHC 31.8(L) 32.0 - 37.0 g/dL LAB HEMETOLOGY METHOD 09/16/2025 3:56 AM [facility] RDW 15.5(H) 11.0 - 15.0 % LAB HEMETOLOGY METHOD 09/16/2025 3:56 AM [facility] Platelets 367 130 - 400 K/mcL LAB HEMETOLOGY METHOD 09/16/2025 3:56 AM [facility] MPV 10.3 7.0 - 11.0 FL LAB HEMETOLOGY METHOD 09/16/2025 3:56 AM [facility] NRBC 0.0 <1.0 % LAB HEMETOLOGY METHOD 09/16/2025 3:56 AM [facility] NRBC Absolute 0.00 <0.10 K/mcL LAB HEMETOLOGY METHOD 09/16/2025 3:56 AM [facility] Neutrophils Relative 65.3 % LAB HEMETOLOGY METHOD 09/16/2025 3:56 AM [facility] Lymphocytes Relative 25.3 % LAB HEMETOLOGY METHOD 09/16/2025 3:56 AM [facility] Monocytes Relative 6.1 % LAB HEMETOLOGY METHOD 09/16/2025 3:56 AM [facility] Eosinophils Relative 2.7 % LAB HEMETOLOGY METHOD 09/16/2025 3:56 AM [facility] Basophils Relative 0.3 % LAB HEMETOLOGY METHOD 09/16/2025 3:56 AM [facility] Immature Granulocytes Relative 0.3 % LAB HEMETOLOGY METHOD 09/16/2025 3:56 AM [facility] Neutrophils Absolute 6.22 1.50 - 7.00 K/mcL LAB HEMETOLOGY METHOD 09/16/2025 3:56 AM [facility] Lymphocytes Absolute 2.41 1.00 - 5.00 K/mcL LAB HEMETOLOGY METHOD 09/16/2025 3:56 AM [facility] Monocytes Absolute 0.58 0.20 - 1.00 K/mcL LAB HEMETOLOGY METHOD 09/16/2025 3:56 AM [facility] Eosinophils Absolute 0.26 0.00 - 0.50 K/mcL LAB HEMETOLOGY METHOD 09/16/2025 3:[address] [facility] Basophils Absolute 0.03 0.00 - 0.20 K/[facility] LAB HEMETOLOGY METHOD 09/16/2025 3:[address] [facility] Immature Granulocytes Absolute 0.03 0.00 - 0.03 K/[facility] LAB HEMETOLOGY METHOD 09/16/2025 3:[address] [facility] Blood Venous blood specimen / Unknown Venipuncture / Unknown 09/16/2025 2:24 AM EDT 09/16/2025 3:41 AM EDT Z[facility] LAB BLOOD ORDERABLES Fin al Result Performing Organization Address [facility]/ZIP Co de Phone Number [facility] [address] [place] [address], * B-type natriuretic peptide (09/16/2025 2:24 AM EDT) BNP 9 <=100 pcg/mL LAB CHEMISTRY METHOD 09/16/2025 4:[address] [facility] Blood Venous blood specimen / Unknown Venipuncture / Unknown 09/16/2025 2:24 AM EDT 09/16/2025 3:41 AM EDT [facility] LAB BLOOD ORDERABLES Fin al Result [facility] [address] [place] [address], [place] [phone] * Magnesium (09/16/2025 2:24 AM EDT) Magnesium 2.2 1.9 - 2.6 mg/dL LAB CHEMISTRY METHOD 09/16/2025 4:[address] [facility] Blood Venous blood specimen / Unknown Venipuncture / Unknown 09/16/2025 2:24 AM EDT 09/16/2025 3:41 AM EDT [facility] LAB BLOOD ORDERABLES Fin al Result [facility] [address] [place] [address], [place] [phone] * Lipase (09/16/2025 2:24 AM EDT) [facility] Lipase 44 13 - 75 unit/L LAB CHEMISTRY METHOD 09/16/2025 4:[address] [facility] Blood Venous blood specimen / Unknown Venipuncture / Unknown 09/16/2025 2:24 AM EDT 09/16/2025 3:41 AM EDT Z[facility] WH[facility] LAB BLOOD ORDERABLES Fin al Result Performing Organization Address City/[facility]/ZIP Co de Phone Number [facility] [address] [place] [address], [place] [phone] * Comprehensive metabolic panel (09/16/2025 2:24 AM EDT) [facility] Sodium 138 133 - 145 mmol/L LAB CHEMISTRY METHOD 09/16/2025 4:12 AM [facility] Potassium 3.7 3.5 - 5.5 mmol/L LAB CHEMISTRY METHOD 09/16/2025 4:12 AM [facility] Chloride 105 96 - 110 mmol/L LAB CHEMISTRY METHOD 09/16/2025 4:12 AM [facility] CO2 29 21 - 32 mmol/L LAB CHEMISTRY METHOD 09/16/2025 4:12 AM [facility] Anion Gap 4 3 - 11 LAB CHEMISTRY METHOD 09/16/2025 4:12 AM [facility] Glucose 87 70 - 100 mg/dL LAB CHEMISTRY METHOD 09/16/2025 4:12 AM [facility] BUN 9 5 - 25 mg/dL LAB CHEMISTRY METHOD 09/16/2025 4:12 AM [facility] Creatinine 0.74 0.50 - 1.10 mg/dL LAB CHEMISTRY METHOD 09/16/2025 4:12 AM [facility] eGFR 104 >=60 mL/min/1. 73m2 LAB CHEMISTRY METHOD 09/16/2025 4:12 AM [facility] Comment:Calculation based on the Chronic Kidney Disease Epidemiology Collaboration (CKD-EPI) equation refit without adjustment for race. BUN/Creatinine Ratio 12.2 LAB CHEMISTRY METHOD 09/16/2025 4:12 AM [facility] Calcium 9.0 8.5 - 10.5 mg/dL LAB CHEMISTRY METHOD 09/16/2025 4:12 AM [facility] AST (SGOT) 12 10 - 42 unit/L LAB CHEMISTRY METHOD 09/16/2025 4:12 AM [facility] ALT (SGPT) 19 10 - 60 unit/L LAB CHEMISTRY METHOD 09/16/2025 4:12 AM [facility] Alkaline Phosphatase 83 42 - 121 unit/L LAB CHEMISTRY METHOD 09/16/2025 4:12 AM [facility] Total Protein 7.2 6.0 - 8.0 g/dL LAB CHEMISTRY METHOD 09/16/2025 4:12 AM [facility] Albumin 3.7 3.2 - 5.0 g/dL LAB CHEMISTRY METHOD 09/16/2025 4:12 AM [facility] Total Bilirubin 0.3 0.0 - 1.4 mg/dL LAB CHEMISTRY METHOD 09/16/2025 4:12 AM [facility] Blood Venous blood specimen / Unknown Venipuncture / Unknown 09/16/2025 2:24 AM EDT 09/16/2025 3:41 AM EDT us Zuly WHITE LAB BLOOD ORDERABLES Fin al Result [facility] [address] [place] [address], * US Pelvis Transvaginal Non OB (09/11/2025 2:47 PM EDT) Anatomical Region Laterality Modality Body Ultrasound 09/11/2025 5:16 PM EDT Narrative 09/11/2025 5:18 PM EDT Limited transvaginal pelvic ultrasound. History IUD placement. Limited transvaginal examination was performed for IUD placement. IUD wasn't visualized within the endometrial cavity with superior and approximately 10 mm from fundal endometrium. Note was made of large posterior right side fibroid measuring 7.3 x 4.1 x 5.9 cm. Fibroid is significantly larger than on prior pelvic ultrasound from 05/01/2023 when it measures 4.3 x 4.1 x 4 cm. Ovaries were not evaluated on this study. CONCLUSIONS: Somewhat low position of the IUD with some superior and approximately 10 mm from the fundal endometrium. Interval enlargement of the posterior wall on the left uterine fibroid. -------- FINAL REPORT -------- Dictated By: Beatrice Munoz Dictated Date: 09/11/2025 17:16 ET Assigned Physician: Beatrice Munoz Reviewed and Electronically Signed By: Beatrice Munoz Signed Date: 09/11/2025 17:18 ET Workstation ID: [id number] Transcribed By: Self Edit Transcribed Date: 09/11/2025 17:16 ET Procedure Note Beatrice Munoz MD - 09/11/2025 Limited transvaginal pelvic ultrasound. History IUD placement. Limited transvaginal examination was performed for IUD placement. IUDwasn't visualized within the endometrial cavity with superior andapproximately 10 mm from fundal endometrium. Note was made of largeposterior right side fibroid measuring 7.3 x 4.1 x 5.9 cm. Fibroid issignificantly larger than on prior pelvic ultrasound from 05/01/2023 whenit measures 4.3 x 4.1 x 4 cm. Ovaries were not evaluated on this study. CONCLUSIONS: Somewhat low position of the IUD with some superior andapproximately 10 mm from the fundal endometrium. Interval enlargement ofthe posterior wall on the left uterine fibroid. -------- FINAL REPORT -------- Dictated By: Beatrice Munoz Dictated Date: 09/11/2025 17:16 ET Assigned Physician: Beatrice Munoz Reviewed and Electronically Signed By: Beatrice Munoz Signed Date: 09/11/2025 17:18 ET Workstation ID: [id number] Transcribed By: Self Edit Transcribed Date: 09/11/2025 17:16 ET us Estrella Morrell CNM IMG US PROCEDURES Final Result * Trichomonas vaginalis antigen (08/23/2025 12:06 PM EDT) Trichomonas vaginalis Negative Negative 08/23/2025 5:[address] [facility] Swab Vaginal structure / Unknown Non-blood Collection / Unknown 08/23/2025 12:06 PM EDT 08/23/2025 4:07 PM EDT us Estrella Morrell CNM LAB MICROBIOLOGY - GENERAL ORD ERABLES Final Result [facility] [address] [place] [address], * Chlamydia trachomatis and Neisseria gonorrhoeae molecular study (08/23/2025 12:06 PM EDT) Neisseria gonorrhoeae PCR Negative Negative LAB MOLECULAR DIAGNOSTICS METHOD 08/24/2025 12:[address] [facility] Chlamydia trachomatis PCR Negative Negative LAB MOLECULAR DIAGNOSTICS METHOD 08/24/2025 12:[address] [facility] Swab Cervix uteri structure / Unknown Non-blood Collection / Unknown 08/23/2025 12:06 PM EDT 08/23/2025 4:07 PM EDT us Estrella TONEY LAB MICROBIOLOGY - GENERAL ORD ERABLES Final Result [facility] [address] [place] [address], [place] [phone] * Wet prep, genital (08/23/2025 12:06 PM EDT) Clue Cells, Wet Prep Negative Negative 08/23/2025 5:[address] [facility] Yeast, Wet Prep Negative Negative 08/23/2025 5:[address] [facility] Trichomonas, Wet Prep Indeterminate Negative 08/23/2025 5:[address] [facility] Comment:Refer to Trichomonas antigen. Swab Vaginal structure / Unknown Non-blood Collection / Unknown 08/23/2025 12:06 PM EDT 08/23/2025 4:07 PM EDT us Estrella TONEY LAB MICROBIOLOGY - GENERAL ORD ERABLES Final Result Performing Organization Address [facility]/ZIP Co de Phone Number [facility] [address] [place] [address], [place] [phone] * Culture urine (08/23/2025 12:06 PM EDT) Culture, Urine No growth 08/24/2025 7:[address] [facility] Urine Urine specimen obtained by clean catch procedure / Unknown Non-blood Collection / Unknown 08/23/2025 12:06 PM EDT 08/23/2025 4:07 PM EDT us Estrella TONEY LAB MICROBIOLOGY - GENERAL ORD ERABLES Final Result [facility] [address] [place] [address], [place] [phone] * POC , urine manually resulted (08/23/2025 11:58 AM EDT) HCG, Ur POC Negative Negative POC hCG Int QC Pass? Yes Yes Urine Urine specimen obtained by clean catch procedure / Unknown 08/23/2025 11:58 AM EDT Estrella Morrell CNM POINT OF CARE TEST ENTER/EDIT ORDERABLES Final Result * (ABNORMAL) Lipid panel with reflex to direct LDL (05/16/2025 6:15 AM EDT) [facility] Cholesterol 117 0 - 200 mg/dL LAB CHEMISTRY METHOD 05/16/2025 7:[address] [facility] Triglycerides 99 0 - 150 mg/dL LAB CHEMISTRY METHOD 05/16/2025 7:[address] [facility] HDL 29(L) >=40 mg/dL LAB CHEMISTRY METHOD 05/16/2025 7:[address] [facility] LDL Calculated 68 0 - 100 mg/dL LAB CHEMISTRY METHOD 05/16/2025 7:[address] [facility] VLDL Cholesterol [facility] 19.8 mg/dL LAB CHEMISTRY METHOD 05/16/2025 7:[address] [facility] Non HDL Chol. (LDL+VLDL) 88 <145 mg/dL LAB CHEMISTRY METHOD 05/16/2025 7:[address] [facility] Chol/HDL Ratio 4.0 0.0 - 4.4 LAB CHEMISTRY METHOD 05/16/2025 7:[address] [facility] Blood Venous blood specimen / Unknown Venipuncture / Unknown 05/16/2025 6:15 AM EDT 05/16/2025 6:43 AM EDT Alison WHITE LAB BLOOD ORDERABLES Fi nal Result Performing Organization Address [facility]/ZIP Co de Phone Number [facility] [address] [place] [address], * Pap smear (04/16/2023) 04/16/2023 Narrative HISTORICAL TESTING LAB RESULTING AGENCY - 04/23/2023 6:26 AM EDT [id number] THINPREP PAP, IMAGED: NEGATIVE FOR SQUAMOUS INTRAEPITHELIAL LESION AND MALIGNANCY . ABUNDANT ACUTE INFLAMMATORY CELLS ARE PRESENT. JUANITO PINEDA , NETTIE(ASCP) (CASE ELECTRONICALLY SIGNED 04 22 2023) RESULT OF APTIMA HIGH RISK HPV ASSAY: HIGH RISK HPV: NEGATIVE (SEROTYPES 16,18,31,33,35,39,45,51,52,56,58,59,66,68) COMPLETED ON 2023-04-17 ADEQUACY: SATISFACTORY ENDOCERVICAL/TRANSFORMATION ZONE COMPONENT PRESENT. SOURCE: THINPREP PAP HPV ANY DX: REFLEX 16 AND 18, CERVICAL, IMAGED CLINICAL INFORMATION: HPV ANY DIAGNOSIS. HORMONES, PAP HX NEGATIVE, LMP 03/23/23, [Z12.4] Ashley Wheatley CNM LAB CYTOLOGY ORDERABLES Final R esult HISTORICAL TESTING LAB RESULTING AGENCY from Last 3 Months or Most Recently Relevant to Health Maintenance Insurance [place] Advance Directives * Full Code - Default (Latest Code Status on File) Date Activated Date Inactivated Comments 05/15/2025 6:05 PM 05/16/2025 6:24 PM This is order is used when code status has not been discussed with the patient, or code status is otherwise unknown/unconfirmed To update the patient's code status, place a code status order. Do not modify or discontinue any currently active code status orders. Care Teams Documentation Improvement Specialist Relationship Specialty Start Date End Date Анна Bonilla NP [address] [place] [phone] PCP - General 09/16/25
--- OUTSIDE RECORDS SUMMARY | 2025-10-18 12:35 | XMS_ITS | Encounter Summary ---
Author Organization [facility] Address [address] [place] [address] Care Team Providers Care Financial Examiner Name Role Phone Анна Bonilla NP Primary Care Provider [phone] Encounter Details Date Type Department Care Team (Late st Contact Info) Description 09/13/2025 Results Follow-Up Obstetrics and Gynecology - [place] [address] [place], [place] [phone] Estrella Morrell, [facility] [address] [place], [place] Social History Tobacco Use Types Packs/Day Years [...] Assessment Author No 05/15/2025 3:40 PM EDT Tahmina Bell RN * Are you blind or do you have serious difficulty seeing, even when wearing glasses? Answer Date of Assessment Author No 05/15/2025 3:40 PM EDT Tahmina Bell RN * Do you have serious difficulty walking or climbing stairs? Answer Date of Assessment Author No 05/15/2025 3:40 PM EDT Tahmina Bell RN * Do you have serious difficulty dressing or bathing? Answer Date of Assessment Author No 05/15/2025 3:40 PM EDT Tahmina Bell RN * Because of a physical, mental, or emotional condition, do you have serious difficulty doing errandsalone such as visiting the doctor? Answer Date of Assessment Author No 05/15/2025 3:40 PM EDT Tahmina Bell RN * Calculated C-SSRS Risk Score (Lifetime/Recent) Answer Date of Assessment Author No Risk Indicated 09/16/2025 1:50 AM EDT Abigail Douglas RN * [place] Suicide Severity Rating Scale (Screener/Recent Self-Report) Question Answer Date of Assessment Author 1. Wish to be (Past 1 Month) No 025 1:50 AM DERIANT Abigail Douglas RN 2. Non-Specific Active Suici geoffrey Thoughts (Past 1 Month) No 09/16/2025 1:50 AM EDT Darinel Douglas RN 6. Suicidal Behavior (Lifetime) No 5 1:50 AM DERIANT Abigail Douglas RN documented as of this encounter Mental Status * Because of a physical, mental, or emotional condition, do you have serious difficulty concentrating, remembering, or making decisions? (5 years old or older) Answer Entry Date Author No 05/15/2025 3:40 PM EDT Tahmina Bell RN documented in this encounter Plan of Treatment Not on file documented as of this encounter Visit Diagnoses Not on filedocumented in this encounter Care Teams Financial Examiner Relationship Specialty Start Date End Date Анна Bonilla NP [address] [place] [phone] PCP - General 09/16/25 documented as of this encounter
== END 2025-10-18 10:49 | disposition home or self-care (01) ==
LOC: HO.NEURO 10:48
PROVIDERS: PCP Nurse Practitioner Primary Care
DX: R20.2 Paresthesia of skin (principal); R20.0 Anesthesia of skin
CPT/HCPCS: 95886; 95911

== ENCOUNTER → 2025-10-18 10:51 | Outpatient (BNV) | payer MEDICAID, SELFPAY | PROVIDERS: PCP Nurse Practitioner Primary Care; Visit Provider Physical Medicine & Rehabilitation | DX: G56.03 Carpal tunnel syndrome, bilateral upper limbs (principal) | CPT/HCPCS: 95886; 95911 ==

== ENCOUNTER 2025-10-31 14:47 | Outpatient (AMB) | payer MEDICAID, SELFPAY ==
--- NOTE | 2025-10-31 15:21 | A.OFFVIS_ITS ---
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 Patient was referred by [facility] 06/12/25 at their visit she noted that she had right carpal tunnel release on 06/24/2023 w/ Dr. Leach. States she always had a little of numbness and tingling after her surgery however surgery had helped decrease symptoms. At today's visit she states her symptoms have worsen in the last 6 months. IMPRESSION: 1. This is an abnormal study. 2. There is electrodiagnostic evidence for bilateral moderate-severe median neuropathy at the wrist, consistent with carpal tunnel syndrome. 3. There is no electrodiagnostic evidence for ulnar neuropathy, brachial plexopathy, or cervical radiculopathy. CLINICAL COMMENT: Left side appears worse compared to previous EMG in 2019. No available comparison for the right side. 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 She complains of numbness in the median nerve distribution of her left hand. Symptoms intermittent, but daily, worse at night. She also complains of weakness, pain, discomfort, and swelling in her hands bilaterally. She says this is more bothersome than just the numbness. Her chief complaint of her right side is of radial sided wrist pain, worse with pinching or gripping. 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 She has a Hx of a right carpal tunnel release, DOS: 06/24/[address] Leach. She says following surgery her symptoms improved but were not normal again, she had some residual numbness in her fingertips. 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 Asthma Anxiety and depression Easy bruising Microcytic hypochromic anemia Herpes simplex labialis Seasonal allergies Migraine Mood disorder Bilateral carpal tunnel syndrome GERD without esophagitis IUD (intrauterine device) in place Vitamin D deficiency Anemia Mild intermittent asthma Arthralgia Arthritis Surgical History History of ankle surgery H/O splenectomy Family History Father Pancreatic cancer Lupus Maternal Aunt Breast cancer Social History Household Members: Spouse and Children Housing: House Are you a primary healthcare administrative assistant to a significant other at home: No Do you presently have visiting nurse or other home services: No Alcohol intake: current Alcohol intake frequency: holidays/special occasions only Alcohol type: hard liquor Patient Tobacco Use Status: Never used Tobacco service: No Current occupational status: employed Review of Systems Const All systems reviewed & are unremarkable except as noted in HPI and below Physical Exam Vital Signs: BMI result Body Mass Index 33.7 Const General: cooperative, healthy appearing and no acute distress Orientation/consciousness: patient oriented x3 HEENT Head: Yes normocephalic and Yes atraumatic Eyes EOM: EOMs intact bilaterally Resp Effort & Inspection: normal respiratory effort and able to speak in complete sentences Cardio Jugular venous distension: no JVD Skin General skin exam: turgor normal Rashes: no rashes Neuro General: patient oriented x3 Extrem Other: Evaluation of Bilateral Upper Extremity: The patient is alert, oriented, and in no acute distress Neuro left side: Median, Ulnar, Radial nerves motor and sensory intact and sensation is normal to the tips of all digits No thenar or intrinsic wasting Good APB muscle belly firing and good finger cross Good ABduction & ADduction Vascular: Cap refill brisk ROM: She can make a fist and extend all her digits No locking or catching Skin: No lacerations or abrasions. General: No Ecchymosis. No Erythema or evidence of infection. Tender over the right 1st dorsal compartment Positive Ryan test on the right Nerve conduction Study: IMPRESSION: 1. This is an abnormal study. 2. There is electrodiagnostic evidence for bilateral moderate-severe median neuropathy at the wrist, consistent with carpal tunnel syndrome. 3. There is no electrodiagnostic evidence for ulnar neuropathy, brachial plexopathy, or cervical radiculopathy. CLINICAL COMMENT: Left side appears worse compared to previous EMG in 2019. No available comparison for the right side. Thank you for your kind referral. Debbie Britt MD, [facility] 10/18/25 Psych Appearance: grossly normal Affect: normal affect Attitude: cooperative Office Procedures AMB Fracture Care Details: No fracture, injection Fracture Billing Code: Fracture Billing Code Assessment & Plan Assessment & Plan (1) Carpal tunnel syndrome of left wrist: Code(s): G56.02 - Carpal tunnel syndrome, left upper limb Category: Medical (2) De Quervain's tenosynovitis, right: Code(s): M65.4 - Radial styloid tenosynovitis [de Quervain] Category: Medical (3) Carpal tunnel syndrome of right wrist: Code(s): G56.01 - Carpal tunnel syndrome, right upper limb Category: Medical Plan Assessment & Plan: 1. Left carpal tunnel syndrome, moderate-severe Symptoms intermittent, but daily, worse at night I educated her about this condition I discussed operative and non-operative treatment options The patient would like to proceed with surgery, beginning with her left side The risks and benefits of operative treatment were discussed with the patient and the patient wishes to proceed with surgery. These risks include, but are not limited to risk of damage to blood vessels, nerves, tendons, infection, recurrence, incomplete relief of preoperative symptoms, persistent pain, possible need for further surgery and the risks associated with regional blocks and anesthesia. The plan is to take the patient to the operating room sometime in the next few weeks for the following procedures: 1. Left carpal tunnel release, under local All of the preoperative paperwork including the consent was reviewed today. All the patient's questions were answered. The patient understands that they will be contacted by our clinical informatics director soon to schedule this procedure She denies Diabetes, blood thinners, asthma, heart, lung, kidney issues 2. Right De Quervains tenosynovitis I educated her about this condition I discussed operative and non-operative treatment options The patient would like to proceed with an injection I discussed activity modification, they should limit or avoid any heavy or repetitive pinching or gripping activities She was fitted for a comfort cool brace to wear with daily activity She should work on ROM exercises, and avoid any gripping or strengthening activities I discussed the use of assistive devices for daily activity Injection #1: The risks and benefits of a steroid injection including but not limited to risk of damage to blood vessels, nerves, tendons, infection, skin bleaching, failure to improve symptoms, increased pain, and possible need for further injections or other intervention were discussed with the patient and the patient wishes to proceed with the steroid injection. Once consent was obtained, I sterilely prepped the area over the 1st dorsal compartment of the Right thumb. I then injected the 1st dorsal compartment with a combination of 1 mL of dexamethasone (4mg/ml), and 1% lidocaine. The patient tolerated the procedure well with no complications and good resolution of their symptoms prior to leaving clinic. If the patient continues to have pain 6-8 weeks following this injection, they may call to schedule appointment to discuss alternative treatment options She will follow up prn 3. Recurrent Right carpal tunnel syndrome, moderate-severe Hx of right carpal tunnel release, DOS: 06/24/[address] Leach. Patient reports some residual numbness in her fingertips following surgery Unclear if this is a new & worsening problem, or residual symptoms She will take time over the next few months to assess if her symptoms are new or worsening in her right hand before we discuss a repeat surgery Scribed for Damaris Vegas MD by Rafal Agrawal, emergency medical services coordinator, on 10/31/25 at 3:55 PM, EST. Coding Level of Care Code New Pt Level 4 (71854) Diagnoses Carpal tunnel syndrome of left wrist G56.02 De Quervain's tenosynovitis, right M65.4 Carpal tunnel syndrome of right wrist G56.01 CPT Codes Fracture Care - Fracture Billing Code: Fracture Billing Code ([id number])
[2025-10-31 15:22] VITALS: BMI 33.7
--- OUTSIDE RECORDS SUMMARY | 2025-10-31 19:08 | XMS_ITS | Encounter Summary ---
Author Organization [facility] Address [address] [place] [address] Care Team Providers Care Special Needs Tutor Name Role Phone Анна Bonilla Primary Care Provider [phone] Armida Singh RN Unavailable [phone] Estrella Boyer Unavailable Reason for Visit * Reason Onset Date Comments Nurse Triage 08/07/2025 Encounter Details Date Type Department Care Team (Late st Contact Info) Description 08/07/2025 Telephone [facility] [address] [place], [place] [phone] Анна Bonilla ANP [address] [place], [place] [phone] Nurse Triage Social History Tobacco Use Types [...] care. Pt is advised to come to [facility] if needed for provider to see [...] for or see doctor. Contact pt at [phone] (slovenian) documented in this encounter Plan of Treatment Not on file documented as of this encounter Visit Diagnoses Not on filedocumented in this encounter Care Teams Special Needs Tutor Relationship Specialty Start Date End Date Анна Bonilla ANP [address] [place] [phone] PCP - General Family Medicine 07/09/21 Armida Singh, CHRISTIE [address] [place] [phone] Registered Nurse Family Medicine 09/18/25 Estrella Boyer 09/18/25 Annel Foreman Structural Steel WorkerAdvanced Analytics Associate 10/15/23 documented as of this encounter
--- OUTSIDE RECORDS SUMMARY | 2025-10-31 19:08 | XMS_ITS | Clinical Summary ---
Author Organization [employer] Address [address] [facility] [address] [place] [address] Care Team Providers Care Deicer Finisher Name Role Phone Irene Anuja MEANS Primary Care Provider [phone] Armida Singh RN Unavailable [phone] Estrella Boyer Unavailable Allergies Active Allergy [...] ASCUS , Neg HPV- Follows with Latasha ENGINE BUILDER PAP 10/02/2020 ASCUS, + HR HPV Plan: [...] organization. Date Type Department Care Team Description 10/31/2025 Telephone [facility] [address] [place] [phone] Anuja Muniz ANP january10/31/2025 Patient Outreach [facility] [address] [place] [phone] Anuja Muniz ANP Care Management (C3CM- f/u call) 10/31/2025 Patient Outreach [address] [address] Anuja Muniz ANP Error (VOID this visit) 10/31/2025 Telephone [facility] [address] [place] [address] Anuja Muniz ANP Med Refill 10/24/2025 1:00 PM EST Office Visit [facility] [address] [place] [address] Andrew, Yadira, OD Myopia of both eyes (Primary Dx); Normal examination of eye after pupil dilation 10/24/2025 Travel 10/17/2025 Patient Outreach [address] [address] Anuja Muniz ANP Care Management (C3CM- f/u call) 10/16/2025 3:00 PM EST Office Visit [address] [address] Anuja Muniz ANP Insomnia, unspecified type (Primary [...] leiomyoma, unspecified location 10/16/2025 Travel 10/11/[address] [address] Anuja Muniz ANP chartprep 10/03/2025 Patient Outreach [address] [address] Anuja Muniz ANP Pre-visit Planning (SDOH screening was completed on 04/20/2025) 10/02/2025 Plan of Care Documentation [address] [address] 10/02/2025 Plan of Care Documentation [address] [address] 10/02/2025 Patient Outreach [address] [address] Anuja Muniz ANP Care Management (C3CM- initial assessment/ enrollment.) 09/29/2025 Patient Outreach [facility] [address] [place] [phone] Anuja Muniz ANP Care Coordination (CM/CHW appointment reminder) 09/18/2025 Patient Outreach [address] [address] Anuja Muniz ANP Care Coordination (CM/CHW outreach) 09/18/2025 Patient Outreach [address] [address] Anuja Muniz ANP Care Coordination (CHW chart review) 09/18/2025 Patient Outreach [address] [address] Anuja Muniz ANP Care Management (C3CM- chart review) 09/18/2025 Patient Outreach [address] [address] Anuja Muniz ANP 08/10/2025 2:40 PM EDT Office Visit [facility] [address] [place] [phone] Verito Salgado DO Acute UTI (Primary Dx); Mild persistent asthma with acute exacerbation 08/10/2025 Travel 08/07/[address] [address] Anuja Muniz ANP Nurse Triage 08/04/[address] [address] Anuja Muniz ANP Nurse Triage from Last 3 Months Immunizations Immunization Administration [...] 10/16/2025 3:02 PM EST Plan of Treatment Health Maintenance Due Date [...] 2025 , 08/04/2019, 08/18/2018, Additional history exists Diagnostic Breast [...] 3:01 PM EDT 08/10/2025 4:22 PM EDT Comment:CC Narrative [facility] - 08/12/2025 11:21 AM EDT Urine Culture Report Result Urine Culture < 10,000 cfu/ml Specimen Source: Urine clean catch us Verito Salgado DO LAB MICROBIOLOGY - GENERAL O RDERABLES Final Result [facility] [address] [place] [phone] * (ABNORMAL) POCT urinalysis dipstick manually resulted [...] AM EDT Narrative 06/09/2025 12:27 PM EDT [address] [place] [address] Mammography Report Signed Patient: Oriana Angel MR# : [id number] : 1985 Acct:[id number] Age/Sex: 39 / F ADM Date: 06/09/25 Loc: HO.MAMMO Attending Dr: Anuja Muniz YOKE PRESSER Ordering Physician: ANUJA MUNIZ NP Results: 3.6MProbabl y Benign Finding - Short 6 M F/U Suggested Date of Service: 06/09/25 Follow Up: 6 Month F/U Procedure(s): MM tomosynthesis diagnostic BI Accession Number(s): [id number] cc: ANUJA MUNIZ NP EXAMINATIONS: 1. MM [...] 06/09/25 1224 DD/ 1125 TD/TT: 06/09/25 1145 Career [employer] Technology Education Teacher: Procedure Note Donotuseinterpreter, Image - 06/09/2025 [facility] [address] [place], [place] [address] Mammography Report Signed Patient: Oriana Angel [facility]# : [id number] : 1985Acct:[id number] Age/Sex: 39 / FADM Date: 06/09/25 Loc: HO.MAMMO Attending Dr: Anuja Muniz NP Ordering Physician: ANUJA MUNIZ NPResults: 3.6MProbabl y Benign Finding - Short 6 M F/U Suggested Date of Service: 06/09/25Follow Up: 6 Month F/U Procedure(s): MM tomosynthesis diagnostic BI Accession Number(s): [id number] cc: ANUJA MUNIZ NP EXAMINATIONS: 1. MM [...] 06/09/25 1224 DD/ 1125 TD/TT: 06/09/25 1145 Career And Technology Education Teacher: us Anuja Muniz ANP IMG BI PROCEDURES Edited Result - Final * Hepatitis C Antibody with Reflex to HCV, RNA, Quantitative, Real-Time PCR (04/27/2024 9:12 AM EDT) Pathologist [facility] [place] Hepatitis C Antibody Nonreactive Nonreactive [facility] Comment:Antibodies to HCV no t detected; does not exclude early acuteHCV infection. Blood Venous blood specimen / Unknown 04/27/2024 9:12 AM EDT 04/27/2024 11:15 AM EDT us Anuja Muniz ANP LAB BLOOD ORDERABLES Final Resul t [facility] [address] [place] [phone] * HIV-1/2 Antigen and Antibodies, Fourth Generation, with Reflexes (04/27/2024 9:12 AM EDT) Pathologist [facility] [place] HIV AB/AG Nonreactive Nonreactive [facility] Comment:HIV-1 p24 Ag and/or HIV-1/HIV-2 Ab not detected.A test result that is nonreactive does not exclude thepossibility of exposure to or infection with HIV-1 and/orHIV-2. Nonreactive results in this assay for individualswith prior exposure to HIV-1 and/or HIV-2 may be due toantigen and antibody levels that are below the limit ofdetection of this assay.The [employer] HIV Ag/Ab Combo assay result andsupplemental assay results should be interpreted inconjunction with the patient's clinical presentation,history and other laboratory results. If the results areinconsistent with clinical evidence, additional testing issuggested to confirm the result. Blood Venous blood specimen / Unknown 04/27/2024 9:12 AM EDT 04/27/2024 11:15 AM EDT Anuja Muniz ANP LAB BLOOD ORDERABLES Final Resul t Performing Organization Address [facility] Co de Phone Number [facility] [address] [place] [phone] * (ABNORMAL) Lipid Panel, Standard (04/27/2024 9:12 AM EDT) Triglycerides 70 <150 mg/dL [facility] Comment:Desirable Triglyceri de: less than 150 mg/dLBorderline High Triglyceride 150-199 mg/dLHigh Triglyceride: 200-499 mg/dLVery High Triglyceride: greater than or equal to 5OO mg/dL Cholesterol 135 <200 mg/dL [facility] Comment:Desirable Cholestero l: less than 200 mg/dLBorderline High Cholesterol: 200-239 mg/dLHigh Cholesterol: greater than 239 mg/dL LDL Cholesterol Calculated 87 <100 mg/dL [facility] Comment:Desirable LDL: less than 100 mg/dLNear Optimal/Above Optimal LDL: 110- 129 mg/dLBorderline High LDL: 130-159 mg/dLHigh LDL: 160-189 mg/dLVery High LDL: greater than or equal to 190 mg/dL HDL Cholesterol 34(L) >40 mg/dL [facility] Comment:Desirable HDL: great er than 40 mg/dL Note: This HDL assay may give artificially low results in patients with liver disease. Blood Venous blood specimen / Unknown 04/27/2024 9:12 AM EDT 04/27/2024 11:15 AM EDT Anuja Muniz ANP LAB BLOOD ORDERABLES Final Resul t Performing Organization Address [facility] Co de Phone Number [facility] [address] [place] [phone] * HM PAP/HPV (04/16/2023) Pap Smear 1. NILM 1. NILM HPV Not Detected Undetected, Indeterminat e, Quantitative , Not Detected Cathie Dye - 04/16/2023 Abn pap hx. See pap results in care everywhere us Historical Provider HEALTH MAINTENANCE Final Result from Last 3 Months or Most Recently Relevant to Health Maintenance Insurance [employer] C3 Care Teams Deicer Finisher Relationship Specialty Start Date End Date Anuja Muniz ANP [address] [place] [phone] PCP - General Family Medicine 07/09/21 Armida Singh RN [address] [place] [phone] Registered Nurse Family Medicine 09/18/25 Estrella Boyer 09/18/25 Annel Foreman Terminal Makeup OperatorSheetmetal Patternmaker 10/15/23
--- OUTSIDE RECORDS SUMMARY | 2025-10-31 19:08 | XMS_ITS | Encounter Summary ---
Author Organization [employer] Address [address] [facility] [address] [place] [address] Care Team Providers Care Document Improvement Specialist Name Role Phone Bonilla Анна MEANS Primary Care Provider [phone] Armida Singh RN Unavailable [phone] Estrella Boyer Unavailable Armida Signh RN Unavailable [phone] Estrella Boyer Unavailable Encounter Details Date Type Department Care Team (Late st Contact Info) Description 03/29/2025 Orders Only [facility] [address] [place] [address] Julianne Tarango, VEGETABLE INSPECTOR [address] [place] [address] Social History Tobacco Use Types Packs/Day Years [...] as of this encounter Plan of Treatment Not on file documented as of this encounter Visit Diagnoses Not on filedocumented in this encounter Care Teams Document Improvement Specialist Relationship Specialty Start Date End Date Анна Bonilla ANP [address] [place] [phone] PCP - General Family Medicine 07/09/21 Armida Singh RN [address] [place] [address] Registered Nurse Family Medicine 04/07/25 04/07/25 Estrella Boyer 04/07/25 04/07/25 Armida Singh RN [address] [place] [address] Registered Nurse Family Medicine 09/18/25 Estrella Boyer 09/18/25 Annel Foreman Metal Products ViewerSugar Cane Planter Machine Operator 10/15/23 documented as of this encounter
--- OUTSIDE RECORDS SUMMARY | 2025-10-31 19:08 | XMS_ITS | Clinical Summary ---
Author Organization [facility] [address] [place] [address] [place] [phone] Phone Care Team Providers Care Dough Cutting Machine Operator Name Role Phone Анна Bonilla NP Primary Care Provider [phone] Allergies Active Allergy Reactions Criticality Noted Date [...] (intrauterine device) in place 02/26/2018 Mood disorder 02/26/2018 Pap smear abnormality of cer vix/human papillomavirus (HPV) positive 03/04/2017 Overview (08/23/2025): History: PAP 12/03/2016: Cytology unsatisfactory; High Risk HPV DNA positive, not types 16/18/45 PAP 03/04/2017: Cytology negative; High Risk HPV DNA positive. 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 with Latasha EXECUTIVE MEETING MANAGER PAP 10/02/2020 ASCUS, + HR HPV Plan: Colpo- Neg, repeat PAP one year Anemia 11/28/2016 Vitamin D deficiency 11/28/2016 Allergic rhinitis due to pollen 10/08/2016 Encounters Date Type Department Care Team Description 09/16/2025 1:59 AM EDT - 09/16/2025 6:53 AM EDT Emergency [facility] Emergency [address] [place] [address] Maci Owens MD Chest pain with low risk for cardiac etiology (Primary Dx) Discharge Disposition: Home or Self Care 09/13/2025 Results Follow-Up Obstetrics and Gynecology - [address] [phone] Estrella Morrell CNM 09/11/2025 1:30 PM EDT - 09/11/2025 11:59 PM EDT Hospital Encounter [facility]trasound - [facility] [address] [place] [phone] Pelvic pain; Surveillance of contraceptive intrauterine device (IUD) performed Discharge Disposition: Home or Self Care 08/28/2025 Results Follow-Up Obstetrics and Gynecology [address] [address] Estrella Morrell CNM 08/23/2025 11:15 AM EDT Office Visit Obstetrics & Gynecology - [address] [phone] Estrella Morrell CNM Pelvic pain (Primary Dx); [...] History Surgery Date Site/Laterality Comments ANKLE SURGERY 2014 Left PROCEDURE: HISTORICAL ANKLE SURGERY BELT ABDOMINOPLASTY 2014 PROCEDURE: HISTORICAL TUMMY TUCK CHOLECYSTECTOMY 01/2020 PROCEDURE: [place] CHOLECYSTECTOMY Medical History Medical History Date Comments [...] Value Date Recorded Sex Assigned at Female 10/19/2025 1:25 PM EST Legal Sex Female 9:52 AM EST Gender [...] 09/16/2025 1:51 AM EDT Plan of Treatment Upcoming Encounters Date Type Department Care Team (Late st Contact Info) Description 11/07/2025 8:00 AM EST Appointment [facility] Ultrasound [address] [place] [phone] Health Maintenance Due Date Last Done Comments Breast Cancer Screening 1984 Hepatitis B Vaccines (1 of 3 - 19+ 3-dose series) 2003 Pneumococcal Vaccine: Pediatrics (0 to 5 Years) and At-Risk Patients (6 to 49 Years) (1 of 2 - PCV) 2003 HPV Vaccines (1 - 3-dose SCDM series) 2011 Social Influencers of Health Screening 10/25/2022 Depression Screening 11/16/2024 COVID-19 Vaccine (2 - season) 2025 11/23/2021 [...] of2 resultswithin the time period is included. [facility] High Sensitivity Troponin I <3 <=54 ng/L LAB CHEMISTRY METHOD 09/16/2025 5:46 AM EDT [facility] Blood Venous blood specimen / Unknown Venipuncture / Unknown 09/16/2025 3:57 AM EDT 09/16/2025 5:17 AM EDT Narrative [facility] - 09/16/2025 5:46 AM EDT High levels of biotin in samples may falsely decrease hsTroponin values. Use caution when interpreting hsTroponin results in patients taking biotin who exhibit renal impairment (eGFR <60) or in patients taking more than 20 mg/day of biotin. Zuly WHITE LAB BLOOD ORDERABLES Fin al Result [facility] [address] [place] [address], * ECG 12 lead (09/16/2025 3:38 AM EDT) Only the most recent of2 resultswithin the time period is included. [facility] Ventricular Rate ECG 71 BPM GEMUSE Atrial Rate 71 BPM GEMUSE P-R Interval 144 ms GEMUSE QRS Duration 88 ms GEMUSE Q-T Interval 414 ms GEMUSE QTc 449 ms GEMUSE P Wave [place] 45 degrees GEMUSE R [place] 53 degrees GEMUSE T [place] 28 degrees GEMUSE ECG Interpretation Normal sinus rhythm Normal ECG When compared with ECG of 16-SEP-2025 01:56, (unconfirmed) No significant change was found Confirmed by Nick MEDRANO JOHN ([id number]) on 09/17/2025 4:28:51 PM GEMUSE 09/16/2025 3:38 AM EDT 09/17/2025 4:28 PM EST us [...] Signed Date: 09/16/2025 07:14 ET Workstation ID: [id number] Transcribed By: Self Edit Transcribed Date: 09/16/2025 [...] Signed Date: 09/16/2025 07:14 ET Workstation ID: [id number] Transcribed By: Self Edit Transcribed Date: 09/16/2025 07:13 ET Zuly WHITE IMG XR PROCEDURES Final Result * (ABNORMAL) CBC auto differential (09/16/2025 2:24 AM EDT) WBC 9.5 4.8 - 10.8 K/mcL LAB HEMETOLOGY METHOD 09/16/2025 3:56 AM EDT [facility] RBC 4.90(H) 3.80 - 4.80 M/mcL LAB HEMETOLOGY METHOD 09/16/2025 3:56 AM EDT [facility] Hemoglobin 12.1 11.5 - 16.0 g/dL LAB HEMETOLOGY METHOD 09/16/2025 3:56 AM EDT [facility] Hematocrit 38.1 35.0 - 47.0 % LAB HEMETOLOGY METHOD 09/16/2025 3:56 AM EDT [facility] MCV 78.1(L) 79.0 - 98.0 FL LAB HEMETOLOGY METHOD 09/16/2025 3:56 AM EDT [facility] MCH 24.8(L) 27.0 - 32.0 pcg LAB HEMETOLOGY METHOD 09/16/2025 3:56 AM EDT [facility] MCHC 31.8(L) 32.0 - 37.0 g/dL LAB HEMETOLOGY METHOD 09/16/2025 3:56 AM EDT [facility] RDW 15.5(H) 11.0 - 15.0 % LAB HEMETOLOGY METHOD 09/16/2025 3:56 AM T [facility] Platelets 367 130 - 400 K/mcL LAB HEMETOLOGY METHOD 09/16/2025 3:[address] [facility] MPV 10.3 7.0 - 11.0 FL LAB HEMETOLOGY METHOD 09/16/2025 3:[address] [facility] NRBC 0.0 <1.0 % LAB HEMETOLOGY METHOD 09/16/2025 3:[address] [facility] NRBC Absolute 0.00 <0.10 K/mcL LAB HEMETOLOGY METHOD 09/16/2025 3:[address] [facility] Neutrophils Relative 65.3 % LAB HEMETOLOGY METHOD 09/16/2025 3:[address] [facility] Lymphocytes Relative 25.3 % LAB HEMETOLOGY METHOD 09/16/2025 3:[address] [facility] Monocytes Relative 6.1 % LAB HEMETOLOGY METHOD 09/16/2025 3:[address] [facility] Eosinophils Relative 2.7 % LAB HEMETOLOGY METHOD 09/16/2025 3:[address] [facility] Basophils Relative 0.3 % LAB HEMETOLOGY METHOD 09/16/2025 3:[address] [facility] Immature Granulocytes Relative 0.3 % LAB HEMETOLOGY METHOD 09/16/2025 3:[address] [facility] Neutrophils Absolute 6.22 1.50 - 7.00 K/mcL LAB HEMETOLOGY METHOD 09/16/2025 3:[address] [facility] Lymphocytes Absolute 2.41 1.00 - 5.00 K/mcL LAB HEMETOLOGY METHOD 09/16/2025 3:[address] [facility] Monocytes Absolute 0.58 0.20 - 1.00 K/mcL LAB HEMETOLOGY METHOD 09/16/2025 3:56 AM EDT [facility] Eosinophils Absolute 0.26 0.00 - 0.50 K/[facility] LAB HEMETOLOGY METHOD 09/16/2025 3:56 AM EDT [facility] Basophils Absolute 0.03 0.00 - 0.20 K/[facility] LAB HEMETOLOGY METHOD 09/16/2025 3:56 AM EDT [facility] Immature Granulocytes Absolute 0.03 0.00 - 0.03 /[facility] LAB HEMETOLOGY METHOD 09/16/2025 3:56 AM EDT [facility] Blood Venous blood specimen / Unknown Venipuncture / Unknown 09/16/2025 2:24 AM EDT 09/16/2025 3:41 AM EDT Zuly WHITE LAB BLOOD ORDERABLES Fin al Result Performing Organization Address City/[facility]/ZIP Co de Phone Number [facility] [address] [place] [address], [place] [phone] * B-type natriuretic peptide (09/16/2025 2:24 AM EDT) [facility] BNP 9 <=100 pcg/mL LAB CHEMISTRY METHOD 09/16/2025 4:18 AM EDT [facility] Blood Venous blood specimen / Unknown Venipuncture / Unknown 09/16/2025 2:24 AM EDT 09/16/2025 3:41 AM EDT Zuly WH[facility] LAB BLOOD ORDERABLES Fin al Result [facility] [address] [place] [address], [place] [phone] * Magnesium (09/16/2025 2:24 AM EDT) Pathologist [facility] Magnesium 2.2 1.9 - 2.6 mg/dL LAB CHEMISTRY METHOD 09/16/2025 4:12 AM EDT [facility] Blood Venous blood specimen / Unknown Venipuncture / Unknown 09/16/2025 2:24 AM EDT 09/16/2025 3:41 AM EDT Zuly WHITE LAB BLOOD ORDERABLES Fin al Result Performing Organization Address [facility]/ZIP Co de Phone Number [facility] [address] [place] [address], [place] [phone] * Lipase (09/16/2025 2:24 AM EDT) Lipase 44 13 - 75 unit/L LAB CHEMISTRY METHOD 09/16/2025 4:12 AM EDT [facility] Blood Venous blood specimen / Unknown Venipuncture / Unknown 09/16/2025 2:24 AM EDT 09/16/2025 3:41 AM EDT Zuly WHITE LAB BLOOD ORDERABLES Fin al Result Performing Organization Address [facility] de Phone Number [facility] [address] [place] [address], [place] [phone] * Comprehensive metabolic panel (09/16/2025 2:24 AM EDT) Sodium 138 133 - 145 mmol/L LAB CHEMISTRY METHOD 09/16/2025 4:12 AM EDT [facility] Potassium 3.7 3.5 - 5.5 mmol/L LAB CHEMISTRY METHOD 09/16/2025 4:12 AM EDT [facility] Chloride 105 96 - 110 mmol/L LAB CHEMISTRY METHOD 09/16/2025 4:12 AM EDT [facility] CO2 29 21 - 32 mmol/L LAB CHEMISTRY METHOD 09/16/2025 4:12 AM EDT [facility] Anion Gap 4 3 - 11 LAB CHEMISTRY METHOD 09/16/2025 4:[address] [facility] Glucose 87 70 - 100 mg/dL LAB CHEMISTRY METHOD 09/16/2025 4:[address] [facility] BUN 9 5 - 25 mg/dL LAB CHEMISTRY METHOD 09/16/2025 4:[address] [facility] Creatinine 0.74 0.50 - 1.10 mg/dL LAB CHEMISTRY METHOD 09/16/2025 4:[address] [facility] eGFR 104 >=60 mL/min/1. 73m2 LAB CHEMISTRY METHOD 09/16/2025 4:[address] [facility] Comment:Calculation based on the Chronic Kidney Disease Epidemiology Collaboration (CKD-EPI) equation refit without adjustment for race. BUN/Creatinine Ratio 12.2 LAB CHEMISTRY METHOD 09/16/2025 4:[address] [facility] Calcium 9.0 8.5 - 10.5 mg/dL LAB CHEMISTRY METHOD 09/16/2025 4:[address] [facility] AST (SGOT) 12 10 - 42 unit/L LAB CHEMISTRY METHOD 09/16/2025 4:[address] [facility] ALT (SGPT) 19 10 - 60 unit/L LAB CHEMISTRY METHOD 09/16/2025 4:[address] [facility] Alkaline Phosphatase 83 42 - 121 unit/L LAB CHEMISTRY METHOD 09/16/2025 4:[address] [facility] Total Protein 7.2 6.0 - 8.0 g/dL LAB CHEMISTRY METHOD 09/16/2025 4:[address] [facility] Albumin 3.7 3.2 - 5.0 g/dL LAB CHEMISTRY METHOD 09/16/2025 4:[address] [facility] Total Bilirubin 0.3 0.0 - 1.4 mg/dL LAB CHEMISTRY METHOD 09/16/2025 4:[address] [facility] Blood Venous blood specimen / Unknown Venipuncture / Unknown 09/16/2025 2:24 AM EDT 09/16/2025 3:41 AM EDT us Zuly WHITE LAB BLOOD ORDERABLES Fin al Result [facility] [address] [place] [address], [place] [phone] * US Pelvis Transvaginal Non OB (09/11/2025 [...] Signed Date: 09/11/2025 17:18 ET Workstation ID: [id number] Transcribed By: Self Edit Transcribed Date: 09/11/2025 [...] Signed Date: 09/11/2025 17:18 ET Workstation ID: [id number] Transcribed By: Self Edit Transcribed Date: 09/11/2025 17:16 ET Estrella Morrell CNM IMG US PROCEDURES Final Result * Trichomonas vaginalis antigen (08/23/2025 12:06 PM EDT) Trichomonas vaginalis Negative Negative 08/23/2025 5:23 PM EDT [facility] Swab Vaginal structure / Unknown Non-blood Collection / Unknown 08/23/2025 12:06 PM EDT 08/23/2025 4:07 PM EDT Estrella Morrell CNM LAB MICROBIOLOGY - GENERAL ORD ERABLES Final Result [facility] [address] [place] [address], [place] [phone] * Chlamydia trachomatis and Neisseria gonorrhoeae molecular study (08/23/2025 12:06 PM EDT) Neisseria gonorrhoeae PCR Negative Negative LAB MOLECULAR DIAGNOSTICS METHOD 08/24/2025 12:49 PM EDT [facility] Chlamydia trachomatis PCR Negative Negative LAB MOLECULAR DIAGNOSTICS METHOD 08/24/2025 12:49 PM EDT [facility] Swab Cervix uteri structure / Unknown Non-blood Collection / Unknown 08/23/2025 12:06 PM EDT 08/23/2025 4:07 PM EDT us Estrella TONEY LAB MICROBIOLOGY - GENERAL ORD ERABLES Final Result [facility] [address] [place] [address], [place] [phone] * Wet prep, genital (08/23/2025 12:06 PM EDT) Clue Cells, Wet Prep Negative Negative 08/23/2025 5:11 PM EDT [facility] Yeast, Wet Prep Negative Negative 08/23/2025 5:11 PM EDT [facility] Trichomonas, Wet Prep Indeterminate Negative 08/23/2025 5:11 PM EDT [facility] Comment:Refer to Trichomonas antigen. Swab Vaginal structure / Unknown Non-blood Collection / Unknown 08/23/2025 12:06 PM EDT 08/23/2025 4:07 PM EDT us Estrella TONEY LAB MICROBIOLOGY - GENERAL ORD ERABLES Final Result [facility] [address] [place] [address], [place] [phone] * Culture urine (08/23/2025 12:06 PM EDT) Culture, Urine No growth 08/24/2025 7:48 AM EDT [facility] Urine Urine specimen obtained by clean catch procedure / Unknown Non-blood Collection / Unknown 08/23/2025 12:06 PM EDT 08/23/2025 4:07 PM EDT Estrella TONEY LAB MICROBIOLOGY - GENERAL ORD ERABLES Final Result [facility] [address] [place] [address], [place] [phone] * POC , urine manually resulted (08/23/2025 11:58 AM EDT) HCG, Ur POC Negative Negative POC hCG Int QC Pass? Yes Yes Urine Urine specimen obtained by clean catch procedure / Unknown 08/23/2025 11:58 AM EDT Estrella TONEY POINT OF CARE TEST ENTER/EDIT ORDERABLES Final Result * (ABNORMAL) Lipid panel with reflex to direct LDL (05/16/2025 6:15 AM EDT) [facility] Cholesterol 117 0 - 200 mg/dL LAB CHEMISTRY METHOD 05/16/2025 7:[address] [facility] Triglycerides 99 0 - 150 mg/dL LAB CHEMISTRY METHOD 05/16/2025 7:[address] [facility] HDL 29(L) >=40 mg/dL LAB CHEMISTRY METHOD 05/16/2025 7:[address] [facility] LDL Calculated 68 0 - 100 mg/dL LAB CHEMISTRY METHOD 05/16/2025 7:[address] [facility] VLDL Cholesterol [facility] 19.8 mg/dL LAB CHEMISTRY METHOD [facility] Non HDL Chol. (LDL+VLDL) 88 <145 mg/dL LAB CHEMISTRY METHOD 05/16/2025 7:[address] [facility] Chol/HDL Ratio 4.0 0.0 - 4.4 LAB CHEMISTRY METHOD 05/16/2025 7:[address] [facility] Blood Venous blood specimen / Unknown Venipuncture / Unknown 05/16/2025 6:15 AM EDT 05/16/2025 6:43 AM EDT us Alison WHITE LAB BLOOD ORDERABLES Fi nal Result Performing Organization Address [facility] Co de Phone Number [facility] [address] [place] [address], * Pap smear (04/16/2023) 04/16/2023 Narrative HISTORICAL TESTING LAB RESULTING AGENCY - 04/23/2023 6:26 AM EDT [id number] THINPREP PAP, IMAGED: NEGATIVE FOR SQUAMOUS INTRAEPITHELIAL [...] currently active code status orders. Care Teams Dough Cutting Machine Operator Relationship Specialty Start Date End Date Анна Bonilla NP [address] [place] [phone] PCP - General 09/16/25
--- OUTSIDE RECORDS SUMMARY | 2025-10-31 19:08 | XMS_ITS | Encounter Summary ---
Author Organization [employer] Address [address] [facility] 7t [place] [address] Care Team Providers Care Extrusion Operator Name Role Phone Анна Bonilla Primary Care Provider [phone] Armida Singh RN Unavailable [phone] Estrella Boyer Unavailable Reason for Visit * Reason Comments Care Management C3CM- f/u call Encounter Details Date Type Department Care Team ([facility] st Contact Info) Description 10/31/2025 Patient Outreach [facility] [address] [place], [place] [phone] Анна Bonilla ANP [address] [place] [address] Care Management (C3CM- f/u call) Social History [...] Progress Notes * Armida Singh RN - 10/31/2025 10:10 AM EST KIEL Singh RN placed outbound call to patient. Patient's name, and address confirmed. Patient states is doing well with no recent illnesses or emergency room visits. Patient confirms attending the visit for the EMG on 10/18. She states she is scheduled to see Ortho today at 3:00pm to go over the test results. KIEL noted the visit with GI on 10/27 was cancelled and rescheduled to 01/03/26 at 4:15pm. KIEL also noted that the team attempted to outreach patient for a BE but was not able to connect with patient. Patient states she is scheduled to establish care with therapy/psych in November but cannot recall the agency name at this time. Per patient, has not contacted Heme/Urology/ CHEMICAL LABORATORY TESTER to schedule f/u appointments. She states she will f/u with Heme/ Urology in person today as she will already be at the [facility] this afternoon to see Ortho. She also states she will contact CHEMICAL LABORATORY TESTER to schedule a f/u. KIEL reminded patient of her scheduled US at [facility] [place] [address]- on 11/07/25 at 8:00am. Advised that she cannot have anything to eat or drink at least 8 hours prior. Patient states she is aware and confirms that she will be attending the visit as scheduled. No further questions or concerns. CM reinforced direct contact information for any additional questions or concerns. Education provided on Walk-In Urgent Care located in [facility] of [facility]. Patient provided with after-hours line for [facility], , which offer night time triage service and option to transfer to research instrumentation technician provider if needed. Patient verbalizes understanding, and able to r epeat back to process description writer. A follow up call will be placed within 10 days, patient agrees with plan. documented in this encounter Miscellaneous Notes * Care Plan - Armida Singh RN - 10/31/2025 10:10 AM EST Active Behavioral Health Support Behavioral Health (Progressing) Start: [...] Note Patient states she is doing well today and denies any symptoms or concerns. She states she is scheduled to see a therapist/psychiatrist in November. Self Management Patient takes an active role [...] delays in care. Goal Note Patient attended the EMG as scheduled. She is aware of her upcoming scheduled appointments and denies any barriers to attending those visits. She agrees to f/u with PCP team as needed. documented in this encounter Plan of Treatment Not on file documented as of this encounter Visit Diagnoses Not on filedocumented in this encounter Additional Health Concerns Assessment Noted Time PHQ-9 Depression Total Score: 10 025 3:36 PM EST documented as of this encounter Care Teams Extrusion Operator Relationship Specialty Start Date End Date Анна Bonilla ANP [address] [place] [address] PCP - General Family Medicine 07/09/21 Armida Singh, CHRISTIE [address] [place] [id number] Registered Nurse Family Medicine 09/18/25 Estrella Boyer 09/18/25 Annel Foreman Nurse CoordinatorFinancial Auditor 10/15/23 documented as of this encounter
--- OUTSIDE RECORDS SUMMARY | 2025-10-31 19:08 | XMS_ITS | Encounter Summary ---
Author Organization [employer] Address [address] [facility] [address] 7t [place] [address] Care Team Providers Care Motor Operator Name Role Phone Анна Bonilla Primary Care Provider [phone] Armida Singh RN Unavailable [phone] Estrella Boyer Unavailable Reason for Visit * Reason Onset Date Comments Med Refill 10/31/2025 Encounter Details Date Type Department Care Team (Late st Contact Info) Description 10/31/2025 Telephone [facility] [address] [place], [place] [phone] Анна Bonilla ANP [address] [place] [address] Med Refill Social History Tobacco Use Types Packs/Day Years [...] encounter Miscellaneous Notes * Telephone Encounter - Verito Sandoval LPN - 10/31/2025 9:26 AM EST Received fax from [employer] that ASMANEX 100 MG in on backorder please send alternative. documented in this encounter Plan of Treatment Not on file documented as of this encounter Visit Diagnoses Not on filedocumented in this encounter Additional Health Concerns Assessment Noted Time PHQ-9 Depression Total Score: 10 025 3:36 PM EST documented as of this encounter Care Teams Motor Operator Relationship Specialty Start Date End Date Анна Bonilla ANP [address] [place] [address] PCP - General Family Medicine 07/09/21 Armida Singh RN [address] [place] [address] Registered Nurse Family Medicine 09/18/25 Esrtella Boyer 09/18/25 Annel Foreman Pipe Organ TechnicianEmployment Representative 10/15/23 documented as of this encounter
--- OUTSIDE RECORDS SUMMARY | 2025-10-31 19:08 | XMS_ITS | Encounter Summary ---
Author Organization [employer] Address [address] [facility] 7t [place] [address] Care Team Providers Care Parachute Crown Sewer Name Role Phone Анна Bonilla Primary Care Provider [phone] Armida Singh RN Unavailable [phone] Estrella Boyer Unavailable Reason for Visit * Reason Comments Error (VOID this visit) Encounter Details Date Type Department Care Team (Late st Contact Info) Description 10/31/2025 Patient Outreach [facility] [address] [place], [place] [phone] Анна Bonilla ANP [address] [place] [address] Error (VOID this visit) Social History Tobacco Use Types Packs/Day Years [...] documented as of this encounter Care Teams Parachute Crown Sewer Relationship Specialty Start Date End Date Анна Bonilla ANP [address] [place] [address] PCP - General Family Medicine 07/09/21 Armida Singh RN [address] [place] [address] Registered Nurse Family Medicine 09/18/25 Estrella Boyer 09/18/25 Annel Foreman Food General ManagerSpring Winder 10/15/23 documented as of this encounter
--- OUTSIDE RECORDS SUMMARY | 2025-10-31 19:08 | XMS_ITS ---
Author Organization [employer] [facility] Address [address] [facility] 7t [place] [address] Care Team Providers Care Target Setter Name Role Phone Анна Bonilla Primary Care Provider [phone] Armida Singh RN Unavailable [phone] Estrella Boyer Unavailable CM Complex Status:Enrolled (Active) Start date:09/18/2025 Enrollment date:10/02/2025 Enrollment reason:ADT Feed Overview ED- Pt went to [facility] ED on 09/16/25. Case Team Name Relationship Phone Armida Singh RN(Responsible Staff) Registered Nurse [phone] Continued Care and Services Coordination
--- OUTSIDE RECORDS SUMMARY | 2025-10-31 19:08 | XMS_ITS ---
Author Organization [employer] Address [address] [facility] 7[address] [place] [address] Care Team Providers Care Baler Name Role Phone Анна Bonilla Primary Care Provider [phone] Armida Singh RN Unavailable [phone] Estrella Boyer Unavailable CHW Complex Status:Outreach In Progress (Enrolling) Start date:09/18/2025 Enrollment reason:ADT Feed Overview ED- Pt went to [facility] ED on 09/16/25. Please outreach for enrollment. Case Team Name Relationship Phone Estrella Boyer(Responsible Staff) [phone] Continued Care and Services Coordination
--- OUTSIDE RECORDS SUMMARY | 2025-10-31 19:08 | XMS_ITS | Encounter Summary ---
Author Organization [employer] Address 75 [facility] 7t [place] [address] Care Team Providers Care Student Finance Specialist Name Role Phone Анна Bonilla Primary Care Provider [phone] Armida Singh RN Unavailable [phone] Estrella Boyer Unavailable Reason for Visit * Reason Onset Date Comments january recall 10/31/2025 Encounter Details Date Type Department Care Team (Late st Contact Info) Description 10/31/2025 Telephone [facility] MEDICINE [address] [place], [place] [phone] Анна Bonilla ANP 230 [place], [place] [phone] january recall Social History Tobacco Use Types Packs/Day Years [...] encounter Miscellaneous Notes * Telephone Encounter - Hodan Aguila MA - 10/31/2025 3:09 PM EST Telephone call to patient to schedule a recall appointment. No answer, Left voicemail to return call to clinic.. Recall letter sent. Visit type: Follow up Appointment notes: sleep f/u Month due: January With: Irene Please schedule appointment above if patient returns call documented in this encounter Plan of Treatment Not on file documented as of this encounter Visit Diagnoses Not on filedocumented in this encounter Additional Health Concerns Assessment Noted Time PHQ-9 Depression Total Score: 10 025 3:36 PM EST documented as of this encounter Care Teams Student Finance Specialist Relationship Specialty Start Date End Date Анна Bonilla ANP 230 [place] [address] PCP - General Family Medicine 07/09/21 Armida Singh RN 505 [place] [address] Registered Nurse Family Medicine 09/18/25 Estrella Boyer 09/18/25 Annel Foreman Rn House SupervisorSenior Director Insight 10/15/23 documented as of this encounter
--- OUTSIDE RECORDS SUMMARY | 2025-10-31 19:08 | XMS_ITS | Encounter Summary ---
Author Organization [employer] Address 75 [facility] 7t [place] [address] Care Team Providers Care Procurement Representative Name Role Phone Анна Bonilla Primary Care Provider [phone] Armida Singh RN Unavailable [phone] Estrella Boyer Unavailable Armida Singh RN Unavailable [phone] Estrella Boyer Unavailable Reason for Visit * Reason Onset Date Comments Nurse Triage 06/21/2024 Encounter Details Date Type Department Care Team (Late st Contact Info) Description 06/21/2024 Telephone [facility] MEDICINE 230 [place], [place] [phone] Анна Bonilla ANP 230 [place], [place] [phone] Nurse Triage Social History Tobacco Use Types [...] 06/21/2024 2:35 PM EDT Called pt. Via [employer] diplomatic interpreter [id number] Mary. Pt. States that she has had [...] allergy times as a preventative medication to millgian off allergy sx. Pt. States understanding and [...] Pollen * Telephone Encounter - Ana Maria Calixo - 06/21/2024 2:30 PM EDT Symptom: Eye Allergy Outcome: Schedule an urgent appointment (within 4 hours) or talk to a nurse or provider soon Reason: Eyelid is red and swollen and eyes are painful The caller accepted this outcome Albanian speaker documented in this encounter Plan of Treatment Not on file documented as of this encounter Visit Diagnoses Diagnosis Urticaria Unspecified urticaria documented in this encounter Care Teams Procurement Representative Relationship Specialty Start Date End Date Анна Bonilla ANP [address] [place] [address] PCP - General Family Medicine 07/09/21 Armida Singh RN [address] [place] [address] Registered Nurse Family Medicine 04/07/25 04/07/25 Estrella Boyer 04/07/25 04/07/25 Armida Singh RN [address] [place] [address] Registered Nurse Family Medicine 09/18/25 Estrella Boyer 09/18/25 Annel Foreman Senior Principal Software EngineerPumper Helper 10/15/23 documented as of this encounter
--- OUTSIDE RECORDS SUMMARY | 2025-10-31 19:08 | XMS_ITS | Encounter Summary ---
Author Organization [employer] Address 75 [facility] 7t [place] [address] Care Team Providers Care Director Of Strategic Initiatives Name Role Phone Анна Bonilla Primary Care Provider [phone] Armida Singh RN Unavailable [phone] Estrella Boyer Unavailable Armida Singh RN Unavailable [phone] Estrella Boyer Unavailable Reason for Visit * Reason Onset Date Comments Nurse Triage 08/03/2024 Encounter Details Date Type Department Care Team (Late st Contact Info) Description 08/03/2024 Telephone [facility] MEDICINE [address] [place], [place] [phone] Анна Bonilla ANP 230 [place], [place] [phone] Nurse Triage Social History Tobacco Use Types [...] 08/03/2024 11:05 AM EDT Triage call with [place] Assistant Site Manager [place] [id number]. Pt reports positive home covid test taken [...] Covid-19 (at home test) Contact pt at [phone] (guatemalan) documented in this encounter Plan of Treatment Not on file documented as of this encounter Visit Diagnoses Not on filedocumented in this encounter Care Teams Director Of Strategic Initiatives Relationship Specialty Start Date End Date Анна Bonilla ANP [address] [place] [address] PCP - General Family Medicine 07/09/21 Armida Singh RN [address] [place] [address] Registered Nurse Family Medicine 04/07/25 04/07/25 Estrella Boyer 04/07/25 04/07/25 Armida Singh RN [address] [place] [address] Registered Nurse Family Medicine 09/18/25 Estrella Boyer 09/18/25 Annel Foreman Control Systems DeveloperDirector Product Development 10/15/23 documented as of this encounter
--- OUTSIDE RECORDS SUMMARY | 2025-10-31 19:08 | XMS_ITS | Encounter Summary ---
Author Organization [employer] Address [address] [place] [address] Care Team Providers Care Passenger Flagman Name Role Phone Анна Bonilla NP Primary Care Provider [phone] Encounter Details Date Type Department Care Team (Late st Contact Info) Description 09/13/2025 Results Follow-Up Obstetrics and Gynecology - [place] [address] [place], [place] [phone] Estrella Morrell, [facility] [address] [place], [place] Social History Tobacco Use Types Packs/Day [...] 1:50 AM EDT Abigail Douglas RN * [place] Suicide Severity Rating Scale (Screener/Recent Self-Report) Question Answer Date of Assessment Author 1. Wish to be (Past 1 Month) No 025 1:50 AM DERIANT Abigail Douglas RN 2. Non-Specific Active Suici geoffrey Thoughts (Past 1 Month) No 09/16/2025 1:50 AM EDT Darinel Douglas RN 6. Suicidal Behavior (Lifetime) No 1:50 AM EDT Abigail Douglas RN documented as of this [...] Info) Description 11/07/2025 8:00 AM EST Appointment [facility] Ultrasound [address] [place] [address] documented as of this encounter Visit Diagnoses Not on filedocumented in this encounter Care Teams Passenger Flagman Relationship Specialty Start Date End Date Анна Bonilla NP [address] [place] [phone] PCP - General 09/16/25 documented as of this encounter
== END 2025-10-31 16:31 | disposition home or self-care (01) ==
LOC: HO.HOS 14:48
PROVIDERS: PCP Nurse Practitioner Primary Care; Visit Provider Orthopaedic Surgery
DX: G56.03 Carpal tunnel syndrome, bilateral upper limbs (principal); M65.4 Radial styloid tenosynovitis [de Quervain]
CPT/HCPCS: 20550; 99204

== ENCOUNTER → 2025-10-31 14:47 | Outpatient (BNVA) | payer MEDICAID, SELFPAY | PROVIDERS: PCP Nurse Practitioner Primary Care; Visit Provider Orthopaedic Surgery | DX: M65.4 Radial styloid tenosynovitis [de Quervain] (principal); G56.03 Carpal tunnel syndrome, bilateral upper limbs | CPT/HCPCS: 20550; 99202; J1100; J2003 ==

== ENCOUNTER 2025-11-13 16:12 | Outpatient (REF) | payer MEDICAID, SELFPAY ==
--- OUTSIDE RECORDS SUMMARY | 2025-11-07 07:38 | XMS_ITS | Encounter Summary ---
Author Organization [facility] Address [address] [place] [address] Care Team Providers Care Costuming Supervisor Name Role Phone Анна Bonilla NP Primary Care Provider [phone] Reason for Referral * Imaging (Routine) - Closed Specialty Diagnoses / Procedures Referred By Rashmiac t Referred To Contact Radiology Diagnoses Periumbilical pain Procedures US Abdomen Limited Анна Bonilla NP [address] [facility] [address] [place] [address] Phone: tel: [address] [phone] Phone: tel: Referral ID Status Reason Start Date Expiration Date Visits Re quested Visits Authorized [id number] Closed 10/18/2025 10/18/2026 1 1 Reason for Visit * Imaging (Routine) - Closed Specialty Diagnoses / Procedures Referred By Contac t Referred To Contact Radiology Diagnoses Periumbilical pain Procedures US Abdomen Limited Анна Bonilla NP [address] [facility] [address] [place] [address] Phone: tel: [address] [phone] Phone: tel: Referral ID Status Reason Start Date Expiration Date Visits Re quested Visits Authorized [id number] Closed 10/18/2025 10/18/2026 1 1 Encounter Details Date Type Department Care Team (Latest Contact Info) Description 11/07/2025 7:38 AM EST - 11/07/2025 11:59 PM EST Hospital Encounter [facility] Ultrasound [address] [place] [address] Periumbilical pain Discharge Disposition: Home or Self Care Social History Tobacco Use Types Packs/Day Years [...] Author No 05/15/2025 3:40 PM EDT Tahmina eBll RN * Are you blind or do [...] 3:40 PM EDT Tahmina Bell RN documented as of this encounter Mental Status * Because of a physical, mental, or emotional condition, do you have serious difficulty concentrating, remembering, or making decisions? (5 years old or older) Answer Entry Date Author No 05/15/2025 3:40 PM EDT Tahmina Bell RN documented in this encounter Medications at Time of Discharge albuterol 2.5 mg /3 mL (0.083 %) nebulizer solution Inhale 3 mL by mouth every 8 hours. 12/06/2020 cholecalciferol (VITAMIN D-3) 50 mcg (2,000 unit) capsule Take 1 capsule (2,000 Units total) by mouth 1 (one) time each day. ciprofloxacin (CIPRO) 250 mg tablet 08/10/2025 diphenhydrAMINE (BENADRYL) 25 mg tablet Take 1 tablet (25 mg total) by mouth every 6 hours as needed. 04/19/2024 famotidine (PEPCID) 20 mg tablet Take 1 tablet (20 mg total) by mouth. at bedtime. 08/09/2025 famotidine (PEPCID) 20 mg/2 mL oral solution Take by mouth. ferrous sulfate 325 mg (65 mg elemental iron) tablet Take 1 tablet (325 mg total) by mouth. 12/17/2021 fluticasone propionate (FLONASE) 50 mcg/actuation nasal spray Administer 2 sprays into each nostril. 04/19/2024 hydrOXYzine pamoate (VISTARIL) 25 mg capsule Take 1 capsule (25 mg total) by mouth 3 times daily. 01/28/2022 ibuprofen (ADVIL,MOTRIN) 600 mg tabletIndication s:Carpal tunnel syndrome on left Take 1 tablet (600 mg total) by mouth 3 (three) times a day with meals. 15 tablet 05/22/2025 levonorgestreL (MIRENA) 21 mcg/24hr (up to 8 yrs) 52 mg IUD 1 Device (1 each total) by intrauterine route 1 (one) time. 02/08/2025 loratadine (CLARITIN) 10 mg tablet Take 1 tablet (10 mg total) by mouth 1 (one) time each day. pantoprazole (PROTONIX) 40 mg EC tablet 10/18/2024 phenazopyridine (PYRIDIUM) 200 mg tablet 08/25/2024 predniSONE (DELTASONE) 20 mg tablet 08/10/2025 topiramate (TOPAMAX) 25 mg tablet Take 1 tablet (25 mg total) by mouth 2 (two) times a day if needed (headache). 04/20/2025 documented as of this encounter Discharge Disposition Disposition Code Departure Means Destination Home or Self Care documented in this encounter Plan of Treatment Upcoming Encounters Date Type Department Care Team (Late st Contact Info) Description 11/14/2025 1:30 PM EST Appointment [facility] Ultrasound [address] [place] [address] documented as of this encounter Procedures Procedure Name Priority Date/Time Associated Diagnosis Comments US ABDOMEN LIMITED Routine 11/07/2025 8: 04 AM EST Periumbilical pain documented in this encounter Results * US Abdomen Limited (11/07/2025 8:04 AM EST) Anatomical Region Laterality Modality Body Ultrasound 11/11/2025 6:21 PM EST Impressions 11/11/2025 6:22 PM EST No acute findings. -------- FINAL REPORT -------- Dictated By: Bri Ventura Dictated Date: 11/11/2025 18:21 ET Assigned Physician: Bri Ventura Reviewed and Electronically Signed By: Bri Ventura Signed Date: 11/11/2025 18:22 ET Workstation ID: [id number] Transcribed By: Self Edit Transcribed Date: 11/11/2025 18:21 ET Narrative 11/11/2025 6:22 PM EST Exam: US ABDOMEN LIMITED Date of Study: 11/07/2025 7:44 AM CLINICAL INFORMATION: pt w central abdominal pain CT unrevealing TECHNIQUE: Real-time ultrasound scanning of the region of interest performed by the security clerk. Wind Turbine Design Engineer static images and video clips are submitted for review. FINDINGS: The liver is slightly echogenic. Tiny calcification in the right hepatic lobe likely postinflammatory. Normal direction of flow within the portal vein. Visible portions of the pancreas are unremarkable. Cholecystectomy. Common bile duct measures 8 mm and tapers down to 6 mm in the setting of prior cholecystectomy. No evidence for right kidney mass or hydronephrosis. Spleen measures 11.2 cm. No ascites. Procedure Note Bri Ventura MD - 11/11/2025 Exam: US ABDOMEN LIMITED Date of Study: 11/07/2025 7:44 AM CLINICAL INFORMATION: pt w central abdominal pain CT unrevealing TECHNIQUE: Real-time ultrasound scanning of the region of interestperformed by the security clerk. Wind Turbine Design Engineer static images and video clipsare submitted for review. FINDINGS: The liver is slightly echogenic. Tiny calcification in the right hepaticlobe likely postinflammatory. Normal direction of flow within the portalvein. Visible portions of the pancreas are unremarkable. Cholecystectomy. Common bile duct measures 8 mm and tapers down to 6 mm in the setting ofprior cholecystectomy. No evidence for right kidney mass or hydronephrosis. Spleen measures 11.2 cm. No ascites. IMPRESSION: No acute findings. -------- FINAL REPORT -------- Dictated By: Bri Ventura Dictated Date: 11/11/2025 18:21 ET Assigned Physician: Bri Ventura Reviewed and Electronically Signed By: Bri Ventura Signed Date: 11/11/2025 18:22 ET Workstation ID: [id number] Transcribed By: Self Edit Transcribed Date: 11/11/2025 18:21 ET us Анна Bonilla NP IMG US PROCEDURES Final Result documented in this encounter Visit Diagnoses Diagnosis Periumbilical pain Abdominal pain, periumbilic documented in this encounter Care Teams Costuming Supervisor Relationship Specialty Start Date End Date Анна Bonilla NP [address] [place] [phone] PCP - General 09/16/25 documented as of this encounter
--- OUTSIDE RECORDS SUMMARY | 2025-11-13 09:00 | XMS_ITS | Encounter Summary ---
Author Organization [employer] Address 75 [facility] 7t [place] [address] Care Team Providers Care Patternmaker Metal Name Role Phone Анна Bonilla Primary Care Provider [phone] Armida Singh RN Unavailable [phone] Estrella Boyer Unavailable Reason for Referral * Imaging (Urgent) - Authorized Specialty Diagnoses / Procedures Referred By Contac t Referred To Contact Radiology Diagnoses Renal colic on right side Procedures US RENAL BI Niki Sigala FNP [address] [place] [address] Phone: tel: fax: [facility] [address] [place], [place] Phone: tel: fax: Referral ID Status Reason Start Date Expiration Date V isits Requested Visits Authorized [id number] Authorized 11/13/2025 11/13/2026 1 1 Reason for Visit * Reason Comments sick visit Encounter Details Date Type Department Care Team (Late st Contact Info) Description 11/13/2025 9:00 AM EST Office Visit [facility] MEDICINE [address] [place] [address] Niki Sigala FNP [address] [place] [address] Renal colic on right side Social History Tobacco Use Types Packs/Day Years [...] Sign Reading Time Taken Comments Blood Pressure 134/88 11/13/2025 9:11 AM EST Pulse 95 11/13/2025 9:11 AM EST Temperature 36.2 C (97.1 F) 11/13/2025 9:11 AM EST Respiratory Rate 20 11/13/2025 9:11 AM EST Oxygen Saturation 100% 11/13/2025 9:11 AM EST Inhaled Oxygen Concentration - - Weight 91.8 kg (202 lb 6.4 oz) 11/13/2025 9:11 AM EST Height 160 cm (5' 3 ) 11/13/2025 9:11 AM EST Body Mass Index 35.85 11/13/2025 9:11 AM EST documented in this encounter Plan of Treatment Scheduled Orders Name Type Priority Associated Diagnoses Orde r Schedule Culture, Urine, Routine Microbiology Routine Renal colic on right side Ordered: 11/13/2025 US RENAL BI Imaging Urgent Renal colic on right side Expected: 11/13/2025, Expires: 11/13/2026 documented as of this encounter Procedures Procedure Name Priority Date/Time Associated Diagnosis Comments POCT URINALYSIS DIPSTICK Routine 11/13/2025 9:34 AM EST Renal colic on right side documented in this encounter Results * (ABNORMAL) POCT Urinalysis (11/13/2025 9:34 AM EST) Color, UA Light Yellow Clarity, UA Clear Glucose, UA Negative Bilirubin, UA Negative Ketones, UA Negative Spec Grav, UA 1.020 Blood, UA Positive(A) Negative, None Detected Comment:trace pH, UA 7.0 Protein, UA Negative Urobilinogen, UA 0.2 Leukocytes, UA Negative Negative, Rare, Trace, 1+ (17), 2+ (35), 3+ (70), Trace (15) Nitrite, UA Negative Negative, None Detected Appearance, UA yellow Urine (Urine, Random) 11/13/2025 9:34 AM EST [facility] POINT OF CARE TEST ENTER/EDIT ORDERABLES Final Result documented in this encounter Visit Diagnoses Diagnosis Renal colic on right side Renal colic documented in this encounter Additional Health Concerns Assessment Noted Time PHQ-9 Depression Total Score: 10 025 3:36 PM EST documented as of this encounter Care Teams Patternmaker Metal Relationship Specialty Start Date End Date Анна Bonilla ANP [address] [place] [address] PCP - General Family Medicine 07/09/21 Armida Singh, CHRISTIE [address] [place] [address] Registered Nurse Family Medicine 09/18/25 Estrella Boyer 09/18/25 Annel Foreman Supervisor Poultry ProcessingMachine Sneller 10/15/23 documented as of this encounter
--- OUTSIDE RECORDS SUMMARY | 2025-11-13 17:56 | XMS_ITS | Encounter Summary ---
Author Organization [employer] Address 75 [facility] 7t [place] [address] Care Team Providers Care Welding Machine Operator Electroslag Name Role Phone Анна Bonilla Primary Care Provider [phone] Armida Singh RN Unavailable [phone] Estrella Boyer Unavailable Reason for Visit * Reason Onset Date Comments Nurse Triage 08/07/2025 Encounter Details Date Type Department Care Team (Late st Contact Info) Description 08/07/2025 Telephone [facility] MEDICINE [address] [place], [place] [phone] Анна Bonilla ANP [address] [place], [place] [phone] Nurse Triage Social History Tobacco Use Types [...] care. Pt is advised to come to [facility] if needed for provider to see eye. [...] for or see doctor. Contact pt at [phone] (mongolian) documented in this encounter Plan of Treatment Not on file documented as of this encounter Visit Diagnoses Not on filedocumented in this encounter Care Teams Welding Machine Operator Electroslag Relationship Specialty Start Date End Date Анна Bonilla ANP [address] [place] [address] PCP - General Family Medicine 07/09/21 Armida Singh, CHRISTIE [address] [place] [address] Registered Nurse Family Medicine 09/18/25 Estrella Boyer 09/18/25 Annel Foreman Insurance Follow Up SpecialistPipe Turner 10/15/23 documented as of this encounter
--- OUTSIDE RECORDS SUMMARY | 2025-11-13 17:56 | XMS_ITS | Encounter Summary ---
Author Organization [employer] Address 75 [facility] 7t [place] [address] Care Team Providers Care Restaurant Shift Supervisor Name Role Phone Анна Bonilla Primary Care Provider Armida Singh RN Unavailable [phone] Estrella Boyer Unavailable Armida Singh RN Unavailable [phone] Estrella Boyer Unavailable Reason for Visit * Reason Onset Date Comments Nurse Triage 06/21/2024 Encounter Details Date Type Department Care Team (Late st Contact Info) Description 06/21/2024 Telephone [facility] MEDICINE [address] [place], [place] [phone] Анна Bonilla ANP [address] [place], [place] [phone] Nurse Triage Social History Tobacco Use Types [...] 06/21/2024 2:35 PM EDT Called pt. Via [employer] recruitment assistant [phone] Mary. Pt. States that she has had [...] are painful The caller accepted this outcome Comoran speaker documented in this encounter Plan of Treatment Not on file documented as of this encounter Visit Diagnoses Diagnosis Urticaria Unspecified urticaria documented in this encounter Care Teams Restaurant Shift Supervisor Relationship Specialty Start Date End Date Анна Bonilla ANP [address] [place] [address] PCP - General Family Medicine 07/09/21 Armida Singh RN [address] [place] [address] Registered Nurse Family Medicine 04/07/25 04/07/25 Estrella Boyer 04/07/25 04/07/25 Armida Singh RN [address] [place] [address] Registered Nurse Family Medicine 09/18/25 Estrella Boyer 09/18/25 Annel Foreman Double Needle StitcherMail Processor 10/15/23 documented as of this encounter
--- OUTSIDE RECORDS SUMMARY | 2025-11-13 17:57 | XMS_ITS | Encounter Summary ---
Author Organization [employer] Address 75 [facility] 7t [place] [address] Care Team Providers Care Border Inspector Name Role Phone Анна Bonilla Primary Care Provider Armida Singh RN Unavailable [phone] Estrella Boyer Unavailable Armida Singh RN Unavailable [phone] Estrella Boyer Unavailable Reason for Visit * Reason Onset Date Comments Nurse Triage 08/03/2024 Encounter Details Date Type Department Care Team (Late st Contact Info) Description 08/03/[address] [facility] MEDICINE [address] [place], [place] [phone] Анна Bonilla ANP [address] [place], [place] [phone] Nurse Triage Social History Tobacco Use Types [...] 08/03/2024 11:05 AM EDT Triage call with Gibson Brushing Operator ID [id number]. Pt reports positive home covid test taken [...] Covid-19 (at home test) Contact pt at [phone] (citizen of [place]) documented in this encounter Plan of Treatment Not on file documented as of this encounter Visit Diagnoses Not on filedocumented in this encounter Care Teams Border Inspector Relationship Specialty Start Date End Date Анна Bonilla ANP [address] [place] [address] PCP - General Family Medicine 07/09/21 Armida Singh RN [address] [place] [address] Registered Nurse Family Medicine 04/07/25 04/07/25 Estrella Boyer 04/07/25 04/07/25 Armida Singh RN [address] [place] [address] Registered Nurse Family Medicine 09/18/25 Estrella Boyer 09/18/25 Annel Foreman Taxation EconomistJourneyman Operator Assistant 10/15/23 documented as of this encounter
--- OUTSIDE RECORDS SUMMARY | 2025-11-13 17:57 | XMS_ITS | Encounter Summary ---
Author Organization [employer] Address 75 [facility] 7t [place] [address] Care Team Providers Care Supervisor Metalizing Name Role Phone Анна Bonilla Primary Care Provider [phone] Armida Singh RN Unavailable [phone] Estrella Boyer Unavailable Encounter Details Date Type Department Care Team ([facility] st Contact Info) Description 11/08/2025 Orders Only [facility] MEDICINE [address] [place], [place] [phone] Анна Bonilla ANP [address] [place] [address] Social History Tobacco Use Types Packs/Day Years [...] documented as of this encounter Care Teams Supervisor Metalizing Relationship Specialty Start Date End Date Анна Bonilla ANP [address] [place] [address] PCP - General Family Medicine 07/09/21 Armida Singh, CHRISTIE [address] [place] [address] Registered Nurse Family Medicine 09/18/25 Estrella Boyer 09/18/25 Annel Foreman Hide PullerSales Rep 10/15/23 documented as of this encounter
--- OUTSIDE RECORDS SUMMARY | 2025-11-13 17:57 | XMS_ITS | Encounter Summary ---
Author Organization [email or web address] Address [address] [facility] 7t [place] [address] Care Team Providers Care Ed Transporter Name Role Phone Bonilla Анна MEANS Primary Care Provider [phone] Armida Singh RN Unavailable [phone] Estrella Boyer Unavailable Armida Singh RN Unavailable [phone] Estrella Boyer Unavailable Encounter Details Date Type Department Care Team (Late st Contact Info) Description 03/29/2025 Orders Only [facility] MEDICINE [address] [place] [address] Julianne Tarango, QU[employer]BOOKS BOOKKEEPER [address] [place] [address] Social History Tobacco Use Types Packs/Day Years [...] on filedocumented in this encounter Care Teams Ed Transporter Relationship Specialty Start Date End Date Анна Bonilla ANP [address] [place] [address] PCP - General Family Medicine 07/09/21 Armida Singh RN [address] [place] [address] Registered Nurse Family Medicine 04/07/25 04/07/25 Estrella Boyer 04/07/25 04/07/25 Armida Singh RN [address] [place] [address] Registered Nurse Family Medicine 09/18/25 Estrella Boyer 09/18/25 Annel Foreman Field Human Resources ManagerAnswerer 10/15/23 documented as of this encounter
--- OUTSIDE RECORDS SUMMARY | 2025-11-13 17:57 | XMS_ITS | Encounter Summary ---
Author Organization [employer] Address [address] [facility] [address] 7[address] [place] [address] Care Team Providers Care Continuous Linter Drier Operator Name Role Phone Irene Анна MEANS Primary Care Provider Armida Singh RN Unavailable [phone] Estrella Boyer Unavailable Encounter Details Date Type Department Care Team (Latest Contact Info) Description 11/13/2025 Travel Social History Tobacco Use Types Packs/Day [...] documented as of this encounter Care Teams Continuous Linter Drier Operator Relationship Specialty Start Date End Date Анна Bonilla ANP [address] [place] [address] PCP - General Family Medicine 07/09/21 Armida Singh, CHRISTIE [address] [place] [address] Registered Nurse Family Medicine 09/18/25 Estrella Boyer 09/18/25 Annel Foreman CleanerGreen Marketing Specialist 10/15/23 documented as of this encounter
--- OUTSIDE RECORDS SUMMARY | 2025-11-13 17:57 | XMS_ITS ---
Author Organization [employer] Address [address] [facility] 7t [place] [address] Care Team Providers Care Bark Skinner Name Role Phone Анна Bonilla Primary Care Provider [phone] Armida Singh RN Unavailable [phone] Estrella Boyer Unavailable CHW Complex Status:Outreach In Progress (Enrolling) Start date:09/18/2025 Enrollment reason:ADT Feed Overview ED- Pt went to [facility] ED on 09/16/25. Please outreach for enrollment. Case Team Name Relationship Phone Estrella Boyer(Responsible Staff) [phone] Continued Care and Services Coordination
--- OUTSIDE RECORDS SUMMARY | 2025-11-13 17:57 | XMS_ITS | Encounter Summary ---
Author Organization [employer] Address [address] [place] [address] Care Team Providers Care Anhydrous Ammonia Production Supervisor Name Role Phone Анна Bonilla NP Primary Care Provider [phone] Encounter Details Date Type Department Care Team (Late st Contact Info) Description 09/13/2025 Results Follow-Up Obstetrics and Gynecology - [place] [address] [place], [place] [phone] Estrella Morrell, [facility] [address] [place], [place] Social History Tobacco Use Types Packs/Day [...] Info) Description 11/14/2025 1:30 PM EST Appointment Ultrasound [address] [place] [address] documented as of this encounter Visit Diagnoses Not on filedocumented in this encounter Care Teams Anhydrous Ammonia Production Supervisor Relationship Specialty Start Date End Date Анна Bonilla NP [address] [place] [phone] PCP - General 09/16/25 documented as of this encounter
--- OUTSIDE RECORDS SUMMARY | 2025-11-13 17:57 | XMS_ITS | Clinical Summary ---
Author Organization [employer] Address [address] [facility] 7t [place] [address] Care Team Providers Care Pug Machine Operator Name Role Phone Irene Anuja MEANS Primary Care Provider [phone] Armida Singh RN Unavailable [phone] Estrella Boyer Unavailable Allergies Active Allergy [...] prn allergies 5 mL 1 023 Active albuterol 108 (90 Base) MCG/ACT [...] tab twice daily 60 tablet 2 Active naproxen (Naprosyn) 500 MG tabletIndications :Renal colic on right side Take 1 tablet by oral route twice daily as needed for moderate pain 30 tablet 1 025 Active hydrOXYzine pamoate (Vistaril) 25 MG capsule Take 1 capsule by mouth in the morning and 1 capsule at noon and 1 capsule in the evening. 022 2024 Discontinued(R eorder (will not trigger notification [...] 11/24/2022 Post-traumatic arthritis of left ankle 3 ASCUS with positive high risk HPV cervical [...] ASCUS , Neg HPV- Follows with Latasha [facility] 10/02/2020 ASCUS, + HR HPV Plan: [...] organization. Date Type Department Care Team Description 11/13/2025 9:00 AM EST Office Visit [facility] MEDICINE [address] [place] [address] [place], [place], [facility] Renal colic on right side 11/13/2025 Travel 11/08/2025 Orders Only [address] [address] Anuja Muniz ANP 10/31/[address] [address] Anuja Muniz ANP january10/31/2025 Patient Outreach [address] [address] Anuja Muniz ANP Care Management (C3CM- f/u call) 10/31/2025 Patient Outreach [address] [address] Anuja Muniz ANP Error (VOID this visit) 10/31/2025 Telephone [facility] [address] [place] [address] Anuja Muniz ANP Med Refill 10/24/2025 1:00 PM EST Office Visit [facility] OPTOMETRY [address] [place] [address] Andrew, Yadira, OD Myopia of both eyes (Primary Dx); Normal examination of eye after pupil dilation 10/24/2025 Travel 10/17/2025 Patient Outreach [address] [address] Anuja Muniz ANP Care Management (C3CM- f/u call) 10/16/2025 3:00 PM EST Office Visit [address] [address] Anuja Muniz ANP Insomnia, unspecified type (Primary [...] leiomyoma, unspecified location 10/16/2025 Travel 10/11/[address] [address] Anuja Muniz ANP chartprep 10/03/2025 Patient Outreach [address] [address] Anuja Muniz ANP Pre-visit Planning (SDOH screening was completed on 04/20/2025) 10/02/2025 Plan of Care Documentation [address] [address] 10/02/2025 Plan of Care Documentation [address] [address] 10/02/2025 Patient Outreach [address] [address] Anuja Muniz ANP Care Management (C3CM- initial assessment/ enrollment.) 09/29/2025 Patient Outreach [address] [address] Anuja Muniz ANP Care Coordination (CM/CHW appointment reminder) 09/18/2025 Patient Outreach [address] [address] Anuja Muniz ANP Care Coordination (CM/CHW outreach) 09/18/2025 Patient Outreach [address] [address] Anuja Muniz ANP Care Coordination (CHW chart review) 09/18/2025 Patient Outreach [address] [address] Anuja Muniz ANP Care Management (C3CM- chart review) 09/18/2025 Patient Outreach [address] [address] Anuja Muniz ANP from Last 3 Months Immunizations Immunization Administration [...] kg (202 lb 6.4 oz) 11/13/2025 9:11 A M EST Height 160 cm (5' 3 ) 11/13/2025 9:11 AM EST Body Mass Index 35.85 11/13/2025 9:11 AM EST Plan of Treatment Health Maintenance Due [...] Alcohol/Substance Use Screening 10/02/2026 10/02/2025 Tobacco Screening 11/13/2026 11/13/2025 DTaP/Tdap/Td Vaccines (3 - Td or Tdap) [...] AM EST Renal colic on right side BI MAMMOGRAM DIAGNOSTIC TOMOSYNTHESIS BILATERAL Routine 06/09/2025 [...] to Health Maintenance Results * (ABNORMAL) POCT Urinalysis (11/13/2025 9:34 [...] Urine (Urine, Random) 11/13/2025 9:34 AM EST [facility] POINT OF CARE TEST ENTER/EDIT ORDERABLES Final Result * BI Mammogram Diagnostic Tomosynthesis Bilateral (06/09/2025 11:25 AM EDT) Anatomical Region Laterality Modality Breast Bilateral Mammography 06/09/2025 11:2 5 AM EDT Narrative 06/09/2025 12:27 PM EDT [facility] [address] [place], [place] [address] Mammography Report Signed Patient: Oriana Angel MR# : [id number] : 1985 Acct:[id number] Age/Sex: 39 / F ADM Date: 06/09/25 Loc: HO.MAMMO Attending Dr: Anuja Muniz NP Ordering Physician: ANUJA MUNIZ NP Results: 3.6MProbabl y Benign Finding - Short 6 M F/U Suggested Date of Service: 06/09/25 Follow Up: 6 Month F/U Procedure(s): MM tomosynthesis diagnostic BI Accession Number(s): [id number] cc: ANUJA MUNIZ NP EXAMINATIONS: 1. MM [...] Mccormack MD 06/09/2025 12:24 PM EDT RP Dictated By: Huang Mccormack MD Signed By: <Electronically signed by Huang Mccormack MD in OV> 06/09/25 1224 DD/ 1125 TD/TT: 06/09/25 1145 Etl Consultant: Procedure Note Donotuseinterpreter, Image - [facility] [address] [place] [address] Mammography Report Signed Patient: Oriana Angel [facility]# : [id number] : 1985Acct:[id number] Age/Sex: 39 / FADM Date: 06/09/25 Loc: HO.MAMMO Attending Dr: Anuja Muniz NP Ordering Physician: ANUJA MUNIZ NPResults: 3.6MProbabl y Benign Finding - Short 6 M F/U Suggested Date of Service: 06/09/25Follow Up: 6 Month F/U Procedure(s): MM tomosynthesis diagnostic BI Accession Number(s): [id number] cc: ANUAJ MUNIZ NP EXAMINATIONS: 1. MM DIAGNOSTIC DIGITAL [...] 06/09/25 1224 DD/ 1125 TD/TT: 06/09/25 1145 Etl Consultant: Anuja JANG BI PROCEDURES Edited Result - Final * Hepatitis C Antibody with Reflex to HCV, RNA, Quantitative, Real-Time PCR (04/27/2024 9:12 AM EDT) Hepatitis C Antibody Nonreactive Nonreactive [facility] Comment:Antibodies to HCV no t detected; does not exclude early acuteHCV infection. Blood Venous blood specimen / Unknown 04/27/2024 9:12 AM EDT 04/27/2024 11:15 AM EDT Anuja Muniz [facility] LAB BLOOD ORDERABLES Final Resul t Performing Organization Address [facility]/ZIP Co de Phone Number [facility] [address] [place] [address] [phone] * HIV-1/2 Antigen and Antibodies, Fourth Generation, with Reflexes (04/27/2024 9:12 AM EDT) HIV AB/AG Nonreactive Nonreactive [facility] Comment:HIV-1 p24 Ag and/or HIV-1/HIV-2 Ab not detected.A test result that is nonreactive does not exclude thepossibility of exposure to or infection with HIV-1 and/orHIV-2. Nonreactive results in this assay for individualswith prior exposure to HIV-1 and/or HIV-2 may be due toantigen and antibody levels that are below the limit ofdetection of this assay.The [employer] HIV Ag/Ab Combo assay result andsupplemental assay results should be interpreted inconjunction with the patient's clinical presentation,history and other laboratory results. If the results areinconsistent with clinical evidence, additional testing issuggested to confirm the result. Blood Venous blood specimen / Unknown 04/27/2024 9:12 AM EDT 04/27/2024 11:15 AM EDT Anuja Muniz ANP LAB BLOOD ORDERABLES Final Resul t Performing Organization Address City/[facility]/ZIP Co de Phone Number [facility] [address] [place] [address] [phone] * (ABNORMAL) Lipid Panel, Standard (04/27/2024 9:12 AM EDT) Triglycerides 70 <150 mg/dL [facility] Comment:Desirable Triglyceri de: less than 150 mg/dLBorderline High Triglyceride 150-199 mg/dLHigh Triglyceride: 200-499 mg/dLVery High Triglyceride: greater than or equal to 5OO mg/dL Cholesterol 135 <200 mg/dL [facility] Comment:Desirable Cholestero l: less than 200 mg/dLBorderline High Cholesterol: 200-239 mg/dLHigh Cholesterol: greater than 239 mg/dL LDL Cholesterol Calculated 87 <100 mg/dL [facility] Comment:Desirable LDL: less than 100 mg/dLNear Optimal/Above Optimal LDL: 110- 129 mg/dLBorderline High LDL: 130-159 mg/dLHigh LDL: 160-189 mg/dLVery High LDL: greater than or equal to 190 mg/dL HDL Cholesterol 34(L) >40 mg/dL [facility] Comment:Desirable HDL: great er than 40 mg/dL Note: This HDL assay may give artificially low results in patients with liver disease. Blood Venous blood specimen / Unknown 04/27/2024 9:12 AM EDT 04/27/2024 11:15 AM EDT [facility] LAB BLOOD ORDERABLES Final Resul t [facility] [address] [place] [phone] * HM PAP/HPV (04/16/2023) Pap Smear 1. NILM 1. NILM HPV Not Detected Undetected, Indeterminat e, Quantitative , Not Detected Narrative Cathie Randolph - 04/16/2023 Abn pap hx. See pap results in care everywhere Historical Provider HEALTH MAINTENANCE Final Result from Last 3 Months or Most Recently Relevant to Health Maintenance Insurance [facility] C3 Care Teams Pug Machine Operator Relationship Specialty Start Date End Date Anuja Muniz ANP [address] [place] [address] PCP - General Family Medicine 07/09/21 Armida Singh, CHRISTIE [address] [place] [address] Registered Nurse Family Medicine 09/18/25 Estrella Boyer 09/18/25 Annel Foreman Petrography TeacherPractice Lead 10/15/23
--- OUTSIDE RECORDS SUMMARY | 2025-11-13 17:57 | XMS_ITS | Clinical Summary ---
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 PAP 10/02/2020 ASCUS, + HR HPV Plan: Colpo- Neg, repeat PAP one year Anemia 11/28/2016 Vitamin D deficiency 11/28/2016 Allergic rhinitis due to pollen 10/08/2016 Encounters Date Type Department Care Team Description 11/07/2025 7:38 AM EST - 11/07/2025 11:59 PM EST Hospital Encounter [facility] Ultrasound [address] [place] [phone] Periumbilical pain Discharge Disposition: Home or Self Care 09/16/2025 1:59 AM EDT - 09/16/2025 6:53 AM EDT Emergency [facility] Emergency [address] [place] [address] Maci Owens MD Chest pain with low risk for cardiac etiology (Primary Dx) Discharge Disposition: Home or Self Care 09/13/2025 Results Follow-Up Obstetrics and Gynecology - [address] [phone] Estrella Morrell CNM 09/11/2025 1:30 PM EDT - 09/11/2025 11:59 PM EDT Hospital Encounter [facility]trasound - [facility] [address] [place] [phone] Pelvic pain; Surveillance of contraceptive intrauterine device (IUD) performed Discharge Disposition: Home or Self Care 08/28/2025 Results Follow-Up Obstetrics and Gynecology - [address] [phone] Estrella Morrell CNM 08/23/2025 11:15 AM EDT Office Visit Obstetrics & Gynecology - [address] [phone] Estrella Morrell CNM Pelvic pain (Primary Dx); [...] PROCEDURE: HISTORICAL TUMMY TUCK CHOLECYSTECTOMY 01/2020 PROCEDURE: WI CHOLECYSTECTOMY Medical History Medical History Date Comments [...] Appointment [facility] Ultrasound [address] [place] [address] Health Maintenance Due Date Last Done Comments Breast Cancer Screening 1984 Hepatitis B Vaccines (1 of 3 - 19+ 3-dose series) 2003 Pneumococcal Vaccine: Pediatrics (0 to 5 Years) and At-Risk Patients (6 to 49 Years) (1 of 2 - PCV) 2003 HPV Vaccines (1 - 3-dose SCDM series) 2011 Social Influencers of Health Screening 10/25/2022 Depression Screening 11/16/2024 COVID-19 Vaccine (2 - 2024- season) 2025 11/23/2021 Influenza Vaccine (#1) 2025 [...] 11/07/2025 8: 04 AM EST Periumbilical pain ECG ANNOTATED 09/19/2025 ECG ANNOTATED 09/19/2025 TROPONIN [...] Recently Relevant to Health Maintenance Results * US Abdomen Limited (11/07/2025 8:04 AM EST) Anatomical Region Laterality Modality Body Ultrasound 11/11/2025 6:21 PM EST Impressions 11/11/2025 6:22 PM EST No acute findings. -------- FINAL REPORT -------- Dictated By: Bri Ventura Dictated Date: 11/11/2025 18:21 ET Assigned Physician: Bri Ventura Reviewed and Electronically Signed By: Bri Ventura Signed Date: 11/11/2025 18:22 ET Workstation ID: [id number] Transcribed By: Self Edit Transcribed Date: 11/11/2025 18:21 ET Narrative 11/11/2025 6:22 PM EST Exam: US ABDOMEN LIMITED Date of Study: 11/07/2025 7:44 AM CLINICAL INFORMATION: pt w central abdominal pain CT unrevealing TECHNIQUE: Real-time ultrasound scanning of the region of interest performed by the compounding pharmacy technician. Wait Staff static images and video clips are submitted [...] of the region of interestperformed by the compounding pharmacy technician. Wait Staff static images and video clipsare submitted for [...] Signed Date: 11/11/2025 18:22 ET Workstation ID: [id number] Transcribed By: Self Edit Transcribed Date: 11/11/2025 18:21 ET us Анна Bonilla NP IMG US PROCEDURES Final Result * ECG-Annotated (09/19/2025) Only the most recent of2 resultswithin the time period is included. us Provider Onbase MD ECG ORDERABLES Final Result * Troponin I high sensitivity (09/16/2025 3:57 AM EDT) Only the most recent of2 resultswithin the time period is included. High Sensitivity Troponin I <3 <=54 ng/L LAB CHEMISTRY METHOD 09/16/2025 5:46 AM EDT [facility] Blood Venous blood specimen / Unknown Venipuncture / Unknown 09/16/2025 3:57 AM EDT 09/16/2025 5:17 AM EDT Narrative [facility] - 09/16/2025 5:46 AM EDT High levels of biotin in samples may falsely decrease hsTroponin values. Use caution when interpreting hsTroponin results in patients taking biotin who exhibit renal impairment (eGFR <60) or in patients taking more than 20 mg/day of biotin. [facility] LAB BLOOD ORDERABLES Fin al Result Performing Organization Address [facility] Co de Phone Number [facility] [address] [place] [address], [place] [phone] * ECG 12 lead (09/16/2025 3:38 AM EDT) Only the most recent of2 resultswithin the time period is included. Ventricular Rate ECG 71 BPM GEMUSE Atrial Rate 71 BPM GEMUSE P-R Interval 144 ms GEMUSE QRS Duration 88 ms GEMUSE Q-T Interval 414 ms GEMUSE QTc 449 ms GEMUSE P Wave Porter 45 degrees GEMUSE R Porter 53 degrees GEMUSE T Porter 28 degrees GEMUSE ECG Interpretation Normal sinus rhythm Normal ECG When compared with ECG of 16-SEP-2025 01:56, (unconfirmed) No significant change was found Confirmed by Nick MEDRANO JOHN ([id number]) on 09/17/2025 4:28:51 PM GEMUSE 09/16/2025 3:38 AM EDT 09/17/2025 4:28 PM EST [facility] ECG ORDERABLES Final Re sult Performing Organization Address [facility] de Phone Number GEMUSE * XR Chest 2 Views (09/16/2025 2:30 AM EDT) Anatomical Region Laterality Modality Body Radiographic Rebecca ging 09/16/2025 7:1 3 AM EDT Impressions 09/16/2025 7:14 AM EDT No acute chest disease. -------- FINAL REPORT -------- Dictated By: Matheus Sharp Dictated Date: 09/16/2025 07:13 ET Assigned Physician: Matheus Sharp Reviewed and Electronically Signed By: Matheus Sharp Signed Date: 09/16/2025 07:14 ET Workstation ID: [id number] Transcribed By: Self Edit Transcribed Date: 09/16/2025 [...] Signed Date: 09/16/2025 07:14 ET Workstation ID: [id number] Transcribed By: Self Edit Transcribed Date: 09/16/2025 07:13 ET [facility] IMG XR PROCEDURES Final Result * (ABNORMAL) CBC auto differential (09/16/2025 2:24 AM EDT) [facility] WBC 9.5 4.8 - 10.8 K/[facility] LAB HEMETOLOGY METHOD 09/16/2025 3:56 AM EDT [facility] RBC 4.90(H) 3.80 - 4.80 M/[facility] LAB HEMETOLOGY METHOD 09/16/2025 3:56 AM EDT [facility] Hemoglobin 12.1 11.5 - 16.0 g/dL LAB HEMETOLOGY METHOD 09/16/2025 3:56 AM [facility] Hematocrit 38.1 35.0 - 47.0 % LAB HEMETOLOGY METHOD 09/16/2025 3:56 AM [facility] MCV 78.1(L) 79.0 - 98.0 FL LAB HEMETOLOGY METHOD 09/16/2025 3:56 AM [facility] MCH 24.8(L) 27.0 - 32.0 pcg LAB HEMETOLOGY METHOD 09/16/2025 3:56 AM [facility] MCHC 31.8(L) 32.0 - 37.0 g/dL LAB HEMETOLOGY METHOD 09/16/2025 3:56 AM [facility] RDW 15.5(H) 11.0 - 15.0 % LAB HEMETOLOGY METHOD 09/16/2025 3:56 AM [facility] Platelets 367 130 - 400 K/mcL LAB HEMETOLOGY METHOD 09/16/2025 3:56 AM [facility] MPV 10.3 7.0 - 11.0 FL LAB HEMETOLOGY METHOD 09/16/2025 3:56 AM [facility] NRBC 0.0 <1.0 % LAB HEMETOLOGY METHOD 09/16/2025 3:56 AM [facility] NRBC Absolute 0.00 <0.10 K/mcL LAB HEMETOLOGY METHOD 09/16/2025 3:56 AM [facility] Neutrophils Relative 65.3 % LAB HEMETOLOGY METHOD 09/16/2025 3:56 AM [facility] Lymphocytes Relative 25.3 % LAB HEMETOLOGY METHOD 09/16/2025 3:56 AM [facility] Monocytes Relative 6.1 % LAB HEMETOLOGY METHOD 09/16/2025 3:56 AM [facility] Eosinophils Relative 2.7 % LAB HEMETOLOGY METHOD 09/16/2025 3:56 AM EDT [facility] Basophils Relative 0.3 % LAB HEMETOLOGY METHOD 09/16/2025 3:56 AM EDT [facility] Immature Granulocytes Relative 0.3 % LAB HEMETOLOGY METHOD 09/16/2025 3:56 AM EDT [facility] Neutrophils Absolute 6.22 1.50 - 7.00 K/mcL LAB HEMETOLOGY METHOD 09/16/2025 3:56 AM EDT [facility] Lymphocytes Absolute 2.41 1.00 - 5.00 K/mcL LAB HEMETOLOGY METHOD 09/16/2025 3:56 AM EDT [facility] Monocytes Absolute 0.58 0.20 - 1.00 K/mcL LAB HEMETOLOGY METHOD 09/16/2025 3:56 AM EDT [facility] Eosinophils Absolute 0.26 0.00 - 0.50 K/mcL LAB HEMETOLOGY METHOD 09/16/2025 3:56 AM EDT [facility] Basophils Absolute 0.03 0.00 - 0.20 K/mcL LAB HEMETOLOGY METHOD 09/16/2025 3:56 AM EDT [facility] Immature Granulocytes Absolute 0.03 0.00 - 0.03 K/mcL LAB HEMETOLOGY METHOD 09/16/2025 3:56 AM EDT [facility] Blood Venous blood specimen / Unknown Venipuncture / Unknown 09/16/2025 2:24 AM EDT 09/16/2025 3:41 AM EDT us [facility]uly [facility] LAB BLOOD ORDERABLES Fin al Result [facility] [address] [place] [address], * B-type natriuretic peptide (09/16/2025 2:24 AM EDT) BNP 9 <=100 pcg/mL LAB CHEMISTRY METHOD 09/16/2025 4:18 AM EDT [facility] Blood Venous blood specimen / Unknown Venipuncture / Unknown 09/16/2025 2:24 AM EDT 09/16/2025 3:41 AM EDT [facility] LAB BLOOD ORDERABLES Fin al Result Performing Organization Address City/[facility]/ZIP Ms de Phone Number [facility] [address] [place] [address], [place] [phone] * Magnesium (09/16/2025 2:24 AM EDT) Magnesium 2.2 1.9 - 2.6 mg/dL LAB CHEMISTRY METHOD 09/16/2025 4:12 AM EDT [facility] Blood Venous blood specimen / Unknown Venipuncture / Unknown 09/16/2025 2:24 AM EDT 09/16/2025 3:41 AM EDT [facility] LAB BLOOD ORDERABLES Fin al Result Performing Organization Address [facility]/ZIP Ms de Phone Number [facility] [address] [place] [address], [place] [phone] * Lipase (09/16/2025 2:24 AM EDT) Lipase 44 13 - 75 unit/L LAB CHEMISTRY METHOD 09/16/2025 4:12 AM EDT [facility] Blood Venous blood specimen / Unknown Venipuncture / Unknown 09/16/2025 2:24 AM EDT 09/16/2025 3:41 AM EDT us Zuly WHITE LAB BLOOD ORDERABLES Fin al Result [facility] [address] [place] [address], * Comprehensive metabolic panel (09/16/2025 2:24 AM EDT) Sodium 138 133 - 145 mmol/L LAB CHEMISTRY METHOD 09/16/2025 4:12 AM T [facility] Potassium 3.7 3.5 - 5.5 mmol/L LAB CHEMISTRY METHOD 09/16/2025 4:12 AM T [facility] Chloride 105 96 - 110 mmol/L LAB CHEMISTRY METHOD 09/16/2025 4:12 AM [facility] CO2 29 21 - 32 mmol/L LAB CHEMISTRY METHOD 09/16/2025 4:12 AM [facility] Anion Gap 4 3 - 11 LAB CHEMISTRY METHOD 09/16/2025 4:12 AM [facility] Glucose 87 70 - 100 mg/dL LAB CHEMISTRY METHOD 09/16/2025 4:12 AM [facility] BUN 9 5 - 25 mg/dL LAB CHEMISTRY METHOD 09/16/2025 4:12 AM [facility] Creatinine 0.74 0.50 - 1.10 mg/dL LAB CHEMISTRY METHOD 09/16/2025 4:12 AM [facility] eGFR 104 >=60 mL/min/1. 73m2 LAB CHEMISTRY METHOD 09/16/2025 4:12 AM [facility] Comment:Calculation based on the Chronic Kidney Disease Epidemiology Collaboration (CKD-EPI) equation refit without adjustment for race. BUN/Creatinine Ratio 12.2 LAB CHEMISTRY METHOD 09/16/2025 4:12 AM [facility] Calcium 9.0 8.5 - 10.5 mg/dL LAB CHEMISTRY METHOD 09/16/2025 4:12 AM [facility] AST (SGOT) 12 10 - 42 unit/L LAB CHEMISTRY METHOD 09/16/2025 4:12 AM EDT [facility] ALT (SGPT) 19 10 - 60 unit/L LAB CHEMISTRY METHOD 09/16/2025 4:12 AM EDT [facility] Alkaline Phosphatase 83 42 - 121 unit/L LAB CHEMISTRY METHOD 09/16/2025 4:12 AM EDT [facility] Total Protein 7.2 6.0 - 8.0 g/dL LAB CHEMISTRY METHOD 09/16/2025 4:12 AM EDT [facility] Albumin 3.7 3.2 - 5.0 g/dL LAB CHEMISTRY METHOD 09/16/2025 4:12 AM EDT [facility] Total Bilirubin 0.3 0.0 - 1.4 mg/dL LAB CHEMISTRY METHOD 09/16/2025 4:12 AM EDT [facility] Blood Venous blood specimen / Unknown Venipuncture / Unknown 09/16/2025 2:24 AM EDT 09/16/2025 3:41 AM EDT us Zuly WHITE LAB BLOOD ORDERABLES Fin al Result [facility] [address] [place] [address], [place] [phone] * US Pelvis Transvaginal Non OB (09/11/2025 [...] Signed Date: 09/11/2025 17:18 ET Workstation ID: [id number] Transcribed By: Self Edit Transcribed Date: 09/11/2025 [...] Signed Date: 09/11/2025 17:18 ET Workstation ID: [id number] Transcribed By: Self Edit Transcribed Date: 09/11/2025 17:16 ET Estrella Morrell CNM IM US PROCEDURES Final Result * Trichomonas vaginalis antigen (08/23/2025 12:06 PM EDT) Trichomonas vaginalis Negative Negative 08/23/2025 5:23 PM EDT [facility] Swab Vaginal structure / Unknown Non-blood Collection / Unknown 08/23/2025 12:06 PM EDT 08/23/2025 4:07 PM EDT us Estrella TONEY LAB MICROBIOLOGY - GENERAL ORD ERABLES Final Result [facility] [address] [place] [address], [place] [phone] * Chlamydia trachomatis and Neisseria gonorrhoeae molecular study (08/23/2025 12:06 PM EDT) Neisseria gonorrhoeae PCR Negative Negative LAB MOLECULAR DIAGNOSTICS METHOD 08/24/2025 12:49 PM EDT [facility] Chlamydia trachomatis PCR Negative Negative LAB MOLECULAR DIAGNOSTICS METHOD 08/24/2025 12:49 PM EDT [facility] Swab Cervix uteri structure / Unknown Non-blood Collection / Unknown 08/23/2025 12:06 PM EDT 08/23/2025 4:07 PM EDT us Estrella TONEY LAB MICROBIOLOGY - GENERAL ORD ERABLES Final Result Performing Organization Address City/[facility]/ZIP Co de Phone Number [facility] [address] [place] [address], [place] [phone] * Wet prep, genital (08/23/2025 12:06 PM EDT) Clue Cells, Wet Prep Negative Negative 08/23/2025 5:11 PM EDT [facility] Yeast, Wet Prep Negative Negative 08/23/2025 5:11 PM EDT [facility] Trichomonas, Wet Prep Indeterminate Negative 08/23/2025 5:11 PM EDT [facility] Comment:Refer to Trichomonas antigen. Swab Vaginal structure / Unknown Non-blood Collection / Unknown 08/23/2025 12:06 PM EDT 08/23/2025 4:07 PM EDT us Estrella TONEY LAB MICROBIOLOGY - GENERAL ORD ERABLES Final Result Performing Organization Address City/[facility]/ZIP Co de Phone Number [facility] [address] [place] [address], [place] [phone] * Culture urine (08/23/2025 12:06 PM EDT) Pathologist [facility] Culture, Urine No growth 08/24/2025 7:48 AM EDT [facility] Urine Urine specimen obtained by clean catch procedure / Unknown Non-blood Collection / Unknown 08/23/2025 12:06 PM EDT 08/23/2025 4:07 PM EDT us Estrella TONEY LAB MICROBIOLOGY - GENERAL ORD ERABLES Final Result Performing Organization Address City/[facility]/ZIP Co de Phone Number [facility] [address] [place] [address], [place] [phone] * POC , urine manually resulted (08/23/2025 11:58 AM EDT) HCG, Ur POC Negative Negative POC hCG Int QC Pass? Yes Yes Urine Urine specimen obtained by clean catch procedure / Unknown 08/23/2025 11:58 AM EDT us Estrella Morrell [facility] POINT OF CARE TEST ENTER/EDIT ORDERABLES Final Result * (ABNORMAL) Lipid panel with reflex to direct LDL (05/16/2025 6:15 AM EDT) Cholesterol 117 0 - 200 mg/dL LAB CHEMISTRY METHOD 05/16/2025 7:35 AM EDT [facility] Triglycerides 99 0 - 150 mg/dL LAB CHEMISTRY METHOD 05/16/2025 7:35 AM EDT [facility] HDL 29(L) >=40 mg/dL LAB CHEMISTRY METHOD 05/16/2025 7:35 AM EDT [facility] LDL Calculated 68 0 - 100 mg/dL LAB CHEMISTRY METHOD 05/16/2025 7:35 AM EDT [facility] VLDL Cholesterol Duke 19.8 mg/dL LAB CHEMISTRY METHOD 05/16/2025 7:35 AM EDT [facility] Non HDL Chol. (LDL+VLDL) 88 <145 mg/dL LAB CHEMISTRY METHOD 05/16/2025 7:35 AM EDT [facility] Chol/HDL Ratio 4.0 0.0 - 4.4 LAB CHEMISTRY METHOD 05/16/2025 7:35 AM EDT [facility] Blood Venous blood specimen / Unknown Venipuncture / Unknown 05/16/2025 6:15 AM EDT 05/16/2025 6:43 AM EDT us Alison WHITE LAB BLOOD ORDERABLES Fi nal Result [facility] [address] [place] [address], * Pap smear (04/16/2023) 04/16/2023 Narrative HISTORICAL TESTING LAB RESULTING AGENCY - 04/23/2023 6:26 AM EDT [id number] THINPREP PAP, IMAGED: NEGATIVE FOR SQUAMOUS INTRAEPITHELIAL LESION AND MALIGNANCY . ABUNDANT ACUTE INFLAMMATORY CELLS ARE PRESENT. NETTIE MARX(ASCP) (CASE ELECTRONICALLY SIGNED 04 22 2023) RESULT OF APTIMA HIGH RISK HPV ASSAY: HIGH RISK HPV: NEGATIVE (SEROTYPES 16,18,31,33,35,39,45,51,52,56,58,59,66,68) COMPLETED ON 2023-04-17 ADEQUACY: SATISFACTORY ENDOCERVICAL/TRANSFORMATION ZONE COMPONENT PRESENT. SOURCE: THINPREP PAP HPV ANY DX: REFLEX 16 AND 18, CERVICAL, IMAGED CLINICAL INFORMATION: HPV ANY DIAGNOSIS. HORMONES, PAP HX NEGATIVE, LMP 03/23/23, [Z12.4] Ashley Wheatley [facility] CYTOLOGY ORDERABLES Final R esult HISTORICAL TESTING LAB RESULTING AGENCY from Last 3 Months or Most Recently Relevant to Health Maintenance Insurance MEDICAID - [place] Advance Directives * Full Code - Default [...] currently active code status orders. Care Teams Appraisal Manager Relationship Specialty Start Date End Date Анна Bonilla NP [address] [phone] PCP - General 09/16/25
--- OUTSIDE RECORDS SUMMARY | 2025-11-13 17:57 | XMS_ITS ---
Author Organization [facility] Address [address] [place] [address] Care Team Providers Care Name Role Phone Анна Bonilla Primary Care Provider [phone] Armida Singh RN Unavailable [phone] Estrlela Boyer Unavailable CM Complex Status:Enrolled (Active) Start date:09/18/2025 Enrollment date:10/02/2025 Enrollment reason:ADT Feed Overview ED- Pt went to [facility] ED on 09/16/25. Case Team Name Relationship Phone Armida Singh RN(Responsible Staff) Registered Nurse [phone] Continued Care and Services Coordination
== END 2025-11-13 16:13 ==
LOC: HO.HHCLNP 16:12
PROVIDERS: Visit Provider Registered Nurse
DX: R30.0 Dysuria (principal)
CPT/HCPCS: 87086